=== PATIENT | male | born 1960 | race Caucasian/White ===

== ENCOUNTER 2017-01-10 21:40 | Inpatient (IN) | payer OTHER ==
[~2017-01-10] VITALS: Ht 177.8 cm; Wt 67.1 kg
[~2017-01-10 21:40] MED LIST: CHLO25CA9 PO; CLON0.25 PO; CLOT15CR4 TOP; EPIN0.3A4 IJ; ESCI10TA PO; FOLI1TAB16 PO; HYDR-2666 PO; Hydrocodone/Acetaminophen PO; IBUP200T77 PO; IPRA4AER INH; KETO15CR TOP; LACO200T PO; LISI-334 PO; LORA-434 PO; LORA0.5T96 PO; Lisinopril PO; MAGN400T22 PO; Multivitamins,Therapeutic PO; PRED20TA PO; PROAIR HFA8.5 GM INH; TEMA7.5C PO; THIA100T4 PO; TOPI25TA32 PO; TRAM50TA PO
[2017-01-10 22:27] LABS: BASO % 1 % (0-3); EOS % 3 % (0-3); HEMATOCRIT 41.4 % (39.0-53.0); HEMOGLOBIN 13.8 g/dL (13.0-17.5); LYMPH # 3.3 x10^3/uL (1.0-4.8); LYMPH % 50 % (24-48); MEAN CORPUSCULAR HEMOGLOBIN 31 pg (25-35); MEAN CORPUSCULAR HGB CONC 33 g/dL (31-37); MEAN CORPUSCULAR VOLUME 94 fL (79-100); MONO % 14 % (0-9); NEUT % 33 % (31-73); PLATELET COUNT 454 x10^3/uL (140-400); RED BLOOD COUNT 4.41 x10^6/uL (4.30-5.70); RED CELL DISTRIBUTION WIDTH 16.1 % (11.5-14.5); WHITE BLOOD COUNT 6.6 x10^3/uL (4.0-11.0)
[2017-01-10 22:45] LABS: ANION GAP 14 (6-14); BLOOD UREA NITROGEN 8 mg/dL (8-26); CALCIUM 9.2 mg/dL (8.5-10.1); CARBON DIOXIDE 28 mmol/L (21-32); CHLORIDE 102 mmol/L (98-107); CREATININE 0.7 mg/dL (0.7-1.3); GFR 117.5; GLUCOSE 115 mg/dL (70-99); POTASSIUM 3.7 mmol/L (3.5-5.1); SODIUM 144 mmol/L (136-145)
[2017-01-10 22:49] LABS: ALK PHOS 139 U/L (46-116); ALT (SGPT) 68 U/L (16-63); AST (SGOT) 59 U/L (15-37); DIRECT BILIRUBIN < 0.1 mg/dL (0.0-0.2); TOTAL BILIRUBIN 0.2 mg/dL (0.2-1.0); TOTAL PROTEIN 8.1 g/dL (6.4-8.2)
[2017-01-10 22:50] LABS: ETHANOL 386 mg/dL (0-10)
[2017-01-10] MEDS ORDERED: MVI, ADULT NO.4 WITH VIT K 10 ML, FOLIC ACID 1 MG, THIAMINE 100 MG in IV RINGERS,LACTAT... IV ONE ×4 (23:00)
[2017-01-10] MEDS ORDERED: LORAZEPAM 1 MG TABLET. PO ONE (23:15)
[2017-01-10] MEDS ORDERED: LORAZEPAM 2 MG/ML VIAL IV ONE (23:15)
[2017-01-10] MEDS ORDERED: ONDANSETRON PF 4 MG/2 ML VIAL. IV PRN (23:45)
[2017-01-11] MEDS: MORPHINE SULFATE 2 MG/ML DISP.SYRIN. IV PRN ×8 (00:20→23:45)
--- NOTE | 2017-01-11 02:22 | PHYS DOC ---
Past Medical History Past Medical History: Alcoholism, GERD, High Cholesterol, Hypertension, Hepatitis, RI, Seizure, Other Additional Past Medical Histor: problems with alcohol Past Surgical History: Other Additional Past Surgical Histo: L)leg &hip fx with surgery. Alcohol Use: Heavy Drug Use: Heroin, Marijuana, Methamphetamine, Other Adult General Chief Complaint Chief Complaint: intoxication HPI HPI 56-year-old male presenting to the emergency department today intoxicated brought in by EMS. Chief complaint listed as fall however the patient denies head trauma neck pain or any injuries from her recent fall. He is currently intoxicated. He denies chest pain abdominal pain shortness of breath. Onset today. Location generalized. Duration intermittent. No alleviating factors. Review of systems is negative for chest pain abdominal pain nausea vomiting fevers or chills. All other review of systems is negative unless otherwise noted in history of present illness. Review of Systems Review of Systems SEE ABOVE. Current Medications Current Medications Current Medications Medications (Trade) Dose Ordered Sig/Corinne Start Time Stop Time Status Last Admin Dose Admin Multivitamins/ Minerals/Folic Acid/Thiamine HCl/ Lactated Ringer's (Infuvite Adult/ Iv Lactated Ringers) 1,011.2 ml @ 1,000 mls/ hr 1X ONCE 01/10/17 23:00 01/11/17 00:00 DC 01/10/17 22:27 1,000 MLS/HR Allergies Allergies Allergies Coded Allergies Type Severity Reaction Last Updated Verified No Known Drug Allergies 07/25/16 No Physical Exam Physical Exam Constitutional: Well developed, well nourished, no acute distress, non-toxic appearance. HENT: Normocephalic, atraumatic, bilateral external ears normal, oropharynx moist, no oral exudates, nose normal. [] Eyes: PERRLA, EOMI, conjunctiva normal, no discharge. [] Neck: Normal range of motion, no tenderness, supple, no stridor. Cardiovascular:Heart rate regular rhythm, no murmur Lungs & Thorax: Bilateral breath sounds clear to auscultation Abdomen: Bowel sounds normal, soft, no tenderness, no masses, no pulsatile masses. [] Skin: Warm, dry, no erythema, no rash. Back: No tenderness, no CVA tenderness. Extremities: No tenderness, no cyanosis, no clubbing, ROM intact, no edema. Neurologic: Alert and oriented to person, intoxicated, normal motor function, normal sensory function, no focal deficits noted. Psychologic: Affect normal, judgement normal, mood normal. [] Current Patient Data Vital Signs Vital Signs Date Time Temp Pulse Resp B/P Pulse Ox O2 Delivery O2 Flow Rate FiO2 01/10/17 21:40 97.9 113 11 141/99 93 Room Air 97.9 Lab Values Laboratory Tests Test 01/10/17 22:15 White Blood Count 6.6x10^3/uL (4.0-11.0) Red Blood Count 4.41x10^6/uL (4.30-5.70) Hemoglobin 13.8g/dL (13.0-17.5) Hematocrit 41.4% (39.0-53.0) Mean Corpuscular Volume 94fL (79-100) Mean Corpuscular Hemoglobin 31pg (25-35) Mean Corpuscular Hemoglobin Concent 33g/dL (31-37) Red Cell Distribution Width 16.1% (11.5-14.5) H Platelet Count 454x10^3/uL (140-400) #H Neutrophils (%) (Auto) 33% (31-73) Lymphocytes (%) (Auto) 50% (24-48) H Monocytes (%) (Auto) 14% (0-9) H Eosinophils (%) (Auto) 3% (0-3) Basophils (%) (Auto) 1% (0-3) Neutrophils # (Auto) 2.2x10^3uL (1.8-7.7) Lymphocytes # (Auto) 3.3x10^3/uL (1.0-4.8) Monocytes # (Auto) 0.9x10^3/uL (0.0-1.1) Eosinophils # (Auto) 0.2x10^3/uL (0.0-0.7) Basophils # (Auto) 0.0x10^3/uL (0.0-0.2) Sodium Level 144mmol/L (136-145) Potassium Level 3.7mmol/L (3.5-5.1) Chloride Level 102mmol/L (98-107) Carbon Dioxide Level 28mmol/L (21-32) Anion Gap 14 (6-14) Blood Urea Nitrogen 8mg/dL (8-26) Creatinine 0.7mg/dL (0.7-1.3) Estimated GFR (Cockcroft-Gault) 117.5 Glucose Level 115mg/dL (70-99) H Serum Osmolality 387mOsm/Kg (279-304) H Calcium Level 9.2mg/dL (8.5-10.1) Total Bilirubin 0.2mg/dL (0.2-1.0) Direct Bilirubin < 0.1mg/dL (0.0-0.2) Aspartate Amino Transferase (AST) 59U/L (15-37) H Alanine Aminotransferase (ALT) 68U/L (16-63) H Alkaline Phosphatase 139U/L (46-116) H Total Protein 8.1g/dL (6.4-8.2) Albumin 4.0g/dL (3.4-5.0) Lipase 339U/L (73-393) Salicylates Level 3.0mg/dL (2.8-20.0) Salicylate Last Dose Date Unk Salicylate Last Dose Time Unk Acetaminophen Level < 2mcg/ml (10-30) L Acetaminophen Last Dose Date Unk Acetaminophen Last Dose Time Unk Ethyl Alcohol Level 386mg/dL (0-10) H Laboratory Tests 01/10/17 22:15 Laboratory Tests 01/10/17 22:15 EKG EKG [] Radiology/Procedures Radiology/Procedures [] Course & Med Decision Making Course & Med Decision Making Pertinent Labs and Imaging studies reviewed. (See chart for details) 56-year-old male presenting the emergency department intoxicated. No evidence of head trauma or neck injury on physical exam. Vital signs showed mild tachycardia otherwise unremarkable. Physical exam was without any evidence of traumatic injury. The patient was mildly agitated in the emergency department. He was given Ativan. This improved his symptoms. He was then admitted for further evaluation workup and care. Dragon Disclaimer Dragon Disclaimer This electronic medical record was generated, in whole or in part, using a voice recognition dictation system. Departure Departure Impression: Primary Impression: Alcohol intoxication Disposition: ADMITTED INPATIENT Condition: STABLE Referrals: NO PCP (PCP) IRLANDA GARCIA MD Jan 11, 2017 02:22
[2017-01-11 03:09] VITALS: BP 129/78
[2017-01-11 07:00] VITALS: BP 147/95
[2017-01-11] MEDS: LORAZEPAM 1 MG TABLET. PO PRN ×2 (08:11→19:36)
[2017-01-11] MEDS ORDERED: ONDANSETRON PF 4 MG/2 ML VIAL. IV PRN (09:29)
[2017-01-11] MEDS ORDERED: IBUPROFEN 200 MG TABLET PO PRN (09:30)
[2017-01-11] MEDS ORDERED: CHLORDIAZEPOXIDE HCL 25 MG CAPSULE PO PRN (09:30)
[2017-01-11 09:31] LABS: BILIRUBIN,URINE NEGATIVE (NEG); GLUCOSE,URINE NEGATIVE (NEG); NITRITE,URINE NEGATIVE (NEG); PH,URINE 6.5; PROTEIN,URINE NEGATIVE (NEG-TRACE); UROBILINOGEN,URINE 0.2 mg/dL (0.2 mg/dL)
[2017-01-11 09:36] LABS: BARBITURATES NEG (NEG); BENZODIAZEPINES NEG (NEG); CANNABINOIDS POS (NEG); COCAINE NEG (NEG); METHADONE NEG (NEG); OPIATES POS (NEG); PHENCYCLIDINE NEG (NEG)
[2017-01-11 09:37] LABS: ETHANOL, URINE POS (NEG)
[2017-01-11 09:47] LABS: BACTERIA,URINE 0 /HPF (0-FEW); RBC,URINE 0 /HPF (0-2); SQUAMOUS EPITHELIAL CELL,UR OCC /LPF; WBC,URINE 0 /HPF (0-4)
[2017-01-11] MEDS: TOPIRAMATE 25 MG TABLET. PO SCH ×2 (10:06→20:38)
[2017-01-11] MEDS: MAGNESIUM OXIDE 400 MG TABLET PO SCH ×2 (10:06→20:38)
[2017-01-11] MEDS: LACOSAMIDE 200 MG TABLET PO SCH ×2 (10:06→17:36)
[2017-01-11] MEDS: THIAMINE 100 MG TABLET. PO SCH (10:06)
[2017-01-11] MEDS: ESCITALOPRAM 10 MG TABLET. PO SCH (10:06)
[2017-01-11] MEDS: HYDROCODONE/APAP 5/325MG TABLET. PO PRN (10:06)
[2017-01-11] MEDS: FOLIC ACID 1 MG TABLET PO SCH (10:06)
[2017-01-11] MEDS: MULTIVITAMIN with MINERAL TABLET. PO SCH (10:06)
[2017-01-11] MEDS: LISINOPRIL 40 MG TABLET. PO SCH (10:06)
[2017-01-11] MEDS: MVI, ADULT NO.4 WITH VIT K 10 ML, FOLIC ACID 1 MG, THIAMINE 100 MG in IV DEXTROSE 5 %-0... IV SCH ×4 (10:53)
[2017-01-11 11:00] VITALS: BP 123/91
[2017-01-11] MEDS: LORAZEPAM 2 MG/ML VIAL IV PRN ×3 (11:14→21:49)
--- NOTE | 2017-01-11 13:34 | PDOC1 ---
History and Physical Date of Admission Date of Admission DATE: 01/11/17 TIME: 13:30 Identification/Chief Complaint Chief Complaint etoh intox Source Source: Caregiver, Chart review, Patient History of Present Illness History of Present Illness 56 y.o known to us bec of frequent admits, maybe around 2x/month bec of alcohol intox or withdrawal. COmes in again for the same reasons, visibly shaking, etoh > 300s VS sinus tachy, BP ok, Bucket at bedside, sometimes gets emesis Relays stories about being in contact with a sW or case mx, but they never got back to him, KNown to [facility] ([facility]). Requests nicotine patch Past Medical History Cardiovascular: CHF, HTN Pulmonary: COPD Psych: Anxiety, Addictions, Depression Renal/: No pertinent hx Past Surgical History Past Surgical History: Total hip replacement, Total knee replacement, No pertinent history Family History Family History: Alcohol Abuse Social History Smoke: No ALCOHOL: heavy Drugs: Cocaine, Marijuana, Heroin Current Problem List Problem List Problems Medical Problems: (1) Alcohol intoxication Status: Acute Problems: Current Medications Current Medications Current Medications Multivitamins/ Minerals/Folic Acid/Thiamine HCl/ Lactated Ringer's (Infuvite Adult/ Iv Lactated Ringers) 1,011.2 ml @ 1,000 mls/ hr 1X ONCE IV Last administered on 01/10/17 22:27; Start 01/10/17 at 23:00; Stop 01/11/17 at 00:00 ; Status DC Lorazepam (Ativan) 1 mg 1X ONCE PO Last administered on 01/10/17 23:12; Start 01/10/17 at 23:15; Stop 01/10/17 at 23:15; Status DC Lorazepam (Ativan) 1 mg 1X ONCE IV ; Start 01/10/17 at 23:15; Stop 01/10/17 at 23:15; Status DC Ondansetron HCl (Zofran) 4 mg PRN Q8HRS PRN IV NAUSEA/VOMITING Last administered on 01/11/17 07:33; Start 01/10/17 at 23:45; Stop 01/11/17 at 09:30 ; Status DC Morphine Sulfate 2 mg PRN Q2HR PRN IV SEVERE PAIN Last administered on 07:32; Start 01/10/17 at 23:45; Stop 01/11/17 at 23:44 Lorazepam (Ativan) 1 mg PRN Q6HRS PRN PO ANXIETY / AGITATION Last administered on 01/11/17 08:11; Start 01/10/17 at 23:45 Ondansetron HCl (Zofran) 4 mg PRN Q6HRS PRN IV NAUSEA/VOMITING; Start 01/11/17 at 09:29 Chlordiazepoxide 25 mg 25 mg PRN Q6HRS PRN PO ANXIETY / AGITATION; Start at 09:30 Multivitamins/ Minerals/Folic Acid/Thiamine HCl/ Dextrose/Sodium Chloride ( Infuvite Adult/ Iv D5% - 1/2 NS) 1,011.2 ml @ 100 mls/ hr DAILY IV Last administered on 01/11/17 10:53; Start 01/11/17 at 11:00 Lorazepam (Ativan) 2 mg PRN Q4HRS PRN IV ANXIETY / AGITATION Last administered on 01/11/17 11:14; Start 01/11/17 at 09:30 Escitalopram Oxalate (Lexapro) 10 mg DAILY PO Last administered on 01/11/17 10 :06; Start 01/11/17 at 10:30 Folic Acid (Folic Acid) 1 mg DAILY PO Last administered on 01/11/17 10:06; Start 01/11/17 at 10:30 Ibuprofen (Motrin) 200 mg PRN Q6HRS PRN PO INFLAMMATION; Start 01/11/17 at 09: 30 Lacosamide (Vimpat) 200 mg [id number] PO Last administered on 01/11/17 10:06; Start 01/11/17 at 10:30 Lorazepam (Ativan) 0.5 mg TID PO ; Start 01/11/17 at 14:00 Magnesium Oxide (Magnesium Oxide) 400 mg BID PO Last administered on 01/11/17 10:06; Start 01/11/17 at 10:30 Thiamine HCl (Vitamin B-1) 100 mg DAILY PO Last administered on 01/11/17 10:06 ; Start 01/11/17 at 10:30 Topiramate (Topamax) 25 mg BID PO Last administered on 01/11/17 10:06; Start 01/11/17 at 10:30 Albuterol Sulfate (Ventolin Neb Soln) 2.5 mg PRN QID PRN NEB SHORTNESS OF BREATH; Start 01/11/17 at 10:00 Acetaminophen/ Hydrocodone Bitart (Lortab 5/325) 1 tab PRN Q6HRS PRN PO PAIN MODERATE Last administered on 01/11/17 10:06; Start 01/11/17 at 10:00 Lisinopril (Prinivil) 40 mg DAILY PO Last administered on 01/11/17 10:06; Start 01/11/17 at 10:30 Multivitamins/ Calcium (Thera M Plus) 1 tab DAILY PO Last administered on 10:06; Start 01/11/17 at 10:30 Active Scripts Active Clonazepam 0.25 Mg Tab.rapdis 0.75 Mg PO TID Ibuprofen 200 Mg Tablet 200 Mg PO PRN Q6HRS PRN Topamax (Topiramate) 25 Mg Tablet 1 Tab PO BID Vimpat (Lacosamide) 200 Mg Tablet 200 Mg PO [id number] Escitalopram Oxalate 10 Mg Tablet 10 Mg PO DAILY Ativan (Lorazepam) 0.5 Mg Tablet 0.5 Mg PO TID Epipen 2-Erickson (Epinephrine) 0.3 Mg/0.3 Ml Auto.injct 0.3 Mg IJ 1X PRN Vitamin B-1 (Thiamine Hcl) 100 Mg Tablet 100 Mg PO DAILY Mag-Oxide (Magnesium Oxide) 400 Mg Tablet 400 Mg PO BID [Lisinopril] 40 MG Tablet 40 Mg PO DAILY [Hydrocodone/Acetaminophen] 1 TAB Tablet 1 Tab PO PRN Q6HRS PRN Folic Acid 1 Mg Tablet 1 Mg PO DAILY [Multivitamins,Therapeutic] 1 TAB Tablet 1 Tab PO DAILY Reported Combivent Respimat Inhal (Ipratropium/Albuterol Sulfate) 4 Gm Aer.w.adap 1 Puff INH QIDPRN PRN Proair Hfa Inhaler (Albuterol Sulfate) 8.5 Gm Hfa.aer.ad 1 Puff INH QIDPRN PRN Allergies Allergies: Coded Allergies: No Known Drug Allergies (Unverified , 07/25/16) ROS General: YES: Other (shakes) PSYCHOLOGICAL ROS: No: Anxiety, Behavioral Disorder, Concentration difficultie , Decreased libido, Depression, Disorientation, Hallucinations, Hostility, Irritablity, Memory difficulties, Mood Swings, Obsessive thoughts, Other, Physical abuse, Sexual abuse, Sleep disturbances, Suicidal ideation HEENT: No: Epistaxis, Heacaches, Hearing change, Nasal congestion, Nasal discharge, Oral lesions, Other, Sinus pain, Sneezing, Snoring, Sore Throat, Tinnitus, Vertigo, Visual Changes, Vocal changes ALLERGY AND IMMUNOLOGY: No: Hives, Insect Bite Sensitivity, Itchy/Watery Eyes, Nasal Congestion, Other, Post Nasal Drip, Seasonal Allergies Hematological and Lymphatic: No: Bleeding Problems, Blood Clots, Blood Transfusions, Brusing, Night Sweats, Other, Pallor, Swollen Lymph Nodes Respiratory: No: Cough, Hemoptysis, Orthopnea, Other, Pleuritic Pain, SOB with excertion, Shortness of breath, Sputum Changes, Stridor, Tachypnea, Wheezing Gastrointestinal: Yes Abdominal Pain, Yes Nausea, Yes Vomiting Genitourinary: No , No , No , No , No , No , No , No Discharge, No Dysuria, No Flank Pain, No Frequency, No Hematuria, No Incontinence, No Other, No Pain, No Retention, No Urgency Musculoskeletal: No Gait Disturbance, No Joint Pain, No Joint Stiffness, No Joint Swelling, No Muscle Pain, No Muscular Weakness, No Other, No Pain In:, No Swelling In: Neurological: No Behavorial Changes, No Bowel/Bladder ControlChng, No Confusion , No Dizziness, No Gait Disturbance, No Headaches, No Impaired Coord/balance, No Memory Loss, No Numbness/Tingling, No Other, No Seizures, No Speech Problems , No Tremors, No Visual Changes, No Weakness Skin: No Acne, No Dry Skin, No Eczema, No Hair Changes, No Lumps, No Mole Changes, No Mottling, No Nail Changes, No Other, No Pruritus, No Rash, No Skin Lesion Changes Physical Exam General: Alert, Oriented X3, Cooperative, No acute distress, Other (shaking; unkempt) HEENT: PERRLA Lungs: Clear to auscultation Heart: S1S2 Cardiovascular: S1, S2 Breasts: Normal, Rt breast nml w/o mass, Lt breast nml w/o mass, Nipples normal Abdomen: Normal bowel sounds, Soft, No tenderness, No hepatosplenomegaly, No masses Extremities: No clubbing, No cyanosis, No edema, Normal pulses, No tenderness/ swelling Skin: No rashes, No breakdown, No significant lesion Neuro: Normal gait, Normal speech, Strength at 5/5 X4 ext, Normal tone, Sensation intact, Cranial nerves 3-12 NL, Reflexes 2+ Psych/Mental Status: Mental status NL, Mood NL Vitals Vitals Vital Signs Date Time Temp Pulse Resp B/P Pulse Ox O2 Delivery O2 Flow Rate FiO2 01/11/17 11:22 Room Air 01/11/17 11:00 98.0 86 123/91 92 98.0 01/11/17 03:44 16 Labs Labs Laboratory Tests Test 01/10/17 09:00 01/10/17 22:15 Urine Collection Type Unknown Urine Color Yellow Urine Clarity Clear Urine pH 6.5 Urine Specific Carlton 1.015 Urine Protein Negativemg/dL (NEG-TRACE) Urine Glucose (UA) Negativemg/dL (NEG) Urine Ketones (Stick) Negativemg/dL (NEG) Urine Blood Negative (NEG) Urine Nitrite Negative (NEG) Urine Bilirubin Negative (NEG) Urine Urobilinogen Dipstick 0.2mg/dL (0.2 mg/dL) Urine Leukocyte Esterase Negative (NEG) Urine RBC 0/HPF (0-2) Urine WBC 0/HPF (0-4) Urine Squamous Epithelial Cells Occ/LPF Urine Bacteria 0/HPF (0-FEW) Urine Hyaline Casts Moderate/HPF Urine Mucus Mod/LPF Urine Opiates Screen Pos (NEG) Urine Methadone Screen Neg (NEG) Urine Barbiturates Neg (NEG) Urine Phencyclidine Screen Neg (NEG) Urine Amphetamine/Methamphetamine Neg (NEG) Urine Benzodiazepines Screen Neg (NEG) Urine Cocaine Screen Neg (NEG) Urine Cannabinoids Screen Pos (NEG) Urine Ethyl Alcohol Pos (NEG) White Blood Count 6.6x10^3/uL (4.0-11.0) Red Blood Count 4.41x10^6/uL (4.30-5.70) Hemoglobin 13.8g/dL (13.0-17.5) Hematocrit 41.4% (39.0-53.0) Mean Corpuscular Volume 94fL (79-100) Mean Corpuscular Hemoglobin 31pg (25-35) Mean Corpuscular Hemoglobin Concent 33g/dL (31-37) Red Cell Distribution Width 16.1% (11.5-14.5) Platelet Count 454x10^3/uL (140-400) Neutrophils (%) (Auto) 33% (31-73) Lymphocytes (%) (Auto) 50% (24-48) Monocytes (%) (Auto) 14% (0-9) Eosinophils (%) (Auto) 3% (0-3) Basophils (%) (Auto) 1% (0-3) Neutrophils # (Auto) 2.2x10^3uL (1.8-7.7) Lymphocytes # (Auto) 3.3x10^3/uL (1.0-4.8) Monocytes # (Auto) 0.9x10^3/uL (0.0-1.1) Eosinophils # (Auto) 0.2x10^3/uL (0.0-0.7) Basophils # (Auto) 0.0x10^3/uL (0.0-0.2) Sodium Level 144mmol/L (136-145) Potassium Level 3.7mmol/L (3.5-5.1) Chloride Level 102mmol/L (98-107) Carbon Dioxide Level 28mmol/L (21-32) Anion Gap 14 (6-14) Blood Urea Nitrogen 8mg/dL (8-26) Creatinine 0.7mg/dL (0.7-1.3) Estimated GFR (Cockcroft-Gault) 117.5 Glucose Level 115mg/dL (70-99) Serum Osmolality 387mOsm/Kg (279-304) Calcium Level 9.2mg/dL (8.5-10.1) Total Bilirubin 0.2mg/dL (0.2-1.0) Direct Bilirubin < 0.1mg/dL (0.0-0.2) Aspartate Amino Transf (AST/SGOT) 59U/L (15-37) Alanine Aminotransferase (ALT/SGPT) 68U/L (16-63) Alkaline Phosphatase 139U/L (46-116) Total Protein 8.1g/dL (6.4-8.2) Albumin 4.0g/dL (3.4-5.0) Lipase 339U/L (73-393) Salicylates Level 3.0mg/dL (2.8-20.0) Salicylate Last Dose Date Unk Salicylate Last Dose Time Unk Acetaminophen Level < 2mcg/ml (10-30) Acetaminophen Last Dose Date Unk Acetaminophen Last Dose Time Unk Ethyl Alcohol Level 386mg/dL (0-10) Laboratory Tests Test 01/10/17 22:15 White Blood Count 6.6x10^3/uL (4.0-11.0) Red Blood Count 4.41x10^6/uL (4.30-5.70) Hemoglobin 13.8g/dL (13.0-17.5) Hematocrit 41.4% (39.0-53.0) Mean Corpuscular Volume 94fL (79-100) Mean Corpuscular Hemoglobin 31pg (25-35) Mean Corpuscular Hemoglobin Concent 33g/dL (31-37) Red Cell Distribution Width 16.1% (11.5-14.5) Platelet Count 454x10^3/uL (140-400) Neutrophils (%) (Auto) 33% (31-73) Lymphocytes (%) (Auto) 50% (24-48) Monocytes (%) (Auto) 14% (0-9) Eosinophils (%) (Auto) 3% (0-3) Basophils (%) (Auto) 1% (0-3) Neutrophils # (Auto) 2.2x10^3uL (1.8-7.7) Lymphocytes # (Auto) 3.3x10^3/uL (1.0-4.8) Monocytes # (Auto) 0.9x10^3/uL (0.0-1.1) Eosinophils # (Auto) 0.2x10^3/uL (0.0-0.7) Basophils # (Auto) 0.0x10^3/uL (0.0-0.2) Sodium Level 144mmol/L (136-145) Potassium Level 3.7mmol/L (3.5-5.1) Chloride Level 102mmol/L (98-107) Carbon Dioxide Level 28mmol/L (21-32) Anion Gap 14 (6-14) Blood Urea Nitrogen 8mg/dL (8-26) Creatinine 0.7mg/dL (0.7-1.3) Estimated GFR (Cockcroft-Gault) 117.5 Glucose Level 115mg/dL (70-99) Serum Osmolality 387mOsm/Kg (279-304) Calcium Level 9.2mg/dL (8.5-10.1) Total Bilirubin 0.2mg/dL (0.2-1.0) Direct Bilirubin < 0.1mg/dL (0.0-0.2) Aspartate Amino Transf (AST/SGOT) 59U/L (15-37) Alanine Aminotransferase (ALT/SGPT) 68U/L (16-63) Alkaline Phosphatase 139U/L (46-116) Total Protein 8.1g/dL (6.4-8.2) Albumin 4.0g/dL (3.4-5.0) Lipase 339U/L (73-393) Salicylates Level 3.0mg/dL (2.8-20.0) Salicylate Last Dose Date Unk Salicylate Last Dose Time Unk Acetaminophen Level < 2mcg/ml (10-30) Acetaminophen Last Dose Date Unk Acetaminophen Last Dose Time Unk Ethyl Alcohol Level 386mg/dL (0-10) VTE Prophylaxis Ordered VTE Prophylaxis Devices: Yes VTE Pharmacological Prophylaxi: Yes Assessment/Plan Assessment/Plan 1. Alcohol intox 2. MOd PCM 3. HX Drugs of abuse 4. Homelessness 5. Sinus tachy 6. MOd PCM\ PLAN: BAnana bag CIWA Benzos Nicotine patch Not ready to dc - visibly shaking and unstable gait dw RN and pt LEONARDO PARISH MD Jan 11, 2017 13:34
[2017-01-11] MEDS: LORAZEPAM 0.5 MG TABLET. PO SCH ×2 (14:00→20:38)
[2017-01-11] MEDS: NICOTINE 21MG PATCH. TD SCH (14:01)
[2017-01-11 15:00] VITALS: BP 132/89
[2017-01-11] MEDS: ALBUTEROL SULFATE 2.5 MG/3 ML NEBU. NEB PRN ×2 (16:43→19:59)
[2017-01-11 19:00] VITALS: BP 126/83
[2017-01-11 23:03] VITALS: BP 139/85
[2017-01-12 03:06] VITALS: BP 138/90
[2017-01-12] MEDS: HYDROCODONE/APAP 5/325MG TABLET. PO PRN ×3 (06:18→20:16)
[2017-01-12] MEDS: LACOSAMIDE 200 MG TABLET PO SCH ×2 (06:18→17:47)
[2017-01-12] MEDS: LORAZEPAM 2 MG/ML VIAL IV PRN ×2 (06:20→12:15)
[2017-01-12 07:00] VITALS: BP 139/102
[2017-01-12] MEDS: FOLIC ACID 1 MG TABLET PO SCH (10:35)
[2017-01-12] MEDS: LORAZEPAM 0.5 MG TABLET. PO SCH ×3 (10:35→20:16)
[2017-01-12] MEDS: ESCITALOPRAM 10 MG TABLET. PO SCH (10:36)
[2017-01-12] MEDS: MAGNESIUM OXIDE 400 MG TABLET PO SCH ×2 (10:36→20:56)
[2017-01-12] MEDS: MULTIVITAMIN with MINERAL TABLET. PO SCH (10:37)
[2017-01-12] MEDS: LISINOPRIL 40 MG TABLET. PO SCH (10:37)
[2017-01-12] MEDS: TOPIRAMATE 25 MG TABLET. PO SCH ×2 (10:37→20:16)
[2017-01-12] MEDS: THIAMINE 100 MG TABLET. PO SCH (10:38)
[2017-01-12] MEDS: NICOTINE 21MG PATCH. TD SCH (10:38)
[2017-01-12] MEDS: MVI, ADULT NO.4 WITH VIT K 10 ML, FOLIC ACID 1 MG, THIAMINE 100 MG in IV DEXTROSE 5 %-0... IV SCH ×4 (10:49)
--- NOTE | 2017-01-12 10:53 | PDOC ---
PROGRESS NOTES Chief Complaint Chief Complaint 1. Alcohol intox 2. MOd PCM 3. HX Drugs of abuse 4. Homelessness 5. Sinus tachy 6. MOd PCM\ History of Present Illness History of Present Illness still visibly shaking IV might have infiltrated Dw RN at bedside PLAN: COnt CIWA, benzos prn PT.OT as tolerated Not ready for dc yet Vitals Vitals Vital Signs Date Time Temp Pulse Resp B/P Pulse Ox O2 Delivery O2 Flow Rate FiO2 01/12/17 10:37 85 137/92 01/12/17 07:31 16 95 Room Air 2.0 01/12/17 07:00 99.7 99.7 Physical Exam General: Alert, Oriented X3, Cooperative, No acute distress, Other (shaking; unkempt) Lungs: Clear Abdomen: Normal bowel sounds, Soft, No tenderness, No hepatosplenomegaly, No masses Extremities: No clubbing, No cyanosis, No edema, Normal pulses, No tenderness/ swelling Skin: No rashes, No breakdown, No significant lesion Review of Systems Review of Systems shakes, pain all over, no cp, no soa, no emesis Assessment and Plan Assessmemt and Plan Problems Medical Problems: (1) Alcohol intoxication Status: Acute Problems: Comment Review of Relevant I have reviewed the following items keisha (where applicable) has been applied. Labs Laboratory Tests Test 01/10/17 22:15 White Blood Count 6.6x10^3/uL (4.0-11.0) Red Blood Count 4.41x10^6/uL (4.30-5.70) Hemoglobin 13.8g/dL (13.0-17.5) Hematocrit 41.4% (39.0-53.0) Mean Corpuscular Volume 94fL (79-100) Mean Corpuscular Hemoglobin 31pg (25-35) Mean Corpuscular Hemoglobin Concent 33g/dL (31-37) Red Cell Distribution Width 16.1% (11.5-14.5) Platelet Count 454x10^3/uL (140-400) Neutrophils (%) (Auto) 33% (31-73) Lymphocytes (%) (Auto) 50% (24-48) Monocytes (%) (Auto) 14% (0-9) Eosinophils (%) (Auto) 3% (0-3) Basophils (%) (Auto) 1% (0-3) Neutrophils # (Auto) 2.2x10^3uL (1.8-7.7) Lymphocytes # (Auto) 3.3x10^3/uL (1.0-4.8) Monocytes # (Auto) 0.9x10^3/uL (0.0-1.1) Eosinophils # (Auto) 0.2x10^3/uL (0.0-0.7) Basophils # (Auto) 0.0x10^3/uL (0.0-0.2) Sodium Level 144mmol/L (136-145) Potassium Level 3.7mmol/L (3.5-5.1) Chloride Level 102mmol/L (98-107) Carbon Dioxide Level 28mmol/L (21-32) Anion Gap 14 (6-14) Blood Urea Nitrogen 8mg/dL (8-26) Creatinine 0.7mg/dL (0.7-1.3) Estimated GFR (Cockcroft-Gault) 117.5 Glucose Level 115mg/dL (70-99) Serum Osmolality 387mOsm/Kg (279-304) Calcium Level 9.2mg/dL (8.5-10.1) Total Bilirubin 0.2mg/dL (0.2-1.0) Direct Bilirubin < 0.1mg/dL (0.0-0.2) Aspartate Amino Transf (AST/SGOT) 59U/L (15-37) Alanine Aminotransferase (ALT/SGPT) 68U/L (16-63) Alkaline Phosphatase 139U/L (46-116) Total Protein 8.1g/dL (6.4-8.2) Albumin 4.0g/dL (3.4-5.0) Lipase 339U/L (73-393) Salicylates Level 3.0mg/dL (2.8-20.0) Salicylate Last Dose Date Unk Salicylate Last Dose Time Unk Acetaminophen Level < 2mcg/ml (10-30) Acetaminophen Last Dose Date Unk Acetaminophen Last Dose Time Unk Ethyl Alcohol Level 386mg/dL (0-10) Medications Current Medications Multivitamins/ Minerals/Folic Acid/Thiamine HCl/ Lactated Ringer's (Infuvite Adult/ Iv Lactated Ringers) 1,011.2 ml @ 1,000 mls/ hr 1X ONCE IV Last administered on 01/10/17 22:27; Start 01/10/17 at 23:00; Stop 01/11/17 at 00:00 ; Status DC Lorazepam (Ativan) 1 mg 1X ONCE PO Last administered on 01/10/17 23:12; Start 01/10/17 at 23:15; Stop 01/10/17 at 23:15; Status DC Lorazepam (Ativan) 1 mg 1X ONCE IV ; Start 01/10/17 at 23:15; Stop 01/10/17 at 23:15; Status DC Ondansetron HCl (Zofran) 4 mg PRN Q8HRS PRN IV NAUSEA/VOMITING Last administered on 01/11/17 07:33; Start 01/10/17 at 23:45; Stop 01/11/17 at 09:30 ; Status DC Morphine Sulfate 2 mg PRN Q2HR PRN IV SEVERE PAIN Last administered on 23:45; Start 01/10/17 at 23:45; Stop 01/11/17 at 23:44; Status DC Lorazepam (Ativan) 1 mg PRN Q6HRS PRN PO ANXIETY / AGITATION Last administered on 01/11/17 19:36; Start 01/10/17 at 23:45; Stop 01/11/17 at 19:40; Status DC Ondansetron HCl (Zofran) 4 mg PRN Q6HRS PRN IV NAUSEA/VOMITING; Start 01/11/17 at 09:29 Chlordiazepoxide 25 mg 25 mg PRN Q6HRS PRN PO ANXIETY / AGITATION; Start at 09:30 Multivitamins/ Minerals/Folic Acid/Thiamine HCl/ Dextrose/Sodium Chloride ( Infuvite Adult/ Iv D5% - 1/2 NS) 1,011.2 ml @ 100 mls/ hr DAILY IV Last administered on 01/12/17 10:49; Start 01/11/17 at 11:00 Lorazepam (Ativan) 2 mg PRN Q4HRS PRN IV ANXIETY / AGITATION Last administered on 01/12/17 06:20; Start 01/11/17 at 09:30 Escitalopram Oxalate (Lexapro) 10 mg DAILY PO Last administered on 01/12/17 10 :36; Start 01/11/17 at 10:30 Folic Acid (Folic Acid) 1 mg DAILY PO Last administered on 01/12/17 10:35; Start 01/11/17 at 10:30 Ibuprofen (Motrin) 200 mg PRN Q6HRS PRN PO INFLAMMATION; Start 01/11/17 at 09: 30 Lacosamide (Vimpat) 200 mg [id number] PO Last administered on 01/12/17 06:18; Start 01/11/17 at 10:30 Lorazepam (Ativan) 0.5 mg TID PO Last administered on 01/12/17 10:35; Start at 14:00 Magnesium Oxide (Magnesium Oxide) 400 mg BID PO Last administered on 01/12/17 10:36; Start 01/11/17 at 10:30 Thiamine HCl (Vitamin B-1) 100 mg DAILY PO Last administered on 01/12/17 10:38 ; Start 01/11/17 at 10:30 Topiramate (Topamax) 25 mg BID PO Last administered on 01/12/17 10:37; Start 01/11/17 at 10:30 Albuterol Sulfate (Ventolin Neb Soln) 2.5 mg PRN QID PRN NEB SHORTNESS OF BREATH Last administered on 01/11/17 19:59; Start 01/11/17 at 10:00 Acetaminophen/ Hydrocodone Bitart (Lortab 5/325) 1 tab PRN Q6HRS PRN PO PAIN MODERATE Last administered on 01/12/17 06:18; Start 01/11/17 at 10:00 Lisinopril (Prinivil) 40 mg DAILY PO Last administered on 01/12/17 10:37; Start 01/11/17 at 10:30 Multivitamins/ Calcium (Thera M Plus) 1 tab DAILY PO Last administered on 10:37; Start 01/11/17 at 10:30 Nicotine (Nicoderm Cq 21mg) 1 patch DAILY TD Last administered on 01/12/17 10: 38; Start 01/11/17 at 14:00 Active Scripts Active Clonazepam 0.25 Mg Tab.rapdis 0.75 Mg PO TID Ibuprofen 200 Mg Tablet 200 Mg PO PRN Q6HRS PRN Topamax (Topiramate) 25 Mg Tablet 1 Tab PO BID Vimpat (Lacosamide) 200 Mg Tablet 200 Mg PO [id number] Escitalopram Oxalate 10 Mg Tablet 10 Mg PO DAILY Ativan (Lorazepam) 0.5 Mg Tablet 0.5 Mg PO TID Epipen 2-Erickson (Epinephrine) 0.3 Mg/0.3 Ml Auto.injct 0.3 Mg IJ 1X PRN Vitamin B-1 (Thiamine Hcl) 100 Mg Tablet 100 Mg PO DAILY Mag-Oxide (Magnesium Oxide) 400 Mg Tablet 400 Mg PO BID [Lisinopril] 40 MG Tablet 40 Mg PO DAILY [Hydrocodone/Acetaminophen] 1 TAB Tablet 1 Tab PO PRN Q6HRS PRN Folic Acid 1 Mg Tablet 1 Mg PO DAILY [Multivitamins,Therapeutic] 1 TAB Tablet 1 Tab PO DAILY Reported Combivent Respimat Inhal (Ipratropium/Albuterol Sulfate) 4 Gm Aer.w.adap 1 Puff INH QIDPRN PRN Proair Hfa Inhaler (Albuterol Sulfate) 8.5 Gm Hfa.aer.ad 1 Puff INH QIDPRN PRN Vitals/I & O Vital Sign - Last 24 Hours 01/11/17 01/11/17 01/11/17 01/11/17 11:00 14:01 15:00 16:14 Temp 98.0 98.9 98.0 98.9 Pulse 86 81 B/P 123/91 132/89 Pulse Ox 92 92 O2 Delivery Room Air Room Air Nasal Cannula Room Air O2 Flow Rate 2.0 01/11/17 01/11/17 01/11/17 01/11/17 16:43 19:00 19:40 19:46 Temp 99.7 99.7 Pulse 91 Resp 19 18 B/P 126/83 Pulse Ox 91 92 O2 Delivery Room Air Nasal Cannula Room Air Room Air O2 Flow Rate 2.0 2.0 01/11/17 01/11/17 01/11/17 01/11/17 19:59 20:00 21:50 22:49 Resp 18 18 Pulse Ox 86 92 92 O2 Delivery Room Air Nasal Cannula Room Air Room Air O2 Flow Rate 2.0 2.0 01/11/17 01/11/17 01/12/17 01/12/17 23:03 23:45 03:06 06:18 Temp 99.0 99.5 99.0 99.5 Pulse 110 80 Resp 20 18 20 18 B/P 139/85 138/90 Pulse Ox 95 95 95 O2 Delivery Nasal Cannula Room Air Nasal Cannula Room Air O2 Flow Rate 2.0 2.0 2.0 01/12/17 01/12/17 01/12/17 07:00 07:31 10:37 Temp 99.7 99.7 Pulse 88 85 Resp 20 16 B/P 139/102 137/92 Pulse Ox 94 95 O2 Delivery Nasal Cannula Room Air O2 Flow Rate 2.0 2.0 Intake and Output 01/11/17 01/11/17 01/12/17 15:00 23:00 07:00 Intake Total 600 ml Output Total 800 ml 1475 ml Balance -800 ml -875 ml LEONARDO PARISH MD Jan 12, 2017 10:53
[2017-01-12 11:45] VITALS: BP 137/92
[2017-01-12 15:00] VITALS: BP 133/83
[2017-01-12 19:00] VITALS: BP 126/77
[2017-01-12 23:00] VITALS: BP 140/71
[2017-01-13] MEDS: LACOSAMIDE 200 MG TABLET PO SCH ×2 (06:04→16:33)
[2017-01-13 07:00] VITALS: BP 122/87
[2017-01-13] MEDS: MAGNESIUM OXIDE 400 MG TABLET PO SCH ×2 (09:18→20:43)
[2017-01-13] MEDS: FOLIC ACID 1 MG TABLET PO SCH (09:19)
[2017-01-13] MEDS: ESCITALOPRAM 10 MG TABLET. PO SCH (09:19)
[2017-01-13] MEDS: THIAMINE 100 MG TABLET. PO SCH (09:19)
[2017-01-13] MEDS: MULTIVITAMIN with MINERAL TABLET. PO SCH (09:19)
[2017-01-13] MEDS: TOPIRAMATE 25 MG TABLET. PO SCH ×2 (09:19→20:43)
[2017-01-13] MEDS: LISINOPRIL 40 MG TABLET. PO SCH (09:20)
[2017-01-13] MEDS: NICOTINE 21MG PATCH. TD SCH (09:20)
[2017-01-13] MEDS: LORAZEPAM 0.5 MG TABLET. PO SCH ×3 (09:20→20:43)
[2017-01-13 11:00] VITALS: BP 145/70
--- NOTE | 2017-01-13 12:22 | PDOC ---
PROGRESS NOTES Chief Complaint Chief Complaint 1. Alcohol intox 2. MOd PCM 3. HX Drugs of abuse 4. Homelessness 5. Sinus tachy 6. MOd PCM\ History of Present Illness History of Present Illness still visibly shaking IV might have infiltrated Dw RN at bedside PLAN: COnt CIWA, benzos prn PT.OT as tolerated Not ready for dc yet Vitals Vitals Vital Signs Date Time Temp Pulse Resp B/P Pulse Ox O2 Delivery O2 Flow Rate FiO2 01/13/17 09:20 83 122/87 01/13/17 08:00 Room Air 01/13/17 07:00 96.6 18 93 96.6 01/12/17 16:16 2.0 Physical Exam General: Alert, Oriented X3, Cooperative, No acute distress, Other (shaking; unkempt) Lungs: Clear Abdomen: Normal bowel sounds, Soft, No tenderness, No hepatosplenomegaly, No masses Extremities: No clubbing, No cyanosis, No edema, Normal pulses, No tenderness/ swelling Skin: No rashes, No breakdown, No significant lesion Labs LABS Laboratory Tests Test 01/12/17 16:24 Glucose (Fingerstick) 111mg/dL (70-99) Assessment and Plan Assessmemt and Plan Problems Medical Problems: (1) Alcohol intoxication Status: Acute Problems: Comment Review of Relevant I have reviewed the following items keisha (where applicable) has been applied. Labs Laboratory Tests Test 01/12/17 16:24 Glucose (Fingerstick) 111mg/dL (70-99) Laboratory Tests Test 01/12/17 16:24 Glucose (Fingerstick) 111mg/dL (70-99) Medications Current Medications Multivitamins/ Minerals/Folic Acid/Thiamine HCl/ Lactated Ringer's (Infuvite Adult/ Iv Lactated Ringers) 1,011.2 ml @ 1,000 mls/ hr 1X ONCE IV Last administered on 01/10/17 22:27; Start 01/10/17 at 23:00; Stop 01/11/17 at 00:00 ; Status DC Lorazepam (Ativan) 1 mg 1X ONCE PO Last administered on 01/10/17 23:12; Start 01/10/17 at 23:15; Stop 01/10/17 at 23:15; Status DC Lorazepam (Ativan) 1 mg 1X ONCE IV ; Start 01/10/17 at 23:15; Stop 01/10/17 at 23:15; Status DC Ondansetron HCl (Zofran) 4 mg PRN Q8HRS PRN IV NAUSEA/VOMITING Last administered on 01/11/17 07:33; Start 01/10/17 at 23:45; Stop 01/11/17 at 09:30 ; Status DC Morphine Sulfate 2 mg PRN Q2HR PRN IV SEVERE PAIN Last administered on 23:45; Start 01/10/17 at 23:45; Stop 01/11/17 at 23:44; Status DC Lorazepam (Ativan) 1 mg PRN Q6HRS PRN PO ANXIETY / AGITATION Last administered on 01/11/17 19:36; Start 01/10/17 at 23:45; Stop 01/11/17 at 19:40; Status DC Ondansetron HCl (Zofran) 4 mg PRN Q6HRS PRN IV NAUSEA/VOMITING; Start 01/11/17 at 09:29 Chlordiazepoxide 25 mg 25 mg PRN Q6HRS PRN PO ANXIETY / AGITATION Last administered on 01/12/17 18:01; Start 01/11/17 at 09:30 Multivitamins/ Minerals/Folic Acid/Thiamine HCl/ Dextrose/Sodium Chloride ( Infuvite Adult/ Iv D5% - 1/2 NS) 1,011.2 ml @ 100 mls/ hr DAILY IV Last administered on 01/12/17 10:49; Start 01/11/17 at 11:00; Stop 01/13/17 at 05:00 ; Status DC Lorazepam (Ativan) 2 mg PRN Q4HRS PRN IV ANXIETY / AGITATION Last administered on 01/12/17 12:15; Start 01/11/17 at 09:30 Escitalopram Oxalate (Lexapro) 10 mg DAILY PO Last administered on 01/13/17 09 :19; Start 01/11/17 at 10:30 Folic Acid (Folic Acid) 1 mg DAILY PO Last administered on 01/13/17 09:19; Start 01/11/17 at 10:30 Ibuprofen (Motrin) 200 mg PRN Q6HRS PRN PO INFLAMMATION; Start 01/11/17 at 09: 30 Lacosamide (Vimpat) 200 mg [id number] PO Last administered on 01/13/17 06:04; Start 01/11/17 at 10:30 Lorazepam (Ativan) 0.5 mg TID PO Last administered on 01/13/17 09:20; Start at 14:00 Magnesium Oxide (Magnesium Oxide) 400 mg BID PO Last administered on 01/13/17 09:18; Start 01/11/17 at 10:30 Thiamine HCl (Vitamin B-1) 100 mg DAILY PO Last administered on 01/13/17 09:19 ; Start 01/11/17 at 10:30 Topiramate (Topamax) 25 mg BID PO Last administered on 01/13/17 09:19; Start 01/11/17 at 10:30 Albuterol Sulfate (Ventolin Neb Soln) 2.5 mg PRN QID PRN NEB SHORTNESS OF BREATH Last administered on 01/11/17 19:59; Start 01/11/17 at 10:00 Acetaminophen/ Hydrocodone Bitart (Lortab 5/325) 1 tab PRN Q6HRS PRN PO PAIN MODERATE Last administered on 01/12/17 20:16; Start 01/11/17 at 10:00 Lisinopril (Prinivil) 40 mg DAILY PO Last administered on 01/13/17 09:20; Start 01/11/17 at 10:30 Multivitamins/ Calcium (Thera M Plus) 1 tab DAILY PO Last administered on 09:19; Start 01/11/17 at 10:30 Nicotine (Nicoderm Cq 21mg) 1 patch DAILY TD Last administered on 01/13/17 09: 20; Start 01/11/17 at 14:00 Active Scripts Active Clonazepam 0.25 Mg Tab.rapdis 0.75 Mg PO TID Ibuprofen 200 Mg Tablet 200 Mg PO PRN Q6HRS PRN Topamax (Topiramate) 25 Mg Tablet 1 Tab PO BID Vimpat (Lacosamide) 200 Mg Tablet 200 Mg PO [id number] Escitalopram Oxalate 10 Mg Tablet 10 Mg PO DAILY Ativan (Lorazepam) 0.5 Mg Tablet 0.5 Mg PO TID Epipen 2-Erickson (Epinephrine) 0.3 Mg/0.3 Ml Auto.injct 0.3 Mg IJ 1X PRN Vitamin B-1 (Thiamine Hcl) 100 Mg Tablet 100 Mg PO DAILY Mag-Oxide (Magnesium Oxide) 400 Mg Tablet 400 Mg PO BID [Lisinopril] 40 MG Tablet 40 Mg PO DAILY [Hydrocodone/Acetaminophen] 1 TAB Tablet 1 Tab PO PRN Q6HRS PRN Folic Acid 1 Mg Tablet 1 Mg PO DAILY [Multivitamins,Therapeutic] 1 TAB Tablet 1 Tab PO DAILY Reported Combivent Respimat Inhal (Ipratropium/Albuterol Sulfate) 4 Gm Aer.w.adap 1 Puff INH QIDPRN PRN Proair Hfa Inhaler (Albuterol Sulfate) 8.5 Gm Hfa.aer.ad 1 Puff INH QIDPRN PRN Vitals/I & O Vital Sign - Last 24 Hours 01/12/17 01/12/17 01/12/17 01/12/17 15:00 15:16 16:16 19:00 Temp 98.2 98.6 98.2 98.6 Pulse 91 114 Resp 16 20 22 B/P 133/83 126/77 Pulse Ox 94 97 97 95 O2 Delivery Room Air Room Air Room Air Room Air O2 Flow Rate 2.0 2.0 01/12/17 01/12/17 01/13/17 01/13/17 21:20 23:00 07:00 08:00 Temp 97.8 96.6 97.8 96.6 Pulse 77 83 Resp 20 18 18 B/P 140/71 122/87 Pulse Ox 94 93 O2 Delivery Room Air Room Air Room Air 01/13/17 09:20 Pulse 83 B/P 122/87 Intake and Output 01/12/17 01/12/17 01/13/17 15:00 23:00 07:00 Intake Total 200 ml 550 ml Output Total 200 ml Balance 200 ml 550 ml -200 ml LEONARDO PARISH MD Jan 13, 2017 12:21
[2017-01-13 15:00] VITALS: BP 136/85
[2017-01-13] MEDS: HYDROCODONE/APAP 5/325MG TABLET. PO PRN (16:34)
[2017-01-13 19:00] VITALS: BP 126/82
[2017-01-13 23:00] VITALS: BP 129/87
[2017-01-14 03:00] VITALS: BP 128/83
[2017-01-14] MEDS: HYDROCODONE/APAP 5/325MG TABLET. PO PRN ×2 (04:09→12:50)
[2017-01-14] MEDS: LORAZEPAM 2 MG/ML VIAL IV PRN ×2 (04:09→12:49)
[2017-01-14] MEDS: LACOSAMIDE 200 MG TABLET PO SCH (06:01)
[2017-01-14] MEDS: ALBUTEROL SULFATE 2.5 MG/3 ML NEBU. NEB PRN ×3 (07:34→15:00)
[2017-01-14 07:40] VITALS: BP 123/75
[2017-01-14] MEDS: FOLIC ACID 1 MG TABLET PO SCH (08:54)
[2017-01-14] MEDS: MAGNESIUM OXIDE 400 MG TABLET PO SCH (08:54)
[2017-01-14] MEDS: TOPIRAMATE 25 MG TABLET. PO SCH (08:54)
[2017-01-14] MEDS: NICOTINE 21MG PATCH. TD SCH (08:54)
[2017-01-14] MEDS: ESCITALOPRAM 10 MG TABLET. PO SCH (08:54)
[2017-01-14] MEDS: LORAZEPAM 0.5 MG TABLET. PO SCH (08:54)
[2017-01-14] MEDS: MULTIVITAMIN with MINERAL TABLET. PO SCH (08:54)
[2017-01-14] MEDS: THIAMINE 100 MG TABLET. PO SCH (08:54)
[2017-01-14] MEDS: LISINOPRIL 40 MG TABLET. PO SCH (08:55)
[2017-01-14 11:44] VITALS: BP 113/78
--- NOTE | 2017-01-14 13:50 | PDOC3 ---
Discharge Summary Visit Information Date of Admission: Jan 10, 2017 Date of Discharge: Jan 14, 2017 Admitting Diagnosis: EtOH intox Final Diagnosis 1. Alcohol intox, Metabolic encephalopathy 2. Mod PCM 3. Drugs abuse 4. Homelessness 5. Sinus tachy 6. EtOH withdrawl, Problems Medical Problems: (1) Acute encephalopathy Status: Acute (2) Alcohol intoxication Status: Acute (3) Alcohol withdrawal Status: Acute Brief Hospital Course Allergies Allergies Coded Allergies Type Severity Reaction Last Updated Verified No Known Drug Allergies 07/25/16 No Vital Signs Vital Signs Date Time Temp Pulse Resp B/P Pulse Ox O2 Delivery O2 Flow Rate FiO2 01/14/17 12:50 20 Room Air 01/14/17 11:44 98.5 89 113/78 98 98.5 01/14/17 05:09 2.0 Lab Results Laboratory Tests Test 01/12/17 16:24 Glucose (Fingerstick) 111mg/dL (70-99) Brief Hospital Course Mr. Hemphill is a 56 old admitted in EtOH intox, encephalopathy then withdrew from EtOH, seems to malinger, HR 85 when he is shaking on day 3 of hospitalization, multi substance abuse and non-compliance Discharge Information Condition at Discharge: Improved Follow Up: Weeks Disposition/Orders: D/C to Home Scheduled ([Multivitamins,Therapeutic]) 1 TAB PO DAILY ([Lisinopril]) 40 MG PO DAILY Clonazepam (Clonazepam) 0.75 MG PO TID Escitalopram Oxalate (Escitalopram Oxalate) 10 MG PO DAILY Folic Acid (Folic Acid) 1 MG PO DAILY Lacosamide (Vimpat) 200 MG PO [id number] Lorazepam (Ativan) 0.5 MG PO TID Magnesium Oxide (Mag-Oxide) 400 MG PO BID Thiamine Hcl (Vitamin B-1) 100 MG PO DAILY Topiramate (Topamax) 1 TAB PO BID Scheduled PRN ([Hydrocodone/Acetaminophen]) 1 TAB PO PRN Q6HRS PRN PRN PAIN MODERATE Albuterol Sulfate (Proair Hfa Inhaler) 1 PUFF INH QIDPRN PRN PRN SHORTNESS OF BREATH (Reported) Epinephrine (Epipen 2-Erickson) 0.3 MG IJ 1X PRN PRN ANAPHYLAXIS Ibuprofen (Ibuprofen) 200 MG PO PRN Q6HRS PRN PRN INFLAMMATION Ipratropium/Albuterol Sulfate (Combivent Respimat Inhal) 1 PUFF INH QIDPRN PRN PRN SHORTNESS OF BREATH (Reported) BOB SANTANA MD Jan 14, 2017 13:50
[2017-01-14 15:44] VITALS: BP 112/67
== END 2017-01-14 17:40 | disposition home or self-care (01) | DRG 896 ==
LOC: ER 21:40 → 5 NORTH 23:03 → OBSVTOIN 23:03
PROVIDERS: ADMIT Internal Medicine; ATTEND Internal Medicine
DX: F10.239 Alcohol dependence with withdrawal, unspecified (principal); G93.41 Metabolic encephalopathy; E44.0 Moderate protein-calorie malnutrition; F10.229 Alcohol dependence with intoxication, unspecified; K21.9 Gastro-esophageal reflux disease without esophagitis; E78.00 Pure hypercholesterolemia, unspecified; R56.9 Unspecified convulsions; K75.9 Inflammatory liver disease, unspecified; I11.0 Hypertensive heart disease with heart failure; F32.9 Major depressive disorder, single episode, unspecified; F41.9 Anxiety disorder, unspecified; I50.9 Heart failure, unspecified; J44.9 Chronic obstructive pulmonary disease, unspecified; Y90.8 Blood alcohol level of 240 mg/100 ml or more; Z96.649 Presence of unspecified artificial hip joint; Z96.659 Presence of unspecified artificial knee joint; F12.90 Cannabis use, unspecified, uncomplicated; F11.90 Opioid use, unspecified, uncomplicated; Z79.899 Other long term (current) drug therapy; Z59.0 Homelessness; Z91.19 Patient's noncompliance with other medical treatment and regimen; Z79.82 Long term (current) use of aspirin; Z68.21 Body mass index [BMI] 21.0-21.9, adult
CPT/HCPCS: 36415; 80048; 80076; 81001; 82947; 83690; 83930; 85027; 94250; 94640; 96365; G0480; G0481; G6038; J2060; J2270; J2405; J7120; 80196; 99285-25

== ENCOUNTER 2017-03-11 20:39 | Emergency (ER) | payer OTHER ==
[2017-03-06 11:00] VITALS: BP 108/72
== END 2017-03-11 20:44 | disposition left against medical advice (07) ==
LOC: ER 20:39
DX: R53.1 Weakness (principal); R53.83 Other fatigue; Z53.21 Procedure and treatment not carried out due to patient leaving prior to being seen by health care provider

== ENCOUNTER 2017-03-21 13:47 | Emergency (ER) | payer OTHER ==
[~2017-03-21] VITALS: Ht 162.6 cm; Wt 67.1 kg
--- NOTE | 2017-03-21 13:55 | PHYS DOC ---
Past Medical History Past Medical History: Alcoholism, GERD, High Cholesterol, Hypertension, Hepatitis, [place], Seizure, Other Additional Past Medical Histor: problems with alcohol Past Surgical History: Other Additional Past Surgical Histo: L)leg &hip fx with surgery. poor historian Alcohol Use: Heavy Drug Use: Heroin, Marijuana, Methamphetamine, Other Adult General Chief Complaint Chief Complaint: SUICDAL IDEATION HPI HPI Patient is a 56 year old male presenting to the emergency department for evaluation of obvious intoxication with agitation. The reason he is in the emergency department is because he called the nurse help line about a rash on his ankle and he was not satisfied with the nurses answers and he said that he was going to kill the nurse and then he said he was going to kill himself so the nurse help line and then called 911 and they came and picked him up. Patient denies any suicidal or homicidal ideation to me rather he says that he just wants to go home. He has no complaints at all and he is insistent on going home but he is able to be talked down at this time to relax and staying in the bed. He admitted doing 2 g of heroin into the nurse over the phone and then he obviously smells of alcohol as well. He is alert and oriented 1 and is moving all his extremities and there is no obvious outward signs of trauma. Review of Systems Review of Systems Unable to obtain as patient does not want to answer medical questions Current Medications Current Medications Current Medications Medications (Trade) Dose Ordered Sig/Corinne Start Time Stop Time Status Last Admin Dose Admin Lorazepam (Ativan) 2 mg 1X ONCE 03/21/17 14:00 03/21/17 14:01 DC 03/21/17 14:30 2 MG Allergies Allergies Allergies Coded Allergies Type Severity Reaction Last Updated Verified No Known Drug Allergies 07/25/16 No Physical Exam Physical Exam Constitutional: Well developed, well nourished, no acute distress, non-toxic appearance. [] HENT: Normocephalic, atraumatic, bilateral external ears normal, oropharynx moist, no oral exudates, nose normal. [] Eyes: PERRLA, EOMI, conjunctiva normal, no discharge. [] Neck: Normal range of motion, no tenderness, supple, no stridor. [] Cardiovascular:Heart rate regular rhythm, no murmur [] Lungs & Thorax: Bilateral breath sounds clear to auscultation [] Abdomen: Bowel sounds normal, soft, no tenderness, no masses, no pulsatile masses. [] Skin: Warm, dry, no erythema, no rash. [] Back: No tenderness, no CVA tenderness. [] Extremities: No tenderness, no cyanosis, no clubbing, ROM intact, no edema. [] Neurologic: Alert and oriented X 1, moves all extremities Current Patient Data Vital Signs Vital Signs Date Time Temp Pulse Resp B/P Pulse Ox O2 Delivery O2 Flow Rate FiO2 03/21/17 13:54 98.5 87 18 133/88 98 Room Air 98.5 Lab Values Laboratory Tests Test 03/21/17 13:50 White Blood Count 6.9x10^3/uL (4.0-11.0) Red Blood Count 4.10x10^6/uL (4.30-5.70) L Hemoglobin 12.9g/dL (13.0-17.5) L Hematocrit 39.0% (39.0-53.0) Mean Corpuscular Volume 95fL (79-100) Mean Corpuscular Hemoglobin 32pg (25-35) Mean Corpuscular Hemoglobin Concent 33g/dL (31-37) Red Cell Distribution Width 14.0% (11.5-14.5) Platelet Count 249x10^3/uL (140-400) Neutrophils (%) (Auto) 40% (31-73) Lymphocytes (%) (Auto) 46% (24-48) Monocytes (%) (Auto) 11% (0-9) H Eosinophils (%) (Auto) 2% (0-3) Basophils (%) (Auto) 1% (0-3) Neutrophils # (Auto) 2.7x10^3uL (1.8-7.7) Lymphocytes # (Auto) 3.2x10^3/uL (1.0-4.8) Monocytes # (Auto) 0.8x10^3/uL (0.0-1.1) Eosinophils # (Auto) 0.1x10^3/uL (0.0-0.7) Basophils # (Auto) 0.1x10^3/uL (0.0-0.2) Sodium Level 143mmol/L (136-145) Potassium Level 3.8mmol/L (3.5-5.1) Chloride Level 103mmol/L (98-107) Carbon Dioxide Level 25mmol/L (21-32) Anion Gap 15 (6-14) H Blood Urea Nitrogen 11mg/dL (8-26) Creatinine 0.9mg/dL (0.7-1.3) Estimated GFR (Cockcroft-Gault) 87.9 BUN/Creatinine Ratio 12 (6-20) Glucose Level 98mg/dL (70-99) Calcium Level 8.9mg/dL (8.5-10.1) Total Bilirubin 0.2mg/dL (0.2-1.0) Aspartate Amino Transferase (AST) 62U/L (15-37) H Alanine Aminotransferase (ALT) 72U/L (16-63) H Alkaline Phosphatase 89U/L (46-116) Total Protein 8.0g/dL (6.4-8.2) Albumin 4.0g/dL (3.4-5.0) Albumin/Globulin Ratio 1.0 (1.0-1.7) Lipase 155U/L (73-393) Salicylates Level < 2.8mg/dL (2.8-20.0) L Salicylate Last Dose Date Salicylate Last Dose Time Acetaminophen Level 6.1mcg/ml (10-30) L Acetaminophen Last Dose Date Acetaminophen Last Dose Time Ethyl Alcohol Level 298mg/dL (0-10) H Laboratory Tests 03/21/17 13:50 Laboratory Tests 03/21/17 13:50 EKG EKG [] Radiology/Procedures Radiology/Procedures [] Course & Med Decision Making Course & Med Decision Making Patient has polysubstance abuse and is altered at this time so he will be continued to be monitored. Patient became somewhat agitated so he was given 2 mg of IM Ativan and was observed for almost 2 hours. Patient continues to assist on going home as he feels fine and is not suicidal or homicidal. He ate some food and drink some water and was more compliant and agreeable. He is now alert and oriented 3 and is able to ambulate with a steady gait. Patient will be discharged per his request as I have no reason to hold him against his will as he is alert and oriented 3 and can make his own medical decisions. Patient discharged in stable condition. Dragon Disclaimer Dragon Disclaimer This electronic medical record was generated, in whole or in part, using a voice recognition dictation system. Departure Departure Impression: Primary Impression: Acute encephalopathy Additional Impressions: ETOH abuse Drug abuse Transaminitis Disposition: HOME, SELF-CARE Condition: GOOD Referrals: NO PCP (PCP) Patient Instructions: Polysubstance Abuse Problem Qualifiers JESUS SELF DO Mar 21, 2017 13:55
[2017-03-21] MEDS ORDERED: LORAZEPAM 2 MG/ML VIAL. IV ONE (14:00)
[2017-03-21 14:07] LABS: BASO # 0.1 x10^3/uL (0.0-0.2); BASO % 1 % (0-3); EOS % 2 % (0-3); HEMOGLOBIN 12.9 g/dL (13.0-17.5); LYMPH # 3.2 x10^3/uL (1.0-4.8); LYMPH % 46 % (24-48); MEAN CORPUSCULAR HEMOGLOBIN 32 pg (25-35); MEAN CORPUSCULAR HGB CONC 33 g/dL (31-37); MEAN CORPUSCULAR VOLUME 95 fL (79-100); MONO % 11 % (0-9); NEUT % 40 % (31-73); PLATELET COUNT 249 x10^3/uL (140-400); WHITE BLOOD COUNT 6.9 x10^3/uL (4.0-11.0)
[2017-03-21 14:52] LABS: CALCIUM 8.9 mg/dL (8.5-10.1); CREATININE 0.9 mg/dL (0.7-1.3); GFR 87.9; POTASSIUM 3.8 mmol/L (3.5-5.1)
[2017-03-21 14:58] LABS: TOTAL BILIRUBIN 0.2 mg/dL (0.2-1.0)
[2017-03-21 15:01] LABS: ETHANOL 298 mg/dL (0-10)
[2017-03-21 15:20] VITALS: BP 110/68
== END 2017-03-21 15:34 | disposition home or self-care (01) ==
LOC: ER 13:47
DX: G93.40 Encephalopathy, unspecified (principal); F10.10 Alcohol abuse, uncomplicated; R74.0 Nonspecific elevation of levels of transaminase and lactic acid dehydrogenase [LDH]; E78.00 Pure hypercholesterolemia, unspecified; I10 Essential (primary) hypertension; K21.9 Gastro-esophageal reflux disease without esophagitis; F12.10 Cannabis abuse, uncomplicated; F15.10 Other stimulant abuse, uncomplicated; F11.10 Opioid abuse, uncomplicated; I25.2 Old myocardial infarction; Y90.9 Presence of alcohol in blood, level not specified
CPT/HCPCS: 36415; 80053; 83690; 85027; 96374; 99284; G0480; G6038; J2060; 80196

== ENCOUNTER 2017-03-25 19:12 | Emergency (ER) | payer OTHER ==
[~2017-03-25] VITALS: Ht 167.6 cm; Wt 68.0 kg
--- NOTE | 2017-03-25 19:51 | PHYS DOC ---
Past Medical History Past Medical History: Alcoholism, GERD, High Cholesterol, Hypertension, Hepatitis, [place], Seizure, Other Additional Past Medical Histor: suicidal Past Surgical History: Other Additional Past Surgical Histo: L)leg &hip fx with surgery. poor historian Alcohol Use: Heavy Drug Use: Heroin, Marijuana, Methamphetamine, Other Adult General Chief Complaint Chief Complaint: ALCOHOL INTOXICATION HPI HPI Patient is a 56 year old male brought to the ED by ambulance after he was found at the bottom of some stairs by a bystander, no one saw him fall, unclear whether he actually fell down the stairs or whether he just fell at the bottom of the stairs. The patient is not able to contribute to the history. He doesn't know what happened. He doesn't know how he got here to the ED. He states "I'm a heroin addict and a drunk, I need to go get a drink and shoot up". Patient states that his head hurts, his neck hurts, and "I think I broke a rib". Patient states he needs to go get a drink to get rid of the shakes. Patient adamantly does not want to be here, does not want an IV or any blood drawn. Patient does not have a family here, he does not have know how he got here. He states he will walk home but he does not know his address. Review of Systems Review of Systems Review of systems is felt to be unreliable because the patient is not answering questions reliably. Current Medications Current Medications Current Medications Medications (Trade) Dose Ordered Sig/Corinne Start Time Stop Time Status Last Admin Dose Admin Multivitamins/ Folic Acid/ Thiamine HCl/ Dextrose/Lactated Ringer's (Infuvite Adult/ Iv D5%-Lr) 1,011.2 ml @ 1,000 mls/ hr 1X ONCE 03/25/17 20:00 03/25/17 20:00 DC Ondansetron HCl (Zofran Odt) 4 mg 1X ONCE 03/25/17 20:30 03/25/17 20:31 DC Allergies Allergies Allergies Coded Allergies Type Severity Reaction Last Updated Verified No Known Drug Allergies 07/25/16 No Physical Exam Physical Exam Constitutional: Well developed, well nourished, no acute distress, non-toxic appearance. Intermittent tremors of the upper extremities, seem to improve or go away when the patient is talking. Patient does smell of alcohol but he does not appear to be terribly acutely intoxicated, he is speaking without slurring his speech, he seems to be more uncooperative than simply intoxicated. HENT: Normocephalic, atraumatic, bilateral external ears normal, oropharynx moist, no oral exudates, nose normal. No sign of head, scalp, or facial trauma to observation or palpation. Eyes: PERRLA, EOMI, conjunctiva normal, no discharge. [] Neck: Normal range of motion, supple, no stridor. Tender to palpation of the entire cervical spine, not localized, no bony point tenderness. Cardiovascular:Heart rate regular rhythm, no murmur [] Lungs & Thorax: Bilateral breath sounds clear to auscultation [] Abdomen: Bowel sounds normal, soft, no tenderness, no masses, no pulsatile masses. [] Skin: Warm, dry, no erythema, no rash. [] Back: Everywhere I touch the patient he said he is tender, no point tenderness, no deformity, no skin injury overlying, no crepitance. Extremities: No tenderness, no cyanosis, no clubbing, ROM intact, no edema. [] Neurologic: Alert, normal motor function, normal sensory function, no focal deficits noted. [] Current Patient Data Vital Signs Vital Signs Date Time Temp Pulse Resp B/P Pulse Ox O2 Delivery O2 Flow Rate FiO2 03/25/17 20:00 88 24 139/88 94 Room Air 03/25/17 19:23 97.9 97.9 EKG EKG [] Radiology/Procedures Radiology/Procedures CT scan of the head and cervical spine read by the radiologist negative for acute findings. [] Course & Med Decision Making Course & Med Decision Making Pertinent Labs and Imaging studies reviewed. (See chart for details) I initially ordered labs, banana bag, and CT scan of the head and neck. The patient is quite argumentative and does not want anything done. He wants to be discharged. He has no one here to pick him up and he doesn't even know his address so I'm reluctant to discharge him without at least a CT scan of his head and neck, since I won't be able to give discharge instructions to a reliable person. However, he is alert, he may be at his baseline, he isn't not too intoxicated in appearance to be able to make his own decisions. I initially negotiated with him that we will hold off on the labs and IV per we will get CT scans and he may be willing to do that. CT scan of the head and cervical spine read by the radiologist. No acute findings. The patient was offered dinner tray but refused to eat anything. He remained alert, talkative, intermittently saying that he is ready to leave. Patient was ambulated in the ED with the assistance of nursing staff. He ambulates steadily and I believe he is stable for discharge. Although he has alcohol on board, he is alert, he is able to verbalize a plan to walk home, he knows the location of his address. It's after dark and the patient does have alcohol on board so we elected to give him a cab pass to get home safely. [] Dragon Disclaimer Dragon Disclaimer This electronic medical record was generated, in whole or in part, using a voice recognition dictation system. Departure Departure Impression: Primary Impression: Alcohol intoxication Disposition: 01 HOME, SELF-CARE Condition: STABLE Referrals: NO PCP (PCP) Patient Instructions: Alcohol Intoxication, [id number] Additional Instructions: When you get home, stay there, you are intoxicated and you should not be outside or doing anything else that would put you in danger. Drink plenty of fluids. BRIDGET EGAN MD March 25, 2017 19:51
[2017-03-25 20:00] VITALS: BP 139/88
[2017-03-25] MEDS ORDERED: MULTIVIT INFUSN,ADULT 4,VIT K 10 ML, FOLIC ACID 1 MG, THIAMINE 100 MG in IV DEXTROSE 5%... IV ONE (20:00)
[2017-03-25] MEDS ORDERED: ONDANSETRON ODT 4 MG TAB.RAPDIS. ONE (20:12)
[2017-03-25] MEDS ORDERED: ONDANSETRON ODT 4 MG TAB.RAPDIS. PO ONE ×2 (20:15→20:30)
--- NOTE | 2017-03-25 20:37 | RAD ---
PROCEDURE Noncontrast head CT Noncontrast cervical spine CT HISTORY Fall. Head injury. Neck pain. Difficulty holding still. TECHNIQUE Noncontrast axial cross sectional CT scanning of the head was performed. Noncontrast helical CT scanning of the cervical spine was performed. Multiplanar 2D reconstructions were generated. The patient had difficulty holding still. One or more of the following individualized dose reduction techniques were utilized for this study: 1. Automated exposure control 2. Adjustment of the mA and/or kV according to patient size 3. Use of iterative reconstruction technique COMPARISON Head CT dated March 15, 2017. FINDINGS HEAD CT: no acute intracranial hemorrhage or midline shift or mass-effect or extra-axial fluid collection is seen. The ventricles are stable. No new focal hypodense area or sulci effacement is seen to indicate an acute infarct or edema radiographically. No skull fracture or pneumocephalus is seen. No opacification of the mastoid sinuses or the paranasal sinuses is seen. The paranasal sinuses are not completely seen in this study. CERVICAL SPINE CT: No acute fracture or anterolisthesis or discitis or osteolytic process is seen. Degenerative disc space narrowing and endplate spurring is seen at C6-7. There is less prominent degenerative disc space narrowing and endplate spurring at C5-6. IMPRESSION HEAD CT: No acute intracranial abnormality is seen. CERVICAL SPINE CT: No acute fracture. Electronically signed by: Ramone Francois MD (March 25, 2017 20:36:22)
== END 2017-03-25 20:48 | disposition home or self-care (01) ==
LOC: ER 19:15
DX: F10.229 Alcohol dependence with intoxication, unspecified (principal); R51 Headache; M54.2 Cervicalgia; K21.9 Gastro-esophageal reflux disease without esophagitis; E78.00 Pure hypercholesterolemia, unspecified; I10 Essential (primary) hypertension; I25.2 Old myocardial infarction; F12.10 Cannabis abuse, uncomplicated; F15.10 Other stimulant abuse, uncomplicated; F11.10 Opioid abuse, uncomplicated; W18.39XA Other fall on same level, initial encounter; Y93.89 Activity, other specified; Y92.89 Other specified places as the place of occurrence of the external cause; Y99.8 Other external cause status
CPT/HCPCS: 70450; 72125; 99284; Q0162

== ENCOUNTER 2017-03-27 19:21 | Emergency (ER) | payer OTHER ==
[~2017-03-27] VITALS: Ht 170.2 cm; Wt 68.0 kg
[2017-03-27] MEDS ORDERED: HALOPERIDOL LACTATE 5 MG/ML VIAL. ONE (19:29)
[2017-03-27] MEDS ORDERED: HALOPERIDOL LACTATE 5 MG/ML VIAL. IM ONE (19:45)
[2017-03-27 20:00] LABS: BILIRUBIN,URINE NEGATIVE (NEG); GLUCOSE,URINE NEGATIVE (NEG); NITRITE,URINE NEGATIVE (NEG); PH,URINE 5.5; PROTEIN,URINE 30 mg/dL (NEG-TRACE); UROBILINOGEN,URINE 0.2 mg/dL (0.2 mg/dL)
[2017-03-27 20:08] LABS: BARBITURATES NEG (NEG); BENZODIAZEPINES POS (NEG); CANNABINOIDS POS (NEG); COCAINE POS (NEG); METHADONE NEG (NEG); OPIATES NEG (NEG); PHENCYCLIDINE NEG (NEG)
[2017-03-27 20:12] LABS: BACTERIA,URINE 0 /HPF (0-FEW); RBC,URINE 0 /HPF (0-2); WBC,URINE 0 /HPF (0-4)
[2017-03-27 20:24] LABS: BASO # 0.1 x10^3/uL (0.0-0.2); BASO % 3 % (0-3); EOS % 6 % (0-3); HEMATOCRIT 40.8 % (39.0-53.0); HEMOGLOBIN 13.9 g/dL (13.0-17.5); LYMPH # 2.6 x10^3/uL (1.0-4.8); LYMPH % 56 % (24-48); MEAN CORPUSCULAR HEMOGLOBIN 32 pg (25-35); MEAN CORPUSCULAR HGB CONC 34 g/dL (31-37); MEAN CORPUSCULAR VOLUME 93 fL (79-100); MONO % 13 % (0-9); NEUT % 23 % (31-73); PLATELET COUNT 260 x10^3/uL (140-400); RED CELL DISTRIBUTION WIDTH 13.7 % (11.5-14.5); WHITE BLOOD COUNT 4.7 x10^3/uL (4.0-11.0)
[2017-03-27 20:41] LABS: CALCIUM 8.5 mg/dL (8.5-10.1); CREATININE 0.8 mg/dL (0.7-1.3); GFR 100.7; POTASSIUM 3.6 mmol/L (3.5-5.1)
[2017-03-27 20:49] LABS: ALBUMIN 3.9 g/dL (3.4-5.0); DIRECT BILIRUBIN 0.2 mg/dL (0.0-0.2); TOTAL BILIRUBIN 0.3 mg/dL (0.2-1.0); TOTAL PROTEIN 8.4 g/dL (6.4-8.2)
[2017-03-27 20:51] LABS: ETHANOL 383 mg/dL (0-10)
--- NOTE | 2017-03-27 20:51 | PHYS DOC ---
Past Medical History Past Medical History: Alcoholism, GERD, High Cholesterol, Hypertension, Hepatitis, [place], Seizure, Other Additional Past Medical Histor: suicidal Past Surgical History: Other Additional Past Surgical Histo: L)leg &hip fx with surgery. poor historian Alcohol Use: Heavy Drug Use: Heroin, Marijuana, Methamphetamine, Other Adult General Chief Complaint Chief Complaint: ALCOHOL INTOXICATION HPI HPI 56-year-old male presenting to the emergency department after falling today while at [facility]. He currently denies any pain and is wanting to leave however he was unable to answer orientation questions. He was combative and appeared intoxicated. A code lucaino was called at that time. The patient was placed in restraints due to concern for the patient's safety. He denies any chest pain shortness of breath headache. He denies hitting his head. Onset today. Location generalized. Duration intermittent. No alleviating factors. Review of systems is negative for chest pain shortness of breath nausea vomiting abdominal pain fevers or chills. All other review of systems is negative unless otherwise noted in history of present illness. Review of Systems Review of Systems SEE ABOVE. Current Medications Current Medications Current Medications Medications (Trade) Dose Ordered Sig/Corinne Start Time Stop Time Status Last Admin Dose Admin Haloperidol Lactate (Haldol) 5 mg 1X ONCE 03/27/17 19:45 03/27/17 19:46 DC 03/27/17 19:30 5 MG Lorazepam (Ativan) 2 mg 1X ONCE 03/27/17 19:45 03/27/17 19:46 DC 03/27/17 19:30 2 MG Allergies Allergies Allergies Coded Allergies Type Severity Reaction Last Updated Verified No Known Drug Allergies 07/25/16 No Physical Exam Physical Exam Constitutional: Well developed, well nourished, no acute distress, non-toxic appearance. HENT: Normocephalic, no abrasions ecchymosis or lacerations of the head or neck. , bilateral external ears normal, oropharynx moist, no oral exudates, nose normal. [] Eyes: PERRLA, EOMI, conjunctiva normal, no discharge. Neck: Normal range of motion, no tenderness, supple, no stridor. [] Cardiovascular:Heart rate regular rhythm, no murmur Lungs & Thorax: Bilateral breath sounds clear to auscultation [] Abdomen: Bowel sounds normal, soft, no tenderness, no masses, no pulsatile masses. [] Skin: Warm, dry, no erythema, no rash. Back: No tenderness, no CVA tenderness. [] Extremities: No tenderness, no cyanosis, no clubbing, ROM intact, no edema. [] Neurologic: Alert and oriented to person, normal motor function, normal sensory function, no focal deficits noted. Symmetric facial smile. Pupils are equal round and reactive. 5/5 strength in all extremities. Psychologic: Affect normal, judgement normal, mood normal. [] Current Patient Data Vital Signs Vital Signs Date Time Temp Pulse Resp B/P (MAP) Pulse Ox O2 Delivery O2 Flow Rate FiO2 03/27/17 19:55 97.7 96 16 161/97 (118) 92 Room Air 97.7 Lab Values Laboratory Tests Test 03/27/17 19:47 03/27/17 20:00 Urine Collection Type Unknown Urine Color Yellow Urine Clarity Clear Urine pH 5.5 Urine Specific [place] 1.015 Urine Protein 30 mg/dL (NEG-TRACE) Urine Glucose (UA) Negative mg/dL (NEG) Urine Ketones (Stick) Negative mg/dL (NEG) Urine Blood Negative (NEG) Urine Nitrite Negative (NEG) Urine Bilirubin Negative (NEG) Urine Urobilinogen Dipstick 0.2 mg/dL (0.2 mg/dL) Urine Leukocyte Esterase Negative (NEG) Urine RBC 0 /HPF (0-2) Urine WBC 0 /HPF (0-4) Urine Squamous Epithelial Cells None /LPF Urine Bacteria 0 /HPF (0-FEW) Urine Hyaline Casts Many /HPF Urine Mucus Marked /LPF Urine Opiates Screen Neg (NEG) Urine Methadone Screen Neg (NEG) Urine Barbiturates Neg (NEG) Urine Phencyclidine Screen Neg (NEG) Urine Amphetamine/Methamphetamine Neg (NEG) Urine Benzodiazepines Screen Pos (NEG) Urine Cocaine Screen Pos (NEG) Urine Cannabinoids Screen Pos (NEG) Urine Ethyl Alcohol Pos (NEG) White Blood Count 4.7 x10^3/uL (4.0-11.0) Red Blood Count 4.40 x10^6/uL (4.30-5.70) Hemoglobin 13.9 g/dL (13.0-17.5) Hematocrit 40.8 % (39.0-53.0) Mean Corpuscular Volume 93 fL (79-100) Mean Corpuscular Hemoglobin 32 pg (25-35) Mean Corpuscular Hemoglobin Concent 34 g/dL (31-37) Red Cell Distribution Width 13.7 % (11.5-14.5) Platelet Count 260 x10^3/uL (140-400) Neutrophils (%) (Auto) 23 % (31-73) L Lymphocytes (%) (Auto) 56 % (24-48) H Monocytes (%) (Auto) 13 % (0-9) H Eosinophils (%) (Auto) 6 % (0-3) H Basophils (%) (Auto) 3 % (0-3) Neutrophils # (Auto) 1.1 x10^3uL (1.8-7.7) L Lymphocytes # (Auto) 2.6 x10^3/uL (1.0-4.8) Monocytes # (Auto) 0.6 x10^3/uL (0.0-1.1) Eosinophils # (Auto) 0.3 x10^3/uL (0.0-0.7) Basophils # (Auto) 0.1 x10^3/uL (0.0-0.2) Laboratory Tests 03/27/17 20:00 EKG EKG [] Radiology/Procedures Radiology/Procedures [] Course & Med Decision Making Course & Med Decision Making Pertinent Labs and Imaging studies reviewed. (See chart for details) [] 56-year-old male presenting to the emergency department intoxicated and agitated requiring sedation and restraints. Blood work obtained. The patient was given Ativan and Haldol the emergency department. CBC unremarkable. Urinalysis unremarkable. Urine drug screen shows positive for benzodiazepines cocaine THC and ethanol. We called our psychiatric assessment team to evaluate the patient. Head CT was ordered. Patient was signed out to Dr. Simpson at 9 PM to follow-up on head CT and psychiatric assessment team's recommendations. Patient was stable upon signout. Dragon Disclaimer Dragon Disclaimer This electronic medical record was generated, in whole or in part, using a voice recognition dictation system. IRLANDA GARCIA MD March 27, 2017 20:51
[2017-03-27 21:53] VITALS: BP 142/100
--- NOTE | 2017-03-27 21:53 | RAD ---
PROCEDURE Head CT without contrast Cervical spine CT without contrast HISTORY Confusion. Neck pain. History of a fall with head injury. TECHNIQUE Noncontrast axial cross sectional CT scanning of the head was performed. Noncontrast helical CT scanning of the cervical spine was performed. Multiplanar 2D reconstructions were generated. One or more of the following individualized dose reduction techniques were utilized for this study: 1. Automated exposure control 2. Adjustment of the mA and/or kV according to patient size 3. Use of iterative reconstruction technique COMPARISON March 25, 2017. FINDINGS Head CT: No acute intracranial hemorrhage or midline shift or mass-effect or extra-axial fluid collection is seen. The ventricles are stable. No new focal hypodense area or sulci effacement is seen to indicate an acute infarct or edema radiographically. No skull fracture or pneumocephalus is seen. No opacification of the mastoid sinuses or the paranasal sinuses is seen. The maxillary sinuses are not completely seen in this study. Cervical spine CT: No acute fracture or anterolisthesis or discitis or osteolytic process or prevertebral soft tissue swelling is evident. There is severe degenerative disc space narrowing and moderate degenerative endplate spurring at C6-7. There is moderate AP dimensional spinal canal stenosis at this level and the AP dimension measures about 7 millimeters in the midline. Moderate degenerative disc space narrowing and endplate spurring is seen at C5-6. Mild spinal canal stenosis is seen at this level. Due to streaking artifact, it is difficult to evaluate for focal disc protrusion. IMPRESSION Head CT: No acute intracranial abnormality is seen. Cervical spine CT: No acute fracture. Degenerative cervical spondylosis at C5-6 and C6-7 with spinal canal stenosis more prominent at C6-7. Electronically signed by: Ramone Francois MD (March 27, 2017 21:53:14)
== END 2017-03-27 22:48 | disposition home or self-care (01) ==
LOC: ER 19:21
DX: F19.10 Other psychoactive substance abuse, uncomplicated (principal); R45.1 Restlessness and agitation; K21.9 Gastro-esophageal reflux disease without esophagitis; E78.00 Pure hypercholesterolemia, unspecified; I10 Essential (primary) hypertension; I25.2 Old myocardial infarction; F12.10 Cannabis abuse, uncomplicated; F15.10 Other stimulant abuse, uncomplicated
CPT/HCPCS: 36415; 70450; 72125; 80048; 80076; 80305; 80320; 81001; 83690; 83930; 85027; 96372; 99285; G6038; J1630; J2060; G0480; G0481; 80196

== ENCOUNTER 2017-04-16 12:24 | Inpatient (IN) | payer OTHER ==
[~2017-04-16] VITALS: Ht 167.6 cm; Wt 45.4 kg
[2017-04-16] MEDS ORDERED: ONDANSETRON PF 4 MG/2 ML VIAL. ONE (12:56)
[2017-04-16] MEDS ORDERED: LORazepam 1 MG TABLET PO ONE (13:00)
[2017-04-16] MEDS ORDERED: MULTIVIT INFUSN,ADULT 4,VIT K 10 ML, FOLIC ACID 1 MG, THIAMINE 100 MG in IV DEXTROSE 5%... IV ONE (13:00)
[2017-04-16] MEDS ORDERED: ONDANSETRON PF 4 MG/2 ML VIAL. IV ONE (13:00)
[2017-04-16 13:07] LABS: BASO # 0.1 x10^3/uL (0.0-0.2); BASO % 4 % (0-3); EOS % 1 % (0-3); HEMATOCRIT 46.5 % (39.0-53.0); HEMOGLOBIN 15.2 g/dL (13.0-17.5); LYMPH # 1.5 x10^3/uL (1.0-4.8); LYMPH % 37 % (24-48); MEAN CORPUSCULAR HEMOGLOBIN 31 pg (25-35); MEAN CORPUSCULAR HGB CONC 33 g/dL (31-37); MEAN CORPUSCULAR VOLUME 95 fL (79-100); MONO % 10 % (0-9); NEUT % 49 % (31-73); PLATELET COUNT 143 x10^3/uL (140-400); RED BLOOD COUNT 4.89 x10^6/uL (4.30-5.70); RED CELL DISTRIBUTION WIDTH 15.3 % (11.5-14.5)
--- NOTE | 2017-04-16 13:12 | RAD ---
Indication chest pain. A single view of the chest was obtained and is compared to an examination 17 days earlier. The heart and pulmonary vessels remain normal. The lungs are clear. There has not been a significant change compared to the prior study. IMPRESSION: No acute finding. No significant change
[2017-04-16 13:19] LABS: CALCIUM 8.9 mg/dL (8.5-10.1); GFR 77.9; POTASSIUM 3.7 mmol/L (3.5-5.1)
[2017-04-16 13:25] LABS: ALBUMIN 4.5 g/dL (3.4-5.0); DIRECT BILIRUBIN 0.3 mg/dL (0.0-0.2); TOTAL BILIRUBIN 0.6 mg/dL (0.2-1.0); TOTAL PROTEIN 8.6 g/dL (6.4-8.2)
--- NOTE | 2017-04-16 13:25 | PHYS DOC ---
Past Medical History Past Medical History: Alcoholism, GERD, High Cholesterol, Hypertension, Hepatitis, [place], Seizure, Other Additional Past Medical Histor: suicidal,ETOH ABUSE Past Surgical History: Other Additional Past Surgical Histo: L)leg &hip fx with surgery. poor historian Additional Information: 0.5 TO 1 PPD Alcohol Use: Heavy Additional Information: DRINKS 1/2 GALLON A DAY Drug Use: Cocaine, Heroin, Marijuana, Methamphetamine, Other Adult General Chief Complaint Chief Complaint: ALCOHOL INTOXICATION HPI HPI 56-year-old male presenting to the emergency department after EMS found him lying down outside of his apartment. He reports last drinking on Thursday he states that he has mild chest pain that he describes a sharp worse with deep breaths intermittent and without alleviating factors. He has mild nausea with one episode of vomiting. And he has generally shortness of breath over the past few days. He denies head injury or head trauma. Review of systems is negative for abdominal pain fevers chills cough or recent fall or traumatic injury. All other review of systems is negative unless otherwise noted in history of present illness. Review of Systems Review of Systems SEE ABOVE. Current Medications Current Medications Current Medications Medications (Trade) Dose Ordered Sig/Corinne Start Time Stop Time Status Last Admin Dose Admin Lorazepam (Ativan) 1 mg 1X ONCE 04/16/17 13:00 04/16/17 13:01 DC 04/16/17 12:58 1 MG Morphine Sulfate 2 mg PRN Q2HR PRN 04/16/17 13:45 04/17/17 13:44 Multivitamins 10 ml/Folic Acid 1 mg/Thiamine HCl 100 mg/Dextrose/ Lactated Ringer's 1,011.2 ml @ 1,000 mls/ hr 1X ONCE 04/16/17 13:00 04/16/17 14:00 04/16/17 13:26 1,000 MLS/HR Ondansetron HCl (Zofran) 4 mg PRN Q8HRS PRN 04/16/17 13:45 04/17/17 13:44 Sodium Chloride 1,000 ml @ 125 mls/hr Q8H 04/16/17 13:38 04/17/17 13:37 UNV Allergies Allergies Allergies Coded Allergies Type Severity Reaction Last Updated Verified No Known Drug Allergies 07/25/16 No Physical Exam Physical Exam Constitutional: Well developed, well nourished, no acute distress, non-toxic appearance. mildly tremulous. HENT: Normocephalic, atraumatic, bilateral external ears normal, oropharynx moist, no oral exudates, nose normal. Eyes: PERRLA, EOMI, conjunctiva normal, no discharge. Neck: Normal range of motion, no tenderness, supple, no stridor. [] Cardiovascular: tachycardic heart rate w/ regular rhythm, no murmur Lungs & Thorax: Bilateral breath sounds clear to auscultation [] Abdomen: Bowel sounds normal, soft, no tenderness, no masses, no pulsatile masses. Skin: Warm, dry, no erythema, no rash. Back: No tenderness, no CVA tenderness. [] Extremities: No tenderness, no cyanosis, no clubbing, ROM intact, no edema. Neurologic: Alert and oriented X 3, normal motor function, normal sensory function, no focal deficits noted. Psychologic: Affect normal, judgement normal, mood normal. Current Patient Data Vital Signs Vital Signs Date Time Temp Pulse Resp B/P (MAP) Pulse Ox O2 Delivery O2 Flow Rate FiO2 04/16/17 12:24 96.2 126 20 172/89 (116) 97 Room Air 96.2 Lab Values Laboratory Tests Test 04/16/17 12:55 White Blood Count 4.0 x10^3/uL (4.0-11.0) Red Blood Count 4.89 x10^6/uL (4.30-5.70) Hemoglobin 15.2 g/dL (13.0-17.5) Hematocrit 46.5 % (39.0-53.0) Mean Corpuscular Volume 95 fL (79-100) Mean Corpuscular Hemoglobin 31 pg (25-35) Mean Corpuscular Hemoglobin Concent 33 g/dL (31-37) Red Cell Distribution Width 15.3 % (11.5-14.5) H Platelet Count 143 x10^3/uL (140-400) Neutrophils (%) (Auto) 49 % (31-73) Lymphocytes (%) (Auto) 37 % (24-48) Monocytes (%) (Auto) 10 % (0-9) H Eosinophils (%) (Auto) 1 % (0-3) Basophils (%) (Auto) 4 % (0-3) H Neutrophils # (Auto) 2.0 x10^3uL (1.8-7.7) Lymphocytes # (Auto) 1.5 x10^3/uL (1.0-4.8) Monocytes # (Auto) 0.4 x10^3/uL (0.0-1.1) Eosinophils # (Auto) 0.0 x10^3/uL (0.0-0.7) Basophils # (Auto) 0.1 x10^3/uL (0.0-0.2) Sodium Level 139 mmol/L (136-145) Potassium Level 3.7 mmol/L (3.5-5.1) Chloride Level 96 mmol/L (98-107) L Carbon Dioxide Level 16 mmol/L (21-32) L Anion Gap 27 (6-14) H Blood Urea Nitrogen 12 mg/dL (8-26) Creatinine 1.0 mg/dL (0.7-1.3) Estimated GFR (Cockcroft-Gault) 77.9 Glucose Level 86 mg/dL (70-99) Calcium Level 8.9 mg/dL (8.5-10.1) Total Bilirubin 0.6 mg/dL (0.2-1.0) Direct Bilirubin 0.3 mg/dL (0.0-0.2) H Aspartate Amino Transferase (AST) 225 U/L (15-37) H Alanine Aminotransferase (ALT) 179 U/L (16-63) H Alkaline Phosphatase 110 U/L (46-116) Troponin I Quantitative < 0.017 ng/mL (0.000-0.055) Total Protein 8.6 g/dL (6.4-8.2) H Albumin 4.5 g/dL (3.4-5.0) Lipase 219 U/L (73-393) Laboratory Tests 04/16/17 12:55 Laboratory Tests 04/16/17 12:55 EKG EKG [] Patient is tremulous and so this is a technically limited EKG. It appears to be sinus rhythm with a tachycardic rate. ST segments are congruent. Otherwise very difficult to interpret. Radiology/Procedures Radiology/Procedures [] Course & Med Decision Making Course & Med Decision Making Pertinent Labs and Imaging studies reviewed. (See chart for details) [] 56-year-old male presenting to the emergency department today after being found down outside of his apartment. Upon arrival the patient's GCS is 15. He denies head trauma or any falls. Vital signs showed tachycardia afebrile. Mild hypertension present. Chronic. Pertinent physical exam findings unremarkable other than mild tremulousness. Blood work sent. Chest x-ray obtained. The patient was tachycardic and hypoxic in the emergency department. Chest x-ray unremarkable. EKG showed tachycardia otherwise not suggestive of ACS. The patient's CO2 level was low. Intoxicant labs were sent. Patient was given IV fluids nausea medication and Ativan in the emergency department which mildly improved his symptoms. He was then admitted for further evaluation workup and care. Pulmonology consult placed. Dragon Disclaimer Dragon Disclaimer This electronic medical record was generated, in whole or in part, using a voice recognition dictation system. Departure Departure Impression: Primary Impression: Chest pain Additional Impressions: Chronic alcoholism Drug abuse Disposition: ADMITTED INPATIENT Admitting Physician: Janine Bridges Condition: STABLE Referrals: NO PCP (PCP) CHAPINCITO BRANTLEY MD Patient Instructions: Chest Pain (Nonspecific) Problem Qualifiers IRLANDA GARCIA MD April 16, 2017 13:25
[2017-04-16] MEDS: IV NORMAL SALINE 1000ML BAG 1,000 ML IV SCH ×2 (13:38→21:08)
[2017-04-16] MEDS ORDERED: ONDANSETRON PF 4 MG/2 ML VIAL. IV PRN ×2 (13:45→15:07)
[2017-04-16] MEDS ORDERED: CONTRAST GIVEN MC PRN (14:00)
[2017-04-16] MEDS ORDERED: IOHEXOL 300 MG/ML 75 ML VIAL IV ONE (14:00)
[2017-04-16] MEDS: MORPHINE SULFATE 2 MG/ML DISP.SYRIN. IV PRN ×3 (14:14→21:03)
[2017-04-16 14:25] LABS: ETHANOL 350 mg/dL (0-10)
--- NOTE | 2017-04-16 15:04 | RAD ---
Indication chest pain. Contrast imaging through the chest was performed. Examination was tailored for the detection of pulmonary embolus. Approximately 75 cc of Omnipaque 300 was administered. MIP images were generated and reviewed. No prior CT imaging of the chest is available. Imaging through the upper abdomen shows no acute finding. There is fatty infiltration of the liver. The thoracic aorta is at the upper limits of normal in diameter, 4 cm. There is coronary artery calcification. There is no significant hilar or mediastinal adenopathy. There is a small hiatus hernia. The study is negative for pulmonary embolus no acute parenchymal infiltrate is seen in either lung or dominant soft tissue mass is not seen. There is mild compression of numerous thoracic and at least one upper lumbar vertebral body segment. IMPRESSION: No acute finding seen in the chest. Negative study for pulmonary embolus. PQRS Compliance Statement: One or more of the following individualized dose reduction techniques were utilized for this examination: 1. Automated exposure control 2. Adjustment of the mA and/or kV according to patient size 3. Use of iterative reconstruction technique
[2017-04-16] MEDS ORDERED: diphenhydrAMINE HCL 25 MG CAPSULE PO PRN (15:15)
[2017-04-16] MEDS ORDERED: LABETALOL 20 MG/4 ML DISP.SYRIN. IVP PRN (15:15)
[2017-04-16] MEDS ORDERED: chlordiazePOXIDE HCL 25 MG CAPSULE PO PRN (15:15)
--- NOTE | 2017-04-16 15:17 | PDOC1 ---
History and Physical Date of Admission Date of Admission DATE: 04/16/17 TIME: 15:09 Identification/Chief Complaint Chief Complaint pain all over, new rash Problems: Source Source: Caregiver, Chart review, Patient History of Present Illness History of Present Illness 56 y.o [place] male known to us for alcohol intox, being admitted for the same , LAst here 1 week ago for CP, also some intox. Today, eleavted gap, bicarb low , lactic acidosis, all these likely alcohol related, Brought by police/EMS, Well known to PAT team. New is the rash all over his body, claims he went to liquor store, intoxicated then enxt thing is he woke in the"jungle" and he thinks ants might have bit him. Claims pruritus, They are maculopapular rash, erythematous, no open lesions though,. No UTI, on UDS positive for benzos, cannabinoids and etoh ALso new is hypoxia, needing 4 LNC to maintain at ER, CXR and CTA neg Claims he drinks heavy bec of pain all over Complains of CP that is left sided and tender to palp Past Medical History Cardiovascular: CHF, HTN Pulmonary: COPD Hepatobiliary: Cirrhosis Psych: Anxiety, Addictions, Depression Renal/: No pertinent hx Past Surgical History Past Surgical History: Total hip replacement, Total knee replacement, No pertinent history Family History Family History: Alcohol Abuse Social History Smoke: No ALCOHOL: heavy Drugs: Cocaine, Marijuana, Heroin, Crystal meth Current Problem List Problem List Problems Medical Problems: (1) Chest pain Status: Acute (2) Chronic alcoholism Status: Acute (3) Drug abuse Status: Acute Problems: Current Medications Current Medications Current Medications Lorazepam (Ativan) 1 mg 1X ONCE PO Last administered on 04/16/17 12:58; Start 04/16/17 at 13:00; Stop 04/16/17 at 13:01; Status DC Ondansetron HCl (Zofran) 4 mg STK-MED ONCE .ROUTE ; Start 04/16/17 at 12:56; Stop 04/16/17 at 12:57; Status DC Ondansetron HCl (Zofran) 4 mg 1X ONCE IV Last administered on 04/16/17 12:59 ; Start 04/16/17 at 13:00; Stop 04/16/17 at 13:01; Status DC Multivitamins 10 ml/Folic Acid 1 mg/Thiamine HCl 100 mg/Dextrose/ Lactated Ringer's 1,011.2 ml @ 1,000 mls/ hr 1X ONCE IV Last administered on 13:26; Start 04/16/17 at 13:00; Stop 04/16/17 at 14:00; Status DC Ondansetron HCl (Zofran) 4 mg PRN Q8HRS PRN IV NAUSEA/VOMITING; Start 04/16/17 at 13:45; Stop 04/17/17 at 13:44 Morphine Sulfate 2 mg PRN Q2HR PRN IV PAIN Last administered on 04/16/17 14:14 ; Start 04/16/17 at 13:45; Stop 04/17/17 at 13:44 Sodium Chloride 1,000 ml @ 125 mls/hr Q8H IV ; Start 04/16/17 at 13:38; Stop at 13:37 Iohexol (Omnipaque 300 Mg/ml) 75 ml 1X ONCE IV Last administered on 04/16/17 14:29; Start 04/16/17 at 14:00; Stop 04/16/17 at 14:01; Status DC Info (Do NOT chart on this entry -- for MONITORING) 1 each PRN DAILY PRN MC SEE COMMENTS; Start 04/16/17 at 14:00; Stop 04/18/17 at 13:59 Lorazepam (Ativan) 1 mg 1X ONCE IV Last administered on 04/16/17 15:06; Start 04/16/17 at 15:15; Stop 04/16/17 at 15:16 Lorazepam (Ativan) 2 mg STK-MED ONCE .ROUTE ; Start 04/16/17 at 15:04; Stop at 15:05; Status DC Active Scripts Active Topamax (Topiramate) 25 Mg Tablet 1 Tab PO BID Escitalopram Oxalate 10 Mg Tablet 10 Mg PO DAILY [Lisinopril] 40 MG Tablet 40 Mg PO DAILY [Hydrocodone/Acetaminophen] 1 TAB Tablet 1 Tab PO PRN Q6HRS PRN Clonazepam 0.25 Mg Tab.rapdis 0.75 Mg PO TID Ibuprofen 200 Mg Tablet 200 Mg PO PRN Q6HRS PRN Vimpat (Lacosamide) 200 Mg Tablet 200 Mg PO [id number] Ativan (Lorazepam) 0.5 Mg Tablet 0.5 Mg PO TID Epipen 2-Erickson (Epinephrine) 0.3 Mg/0.3 Ml Auto.injct 0.3 Mg IJ 1X PRN Vitamin B-1 (Thiamine Hcl) 100 Mg Tablet 100 Mg PO DAILY Mag-Oxide (Magnesium Oxide) 400 Mg Tablet 400 Mg PO BID Folic Acid 1 Mg Tablet 1 Mg PO DAILY [Multivitamins,Therapeutic] 1 TAB Tablet 1 Tab PO DAILY Reported Combivent Respimat Inhal (Ipratropium/Albuterol Sulfate) 4 Gm Aer.w.adap 1 Puff INH QIDPRN PRN Proair Hfa Inhaler (Albuterol Sulfate) 8.5 Gm Hfa.aer.ad 1 Puff INH QIDPRN PRN Allergies Allergies: Coded Allergies: No Known Drug Allergies (Unverified , 07/25/16) ROS General: YES: Other (pain all over) PSYCHOLOGICAL ROS: YES: Depression Eyes: No Blurry vision, No Decreased vision, No Double vision, No Dry eyes, No Excessive tearing, No Eye Pain, No Itchy Eyes, No Loss of vision, No Photophobia , No Scotomata, No Uses contacts, No Uses glasses, No Other HEENT: No: Heacaches, Visual Changes, Hearing change, Nasal congestion, Nasal discharge, Oral lesions, Sinus pain, Sore Throat, Epistaxis, Sneezing, Snoring, Tinnitus, Vertigo, Vocal changes, Other ALLERGY AND IMMUNOLOGY: No: Hives, Insect Bite Sensitivity, Itchy/Watery Eyes, Nasal Congestion, Post Nasal Drip, Seasonal Allergies, Other Hematological and Lymphatic: No: Bleeding Problems, Blood Clots, Blood Transfusions, Brusing, Night Sweats, Pallor, Swollen Lymph Nodes, Other ENDOCRINE: No: Breast Changes, Galactorrhea, Hair Pattern Changes, Hot Flashes , Malaise/lethargy, Mood Swings, Palpitations, Polydipsia/polyuria, Skin Changes , Temperature Intolerance, Unexpected Weight Changes, Other Breast: No New/Changing Breast Lumps, No Nipple changes, No Nipple discharge, No Other Respiratory: YES: Pleuritic Pain, Shortness of breath, SOB with excertion Cardiovascular: yes Chest Pain Gastrointestinal: Yes Nausea, Yes Abdominal Pain, No Vomiting, No Diarrhea, No Constipation, No Melena, No Hematochezia, No Other Genitourinary: No Dysuria, No Frequency, No Incontinence, No Hematuria, No Retention, No Discharge, No Urgency, No Pain, No Flank Pain, No Other, No , No , No , No , No , No , No Musculoskeletal: No Gait Disturbance, No Joint Pain, No Joint Stiffness, No Joint Swelling, No Muscle Pain, No Muscular Weakness, No Pain In:, No Swelling In:, No Other Neurological: No Behavorial Changes, No Bowel/Bladder ControlChng, No Confusion , No Dizziness, No Gait Disturbance, No Headaches, No Impaired Coord/balance, No Memory Loss, No Numbness/Tingling, No Seizures, No Speech Problems, No Tremors, No Visual Changes, No Weakness, No Other Skin: No Dry Skin, No Eczema, No Hair Changes, No Lumps, No Mole Changes, No Mottling, No Nail Changes, No Pruritus, No Rash, No Skin Lesion Changes, No Other, No Acne Physical Exam General: No acute distress, Other (unkempt, rash all over, face, neck trunk , UE and LE, bilateral) HEENT: Atraumatic, PERRLA Lungs: Clear to auscultation, Normal air movement Heart: S1S2, no gallops, other (Sinus tachy 130s) Breasts: Normal, Rt breast nml w/o mass, Lt breast nml w/o mass, Nipples normal Abdomen: Normal bowel sounds, Soft, No tenderness, No hepatosplenomegaly, No masses, Other (tenderness epigastric/periumbilical area) PELVIC: Nml ext genitalia Extremities: No clubbing, No cyanosis, No edema, Normal pulses, No tenderness/ swelling Skin: Other (as above HPI) Neuro: Normal gait, Normal speech, Strength at 5/5 X4 ext, Normal tone, Sensation intact, Cranial nerves 3-12 NL, Reflexes 2+ Psych/Mental Status: Mental status NL, Mood NL Vitals Vitals Vital Signs Date Time Temp Pulse Resp B/P (MAP) Pulse Ox O2 Delivery O2 Flow Rate FiO2 04/16/17 14:49 108 18 122/58 (79) 96 Nasal Cannula 2.0 04/16/17 12:24 96.2 96.2 Labs Labs Laboratory Tests Test 04/16/17 12:55 White Blood Count 4.0 x10^3/uL (4.0-11.0) Red Blood Count 4.89 x10^6/uL (4.30-5.70) Hemoglobin 15.2 g/dL (13.0-17.5) Hematocrit 46.5 % (39.0-53.0) Mean Corpuscular Volume 95 fL (79-100) Mean Corpuscular Hemoglobin 31 pg (25-35) Mean Corpuscular Hemoglobin Concent 33 g/dL (31-37) Red Cell Distribution Width 15.3 % (11.5-14.5) Platelet Count 143 x10^3/uL (140-400) Neutrophils (%) (Auto) 49 % (31-73) Lymphocytes (%) (Auto) 37 % (24-48) Monocytes (%) (Auto) 10 % (0-9) Eosinophils (%) (Auto) 1 % (0-3) Basophils (%) (Auto) 4 % (0-3) Neutrophils # (Auto) 2.0 x10^3uL (1.8-7.7) Lymphocytes # (Auto) 1.5 x10^3/uL (1.0-4.8) Monocytes # (Auto) 0.4 x10^3/uL (0.0-1.1) Eosinophils # (Auto) 0.0 x10^3/uL (0.0-0.7) Basophils # (Auto) 0.1 x10^3/uL (0.0-0.2) Sodium Level 139 mmol/L (136-145) Potassium Level 3.7 mmol/L (3.5-5.1) Chloride Level 96 mmol/L (98-107) Carbon Dioxide Level 16 mmol/L (21-32) Anion Gap 27 (6-14) Blood Urea Nitrogen 12 mg/dL (8-26) Creatinine 1.0 mg/dL (0.7-1.3) Estimated GFR (Cockcroft-Gault) 77.9 Glucose Level 86 mg/dL (70-99) Serum Osmolality 389 mOsm/Kg (279-304) Calcium Level 8.9 mg/dL (8.5-10.1) Total Bilirubin 0.6 mg/dL (0.2-1.0) Direct Bilirubin 0.3 mg/dL (0.0-0.2) Aspartate Amino Transf (AST/SGOT) 225 U/L (15-37) Alanine Aminotransferase (ALT/SGPT) 179 U/L (16-63) Alkaline Phosphatase 110 U/L (46-116) Troponin I Quantitative < 0.017 ng/mL (0.000-0.055) Total Protein 8.6 g/dL (6.4-8.2) Albumin 4.5 g/dL (3.4-5.0) Lipase 219 U/L (73-393) Salicylates Level 3.2 mg/dL (2.8-20.0) Salicylate Last Dose Date Unk Salicylate Last Dose Time Unk Acetaminophen Level 8.5 mcg/ml (10-30) Acetaminophen Last Dose Date Unk Acetaminophen Last Dose Time Unk Ethyl Alcohol Level 350 mg/dL (0-10) Laboratory Tests Test 04/16/17 12:55 White Blood Count 4.0 x10^3/uL (4.0-11.0) Red Blood Count 4.89 x10^6/uL (4.30-5.70) Hemoglobin 15.2 g/dL (13.0-17.5) Hematocrit 46.5 % (39.0-53.0) Mean Corpuscular Volume 95 fL (79-100) Mean Corpuscular Hemoglobin 31 pg (25-35) Mean Corpuscular Hemoglobin Concent 33 g/dL (31-37) Red Cell Distribution Width 15.3 % (11.5-14.5) Platelet Count 143 x10^3/uL (140-400) Neutrophils (%) (Auto) 49 % (31-73) Lymphocytes (%) (Auto) 37 % (24-48) Monocytes (%) (Auto) 10 % (0-9) Eosinophils (%) (Auto) 1 % (0-3) Basophils (%) (Auto) 4 % (0-3) Neutrophils # (Auto) 2.0 x10^3uL (1.8-7.7) Lymphocytes # (Auto) 1.5 x10^3/uL (1.0-4.8) Monocytes # (Auto) 0.4 x10^3/uL (0.0-1.1) Eosinophils # (Auto) 0.0 x10^3/uL (0.0-0.7) Basophils # (Auto) 0.1 x10^3/uL (0.0-0.2) Sodium Level 139 mmol/L (136-145) Potassium Level 3.7 mmol/L (3.5-5.1) Chloride Level 96 mmol/L (98-107) Carbon Dioxide Level 16 mmol/L (21-32) Anion Gap 27 (6-14) Blood Urea Nitrogen 12 mg/dL (8-26) Creatinine 1.0 mg/dL (0.7-1.3) Estimated GFR (Cockcroft-Gault) 77.9 Glucose Level 86 mg/dL (70-99) Serum Osmolality 389 mOsm/Kg (279-304) Calcium Level 8.9 mg/dL (8.5-10.1) Total Bilirubin 0.6 mg/dL (0.2-1.0) Direct Bilirubin 0.3 mg/dL (0.0-0.2) Aspartate Amino Transf (AST/SGOT) 225 U/L (15-37) Alanine Aminotransferase (ALT/SGPT) 179 U/L (16-63) Alkaline Phosphatase 110 U/L (46-116) Troponin I Quantitative < 0.017 ng/mL (0.000-0.055) Total Protein 8.6 g/dL (6.4-8.2) Albumin 4.5 g/dL (3.4-5.0) Lipase 219 U/L (73-393) Salicylates Level 3.2 mg/dL (2.8-20.0) Salicylate Last Dose Date Unk Salicylate Last Dose Time Unk Acetaminophen Level 8.5 mcg/ml (10-30) Acetaminophen Last Dose Date Unk Acetaminophen Last Dose Time Unk Ethyl Alcohol Level 350 mg/dL (0-10) VTE Prophylaxis Ordered VTE Prophylaxis Devices: Yes VTE Pharmacological Prophylaxi: Yes Assessment/Plan Assessment/Plan 1. Alcohol Intox 2. Gap metabolic acidosis sec to alcohol 3. RAsh all over 4. Depression NOS 5. Sinus tachy sec to etoh 6. MSK chest pain 7, Hypochloremia 8. ELevated LFTs: Plan: Admit Hook to tele NS to address low Chloride and gap acidosis BAnana bag daily PT/OT Supportive meds Benadryl for rash LAbs annelise AM Seen AT ER [facility] LEONARDO MCRAE MD April 16, 2017 15:17
[2017-04-16 15:30] VITALS: BP 145/83
--- NOTE | 2017-04-16 15:36 | EKG ---
[facility] [address] [place] [address] Test Date: 2017-04-16 Test Time: 13:21:07 Pat Name: ANTHONY LENNON Department: Room: [facility] Gender: M Manager Of Pmo: : 1960 Requested By: IRLANDA GARCIA Order Number: [id number] Reading MD: Antonia Lozano Measurements Intervals [place] Rate: 133 P: -134 W[place]: 112 QRS: -23 QRSD: 86 T: 66 QT: 278 QTc: 415 Interpretive Statements SINUS TACHYCARDIA LEFTWARD AXIS BASELINE ARTIFACT Electronically Signed On 04-19-2017 15:16:23 CDT by Antonia Lozano
[2017-04-16] MEDS: ALPRAZolam 0.5 MG TABLET PO PRN ×2 (15:37→22:51)
[2017-04-16] MEDS: diphenhydrAMINE 50 MG/ML VIAL IVP PRN ×2 (15:40→22:52)
--- NOTE | 2017-04-16 17:15 | PDOC ---
PULMONARY PROGRESS NOTES Vitals Vital Signs Date Time Temp Pulse Resp B/P (MAP) Pulse Ox O2 Delivery O2 Flow Rate FiO2 04/16/17 16:18 Nasal Cannula 3.5 04/16/17 16:14 94 04/16/17 15:30 98.2 119 18 145/83 (103) 98.2 Lungs: Clear Cardiovascular: S1, S2 Labs Laboratory Tests Test 04/16/17 12:55 White Blood Count 4.0 x10^3/uL (4.0-11.0) Red Blood Count 4.89 x10^6/uL (4.30-5.70) Hemoglobin 15.2 g/dL (13.0-17.5) Hematocrit 46.5 % (39.0-53.0) Mean Corpuscular Volume 95 fL (79-100) Mean Corpuscular Hemoglobin 31 pg (25-35) Mean Corpuscular Hemoglobin Concent 33 g/dL (31-37) Red Cell Distribution Width 15.3 % (11.5-14.5) Platelet Count 143 x10^3/uL (140-400) Neutrophils (%) (Auto) 49 % (31-73) Lymphocytes (%) (Auto) 37 % (24-48) Monocytes (%) (Auto) 10 % (0-9) Eosinophils (%) (Auto) 1 % (0-3) Basophils (%) (Auto) 4 % (0-3) Neutrophils # (Auto) 2.0 x10^3uL (1.8-7.7) Lymphocytes # (Auto) 1.5 x10^3/uL (1.0-4.8) Monocytes # (Auto) 0.4 x10^3/uL (0.0-1.1) Eosinophils # (Auto) 0.0 x10^3/uL (0.0-0.7) Basophils # (Auto) 0.1 x10^3/uL (0.0-0.2) Sodium Level 139 mmol/L (136-145) Potassium Level 3.7 mmol/L (3.5-5.1) Chloride Level 96 mmol/L (98-107) Carbon Dioxide Level 16 mmol/L (21-32) Anion Gap 27 (6-14) Blood Urea Nitrogen 12 mg/dL (8-26) Creatinine 1.0 mg/dL (0.7-1.3) Estimated GFR (Cockcroft-Gault) 77.9 Glucose Level 86 mg/dL (70-99) Serum Osmolality 389 mOsm/Kg (279-304) Calcium Level 8.9 mg/dL (8.5-10.1) Total Bilirubin 0.6 mg/dL (0.2-1.0) Direct Bilirubin 0.3 mg/dL (0.0-0.2) Aspartate Amino Transf (AST/SGOT) 225 U/L (15-37) Alanine Aminotransferase (ALT/SGPT) 179 U/L (16-63) Alkaline Phosphatase 110 U/L (46-116) Troponin I Quantitative < 0.017 ng/mL (0.000-0.055) Total Protein 8.6 g/dL (6.4-8.2) Albumin 4.5 g/dL (3.4-5.0) Lipase 219 U/L (73-393) Salicylates Level 3.2 mg/dL (2.8-20.0) Salicylate Last Dose Date Unk Salicylate Last Dose Time Unk Acetaminophen Level 8.5 mcg/ml (10-30) Acetaminophen Last Dose Date Unk Acetaminophen Last Dose Time Unk Ethyl Alcohol Level 350 mg/dL (0-10) Laboratory Tests Test 04/16/17 12:55 White Blood Count 4.0 x10^3/uL (4.0-11.0) Red Blood Count 4.89 x10^6/uL (4.30-5.70) Hemoglobin 15.2 g/dL (13.0-17.5) Hematocrit 46.5 % (39.0-53.0) Mean Corpuscular Volume 95 fL (79-100) Mean Corpuscular Hemoglobin 31 pg (25-35) Mean Corpuscular Hemoglobin Concent 33 g/dL (31-37) Red Cell Distribution Width 15.3 % (11.5-14.5) Platelet Count 143 x10^3/uL (140-400) Neutrophils (%) (Auto) 49 % (31-73) Lymphocytes (%) (Auto) 37 % (24-48) Monocytes (%) (Auto) 10 % (0-9) Eosinophils (%) (Auto) 1 % (0-3) Basophils (%) (Auto) 4 % (0-3) Neutrophils # (Auto) 2.0 x10^3uL (1.8-7.7) Lymphocytes # (Auto) 1.5 x10^3/uL (1.0-4.8) Monocytes # (Auto) 0.4 x10^3/uL (0.0-1.1) Eosinophils # (Auto) 0.0 x10^3/uL (0.0-0.7) Basophils # (Auto) 0.1 x10^3/uL (0.0-0.2) Sodium Level 139 mmol/L (136-145) Potassium Level 3.7 mmol/L (3.5-5.1) Chloride Level 96 mmol/L (98-107) Carbon Dioxide Level 16 mmol/L (21-32) Anion Gap 27 (6-14) Blood Urea Nitrogen 12 mg/dL (8-26) Creatinine 1.0 mg/dL (0.7-1.3) Estimated GFR (Cockcroft-Gault) 77.9 Glucose Level 86 mg/dL (70-99) Serum Osmolality 389 mOsm/Kg (279-304) Calcium Level 8.9 mg/dL (8.5-10.1) Total Bilirubin 0.6 mg/dL (0.2-1.0) Direct Bilirubin 0.3 mg/dL (0.0-0.2) Aspartate Amino Transf (AST/SGOT) 225 U/L (15-37) Alanine Aminotransferase (ALT/SGPT) 179 U/L (16-63) Alkaline Phosphatase 110 U/L (46-116) Troponin I Quantitative < 0.017 ng/mL (0.000-0.055) Total Protein 8.6 g/dL (6.4-8.2) Albumin 4.5 g/dL (3.4-5.0) Lipase 219 U/L (73-393) Salicylates Level 3.2 mg/dL (2.8-20.0) Salicylate Last Dose Date Unk Salicylate Last Dose Time Unk Acetaminophen Level 8.5 mcg/ml (10-30) Acetaminophen Last Dose Date Unk Acetaminophen Last Dose Time Unk Ethyl Alcohol Level 350 mg/dL (0-10) Medications Active Scripts Medications Dose Route/Sig Max Daily Dose Days Date Category Topamax (Topiramate) 25 Mg Tablet 1 Tab PO BID 03/17/17 Rx Escitalopram Oxalate 10 Mg Tablet 10 Mg PO DAILY 03/17/17 Rx [Lisinopril] 40 MG Tablet 40 Mg PO DAILY 03/17/17 Rx [Hydrocodone/Acetaminophen] 1 TAB Tablet 1 Tab PO PRN Q6HRS PRN 03/17/17 Rx Clonazepam 0.25 Mg Tab.rapdis 0.75 Mg PO TID 12/05/16 Rx Ibuprofen 200 Mg Tablet 200 Mg PO PRN Q6HRS PRN 11/11/16 Rx Vimpat (Lacosamide) 200 Mg Tablet 200 Mg PO [id number] 10/18/16 Rx Ativan (Lorazepam) 0.5 Mg Tablet 0.5 Mg PO TID 09/11/16 Rx Epipen 2-Erickson (Epinephrine) 0.3 Mg/0.3 Ml Auto.injct 0.3 Mg IJ 1X PRN 07/25/16 Rx Vitamin B-1 (Thiamine Hcl) 100 Mg Tablet 100 Mg PO DAILY 10/05/15 Rx Mag-Oxide (Magnesium Oxide) 400 Mg Tablet 400 Mg PO BID 10/05/15 Rx Folic Acid 1 Mg Tablet 1 Mg PO DAILY 10/05/15 Rx [Multivitamins,Therapeutic] 1 TAB Tablet 1 Tab PO DAILY 09/01/14 Rx Combivent Respimat Inhal (Ipratropium/Albuterol Sulfate) 4 Gm Aer.w.adap 1 Puff INH QIDPRN PRN 08/30/14 Reported Proair Hfa Inhaler (Albuterol Sulfate) 8.5 Gm Hfa.aer.ad 1 Puff INH QIDPRN PRN 08/30/14 Reported Impression . AECOPD NOTE DICTATED THANKS VANE NORIEGA MD April 16, 2017 17:15
[2017-04-16] MEDS: methylPREDNISolone SOD SUCC PF 40 MG/ML VIAL. IV SCH (17:39)
[2017-04-16 19:46] VITALS: BP 158/85
[2017-04-16] MEDS ORDERED: PROCHLORPERAZINE 10 MG/2 ML VIAL. IV PRN (23:00)
[2017-04-17 03:19] LABS: BASO % 0 % (0-3); EOS % 0 % (0-3); HEMATOCRIT 40.2 % (39.0-53.0); HEMOGLOBIN 13.2 g/dL (13.0-17.5); LYMPH # 0.2 x10^3/uL (1.0-4.8); LYMPH % 10 % (24-48); MEAN CORPUSCULAR HEMOGLOBIN 31 pg (25-35); MEAN CORPUSCULAR HGB CONC 33 g/dL (31-37); MEAN CORPUSCULAR VOLUME 95 fL (79-100); MONO % 2 % (0-9); NEUT % 88 % (31-73); PLATELET COUNT 106 x10^3/uL (140-400); RED BLOOD COUNT 4.25 x10^6/uL (4.30-5.70); RED CELL DISTRIBUTION WIDTH 14.9 % (11.5-14.5)
[2017-04-17 03:34] VITALS: BP 133/88
[2017-04-17 03:34] LABS: CALCIUM 8.1 mg/dL (8.5-10.1); CREATININE 0.9 mg/dL (0.7-1.3); GFR 87.9; POTASSIUM 4.2 mmol/L (3.5-5.1)
[2017-04-17] MEDS: chlordiazePOXIDE HCL 25 MG CAPSULE PO PRN ×2 (03:53→19:50)
--- NOTE | 2017-04-17 04:00 | CONS ---
DATE OF CONSULTATION: 04/16/2017 ATTENDING PHYSICIAN: Janine Bridges M.D. REASON FOR CONSULTATION: The patient is seen in pulmonary consultation at the request of Dr. Bridges for hypoxemia. HISTORY OF PRESENT ILLNESS: The patient is a 56-year-old alcoholic who does not recall why he came in to the Emergency Room. He was evaluated in the Emergency Room and found to be hypoxic. I was asked to see him in consultation. The patient normally wears 2 liters of oxygen at home. He has a cough productive of discolored sputum. In the Emergency Room, he underwent CT angiogram, which revealed no evidence of pulmonary embolism, no acute findings. The patient denies fever, chills, night sweats. PAST MEDICAL HISTORY: COPD, alcoholism, gastroesophageal reflux, previous suicide attempt, polysubstance use, hypertension, hepatitis, myocardial infarction, seizures. PAST SURGICAL HISTORY: Hip surgery. SOCIAL HISTORY: He continues to smoke. He drinks on a daily basis. He has also used cocaine, heroin, marijuana, and methamphetamine in the past. REVIEW OF SYSTEMS: As indicated above; otherwise, a 10-point system was reviewed and negative. CURRENT MEDICATION: List was reviewed. Please see the MRAD. FAMILY HISTORY: Noncontributory. PHYSICAL EXAMINATION GENERAL: Disheveled gentleman who appears to be older than stated age, currently on 2 liters of oxygen supplementation. HEENT: Eyes, the sclerae were nonicteric. NECK: Jugular venous distention was not elevated. No lymphadenopathy. CHEST: Full expansion. LUNGS: Coarse breath sounds, expiratory wheeze. CARDIOVASCULAR: Regular rate and rhythm with S1 and S2, no S3. ABDOMEN: Soft and nontender. EXTREMITIES: No clubbing, cyanosis or edema. NEUROLOGIC: The patient was awake, alert, following commands. A detailed neuro exam was not performed. LABORATORY AND IMAGING DATA: Labs were reviewed. White count was normal. Hemoglobin and hematocrit were noted. Electrolytes were noted. Liver chemistries were elevated. Albumin was 4.5. Chest x-ray and CT reviewed. IMPRESSION: 1. Acute on chronic respiratory failure. 2. Acute exacerbation of chronic obstructive pulmonary disease. 3. Alcohol intoxication. 4. Elevated liver chemistries. 5. Polysubstance use. PLAN: 1. Recommend continuing current medical regimen with oxygen supplementation, nebulized treatments and Solu-Medrol. 2. No need for antibiotics. 3. Alcohol withdrawal precaution per PCP. 4. The patient is instructed on the importance of discontinuing all illicit drugs including alcohol. I do appreciate the privilege in sharing in the patient's care. VANE NORIEGA MD DR: YFN/venita JOB#: [id number] / [id number]
[2017-04-17] MEDS: IV NORMAL SALINE 1000ML BAG 1,000 ML IV SCH (05:38)
[2017-04-17 05:40] LABS: PLT ESTIMATE DECREASED (ADEQUATE)
[2017-04-17 07:00] VITALS: BP 118/60
[2017-04-17] MEDS: methylPREDNISolone SOD SUCC PF 40 MG/ML VIAL. IV SCH (09:01)
[2017-04-17] MEDS: MULTIVIT INFUSN,ADULT 4,VIT K 10 ML, FOLIC ACID 1 MG, THIAMINE 100 MG in IV DEXTROSE 5 ... IV SCH (09:02)
[2017-04-17 11:00] VITALS: BP 137/94
--- NOTE | 2017-04-17 11:17 | ACF ---
Admission Forms Criteria CARDIOLOGY [facility]G Clinical Indications for Admission to Inpatient Care ( Place 'X' for any and all applicable criteria): Hospital admission is needed for appropriate care of the patient because of ANY ONE of the following (1): [ ] I. Hemodynamic instability as indicated by ALL of the following (1)(2)(3) (4)(5) [ ]a) Vital signs or other findings not as expected for chronic patient condition or baseline [ ]b) Instability indicated by ANY ONE of the following: [ ]i) Hypotension [ ]ii) Symptomatic Tachycardia unresponsive to treatment ( e.g., analgesia, fluids, sedation as indicated) [ ]iii) Inadequate perfusion indicated by ANY ONE of the following: [ ] 1) Lactic acidosis (> 2 mmol/L) [ ] 2) New abnormal capillary refill (> 3 seconds) [ ] 3) Reduced urine output [ ] 4) New altered mental status [ ]iv) Orthostatic vital sign changes unresponsive to treatment (e.g., fluids) [ ]v) IV inotropic or vasopressor medication required to maintain adequate blood pressure or perfusion [ ] II. Severe heart failure as indicated by ANY ONE of the following(17)(18) [ ]a) Respiratory distress [ ]b) Hypotension [ ]c) Anasarca (refractory to outpatient therapy) [ ]d) Cardiac arrhythmias of immediate concern [ ]e) Myocardial ischemia [ ] III. Cardiac arrhythmias or findings of immediate concern indicated by ANY ONE of the following (19)(20): [ ] a) Heart rhythms that are inherently dangerous or unstable indicated by ANY ONE of the following (21)(22)(23): [ ] i) Resuscitated ventricular fibrillation or cardiac arrest [ ] ii) Ventricular escape rhythm [ ] iii) Sustained ventricular tachycardia (30 seconds or more of ventricular rhythm at greater than 100 beats per minute) [ ] iv) Nonsustained ventricular tachycardia and ANY ONE of the following: [ ] 1) Suspected cardiac ischemia as cause or consequence of ventricular tachycardia [ ] 2) In setting of acute myocarditis [ ] b) Unstable cardiac conduction defects indicated by ANY ONE of the following(23)(24)(25) [ ] i) Type II second-degree atrioventricular block [ ]ii) Third-degree atrioventricular block [ ]iii) New-onset left bundle branch block with suspected myocardial ischemia [ ]c) Any heart rhythm and ANY ONE of the following (21)(22)(26)(27) (28) [ ] i) Continuous long-term ECG monitoring needed (e.g., initiation of drug requiring monitoring for more than 24 hours) [ ] ii) Patient has automatic implanted cardioverter defibrillator that is repeatedly firing, malfunctioning, or in need of immediate adjustment of settings beyond the scope of ambulatory or observation care [ ]d) Heart rhythms of concern due to ANY ONE of the following: [ ] i) Hypotension [ ] ii) Respiratory distress [ ] iii) Association with other significant symptoms (e.g., bradycardia with syncope or ongoing dizziness, supraventricular tachycardia with chest pain (14)(15)(17) [ ] IV. Monitoring for cardiac contusion beyond the scope of observation care needed [A](30)(31)(32) [ ] V. Surgical or device complication (e.g., valve replacement complication , pacemaker dysfunction) (35)(41)(44)(45)(46) [ ] . Inpatient palliative care needed. [B](49) Also use Inpatient Palliative Care Criteria [ ] VII. Nonbacterial thrombotic (marantic) endocarditis (36)(43)(47)(48) [X] VIII. Cardiology condition, symptom, or finding for which emergency and observation care has failed or are not considered appropriate. [ ] IX. Acute valvular disease requiring inpatient as indicated by ANY ONE of the following (41) [ ]a) Acute valvular regurgitation (42) [ ]b) Noninfectious valvulitis (43) [ ]c) Obstructive valve thrombosis [ ]d) Paravalvular leak [ ]e) Other significant valvular disorder remaining after emergency or observation level of care (as appropriate) [ ]X. Pericardial disease requiring inpatient treatment as indicated by ANY ONE of the following (33)(34)(35)(36)(37) [ ]a) Suspected tamponade (38)(39)(40) [ ]b) Hemopericardium [ ]c) Other significant pericardial disorder remaining after emergency or observation level of care (as appropriate) [ ] XI. Cardiac ischemia beyond scope of emergency and observation care. [ ] XII. Hypertension requiring inpatient treatment as indicated by ANY ONE of the following (6)(7)(8) [ ]a) SBP greater than 220 mm Hg or DBP greater than 120 mmHg despite treatment [ ]b) SBP greater than 140 mm Hg or DBP greater than 100 mm Hg with evidence of acute end organ damage as indicated by ANY ONE of the following [ ] i) Encephalopathy [ ] ii) Acute renal failure as indicated by new onset of ANY ONE of the following (9)(10)(11)(12)(13) [ ]1) 3-fold rise in serum creatinine from baseline [ ]2) Serum creatinine greater than 4 mg/dL ( 354 micromoles/L) with acute rise greater than 0.5 mg/dL (44.2 micromoles/L) [ ]3) Reduction of more than 75% in estimated glomerular filtration rate from baseline [ ]4) Estimated glomerular filtration rate less than 35 mL/min/1.73m2 (0.59 mL/sec/1.73m2) in child up to 18 years of age [ ]5) Cessation of urine output indicated by ALL of the following [ ]A. Adequate volume status [ ]B. Inadequate urine output as indicated by ANY ONE of the following [ ]a. Urine output less than 0.3 mL/kg/hr for 24 hours [ ]b. Anuria (urine output less than 0.1 mL/kg/hr) for 12 hours [ ] iii) Aortic dissection [ ] iv) Myocardial Ischemia [ ] v) Left ventricular heart failure [ ]vi) Retinal Hemorrhage [ ]vii) Other significant finding [ ]c) Hypertension in child requiring inpatient treatment as indicated by ALL of the following(14)(15)(16) [ ] i) Outpatient treatment not effective, not available, or not appropriate [ ]ii) SBP or DBP greater than 95th percentile for age [ ]iii) Evidence of acute end organ damage as indicated by ANY ONE of the following [ ]1) Altered mental status [ ]2) Acute renal failure as indicated by new onset of ANY ONE of the following(9)(10)(11)(12)(13) [ ]A. 3-fold rise in serum creatinine from baseline [ ]B. Serum creatinine greater than 4 mg/dL (354 micromoles/L) with acute rise greater than 0.5 mg/dL (44.2 micromoles/L) [ ]C. Reduction of more than 75% in estimated glomerular filtration rate from baseline [ ]D. Estimated glomerular filtration rate less than 35 mL/min/1.73m2 (0.59 mL/sec/1.73m2) in child up to 18 years of age [ ]E. Cessation of urine output indicated by ALL of the following [ ]a. Adequate volume status [ ]b. Inadequate urine output as indicated by ANY ONE of the following [ ]i) Urine output less than 0.3 mL/kg/hr for 24 hours [ ]ii) Anuria ( urine output less than 0.1 mL/kg/hr) for 12 hours [ ]3) Severe headache [ ]4) Visual disturbance [ ]5) Retinal hemorrhage [ ]6) Other significant finding [ ]XIII. Complications of transplanted heart indicated by ANY ONE of the following(61): [ ]a) Acute graft rejection requiring inpatient management (eg, intravenous immunosuppression)(62)(63) [ ]b) Acute graft heart failure indicated by ANY ONE of the following(64): [ ]i) Hemodynamic instability [ ]ii) Cardiac arrhythmias of immediate concern [ ]iii) Pulmonary edema that is very severe (eg, mechanical ventilation needed, imminent or likely, need for 100% oxygen to keep oxygen saturation above 90%) [ ]iv) Pulmonary edema that is persistent as indicated by ALL of the following: [ ]1) New need for oxygen therapy to keep oxygen saturation above 90% (or increased FiO2 need from baseline) [ ]2) Has not improved sufficiently with emergency department or observation care IV diuretics or other heart failure treatments[E] [ ]v) Altered mental status that is severe or persistent [ ]vi) Increased creatinine (new on laboratory test) with reduction of more than 50% in estimated glomerular filtration rate from baseline [ ]vii) Progressively (ongoing) rising creatinine (known from past laboratory test) with reduction of more than 25% in estimated glomerular filtration rate from baseline [ ]viii) Acute renal failure [ ]ix) Acute peripheral ischemia (eg, examination shows pulseless, cool, mottled, or cyanotic extremity) [ ]x) Pulmonary artery catheter monitoring needed [ ]xi) Other sign or symptom of heart failure requiring inpatient treatment (ie, too severe or not responsive to outpatient and observation care treatment) [ ]c) Infection requiring inpatient management (eg, Hemodynamic instability, need for intravenous antimicrobial treatment)(66)(67)(68)(69)(70) [ ]d) Cardiac allograft vasculopathy requiring inpatient management ( eg evidence of cardiac ischemia)(71) [ ]e) Other complication of transplanted heart (eg, stroke, severe pulmonary hypertension, severe valvular dysfunction) requiring inpatient management(72) The original [facility] content created by [facility] has been revised. The portions of the content which have been revised are identified through the use of italic text or in bold, and [facility] has neither reviewed nor approved the modified material. All other unmodified content is copyright [facility]. Please see references footnoted in the original [facility] edition 2016 Admission Criteria Met?: Yes POLY PENA April 17, 2017 11:17
[2017-04-17] MEDS ORDERED: ALBUTEROL SULFATE 2.5 MG/3 ML NEBU. NEB PRN (11:30)
[2017-04-17] MEDS ORDERED: hydrALAZINE 20 MG/ML VIAL. IVP PRN (11:30)
[2017-04-17] MEDS ORDERED: ACETAMINOPHEN 325 MG TABLET. PO PRN (11:30)
[2017-04-17] MEDS ORDERED: traMADol 50 MG TABLET PO PRN (11:30)
[2017-04-17] MEDS ORDERED: DOCUSATE SODIUM 100 MG CAPSULE. PO PRN (11:30)
[2017-04-17] MEDS: IPRATRPIUM/ALBUTEROL 0.5/2.5MG 3 ML NEBU. NEB SCH ×3 (11:49→20:00)
[2017-04-17] MEDS ORDERED: LISINOPRIL 40 MG TABLET. PO SCH (12:30)
--- NOTE | 2017-04-17 12:53 | PDOC ---
PROGRESS NOTES Chief Complaint Chief Complaint 1. Alcohol Intoxication 2. Gap metabolic acidosis sec to alcohol 3. RAsh all over 2/2 alcohol? 4. Depression NOS 5. Sinus tachy sec to etoh 6. MSK chest pain 7, Hypochloremia 8. ELevated LFTs, alcoholic hepatitis 9. acute on chronic resp failure with hypoxia 10. COPD likely with smoking 11. HTN 12. UNcompliance 13. smoker 14. dehydration 15. leukopenia, thrombocytopenia, 2/2 alcoholic hepatitis Plan: fu with pulm add duoneb qid, albuterol prn on solumedrol 60mg iv daily cont protocol for ETOH into/withdrawl check labs tmr ptot pt is well known to us, smoker, heavy drinker almost daily, not compliance to PAT recommendation, comes here every month at least. cont supportive here. History of Present Illness History of Present Illness still mild sob on NC 2L BL lungs mild wheezing looks weak mild nausea, low po intake Vitals Vitals Vital Signs Date Time Temp Pulse Resp B/P (MAP) Pulse Ox O2 Delivery O2 Flow Rate FiO2 04/17/17 11:51 92 Nasal Cannula 3.0 04/17/17 11:00 98.7 82 18 137/94 (108) 98.7 Physical Exam General: Alert, Oriented X3, Cooperative, No acute distress, Other (unkempt, rash all over, face, neck trunk , UE and LE, bilateral) Heart: Regular rate Lungs: Wheezing (bl mild) Abdomen: Normal bowel sounds, Soft, No hepatosplenomegaly, No masses, Other ( diffused mild tenderness) Extremities: No clubbing, No cyanosis, No edema, Normal pulses, No tenderness/ swelling Skin: Other (as above HPI) Labs LABS Laboratory Tests Test 04/16/17 12:55 04/16/17 19:05 04/17/17 01:11 04/17/17 02:00 White Blood Count 4.0 x10^3/uL (4.0-11.0) 2.0 x10^3/uL (4.0-11.0) Red Blood Count 4.89 x10^6/uL (4.30-5.70) 4.25 x10^6/uL (4.30-5.70) Hemoglobin 15.2 g/dL (13.0-17.5) 13.2 g/dL (13.0-17.5) Hematocrit 46.5 % (39.0-53.0) 40.2 % (39.0-53.0) Mean Corpuscular Volume 95 fL (79-100) 95 fL (79-100) Mean Corpuscular Hemoglobin 31 pg (25-35) 31 pg (25-35) Mean Corpuscular Hemoglobin Concent 33 g/dL (31-37) 33 g/dL (31-37) Red Cell Distribution Width 15.3 % (11.5-14.5) 14.9 % (11.5-14.5) Platelet Count 143 x10^3/uL (140-400) 106 x10^3/uL (140-400) Neutrophils (%) (Auto) 49 % (31-73) 88 % (31-73) Lymphocytes (%) (Auto) 37 % (24-48) 10 % (24-48) Monocytes (%) (Auto) 10 % (0-9) 2 % (0-9) Eosinophils (%) (Auto) 1 % (0-3) 0 % (0-3) Basophils (%) (Auto) 4 % (0-3) 0 % (0-3) Neutrophils # (Auto) 2.0 x10^3uL (1.8-7.7) 1.7 x10^3uL (1.8-7.7) Lymphocytes # (Auto) 1.5 x10^3/uL (1.0-4.8) 0.2 x10^3/uL (1.0-4.8) Monocytes # (Auto) 0.4 x10^3/uL (0.0-1.1) 0.0 x10^3/uL (0.0-1.1) Eosinophils # (Auto) 0.0 x10^3/uL (0.0-0.7) 0.0 x10^3/uL (0.0-0.7) Basophils # (Auto) 0.1 x10^3/uL (0.0-0.2) 0.0 x10^3/uL (0.0-0.2) Sodium Level 139 mmol/L (136-145) 137 mmol/L (136-145) Potassium Level 3.7 mmol/L (3.5-5.1) 4.2 mmol/L (3.5-5.1) Chloride Level 96 mmol/L (98-107) 99 mmol/L (98-107) Carbon Dioxide Level 16 mmol/L (21-32) 26 mmol/L (21-32) Anion Gap 27 (6-14) 12 (6-14) Blood Urea Nitrogen 12 mg/dL (8-26) 13 mg/dL (8-26) Creatinine 1.0 mg/dL (0.7-1.3) 0.9 mg/dL (0.7-1.3) Estimated GFR (Cockcroft-Gault) 77.9 87.9 Glucose Level 86 mg/dL (70-99) 136 mg/dL (70-99) Serum Osmolality 389 mOsm/Kg (279-304) Calcium Level 8.9 mg/dL (8.5-10.1) 8.1 mg/dL (8.5-10.1) Total Bilirubin 0.6 mg/dL (0.2-1.0) Direct Bilirubin 0.3 mg/dL (0.0-0.2) Aspartate Amino Transf (AST/SGOT) 225 U/L (15-37) Alanine Aminotransferase (ALT/SGPT) 179 U/L (16-63) Alkaline Phosphatase 110 U/L (46-116) Troponin I Quantitative < 0.017 ng/mL (0.000-0.055) < 0.017 ng/mL (0.000-0.055) < 0.017 ng/mL (0.000-0.055) Total Protein 8.6 g/dL (6.4-8.2) Albumin 4.5 g/dL (3.4-5.0) Lipase 219 U/L (73-393) Salicylates Level 3.2 mg/dL (2.8-20.0) Salicylate Last Dose Date Unk Salicylate Last Dose Time Unk Acetaminophen Level 8.5 mcg/ml (10-30) Acetaminophen Last Dose Date Unk Acetaminophen Last Dose Time Unk Ethyl Alcohol Level 350 mg/dL (0-10) Segmented Neutrophils % 92 % (35-66) Lymphocytes % 8 % (24-48) Platelet Estimate Decreased (ADEQUATE) Review of Systems Review of Systems no fever, chills, sob or chest pain Assessment and Plan Assessmemt and Plan Problems Medical Problems: (1) Chest pain Status: Acute (2) Chronic alcoholism Status: Acute (3) Drug abuse Status: Acute Problems: Comment Review of Relevant I have reviewed the following items keisha (where applicable) has been applied. Labs Laboratory Tests Test 04/16/17 12:55 04/16/17 19:05 04/17/17 01:11 04/17/17 02:00 White Blood Count 4.0 x10^3/uL (4.0-11.0) 2.0 x10^3/uL (4.0-11.0) Red Blood Count 4.89 x10^6/uL (4.30-5.70) 4.25 x10^6/uL (4.30-5.70) Hemoglobin 15.2 g/dL (13.0-17.5) 13.2 g/dL (13.0-17.5) Hematocrit 46.5 % (39.0-53.0) 40.2 % (39.0-53.0) Mean Corpuscular Volume 95 fL (79-100) 95 fL (79-100) Mean Corpuscular Hemoglobin 31 pg (25-35) 31 pg (25-35) Mean Corpuscular Hemoglobin Concent 33 g/dL (31-37) 33 g/dL (31-37) Red Cell Distribution Width 15.3 % (11.5-14.5) 14.9 % (11.5-14.5) Platelet Count 143 x10^3/uL (140-400) 106 x10^3/uL (140-400) Neutrophils (%) (Auto) 49 % (31-73) 88 % (31-73) Lymphocytes (%) (Auto) 37 % (24-48) 10 % (24-48) Monocytes (%) (Auto) 10 % (0-9) 2 % (0-9) Eosinophils (%) (Auto) 1 % (0-3) 0 % (0-3) Basophils (%) (Auto) 4 % (0-3) 0 % (0-3) Neutrophils # (Auto) 2.0 x10^3uL (1.8-7.7) 1.7 x10^3uL (1.8-7.7) Lymphocytes # (Auto) 1.5 x10^3/uL (1.0-4.8) 0.2 x10^3/uL (1.0-4.8) Monocytes # (Auto) 0.4 x10^3/uL (0.0-1.1) 0.0 x10^3/uL (0.0-1.1) Eosinophils # (Auto) 0.0 x10^3/uL (0.0-0.7) 0.0 x10^3/uL (0.0-0.7) Basophils # (Auto) 0.1 x10^3/uL (0.0-0.2) 0.0 x10^3/uL (0.0-0.2) Sodium Level 139 mmol/L (136-145) 137 mmol/L (136-145) Potassium Level 3.7 mmol/L (3.5-5.1) 4.2 mmol/L (3.5-5.1) Chloride Level 96 mmol/L (98-107) 99 mmol/L (98-107) Carbon Dioxide Level 16 mmol/L (21-32) 26 mmol/L (21-32) Anion Gap 27 (6-14) 12 (6-14) Blood Urea Nitrogen 12 mg/dL (8-26) 13 mg/dL (8-26) Creatinine 1.0 mg/dL (0.7-1.3) 0.9 mg/dL (0.7-1.3) Estimated GFR (Cockcroft-Gault) 77.9 87.9 Glucose Level 86 mg/dL (70-99) 136 mg/dL (70-99) Serum Osmolality 389 mOsm/Kg (279-304) Calcium Level 8.9 mg/dL (8.5-10.1) 8.1 mg/dL (8.5-10.1) Total Bilirubin 0.6 mg/dL (0.2-1.0) Direct Bilirubin 0.3 mg/dL (0.0-0.2) Aspartate Amino Transf (AST/SGOT) 225 U/L (15-37) Alanine Aminotransferase (ALT/SGPT) 179 U/L (16-63) Alkaline Phosphatase 110 U/L (46-116) Troponin I Quantitative < 0.017 ng/mL (0.000-0.055) < 0.017 ng/mL (0.000-0.055) < 0.017 ng/mL (0.000-0.055) Total Protein 8.6 g/dL (6.4-8.2) Albumin 4.5 g/dL (3.4-5.0) Lipase 219 U/L (73-393) Salicylates Level 3.2 mg/dL (2.8-20.0) Salicylate Last Dose Date Unk Salicylate Last Dose Time Unk Acetaminophen Level 8.5 mcg/ml (10-30) Acetaminophen Last Dose Date Unk Acetaminophen Last Dose Time Unk Ethyl Alcohol Level 350 mg/dL (0-10) Segmented Neutrophils % 92 % (35-66) Lymphocytes % 8 % (24-48) Platelet Estimate Decreased (ADEQUATE) Laboratory Tests Test 04/16/17 12:55 04/16/17 19:05 04/17/17 01:11 04/17/17 02:00 White Blood Count 4.0 x10^3/uL (4.0-11.0) 2.0 x10^3/uL (4.0-11.0) Red Blood Count 4.89 x10^6/uL (4.30-5.70) 4.25 x10^6/uL (4.30-5.70) Hemoglobin 15.2 g/dL (13.0-17.5) 13.2 g/dL (13.0-17.5) Hematocrit 46.5 % (39.0-53.0) 40.2 % (39.0-53.0) Mean Corpuscular Volume 95 fL (79-100) 95 fL (79-100) Mean Corpuscular Hemoglobin 31 pg (25-35) 31 pg (25-35) Mean Corpuscular Hemoglobin Concent 33 g/dL (31-37) 33 g/dL (31-37) Red Cell Distribution Width 15.3 % (11.5-14.5) 14.9 % (11.5-14.5) Platelet Count 143 x10^3/uL (140-400) 106 x10^3/uL (140-400) Neutrophils (%) (Auto) 49 % (31-73) 88 % (31-73) Lymphocytes (%) (Auto) 37 % (24-48) 10 % (24-48) Monocytes (%) (Auto) 10 % (0-9) 2 % (0-9) Eosinophils (%) (Auto) 1 % (0-3) 0 % (0-3) Basophils (%) (Auto) 4 % (0-3) 0 % (0-3) Neutrophils # (Auto) 2.0 x10^3uL (1.8-7.7) 1.7 x10^3uL (1.8-7.7) Lymphocytes # (Auto) 1.5 x10^3/uL (1.0-4.8) 0.2 x10^3/uL (1.0-4.8) Monocytes # (Auto) 0.4 x10^3/uL (0.0-1.1) 0.0 x10^3/uL (0.0-1.1) Eosinophils # (Auto) 0.0 x10^3/uL (0.0-0.7) 0.0 x10^3/uL (0.0-0.7) Basophils # (Auto) 0.1 x10^3/uL (0.0-0.2) 0.0 x10^3/uL (0.0-0.2) Sodium Level 139 mmol/L (136-145) 137 mmol/L (136-145) Potassium Level 3.7 mmol/L (3.5-5.1) 4.2 mmol/L (3.5-5.1) Chloride Level 96 mmol/L (98-107) 99 mmol/L (98-107) Carbon Dioxide Level 16 mmol/L (21-32) 26 mmol/L (21-32) Anion Gap 27 (6-14) 12 (6-14) Blood Urea Nitrogen 12 mg/dL (8-26) 13 mg/dL (8-26) Creatinine 1.0 mg/dL (0.7-1.3) 0.9 mg/dL (0.7-1.3) Estimated GFR (Cockcroft-Gault) 77.9 87.9 Glucose Level 86 mg/dL (70-99) 136 mg/dL (70-99) Serum Osmolality 389 mOsm/Kg (279-304) Calcium Level 8.9 mg/dL (8.5-10.1) 8.1 mg/dL (8.5-10.1) Total Bilirubin 0.6 mg/dL (0.2-1.0) Direct Bilirubin 0.3 mg/dL (0.0-0.2) Aspartate Amino Transf (AST/SGOT) 225 U/L (15-37) Alanine Aminotransferase (ALT/SGPT) 179 U/L (16-63) Alkaline Phosphatase 110 U/L (46-116) Troponin I Quantitative < 0.017 ng/mL (0.000-0.055) < 0.017 ng/mL (0.000-0.055) < 0.017 ng/mL (0.000-0.055) Total Protein 8.6 g/dL (6.4-8.2) Albumin 4.5 g/dL (3.4-5.0) Lipase 219 U/L (73-393) Salicylates Level 3.2 mg/dL (2.8-20.0) Salicylate Last Dose Date Unk Salicylate Last Dose Time Unk Acetaminophen Level 8.5 mcg/ml (10-30) Acetaminophen Last Dose Date Unk Acetaminophen Last Dose Time Unk Ethyl Alcohol Level 350 mg/dL (0-10) Segmented Neutrophils % 92 % (35-66) Lymphocytes % 8 % (24-48) Platelet Estimate Decreased (ADEQUATE) Medications Current Medications Lorazepam (Ativan) 1 mg 1X ONCE PO Last administered on 04/16/17 12:58; Start 04/16/17 at 13:00; Stop 04/16/17 at 13:01; Status DC Ondansetron HCl (Zofran) 4 mg STK-MED ONCE .ROUTE ; Start 04/16/17 at 12:56; Stop 04/16/17 at 12:57; Status DC Ondansetron HCl (Zofran) 4 mg 1X ONCE IV Last administered on 04/16/17 12:59 ; Start 04/16/17 at 13:00; Stop 04/16/17 at 13:01; Status DC Multivitamins 10 ml/Folic Acid 1 mg/Thiamine HCl 100 mg/Dextrose/ Lactated Ringer's 1,011.2 ml @ 1,000 mls/ hr 1X ONCE IV Last administered on 13:26; Start 04/16/17 at 13:00; Stop 04/16/17 at 14:00; Status DC Ondansetron HCl (Zofran) 4 mg PRN Q8HRS PRN IV NAUSEA/VOMITING; Start 04/16/17 at 13:45; Stop 04/16/17 at 15:09; Status DC Morphine Sulfate 2 mg PRN Q2HR PRN IV PAIN Last administered on 04/16/17 21:03 ; Start 04/16/17 at 13:45; Stop 04/17/17 at 13:44 Sodium Chloride 1,000 ml @ 125 mls/hr Q8H IV Last administered on 04/16/17 21 :08; Start 04/16/17 at 13:38; Stop 04/17/17 at 13:37 Iohexol (Omnipaque 300 Mg/ml) 75 ml 1X ONCE IV Last administered on 04/16/17 14:29; Start 04/16/17 at 14:00; Stop 04/16/17 at 14:01; Status DC Info (Do NOT chart on this entry -- for MONITORING) 1 each PRN DAILY PRN MC SEE COMMENTS; Start 04/16/17 at 14:00; Stop 04/18/17 at 13:59 Lorazepam (Ativan) 1 mg 1X ONCE IV Last administered on 04/16/17 15:06; Start 04/16/17 at 15:15; Stop 04/16/17 at 15:16; Status DC Lorazepam (Ativan) 2 mg STK-MED ONCE .ROUTE ; Start 04/16/17 at 15:04; Stop at 15:05; Status DC Ondansetron HCl (Zofran) 4 mg PRN Q6HRS PRN IV NAUSEA/VOMITING Last administered on 04/16/17 21:04; Start 04/16/17 at 15:07; Stop 04/17/17 at 15:06 Chlordiazepoxide (Librium) 25 mg PRN Q6HRS PRN PO ANXIETY / AGITATION Last administered on 04/16/17 21:03; Start 04/16/17 at 15:15 Alprazolam (Xanax) 0.5 mg PRN Q8HRS PRN PO ANXIETY / AGITATION Last administered on 04/16/17 22:51; Start 04/16/17 at 15:15 Diphenhydramine HCl (Benadryl) 25 mg PRN Q6HRS PRN PO ITCHING; Start 04/16/17 at 15:15 Diphenhydramine HCl (Benadryl) 25 mg PRN Q6HRS PRN IVP ITCHING Last administered on 04/16/17 22:52; Start 04/16/17 at 15:15 Labetalol HCl (Normodyne) 10 mg PRN Q2HR PRN IVP HYPERTENSION, SEE COMMENTS; Start 04/16/17 at 15:15 Multivitamins 10 ml/Folic Acid 1 mg/Thiamine HCl 100 mg/Dextrose/ Sodium Chloride 1,011.1 ml @ 100 mls/ hr DAILY IV Last administered on 04/17/17 09: 02; Start 04/17/17 at 09:00 Methylprednisolone Sodium Succinate (SOLU-Medrol 40MG VIAL) 60 mg DAILY IV Last administered on 04/17/17 09:01; Start 04/16/17 at 17:15 Diazepam (Valium) 5 mg PRN TID PRN IV SEIZURES Last administered on 04/16/17 23:14; Start 04/16/17 at 23:00 Lorazepam (Ativan) 2 mg PRN Q4HRS PRN IV ANXIETY / AGITATION Last administered on 04/17/17 09:01; Start 04/16/17 at 23:00 Prochlorperazine Edisylate (Compazine) 10 mg PRN Q6HRS PRN IV NAUSEA/VOMITING Last administered on 04/16/17 23:13; Start 04/16/17 at 23:00 Chlordiazepoxide (Librium) 50 mg PRN Q6HRS PRN PO ALCOHOL WITHDRAWAL Last administered on 04/17/17 03:53; Start 04/16/17 at 23:00 Escitalopram Oxalate (Lexapro) 10 mg DAILY PO ; Start 04/17/17 at 12:30 Topiramate (Topamax) 25 mg BID PO ; Start 04/17/17 at 12:30 Albuterol Sulfate (Ventolin Neb Soln) 2.5 mg PRN QID PRN NEB SHORTNESS OF BREATH; Start 04/17/17 at 11:30 Lisinopril (Prinivil) 40 mg DAILY PO ; Start 04/17/17 at 12:30; Stop 04/17/17 at 12:30; Status DC Non-Formulary Medication 1 tab DAILY PO ; Start 04/18/17 at 09:00; Status UNV Albuterol/ Ipratropium (Duoneb) 3 ml RTQID NEB Last administered on 04/17/17t 11:49; Start 04/17/17 at 12:00 Famotidine (Pepcid) 20 mg QHS PO ; Start 04/17/17 at 21:00 Acetaminophen (Tylenol) 650 mg PRN Q6HRS PRN PO FEVER; Start 04/17/17 at 11:30 Ondansetron HCl (Zofran) 4 mg PRN Q6HRS PRN IV NAUSEA/VOMITING; Start 04/17/17 at 11:30 Morphine Sulfate 2 mg PRN Q2HR PRN IV PAIN; Start 04/17/17 at 11:30 Tramadol HCl (Ultram) 50 mg PRN Q6HRS PRN PO PAIN; Start 04/17/17 at 11:30 Hydralazine HCl (Apresoline) 10 mg PRN Q4HRS PRN IVP ELEVATED BP, SEE COMMENTS ; Start 04/17/17 at 11:30 Docusate Sodium (Colace) 100 mg PRN DAILY PRN PO CONSTIPATION; Start 04/17/17 at 11:30 Active Scripts Active Topamax (Topiramate) 25 Mg Tablet 1 Tab PO BID Escitalopram Oxalate 10 Mg Tablet 10 Mg PO DAILY [Lisinopril] 40 MG Tablet 40 Mg PO DAILY [Hydrocodone/Acetaminophen] 1 TAB Tablet 1 Tab PO PRN Q6HRS PRN Clonazepam 0.25 Mg Tab.rapdis 0.75 Mg PO TID Ibuprofen 200 Mg Tablet 200 Mg PO PRN Q6HRS PRN Vimpat (Lacosamide) 200 Mg Tablet 200 Mg PO [id number] Ativan (Lorazepam) 0.5 Mg Tablet 0.5 Mg PO TID Epipen 2-Erickosn (Epinephrine) 0.3 Mg/0.3 Ml Auto.injct 0.3 Mg IJ 1X PRN Vitamin B-1 (Thiamine Hcl) 100 Mg Tablet 100 Mg PO DAILY Mag-Oxide (Magnesium Oxide) 400 Mg Tablet 400 Mg PO BID Folic Acid 1 Mg Tablet 1 Mg PO DAILY [Multivitamins,Therapeutic] 1 TAB Tablet 1 Tab PO DAILY Reported Combivent Respimat Inhal (Ipratropium/Albuterol Sulfate) 4 Gm Aer.w.adap 1 Puff INH QIDPRN PRN Proair Hfa Inhaler (Albuterol Sulfate) 8.5 Gm Hfa.aer.ad 1 Puff INH QIDPRN PRN Vitals/I & O Vital Sign - Last 24 Hours 04/16/17 04/16/17 04/16/17 04/16/17 13:00 13:30 14:11 14:14 Pulse 126 114 114 Resp 18 18 18 20 B/P (MAP) 181/111 (134) 181/101 (127) 136/89 (105) Pulse Ox 95 95 96 O2 Delivery Room Air Nasal Cannula Nasal Cannula Nasal Cannula O2 Flow Rate 2.0 2.0 4.0 04/16/17 04/16/17 04/16/17 04/16/17 14:49 15:30 15:30 16:18 Temp 98.2 98.2 98.2 98.2 Pulse 108 119 119 Resp 18 18 18 B/P (MAP) 122/58 (79) 145/83 (103) 145/83 (103) Pulse Ox 96 94 94 O2 Delivery Nasal Cannula Nasal Cannula Nasal Cannula Nasal Cannula O2 Flow Rate 2.0 4.0 4.0 3.5 04/16/17 04/16/17 04/16/17 04/16/17 17:41 18:58 19:46 20:00 Temp 98.5 98.5 Pulse 124 Resp 18 B/P (MAP) 158/85 (109) Pulse Ox 94 94 O2 Delivery Nasal Cannula Nasal Cannula Nasal Cannula O2 Flow Rate 3.5 2.0 3.5 04/16/17 04/16/17 04/17/17 04/17/17 21:03 23:00 03:34 07:00 Temp 98.1 98.2 98.1 98.2 Pulse 85 77 Resp 20 18 18 B/P (MAP) 133/88 (103) 118/60 (79) Pulse Ox 94 95 95 O2 Delivery Nasal Cannula Nasal Cannula Nasal Cannula Nasal Cannula O2 Flow Rate 3.5 3.5 2.0 2.0 04/17/17 04/17/17 04/17/17 08:00 11:00 11:51 Temp 98.7 98.7 Pulse 82 Resp 18 B/P (MAP) 137/94 (108) Pulse Ox 91 92 O2 Delivery Room Air Nasal Cannula Nasal Cannula O2 Flow Rate 3.5 2.0 3.0 Intake and Output 04/16/17 04/16/17 04/17/17 15:00 23:00 07:00 Intake Total 100 ml 0 ml Balance 100 ml 0 ml VIRGIL DUBON MD April 17, 2017 12:53
--- NOTE | 2017-04-17 13:51 | PDOC ---
PULMONARY PROGRESS NOTES Subjective PT WITH NO INCREASE SOA Vitals Vital Signs Date Time Temp Pulse Resp B/P (MAP) Pulse Ox O2 Delivery O2 Flow Rate FiO2 04/17/17 11:51 92 Nasal Cannula 3.0 04/17/17 11:00 98.7 82 18 137/94 (108) 98.7 ROS: No Nausea, No Chest Pain, No Abdominal Pain, No Increase Cough Cardiovascular: S1, S2 Abdomen: Soft Neuro Exam: Alert Extremities: No Edema Skin: Warm Labs Laboratory Tests Test 04/16/17 12:55 04/16/17 19:05 04/17/17 01:11 04/17/17 02:00 White Blood Count 4.0 x10^3/uL (4.0-11.0) 2.0 x10^3/uL (4.0-11.0) Red Blood Count 4.89 x10^6/uL (4.30-5.70) 4.25 x10^6/uL (4.30-5.70) Hemoglobin 15.2 g/dL (13.0-17.5) 13.2 g/dL (13.0-17.5) Hematocrit 46.5 % (39.0-53.0) 40.2 % (39.0-53.0) Mean Corpuscular Volume 95 fL (79-100) 95 fL (79-100) Mean Corpuscular Hemoglobin 31 pg (25-35) 31 pg (25-35) Mean Corpuscular Hemoglobin Concent 33 g/dL (31-37) 33 g/dL (31-37) Red Cell Distribution Width 15.3 % (11.5-14.5) 14.9 % (11.5-14.5) Platelet Count 143 x10^3/uL (140-400) 106 x10^3/uL (140-400) Neutrophils (%) (Auto) 49 % (31-73) 88 % (31-73) Lymphocytes (%) (Auto) 37 % (24-48) 10 % (24-48) Monocytes (%) (Auto) 10 % (0-9) 2 % (0-9) Eosinophils (%) (Auto) 1 % (0-3) 0 % (0-3) Basophils (%) (Auto) 4 % (0-3) 0 % (0-3) Neutrophils # (Auto) 2.0 x10^3uL (1.8-7.7) 1.7 x10^3uL (1.8-7.7) Lymphocytes # (Auto) 1.5 x10^3/uL (1.0-4.8) 0.2 x10^3/uL (1.0-4.8) Monocytes # (Auto) 0.4 x10^3/uL (0.0-1.1) 0.0 x10^3/uL (0.0-1.1) Eosinophils # (Auto) 0.0 x10^3/uL (0.0-0.7) 0.0 x10^3/uL (0.0-0.7) Basophils # (Auto) 0.1 x10^3/uL (0.0-0.2) 0.0 x10^3/uL (0.0-0.2) Sodium Level 139 mmol/L (136-145) 137 mmol/L (136-145) Potassium Level 3.7 mmol/L (3.5-5.1) 4.2 mmol/L (3.5-5.1) Chloride Level 96 mmol/L (98-107) 99 mmol/L (98-107) Carbon Dioxide Level 16 mmol/L (21-32) 26 mmol/L (21-32) Anion Gap 27 (6-14) 12 (6-14) Blood Urea Nitrogen 12 mg/dL (8-26) 13 mg/dL (8-26) Creatinine 1.0 mg/dL (0.7-1.3) 0.9 mg/dL (0.7-1.3) Estimated GFR (Cockcroft-Gault) 77.9 87.9 Glucose Level 86 mg/dL (70-99) 136 mg/dL (70-99) Serum Osmolality 389 mOsm/Kg (279-304) Calcium Level 8.9 mg/dL (8.5-10.1) 8.1 mg/dL (8.5-10.1) Total Bilirubin 0.6 mg/dL (0.2-1.0) Direct Bilirubin 0.3 mg/dL (0.0-0.2) Aspartate Amino Transf (AST/SGOT) 225 U/L (15-37) Alanine Aminotransferase (ALT/SGPT) 179 U/L (16-63) Alkaline Phosphatase 110 U/L (46-116) Troponin I Quantitative < 0.017 ng/mL (0.000-0.055) < 0.017 ng/mL (0.000-0.055) < 0.017 ng/mL (0.000-0.055) Total Protein 8.6 g/dL (6.4-8.2) Albumin 4.5 g/dL (3.4-5.0) Lipase 219 U/L (73-393) Salicylates Level 3.2 mg/dL (2.8-20.0) Salicylate Last Dose Date Unk Salicylate Last Dose Time Unk Acetaminophen Level 8.5 mcg/ml (10-30) Acetaminophen Last Dose Date Unk Acetaminophen Last Dose Time Unk Ethyl Alcohol Level 350 mg/dL (0-10) Segmented Neutrophils % 92 % (35-66) Lymphocytes % 8 % (24-48) Platelet Estimate Decreased (ADEQUATE) Laboratory Tests Test 04/16/17 19:05 04/17/17 01:11 04/17/17 02:00 Troponin I Quantitative < 0.017 ng/mL (0.000-0.055) < 0.017 ng/mL (0.000-0.055) White Blood Count 2.0 x10^3/uL (4.0-11.0) Red Blood Count 4.25 x10^6/uL (4.30-5.70) Hemoglobin 13.2 g/dL (13.0-17.5) Hematocrit 40.2 % (39.0-53.0) Mean Corpuscular Volume 95 fL (79-100) Mean Corpuscular Hemoglobin 31 pg (25-35) Mean Corpuscular Hemoglobin Concent 33 g/dL (31-37) Red Cell Distribution Width 14.9 % (11.5-14.5) Platelet Count 106 x10^3/uL (140-400) Neutrophils (%) (Auto) 88 % (31-73) Lymphocytes (%) (Auto) 10 % (24-48) Monocytes (%) (Auto) 2 % (0-9) Eosinophils (%) (Auto) 0 % (0-3) Basophils (%) (Auto) 0 % (0-3) Neutrophils # (Auto) 1.7 x10^3uL (1.8-7.7) Lymphocytes # (Auto) 0.2 x10^3/uL (1.0-4.8) Monocytes # (Auto) 0.0 x10^3/uL (0.0-1.1) Eosinophils # (Auto) 0.0 x10^3/uL (0.0-0.7) Basophils # (Auto) 0.0 x10^3/uL (0.0-0.2) Segmented Neutrophils % 92 % (35-66) Lymphocytes % 8 % (24-48) Platelet Estimate Decreased (ADEQUATE) Sodium Level 137 mmol/L (136-145) Potassium Level 4.2 mmol/L (3.5-5.1) Chloride Level 99 mmol/L (98-107) Carbon Dioxide Level 26 mmol/L (21-32) Anion Gap 12 (6-14) Blood Urea Nitrogen 13 mg/dL (8-26) Creatinine 0.9 mg/dL (0.7-1.3) Estimated GFR (Cockcroft-Gault) 87.9 Glucose Level 136 mg/dL (70-99) Calcium Level 8.1 mg/dL (8.5-10.1) Medications Active Scripts Medications Dose Route/Sig Max Daily Dose Days Date Category Topamax (Topiramate) 25 Mg Tablet 1 Tab PO BID 03/17/17 Rx Escitalopram Oxalate 10 Mg Tablet 10 Mg PO DAILY 03/17/17 Rx [Lisinopril] 40 MG Tablet 40 Mg PO DAILY 03/17/17 Rx [Hydrocodone/Acetaminophen] 1 TAB Tablet 1 Tab PO PRN Q6HRS PRN 03/17/17 Rx Clonazepam 0.25 Mg Tab.rapdis 0.75 Mg PO TID 12/05/16 Rx Ibuprofen 200 Mg Tablet 200 Mg PO PRN Q6HRS PRN 11/11/16 Rx Vimpat (Lacosamide) 200 Mg Tablet 200 Mg PO [id number] 10/18/16 Rx Ativan (Lorazepam) 0.5 Mg Tablet 0.5 Mg PO TID 09/11/16 Rx Epipen 2-Erickson (Epinephrine) 0.3 Mg/0.3 Ml Auto.injct 0.3 Mg IJ 1X PRN 07/25/16 Rx Vitamin B-1 (Thiamine Hcl) 100 Mg Tablet 100 Mg PO DAILY 10/05/15 Rx Mag-Oxide (Magnesium Oxide) 400 Mg Tablet 400 Mg PO BID 10/05/15 Rx Folic Acid 1 Mg Tablet 1 Mg PO DAILY 10/05/15 Rx [Multivitamins,Therapeutic] 1 TAB Tablet 1 Tab PO DAILY 09/01/14 Rx Combivent Respimat Inhal (Ipratropium/Albuterol Sulfate) 4 Gm Aer.w.adap 1 Puff INH QIDPRN PRN 08/30/14 Reported Proair Hfa Inhaler (Albuterol Sulfate) 8.5 Gm Hfa.aer.ad 1 Puff INH QIDPRN PRN 08/30/14 Reported Impression . 1. Acute on chronic respiratory failure. 2. Acute exacerbation of chronic obstructive pulmonary disease. 3. Alcohol intoxication. 4. Elevated liver chemistries. 5. Polysubstance use. Plan . RESP STATUS IS COMPENSATED WILL CONTINUE THE SAME 1. Recommend continuing current medical regimen with oxygen supplementation, nebulized treatments and Solu-Medrol. 2. No need for antibiotics. 3. Alcohol withdrawal precaution per PCP. 4. The patient is instructed on the importance of discontinuing all illicit drugs including alcohol. VANE NORIEGA MD April 17, 2017 13:51
[2017-04-17 15:00] VITALS: BP 130/83
[2017-04-17] MEDS: ESCITALOPRAM 10 MG TABLET. PO SCH (15:14)
[2017-04-17] MEDS: TOPIRAMATE 25 MG TABLET. PO SCH ×2 (15:14→19:51)
[2017-04-17] MEDS: MORPHINE SULFATE 2 MG/ML DISP.SYRIN. IV PRN (15:15)
[2017-04-17 19:13] VITALS: BP 143/90
[2017-04-17] MEDS: ONDANSETRON PF 4 MG/2 ML VIAL. IV PRN (20:50)
[2017-04-17] MEDS ORDERED: FAMOTIDINE 20 MG TABLET. PO SCH (21:00)
[2017-04-17 22:19] VITALS: BP 142/82
[2017-04-18] MEDS: MORPHINE SULFATE 2 MG/ML DISP.SYRIN. IV PRN (01:20)
[2017-04-18 02:57] VITALS: BP 140/86
[2017-04-18 05:43] LABS: BASO % 0 % (0-3); EOS % 0 % (0-3); HEMATOCRIT 39.3 % (39.0-53.0); HEMOGLOBIN 13.4 g/dL (13.0-17.5); LYMPH % 24 % (24-48); MEAN CORPUSCULAR HEMOGLOBIN 32 pg (25-35); MEAN CORPUSCULAR HGB CONC 34 g/dL (31-37); MEAN CORPUSCULAR VOLUME 92 fL (79-100); MONO % 13 % (0-9); NEUT % 63 % (31-73); PLATELET COUNT 103 x10^3/uL (140-400); RED BLOOD COUNT 4.25 x10^6/uL (4.30-5.70); RED CELL DISTRIBUTION WIDTH 14.7 % (11.5-14.5); WHITE BLOOD COUNT 8.3 x10^3/uL (4.0-11.0)
[2017-04-18 05:47] LABS: CREATININE 0.7 mg/dL (0.7-1.3); GFR 117.5; MAGNESIUM 1.5 mg/dL (1.8-2.4); PHOSPHORUS 2.3 mg/dL (2.6-4.7); POTASSIUM 3.3 mmol/L (3.5-5.1)
[2017-04-18] MEDS: IPRATRPIUM/ALBUTEROL 0.5/2.5MG 3 ML NEBU. NEB SCH (07:48)
[2017-04-18] MEDS: ESCITALOPRAM 10 MG TABLET. PO SCH (08:03)
[2017-04-18] MEDS: ONDANSETRON PF 4 MG/2 ML VIAL. IV PRN (08:03)
[2017-04-18] MEDS: chlordiazePOXIDE HCL 25 MG CAPSULE PO PRN (08:03)
[2017-04-18] MEDS: TOPIRAMATE 25 MG TABLET. PO SCH (08:03)
[2017-04-18] MEDS: methylPREDNISolone SOD SUCC PF 40 MG/ML VIAL. IV SCH (08:04)
[2017-04-18] MEDS ORDERED: [UNRECOGNIZED DRUG - OTHER] PO SCH (09:00)
--- NOTE | 2017-04-18 10:22 | PDOC ---
PULMONARY PROGRESS NOTES Subjective PT WITH NO INCREASE SOA Vitals Vital Signs Date Time Temp Pulse Resp B/P (MAP) Pulse Ox O2 Delivery O2 Flow Rate FiO2 04/18/17 07:51 93 Nasal Cannula 3.0 04/18/17 02:57 98.8 77 18 140/86 (104) 98.8 ROS: No Nausea, No Chest Pain, No Abdominal Pain, No Increase Cough Cardiovascular: S1, S2 Abdomen: Soft Neuro Exam: Alert Extremities: No Edema Skin: Warm Labs Laboratory Tests Test 04/16/17 12:55 04/16/17 19:05 04/17/17 01:11 04/17/17 02:00 White Blood Count 4.0 x10^3/uL (4.0-11.0) 2.0 x10^3/uL (4.0-11.0) Red Blood Count 4.89 x10^6/uL (4.30-5.70) 4.25 x10^6/uL (4.30-5.70) Hemoglobin 15.2 g/dL (13.0-17.5) 13.2 g/dL (13.0-17.5) Hematocrit 46.5 % (39.0-53.0) 40.2 % (39.0-53.0) Mean Corpuscular Volume 95 fL (79-100) 95 fL (79-100) Mean Corpuscular Hemoglobin 31 pg (25-35) 31 pg (25-35) Mean Corpuscular Hemoglobin Concent 33 g/dL (31-37) 33 g/dL (31-37) Red Cell Distribution Width 15.3 % (11.5-14.5) 14.9 % (11.5-14.5) Platelet Count 143 x10^3/uL (140-400) 106 x10^3/uL (140-400) Neutrophils (%) (Auto) 49 % (31-73) 88 % (31-73) Lymphocytes (%) (Auto) 37 % (24-48) 10 % (24-48) Monocytes (%) (Auto) 10 % (0-9) 2 % (0-9) Eosinophils (%) (Auto) 1 % (0-3) 0 % (0-3) Basophils (%) (Auto) 4 % (0-3) 0 % (0-3) Neutrophils # (Auto) 2.0 x10^3uL (1.8-7.7) 1.7 x10^3uL (1.8-7.7) Lymphocytes # (Auto) 1.5 x10^3/uL (1.0-4.8) 0.2 x10^3/uL (1.0-4.8) Monocytes # (Auto) 0.4 x10^3/uL (0.0-1.1) 0.0 x10^3/uL (0.0-1.1) Eosinophils # (Auto) 0.0 x10^3/uL (0.0-0.7) 0.0 x10^3/uL (0.0-0.7) Basophils # (Auto) 0.1 x10^3/uL (0.0-0.2) 0.0 x10^3/uL (0.0-0.2) Sodium Level 139 mmol/L (136-145) 137 mmol/L (136-145) Potassium Level 3.7 mmol/L (3.5-5.1) 4.2 mmol/L (3.5-5.1) Chloride Level 96 mmol/L (98-107) 99 mmol/L (98-107) Carbon Dioxide Level 16 mmol/L (21-32) 26 mmol/L (21-32) Anion Gap 27 (6-14) 12 (6-14) Blood Urea Nitrogen 12 mg/dL (8-26) 13 mg/dL (8-26) Creatinine 1.0 mg/dL (0.7-1.3) 0.9 mg/dL (0.7-1.3) Estimated GFR (Cockcroft-Gault) 77.9 87.9 Glucose Level 86 mg/dL (70-99) 136 mg/dL (70-99) Serum Osmolality 389 mOsm/Kg (279-304) Calcium Level 8.9 mg/dL (8.5-10.1) 8.1 mg/dL (8.5-10.1) Total Bilirubin 0.6 mg/dL (0.2-1.0) Direct Bilirubin 0.3 mg/dL (0.0-0.2) Aspartate Amino Transf (AST/SGOT) 225 U/L (15-37) Alanine Aminotransferase (ALT/SGPT) 179 U/L (16-63) Alkaline Phosphatase 110 U/L (46-116) Troponin I Quantitative < 0.017 ng/mL (0.000-0.055) < 0.017 ng/mL (0.000-0.055) < 0.017 ng/mL (0.000-0.055) Total Protein 8.6 g/dL (6.4-8.2) Albumin 4.5 g/dL (3.4-5.0) Lipase 219 U/L (73-393) Salicylates Level 3.2 mg/dL (2.8-20.0) Salicylate Last Dose Date Unk Salicylate Last Dose Time Unk Acetaminophen Level 8.5 mcg/ml (10-30) Acetaminophen Last Dose Date Unk Acetaminophen Last Dose Time Unk Ethyl Alcohol Level 350 mg/dL (0-10) Segmented Neutrophils % 92 % (35-66) Lymphocytes % 8 % (24-48) Platelet Estimate Decreased (ADEQUATE) Test 04/18/17 04:50 White Blood Count 8.3 x10^3/uL (4.0-11.0) Red Blood Count 4.25 x10^6/uL (4.30-5.70) Hemoglobin 13.4 g/dL (13.0-17.5) Hematocrit 39.3 % (39.0-53.0) Mean Corpuscular Volume 92 fL (79-100) Mean Corpuscular Hemoglobin 32 pg (25-35) Mean Corpuscular Hemoglobin Concent 34 g/dL (31-37) Red Cell Distribution Width 14.7 % (11.5-14.5) Platelet Count 103 x10^3/uL (140-400) Neutrophils (%) (Auto) 63 % (31-73) Lymphocytes (%) (Auto) 24 % (24-48) Monocytes (%) (Auto) 13 % (0-9) Eosinophils (%) (Auto) 0 % (0-3) Basophils (%) (Auto) 0 % (0-3) Neutrophils # (Auto) 5.2 x10^3uL (1.8-7.7) Lymphocytes # (Auto) 2.0 x10^3/uL (1.0-4.8) Monocytes # (Auto) 1.1 x10^3/uL (0.0-1.1) Eosinophils # (Auto) 0.0 x10^3/uL (0.0-0.7) Basophils # (Auto) 0.0 x10^3/uL (0.0-0.2) Sodium Level 136 mmol/L (136-145) Potassium Level 3.3 mmol/L (3.5-5.1) Chloride Level 96 mmol/L (98-107) Carbon Dioxide Level 31 mmol/L (21-32) Anion Gap 9 (6-14) Blood Urea Nitrogen 9 mg/dL (8-26) Creatinine 0.7 mg/dL (0.7-1.3) Estimated GFR (Cockcroft-Gault) 117.5 Glucose Level 107 mg/dL (70-99) Calcium Level 9.0 mg/dL (8.5-10.1) Phosphorus Level 2.3 mg/dL (2.6-4.7) Magnesium Level 1.5 mg/dL (1.8-2.4) Laboratory Tests Test 04/18/17 04:50 White Blood Count 8.3 x10^3/uL (4.0-11.0) Red Blood Count 4.25 x10^6/uL (4.30-5.70) Hemoglobin 13.4 g/dL (13.0-17.5) Hematocrit 39.3 % (39.0-53.0) Mean Corpuscular Volume 92 fL (79-100) Mean Corpuscular Hemoglobin 32 pg (25-35) Mean Corpuscular Hemoglobin Concent 34 g/dL (31-37) Red Cell Distribution Width 14.7 % (11.5-14.5) Platelet Count 103 x10^3/uL (140-400) Neutrophils (%) (Auto) 63 % (31-73) Lymphocytes (%) (Auto) 24 % (24-48) Monocytes (%) (Auto) 13 % (0-9) Eosinophils (%) (Auto) 0 % (0-3) Basophils (%) (Auto) 0 % (0-3) Neutrophils # (Auto) 5.2 x10^3uL (1.8-7.7) Lymphocytes # (Auto) 2.0 x10^3/uL (1.0-4.8) Monocytes # (Auto) 1.1 x10^3/uL (0.0-1.1) Eosinophils # (Auto) 0.0 x10^3/uL (0.0-0.7) Basophils # (Auto) 0.0 x10^3/uL (0.0-0.2) Sodium Level 136 mmol/L (136-145) Potassium Level 3.3 mmol/L (3.5-5.1) Chloride Level 96 mmol/L (98-107) Carbon Dioxide Level 31 mmol/L (21-32) Anion Gap 9 (6-14) Blood Urea Nitrogen 9 mg/dL (8-26) Creatinine 0.7 mg/dL (0.7-1.3) Estimated GFR (Cockcroft-Gault) 117.5 Glucose Level 107 mg/dL (70-99) Calcium Level 9.0 mg/dL (8.5-10.1) Phosphorus Level 2.3 mg/dL (2.6-4.7) Magnesium Level 1.5 mg/dL (1.8-2.4) Medications Active Scripts Medications Dose Route/Sig Max Daily Dose Days Date Category Topamax (Topiramate) 25 Mg Tablet 1 Tab PO BID 03/17/17 Rx Escitalopram Oxalate 10 Mg Tablet 10 Mg PO DAILY 03/17/17 Rx [Lisinopril] 40 MG Tablet 40 Mg PO DAILY 03/17/17 Rx [Hydrocodone/Acetaminophen] 1 TAB Tablet 1 Tab PO PRN Q6HRS PRN 03/17/17 Rx Clonazepam 0.25 Mg Tab.rapdis 0.75 Mg PO TID 12/05/16 Rx Ibuprofen 200 Mg Tablet 200 Mg PO PRN Q6HRS PRN 11/11/16 Rx Vimpat (Lacosamide) 200 Mg Tablet 200 Mg PO [id number] 10/18/16 Rx Ativan (Lorazepam) 0.5 Mg Tablet 0.5 Mg PO TID 09/11/16 Rx Epipen 2-Erickson (Epinephrine) 0.3 Mg/0.3 Ml Auto.injct 0.3 Mg IJ 1X PRN 07/25/16 Rx Vitamin B-1 (Thiamine Hcl) 100 Mg Tablet 100 Mg PO DAILY 10/05/15 Rx Mag-Oxide (Magnesium Oxide) 400 Mg Tablet 400 Mg PO BID 10/05/15 Rx Folic Acid 1 Mg Tablet 1 Mg PO DAILY 11/13/15 Rx [Multivitamins,Therapeutic] 1 TAB Tablet 1 Tab PO DAILY 09/01/14 Rx Combivent Respimat Inhal (Ipratropium/Albuterol Sulfate) 4 Gm Aer.w.adap 1 Puff INH QIDPRN PRN 08/30/14 Reported Proair Hfa Inhaler (Albuterol Sulfate) 8.5 Gm Hfa.aer.ad 1 Puff INH QIDPRN PRN 08/30/14 Reported Impression . 1. Acute on chronic respiratory failure. 2. Acute exacerbation of chronic obstructive pulmonary disease. 3. Alcohol intoxication. 4. Elevated liver chemistries. 5. Polysubstance use. Plan . D/C TODAY WILL CHECK A 6 MIN TAPER PRED 2. No need for antibiotics. 3. Alcohol withdrawal precaution per PCP. 4. The patient is instructed on the importance of discontinuing all illicit drugs including alcohol. VANE NORIEGA MD April 18, 2017 10:22
[2017-04-18 10:47] VITALS: BP 142/85
[2017-04-18] MEDS: ALPRAZolam 0.5 MG TABLET PO PRN (10:50)
[2017-04-18] MEDS: diphenhydrAMINE 50 MG/ML VIAL IVP PRN (10:51)
[2017-04-18] MEDS: MULTIVIT INFUSN,ADULT 4,VIT K 10 ML, FOLIC ACID 1 MG, THIAMINE 100 MG in IV DEXTROSE 5 ... IV SCH (10:52)
[2017-04-18] MEDS ORDERED: Lisinopril PO (12:07)
[2017-04-18] MEDS ORDERED: THIA100T4 PO (12:07)
[2017-04-18] MEDS ORDERED: MAGN400T22 PO (12:07)
[2017-04-18] MEDS ORDERED: FOLI1TAB16 PO (12:07)
[2017-04-18] MEDS ORDERED: ESCI10TA PO (12:07)
[2017-04-18] MEDS ORDERED: CLON0.25 PO (12:07)
[2017-04-18] MEDS ORDERED: POTASSIUM PHOSPHATE DIBASIC 10 MMOL in IV NORMAL SALINE 100ML 100 ML IV SCH (13:00)
[2017-04-18] MEDS ORDERED: MAGNESIUM SULFATE 2GM 50 ML IV ONE (13:00)
--- NOTE | 2017-04-18 13:54 | PDOC3 ---
Discharge Summary [facility] Date of Admission: April 16, 2017 Discharge Date: April 18, 2017 Admitting Diagnosis 1. Alcohol Intoxication 2. Gap metabolic acidosis sec to alcohol 3. RAsh all over 2/2 alcohol? 4. Depression NOS 5. Sinus tachy sec to etoh 6. MSK chest pain 7, Hypochloremia 8. ELevated LFTs, alcoholic hepatitis 9. acute on chronic resp failure with hypoxia 10. COPD likely with smoking 11. HTN 12. UNcompliance 13. smoker 14. dehydration 15. leukopenia, thrombocytopenia, 2/2 alcoholic hepatitis Problems: Final Diagnosis CONSULTS pulm Brief Hospital Course Mr. Hemphill is a 56 old M, heavy drinker, noncompliance, refused to go AA, coming here every 2-3 weeks for ETOH intoxication/withdrawl, came here this time for alcohol intoxication again with cough, sob. He is a smoker, was found having wheezing, need o2 2L. SOB improved with solumedrol , duoneb, passed 6 min walk. pt improved with ivf, ativan. dc home with refill of meds for HTN, Depression, and ativan 0.5mg 20 pills tid prn. dc time 35min. General: Alert, Oriented X3, Cooperative, No acute distress, Other (unkempt, rash all over, face, neck trunk , UE and LE, bilateral) Heart: Regular rate Lungs: Wheezing (bl mild) Abdomen: Normal bowel sounds, Soft, No hepatosplenomegaly, No masses, Other ( diffused mild tenderness) Extremities: No clubbing, No cyanosis, No edema, Normal pulses, No tenderness/ swelling Skin: Other (as above HPI) Patient History: FH: cardiovascular disease FH: lung cancer MS (multiple sclerosis) Unknown No Family History of: Cancer confirmed (situation) Problems: Disposition home CONDITION AT DISCHARGE: Improved Diet regular Scheduled Escitalopram Oxalate (Escitalopram Oxalate), 10 MG PO DAILY Folic Acid (Folic Acid), 1 MG PO DAILY Lacosamide (Vimpat), 200 MG PO [id number] Lorazepam (Ativan), 0.5 MG PO TID Magnesium Oxide (Mag-Oxide), 400 MG PO BID Thiamine Hcl (Vitamin B-1), 100 MG PO DAILY Topiramate (Topamax), 1 TAB PO BID [Lisinopril], 40 MG PO DAILY [Multivitamins,Therapeutic], 1 TAB PO DAILY Scheduled PRN Albuterol Sulfate (Proair Hfa Inhaler), 1 PUFF INH QIDPRN PRN for SHORTNESS OF BREATH, (Reported) Clonazepam (Clonazepam), 0.75 MG PO PRN TID PRN for ANXIETY / AGITATION Epinephrine (Epipen 2-Erickson), 0.3 MG IJ 1X PRN for ANAPHYLAXIS Ibuprofen (Ibuprofen), 200 MG PO PRN Q6HRS PRN for INFLAMMATION Ipratropium/Albuterol Sulfate (Combivent Respimat Inhal), 1 PUFF INH QIDPRN PRN for SHORTNESS OF BREATH, (Reported) [Hydrocodone/Acetaminophen], 1 TAB PO PRN Q6HRS PRN for PAIN MODERATE Follow Up pcp VIRGIL Hernandez MD April 18, 2017 13:54
== END 2017-04-18 13:12 | disposition home or self-care (01) | DRG 896 ==
LOC: ER 12:25 → 6 SOUTH 14:02 → OBSVTOIN 14:02 → 6 SOUTH 15:15
PROVIDERS: ADMIT Internal Medicine; ATTEND Internal Medicine
DX: F10.229 Alcohol dependence with intoxication, unspecified (principal); J96.21 Acute and chronic respiratory failure with hypoxia; E87.2 Acidosis; J44.1 Chronic obstructive pulmonary disease with (acute) exacerbation; D69.6 Thrombocytopenia, unspecified; D72.819 Decreased white blood cell count, unspecified; E86.0 Dehydration; E87.8 Other disorders of electrolyte and fluid balance, not elsewhere classified; F17.210 Nicotine dependence, cigarettes, uncomplicated; F32.9 Major depressive disorder, single episode, unspecified; G35 Multiple sclerosis; I11.0 Hypertensive heart disease with heart failure; I25.10 Atherosclerotic heart disease of native coronary artery without angina pectoris; I50.9 Heart failure, unspecified; K21.9 Gastro-esophageal reflux disease without esophagitis; K70.10 Alcoholic hepatitis without ascites; K74.60 Unspecified cirrhosis of liver; Z96.649 Presence of unspecified artificial hip joint; Z96.659 Presence of unspecified artificial knee joint; F41.9 Anxiety disorder, unspecified; Z99.81 Dependence on supplemental oxygen; Z91.5 Personal history of self-harm; Z91.19 Patient's noncompliance with other medical treatment and regimen; I25.2 Old myocardial infarction
CPT/HCPCS: 36415; 71010; 71275; 80048; 80076; 83690; 83735; 83930; 84100; 84484; 85007; 85027; 93005; 94250; 94620; 94640; 94760; 96374; 96375; G0480; G6038; J0780; J1200; J2060; J2270; J2405; J2920; J3360; J7030; J7620; Q9967; 80196; 97116; 99285-25

== ENCOUNTER 2017-04-28 15:41 | Inpatient (IN) | payer OTHER ==
[~2017-04-28] VITALS: Ht 172.7 cm; Wt 66.4 kg
[~2017-04-28 15:41] MED LIST changes: -HYDR-2666 PO; +HYDR-2758 PO; -KETO15CR TOP; +KETO15CR2 TOP; -TOPI25TA32 PO; +TOPI25TA52 PO
[2017-04-28] MEDS ORDERED: IV NORMAL SALINE 1000ML BAG 1,000 ML IV SCH (16:25)
[2017-04-28] MEDS ORDERED: FOLIC ACID 1 MG TABLET. PO ONE (16:30)
[2017-04-28] MEDS ORDERED: MULTIVITAMIN with MINERAL TABLET. PO ONE (16:30)
[2017-04-28] MEDS ORDERED: THIAMINE 100 MG TABLET. PO ONE (16:30)
[2017-04-28 16:34] LABS: BASO # 0.2 x10^3/uL (0.0-0.2); BASO % 4 % (0-3); EOS % 3 % (0-3); HEMATOCRIT 40.3 % (39.0-53.0); HEMOGLOBIN 13.5 g/dL (13.0-17.5); LYMPH # 2.2 x10^3/uL (1.0-4.8); LYMPH % 41 % (24-48); MEAN CORPUSCULAR HEMOGLOBIN 32 pg (25-35); MEAN CORPUSCULAR HGB CONC 33 g/dL (31-37); MEAN CORPUSCULAR VOLUME 95 fL (79-100); MONO % 13 % (0-9); NEUT % 39 % (31-73); PLATELET COUNT 266 x10^3/uL (140-400); RED BLOOD COUNT 4.27 x10^6/uL (4.30-5.70); RED CELL DISTRIBUTION WIDTH 16.6 % (11.5-14.5); WHITE BLOOD COUNT 5.5 x10^3/uL (4.0-11.0)
[2017-04-28 16:43] LABS: PROTHROMBIN TIME PATIENT 12.3 SEC (11.7-14.0)
[2017-04-28 17:05] LABS: CALCIUM 8.8 mg/dL (8.5-10.1); CREATININE 0.8 mg/dL (0.7-1.3); GFR 100.7; POTASSIUM 4.1 mmol/L (3.5-5.1)
[2017-04-28 17:12] LABS: ALBUMIN 4.4 g/dL (3.4-5.0); MAGNESIUM 1.7 mg/dL (1.8-2.4); TOTAL BILIRUBIN 0.3 mg/dL (0.2-1.0); TOTAL PROTEIN 8.6 g/dL (6.4-8.2)
[2017-04-28] MEDS ORDERED: ONDANSETRON PF 4 MG/2 ML VIAL. IV PRN (17:30)
[2017-04-28] MEDS ORDERED: cloNIDine HCL 0.1 MG TABLET PO PRN (17:30)
[2017-04-28] MEDS ORDERED: HALOPERIDOL LACTATE 5 MG/ML VIAL. IVP PRN (17:30)
--- NOTE | 2017-04-28 17:37 | PHYS DOC ---
Past Medical History Past Medical History: Alcoholism, GERD, High Cholesterol, Hypertension, Hepatitis, NV, Seizure, Other Additional Past Medical Histor: suicidal,ETOH ABUSE Past Surgical History: Other Additional Past Surgical Histo: L)leg &hip fx with surgery. poor historian Alcohol Use: Heavy Drug Use: Cocaine, Heroin, Marijuana, Methamphetamine, Other Adult General Chief Complaint Chief Complaint: ALCOHOL INTOXICATION HPI HPI Patient is a 56 year old male who presents to the emergency department for altered mental status. The patient has had multiple visits to the emergency department and has a known history of chronic alcoholism with multiple episodes of encephalopathy. Patient was brought to the emergency department by EMS after a family member called concerned that the patient was having severe withdrawal symptoms. The patient is unable to tell me his current location and provides no history associated with present illness. The patient states directly to this physician, "kill me." When asked if he was having suicidal ideation, he stated "what you think?" When asked if the patient was having any pain, he stated "yes. " When asked where, he states "in my arms, legs, back, head, chest, and belly." Review of Systems Review of Systems Constitutional: Denies fever or chills [] Eyes: Denies change in visual acuity, redness, or eye pain [] HENT: Denies nasal congestion or sore throat [] Respiratory: Denies cough or shortness of breath [] Cardiovascular: Chest pain [] GI: Abdominal pain, denies nausea, vomiting, bloody stools or diarrhea [] : Denies dysuria or hematuria [] Musculoskeletal: Back pain, leg pain, arm pain [] Integument: Denies rash or skin lesions [] Neurologic: Headache, denies focal weakness or sensory changes [] Current Medications Current Medications Current Medications Medications (Trade) Dose Ordered Sig/Corinne Start Time Stop Time Status Last Admin Dose Admin Clonidine HCl (Catapres) 0.1 mg PRN Q1HR PRN 04/28/17 17:30 UNV Diphenhydramine HCl (Benadryl) 25 mg PRN Q15MIN PRN 04/28/17 17:30 UNV Folic Acid (Folic Acid) 1 mg DAILY 04/29/17 09:00 UNV Haloperidol Lactate (Haldol) 5 mg PRN Q4HRS PRN 04/28/17 17:30 UNV Lorazepam (Ativan) 4 mg PRN Q1HR PRN 04/28/17 17:30 UNV Multivitamins (Thera M Plus) 1 tab DAILY 04/29/17 09:00 UNV Ondansetron HCl (Zofran) 4 mg PRN Q8HRS PRN 04/28/17 17:30 04/29/17 17:29 UNV Sodium Chloride 1,000 ml @ 125 mls/hr Q8H 04/28/17 17:18 04/29/17 17:17 UNV Allergies Allergies Allergies Coded Allergies Type Severity Reaction Last Updated Verified No Known Drug Allergies 07/25/16 No Physical Exam Physical Exam Constitutional: Alert, afebrile, confused, follows commands. [] HENT: Normocephalic, atraumatic, bilateral external ears normal, oropharynx moist, no oral exudates, nose normal. [] Eyes: PERRLA, EOMI, conjunctiva normal, no discharge. [] Neck: Normal range of motion, no tenderness, supple, no stridor. [] Cardiovascular: Tachycardia, regular rhythm, no murmur [] Lungs & Thorax: Bilateral breath sounds clear to auscultation [] Abdomen: Bowel sounds normal, soft, no tenderness, no masses, no pulsatile masses. [] Skin: Warm, dry, no erythema, no rash. [] Back: No midline tenderness, bilateral paraspinous muscle tenderness palpation. [] Extremities: No tenderness, no cyanosis, no clubbing, ROM intact, no edema. [] Neurologic: Alert, confused, normal motor function, normal sensory function, no focal deficits noted. [] Current Patient Data Vital Signs Vital Signs Date Time Temp Pulse Resp B/P (MAP) Pulse Ox O2 Delivery O2 Flow Rate FiO2 04/28/17 15:45 98.7 115 20 177/78 (111) 94 Room Air 98.7 Lab Values Laboratory Tests Test 04/28/17 16:29 White Blood Count 5.5 x10^3/uL (4.0-11.0) Red Blood Count 4.27 x10^6/uL (4.30-5.70) L Hemoglobin 13.5 g/dL (13.0-17.5) Hematocrit 40.3 % (39.0-53.0) Mean Corpuscular Volume 95 fL (79-100) Mean Corpuscular Hemoglobin 32 pg (25-35) Mean Corpuscular Hemoglobin Concent 33 g/dL (31-37) Red Cell Distribution Width 16.6 % (11.5-14.5) H Platelet Count 266 x10^3/uL (140-400) # Neutrophils (%) (Auto) 39 % (31-73) Lymphocytes (%) (Auto) 41 % (24-48) Monocytes (%) (Auto) 13 % (0-9) H Eosinophils (%) (Auto) 3 % (0-3) Basophils (%) (Auto) 4 % (0-3) H Neutrophils # (Auto) 2.2 x10^3uL (1.8-7.7) Lymphocytes # (Auto) 2.2 x10^3/uL (1.0-4.8) Monocytes # (Auto) 0.7 x10^3/uL (0.0-1.1) Eosinophils # (Auto) 0.1 x10^3/uL (0.0-0.7) Basophils # (Auto) 0.2 x10^3/uL (0.0-0.2) Prothrombin Time 12.3 SEC (11.7-14.0) Prothrombin Time INR 1.0 (0.8-1.1) PTT 28 SEC (24-38) Sodium Level 144 mmol/L (136-145) Potassium Level 4.1 mmol/L (3.5-5.1) Chloride Level 104 mmol/L (98-107) Carbon Dioxide Level 28 mmol/L (21-32) Anion Gap 12 (6-14) Blood Urea Nitrogen 9 mg/dL (8-26) Creatinine 0.8 mg/dL (0.7-1.3) Estimated GFR (Cockcroft-Gault) 100.7 BUN/Creatinine Ratio 11 (6-20) Glucose Level 87 mg/dL (70-99) Calcium Level 8.8 mg/dL (8.5-10.1) Magnesium Level 1.7 mg/dL (1.8-2.4) L Total Bilirubin 0.3 mg/dL (0.2-1.0) Aspartate Amino Transferase (AST) 165 U/L (15-37) H Alanine Aminotransferase (ALT) 145 U/L (16-63) H Alkaline Phosphatase 86 U/L (46-116) Total Protein 8.6 g/dL (6.4-8.2) H Albumin 4.4 g/dL (3.4-5.0) Albumin/Globulin Ratio 1.0 (1.0-1.7) Ethyl Alcohol Level 391 mg/dL (0-10) H Laboratory Tests 04/28/17 16:29 Laboratory Tests 04/28/17 16:29 EKG EKG Interpreted by me: Heart rate 99, sinus tachycardia, normal intervals, normal axis, no acute ST/T-wave abnormalities present [] Radiology/Procedures Radiology/Procedures Not performed [] Course & Med Decision Making Course & Med Decision Making Pertinent Labs and Imaging studies reviewed. (See chart for details) Patient was started on multivitamins, folic acid, thiamine, and IV fluids in the emergency department. Patient is displaying encephalopathy and has an alcohol level of 391 in the emergency department. Patient however is also showing evidence of agitation, confusion, and tachycardia which would be consistent with withdrawal symptoms. Given the patient's history of chronic heavy alcohol use, it is possible the patient has actually displaying evidence of withdrawal. The patient does not appear to be safe in his current environment and is a danger to himself as he is also voicing thoughts of wanting to . The patient will be admitted to the hospital for further treatment and evaluation. I spoke with Dr. Bridges who accepted care patient in hospital. Dragon Disclaimer Dragon Disclaimer This electronic medical record was generated, in whole or in part, using a voice recognition dictation system. Departure Departure Impression: Primary Impression: Acute encephalopathy Additional Impression: ETOH abuse Disposition: ADMITTED INPATIENT Admitting Physician: Janine Bridges Condition: GUARDED Referrals: NO PCP (PCP) Problem Qualifiers KAREL VICTOR MD Apr 28, 2017 17:36
--- NOTE | 2017-04-28 17:53 | ACF ---
Admission Forms Criteria ALCOHOL AND PSYCHOACTIVE SUBSTANCE WITHDRAWAL Clinical Indications for Inpatient Care (Place ' X' for any and all applicable criteria): Ongoing inpatient care may be indicated for substance withdrawal[B][C] with ANY ONE of the following(1)(2)(3)(4)(21): [ ]I. Delirium due to alcohol or sedative[D] withdrawal is present. [X]II. Marked signs of withdrawal are present as indicated by ANY ONE of the following(15)(22)(23) [ ]a) Heart rate greater than 120 beats per minute is present. [ ]b) Severe vomiting is present (eg, precludes maintenance of oral hydration). [ ]c) Grossly visible tremor is present. [ ]d) Profuse perspiration is present. [ ]e) Temperature greater than 101 degrees F (38.3 degrees C) is present. [X]f) Other signs of severe withdrawal are present (eg, Altered mental status ) [ ]g) Severe withdrawal identified by standardized assessment score[A] [ ]III. Signs of withdrawal that require continued inpatient treatment as indicated by ANY ONE of the following(15)(22)(23): [ ]a) Inadequate response to pharmacotherapy (eg, benzodiazepines) [ ]b) Outpatient or lower level of care is not feasible or appropriate (eg, unavailable or inappropriate to patient condition or treatment history). [ ]IV. Withdrawal signs with high-risk indicator are present as manifested by ALL of the following[A](15)(22)(23) [ ]a) Signs of withdrawal are present as indicated by ANY ONE of the following: [ ]i. Tachycardia is present. [ ]ii. Nausea or vomiting is present. [ ]iii. Tremor is present. [ ]iv. Increased perspiration is present. [ ]v. Other signs of withdrawal are present. [ ]vi. Withdrawal identified by standardized assessment score [A] [ ]b) Elevated risk due to historical or comorbid factor is present as indicated by ANY ONE of the following: [ ]i. History of delirium due to withdrawal is present. [ ]ii. History of seizures due to withdrawal is present.[E] [ ]iii. Intrinsic seizure disorder (epilepsy) is present. [ ]iv. Patient is . [ ]v. Other significant medical history (eg, severe cardiac disease) is present, which is assessed to be at risk for destabilization due to withdrawal. [ ]V. Serious electrolyte abnormalities (eg, hyponatremia, hypokalemia, hypophosphatemia) requiring correction performable only in inpatient setting(6)(25) [ ]. Severe hypoglycemia requiring glucose infusions performable only in inpatient setting(6) [X]VII. Drug toxicity or instability, such as Altered mental status, respiratory depression, or arrhythmias, that requires inpatient care [ ]VIII. Danger judged unmanageable at lower level of care because of ANY ONE of the following [ ]a) Danger to self [ ]b) Danger to others [ ]c) Grave disability (eg, inability to perform self-care necessary at lower level of care) The original [facility] Care [facility] content created by [facility] has been revised. The portions of the content which have been revised are identified through the use of italic text or in bold. [facility] Care [facility] has neither reviewed nor approved the modified material. All other unmodified content is copyright [facility] Care [facility]. Please see references footnoted in the original [facility] CareGuidelines edition 2016 Admission Criteria Met?: Yes POLY PENA Apr 28, 2017 17:53
--- NOTE | 2017-04-28 18:21 | PDOC1 ---
History and Physical Date of Admission Date of Admission DATE: 04/28/17 TIME: 18:16 Identification/Chief Complaint Chief Complaint alcohol intox, suicide ideation Problems: Source Source: Caregiver, Chart review, Patient History of Present Illness History of Present Illness 56 y.o male, knows me too now, admitted for alcohol intox, looks flushed, visibly shaking, no emesis though, but this time SUICIDAL IDEATION saying he is going to kill himself. Sitter needed at ER level. CIWA initiated. LAbs look ok though, ETOH levels high.NO gap though, bicarb ok. LAst admitted by me for etohb intox and CP last April 18, about a week ago Past Medical History Cardiovascular: CHF, HTN Pulmonary: COPD Hepatobiliary: Cirrhosis Psych: Anxiety, Addictions, Depression Renal/: No pertinent hx Past Surgical History Past Surgical History: Total hip replacement, Total knee replacement, No pertinent history Family History Family History: Alcohol Abuse Social History Smoke: No ALCOHOL: heavy Drugs: Cocaine, Marijuana, Heroin, Crystal meth Current Problem List Problem List Problems Medical Problems: (1) Acute encephalopathy Status: Acute (2) ETOH abuse Status: Acute Problems: Current Medications Current Medications Current Medications Sodium Chloride 1,000 ml @ 1,000 mls/hr Q1H IV Last administered on 04/28/17 16:25; Start 04/28/17 at 16:25; Stop 04/28/17 at 17:24; Status DC Multivitamins (Thera M Plus) 1 tab 1X ONCE PO Last administered on 04/28/17 16 :30; Start 04/28/17 at 16:30; Stop 04/28/17 at 16:31; Status DC Folic Acid (Folic Acid) 1 mg 1X ONCE PO Last administered on 04/28/17 16:30; Start 04/28/17 at 16:30; Stop 04/28/17 at 16:31; Status DC Lorazepam (Ativan) 2 mg 1X ONCE IV Last administered on 04/28/17 17:15; Start 04/28/17 at 17:15; Stop 04/28/17 at 17:16; Status DC Ondansetron HCl (Zofran) 4 mg PRN Q8HRS PRN IV NAUSEA/VOMITING; Start 04/28/17 at 17:30; Stop 04/29/17 at 17:29 Sodium Chloride 1,000 ml @ 125 mls/hr Q8H IV ; Start 04/28/17 at 17:18; Stop 04/29/17 at 17:17 Multivitamins (Thera M Plus) 1 tab DAILY PO ; Start 04/29/17 at 09:00 Folic Acid (Folic Acid) 1 mg DAILY PO ; Start 04/29/17 at 09:00 Lorazepam (Ativan) 2 mg PRN Q1HR PRN IV For CIWA 8-14; Start 04/28/17 at 17:30 Lorazepam (Ativan) 4 mg PRN Q1HR PRN IV For CIWA 15 or greater; Start 04/28/17 at 17:30 Haloperidol Lactate (Haldol) 5 mg PRN Q4HRS PRN IVP Hallucinatns,Confusn, Delirium; Start 04/28/17 at 17:30 Diphenhydramine HCl (Benadryl) 25 mg PRN Q15MIN PRN IVP EPS symptoms 2'Haldol admin; Start 04/28/17 at 17:30 Clonidine HCl (Catapres) 0.1 mg PRN Q1HR PRN PO SBP > 180 or DBP > 100, MRX3; Start 04/28/17 at 17:30 Active Scripts Active Escitalopram Oxalate 10 Mg Tablet 10 Mg PO DAILY [Lisinopril] 40 MG Tablet 40 Mg PO DAILY Clonazepam 0.25 Mg Tab.rapdis 0.75 Mg PO PRN TID PRN Vitamin B-1 (Thiamine Hcl) 100 Mg Tablet 100 Mg PO DAILY Mag-Oxide (Magnesium Oxide) 400 Mg Tablet 400 Mg PO BID Folic Acid 1 Mg Tablet 1 Mg PO DAILY Topamax (Topiramate) 25 Mg Tablet 1 Tab PO BID [Hydrocodone/Acetaminophen] 1 TAB Tablet 1 Tab PO PRN Q6HRS PRN Ibuprofen 200 Mg Tablet 200 Mg PO PRN Q6HRS PRN Vimpat (Lacosamide) 200 Mg Tablet 200 Mg PO BID66 Ativan (Lorazepam) 0.5 Mg Tablet 0.5 Mg PO TID Epipen 2-Erickson (Epinephrine) 0.3 Mg/0.3 Ml Auto.injct 0.3 Mg IJ 1X PRN [Multivitamins,Therapeutic] 1 TAB Tablet 1 Tab PO DAILY Reported Combivent Respimat Inhal (Ipratropium/Albuterol Sulfate) 4 Gm Aer.w.adap 1 Puff INH QIDPRN PRN Proair Hfa Inhaler (Albuterol Sulfate) 8.5 Gm Hfa.aer.ad 1 Puff INH QIDPRN PRN Allergies Allergies: Coded Allergies: No Known Drug Allergies (Unverified , 07/25/16) ROS Review of System shaky, intox, unable to get full ROS, but denies emesis Physical Exam General: Other (unkempt shaky, flushed skin whole body and face) HEENT: Atraumatic, PERRLA Lungs: Clear to auscultation Heart: RRR, no thrills, no gallops, no murmurs, other (sinus tachy) Cardiovascular: S1, S2 Abdomen: Normal bowel sounds, Soft, No tenderness, No hepatosplenomegaly, No masses Male Genitals Exam: normal genitalia, normal prostate Extremities: No clubbing, No cyanosis, No edema, Normal pulses, No tenderness/ swelling Skin: No rashes, No breakdown, No significant lesion Neuro: Normal gait, Normal speech, Strength at 5/5 X4 ext, Normal tone, Sensation intact, Cranial nerves 3-12 NL, Reflexes 2+ Psych/Mental Status: Mental status NL, Mood NL Vitals Vitals Vital Signs Date Time Temp Pulse Resp B/P (MAP) Pulse Ox O2 Delivery O2 Flow Rate FiO2 04/28/17 17:26 89 150/85 (106) 92 Room Air 04/28/17 15:45 98.7 20 98.7 Labs Labs Laboratory Tests Test 04/28/17 16:29 White Blood Count 5.5 x10^3/uL (4.0-11.0) Red Blood Count 4.27 x10^6/uL (4.30-5.70) Hemoglobin 13.5 g/dL (13.0-17.5) Hematocrit 40.3 % (39.0-53.0) Mean Corpuscular Volume 95 fL (79-100) Mean Corpuscular Hemoglobin 32 pg (25-35) Mean Corpuscular Hemoglobin Concent 33 g/dL (31-37) Red Cell Distribution Width 16.6 % (11.5-14.5) Platelet Count 266 x10^3/uL (140-400) Neutrophils (%) (Auto) 39 % (31-73) Lymphocytes (%) (Auto) 41 % (24-48) Monocytes (%) (Auto) 13 % (0-9) Eosinophils (%) (Auto) 3 % (0-3) Basophils (%) (Auto) 4 % (0-3) Neutrophils # (Auto) 2.2 x10^3uL (1.8-7.7) Lymphocytes # (Auto) 2.2 x10^3/uL (1.0-4.8) Monocytes # (Auto) 0.7 x10^3/uL (0.0-1.1) Eosinophils # (Auto) 0.1 x10^3/uL (0.0-0.7) Basophils # (Auto) 0.2 x10^3/uL (0.0-0.2) Prothrombin Time 12.3 SEC (11.7-14.0) Prothromb Time International Ratio 1.0 (0.8-1.1) Activated Partial Thromboplast Time 28 SEC (24-38) Sodium Level 144 mmol/L (136-145) Potassium Level 4.1 mmol/L (3.5-5.1) Chloride Level 104 mmol/L (98-107) Carbon Dioxide Level 28 mmol/L (21-32) Anion Gap 12 (6-14) Blood Urea Nitrogen 9 mg/dL (8-26) Creatinine 0.8 mg/dL (0.7-1.3) Estimated GFR (Cockcroft-Gault) 100.7 BUN/Creatinine Ratio 11 (6-20) Glucose Level 87 mg/dL (70-99) Calcium Level 8.8 mg/dL (8.5-10.1) Magnesium Level 1.7 mg/dL (1.8-2.4) Total Bilirubin 0.3 mg/dL (0.2-1.0) Aspartate Amino Transf (AST/SGOT) 165 U/L (15-37) Alanine Aminotransferase (ALT/SGPT) 145 U/L (16-63) Alkaline Phosphatase 86 U/L (46-116) Total Protein 8.6 g/dL (6.4-8.2) Albumin 4.4 g/dL (3.4-5.0) Albumin/Globulin Ratio 1.0 (1.0-1.7) Ethyl Alcohol Level 391 mg/dL (0-10) Laboratory Tests Test 04/28/17 16:29 White Blood Count 5.5 x10^3/uL (4.0-11.0) Red Blood Count 4.27 x10^6/uL (4.30-5.70) Hemoglobin 13.5 g/dL (13.0-17.5) Hematocrit 40.3 % (39.0-53.0) Mean Corpuscular Volume 95 fL (79-100) Mean Corpuscular Hemoglobin 32 pg (25-35) Mean Corpuscular Hemoglobin Concent 33 g/dL (31-37) Red Cell Distribution Width 16.6 % (11.5-14.5) Platelet Count 266 x10^3/uL (140-400) Neutrophils (%) (Auto) 39 % (31-73) Lymphocytes (%) (Auto) 41 % (24-48) Monocytes (%) (Auto) 13 % (0-9) Eosinophils (%) (Auto) 3 % (0-3) Basophils (%) (Auto) 4 % (0-3) Neutrophils # (Auto) 2.2 x10^3uL (1.8-7.7) Lymphocytes # (Auto) 2.2 x10^3/uL (1.0-4.8) Monocytes # (Auto) 0.7 x10^3/uL (0.0-1.1) Eosinophils # (Auto) 0.1 x10^3/uL (0.0-0.7) Basophils # (Auto) 0.2 x10^3/uL (0.0-0.2) Prothrombin Time 12.3 SEC (11.7-14.0) Prothromb Time International Ratio 1.0 (0.8-1.1) Activated Partial Thromboplast Time 28 SEC (24-38) Sodium Level 144 mmol/L (136-145) Potassium Level 4.1 mmol/L (3.5-5.1) Chloride Level 104 mmol/L (98-107) Carbon Dioxide Level 28 mmol/L (21-32) Anion Gap 12 (6-14) Blood Urea Nitrogen 9 mg/dL (8-26) Creatinine 0.8 mg/dL (0.7-1.3) Estimated GFR (Cockcroft-Gault) 100.7 BUN/Creatinine Ratio 11 (6-20) Glucose Level 87 mg/dL (70-99) Calcium Level 8.8 mg/dL (8.5-10.1) Magnesium Level 1.7 mg/dL (1.8-2.4) Total Bilirubin 0.3 mg/dL (0.2-1.0) Aspartate Amino Transf (AST/SGOT) 165 U/L (15-37) Alanine Aminotransferase (ALT/SGPT) 145 U/L (16-63) Alkaline Phosphatase 86 U/L (46-116) Total Protein 8.6 g/dL (6.4-8.2) Albumin 4.4 g/dL (3.4-5.0) Albumin/Globulin Ratio 1.0 (1.0-1.7) Ethyl Alcohol Level 391 mg/dL (0-10) VTE Prophylaxis Ordered VTE Prophylaxis Devices: Yes VTE Pharmacological Prophylaxi: Yes Assessment/Plan Assessment/Plan 1. Alcohol intox 2. Sinus tachy 3. Sucide Ideation 4/ Elevated lFTs sec to etoh PLAn: CIWA ADMit t[facility]e [facility] life crisis referral 1:1 Seen at ER 11 LEONARDO PARISH MD Apr 28, 2017 18:21
[2017-04-28 19:20] VITALS: BP 136/88
[2017-04-28] MEDS: diphenhydrAMINE 50 MG/ML VIAL IVP PRN (20:18)
[2017-04-28] MEDS: IV NORMAL SALINE 1000ML BAG 1,000 ML IV SCH (20:22)
[2017-04-29] MEDS: IV NORMAL SALINE 1000ML BAG 1,000 ML IV SCH ×2 (01:18→02:34)
[2017-04-29 03:00] VITALS: BP 136/87
[2017-04-29] MEDS: diphenhydrAMINE 50 MG/ML VIAL IVP PRN ×2 (03:32→09:04)
[2017-04-29] MEDS: ONDANSETRON PF 4 MG/2 ML VIAL. IV PRN ×2 (03:32→09:03)
[2017-04-29 03:52] LABS: BASO # 0.1 x10^3/uL (0.0-0.2); BASO % 3 % (0-3); EOS % 2 % (0-3); HEMOGLOBIN 12.5 g/dL (13.0-17.5); LYMPH # 1.5 x10^3/uL (1.0-4.8); LYMPH % 26 % (24-48); MEAN CORPUSCULAR HEMOGLOBIN 32 pg (25-35); MEAN CORPUSCULAR HGB CONC 33 g/dL (31-37); MEAN CORPUSCULAR VOLUME 96 fL (79-100); MONO % 13 % (0-9); NEUT % 56 % (31-73); PLATELET COUNT 226 x10^3/uL (140-400); RED BLOOD COUNT 3.98 x10^6/uL (4.30-5.70); RED CELL DISTRIBUTION WIDTH 16.7 % (11.5-14.5); WHITE BLOOD COUNT 5.7 x10^3/uL (4.0-11.0)
[2017-04-29 04:19] LABS: CALCIUM 8.1 mg/dL (8.5-10.1); CREATININE 0.6 mg/dL (0.7-1.3); GFR 140.4; POTASSIUM 3.6 mmol/L (3.5-5.1)
[2017-04-29] MEDS: IV DEXTROSE 5 %-0.45 % NACL 1,000 ML IV SCH ×2 (05:45→19:53)
[2017-04-29] MEDS: MULTIVIT INFUSN,ADULT 4,VIT K 10 ML, FOLIC ACID 1 MG, THIAMINE 100 MG in IV DEXTROSE 5 ... IV SCH ×2 (05:56→09:03)
--- NOTE | 2017-04-29 06:40 | EKG ---
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
[2017-04-29 07:22] VITALS: BP 133/75
[2017-04-29] MEDS: FOLIC ACID 1 MG TABLET. PO SCH (09:00)
[2017-04-29] MEDS: MULTIVITAMIN with MINERAL TABLET. PO SCH (09:00)
[2017-04-29] MEDS: THIAMINE 100 MG TABLET. PO SCH (09:00)
[2017-04-29 10:08] VITALS: BP 131/85
[2017-04-29 14:12] VITALS: BP 119/70
--- NOTE | 2017-04-29 18:53 | PDOC ---
PROGRESS NOTES Chief Complaint Chief Complaint 1. Alcohol intox 2. Sinus tachy 3. Sucide Ideation 4/ Elevated lFTs sec to etoh History of Present Illness History of Present Illness Pt seen and examined with 1;1 obseerver Confused Vitals Vitals Vital Signs Date Time Temp Pulse Resp B/P (MAP) Pulse Ox O2 Delivery O2 Flow Rate FiO2 04/29/17 14:12 98.9 86 18 119/70 (86) 95 Nasal Cannula 3.0 98.9 Physical Exam General: Alert, Oriented X3, Cooperative, Other (unkempt shaky, flushed skin whole body and face) Heart: Regular rate, Normal S1 Lungs: Clear Abdomen: Normal bowel sounds, Soft, No tenderness, No hepatosplenomegaly, No masses Extremities: No clubbing, No cyanosis, No edema, Normal pulses, No tenderness/ swelling Skin: No rashes, No breakdown, No significant lesion Labs LABS Laboratory Tests Test 04/29/17 03:05 04/29/17 04:58 04/29/17 05:20 04/29/17 07:33 White Blood Count 5.7 x10^3/uL (4.0-11.0) Red Blood Count 3.98 x10^6/uL (4.30-5.70) Hemoglobin 12.5 g/dL (13.0-17.5) Hematocrit 38.0 % (39.0-53.0) Mean Corpuscular Volume 96 fL (79-100) Mean Corpuscular Hemoglobin 32 pg (25-35) Mean Corpuscular Hemoglobin Concent 33 g/dL (31-37) Red Cell Distribution Width 16.7 % (11.5-14.5) Platelet Count 226 x10^3/uL (140-400) Neutrophils (%) (Auto) 56 % (31-73) Lymphocytes (%) (Auto) 26 % (24-48) Monocytes (%) (Auto) 13 % (0-9) Eosinophils (%) (Auto) 2 % (0-3) Basophils (%) (Auto) 3 % (0-3) Neutrophils # (Auto) 3.2 x10^3uL (1.8-7.7) Lymphocytes # (Auto) 1.5 x10^3/uL (1.0-4.8) Monocytes # (Auto) 0.8 x10^3/uL (0.0-1.1) Eosinophils # (Auto) 0.1 x10^3/uL (0.0-0.7) Basophils # (Auto) 0.1 x10^3/uL (0.0-0.2) Sodium Level 143 mmol/L (136-145) Potassium Level 3.6 mmol/L (3.5-5.1) Chloride Level 103 mmol/L (98-107) Carbon Dioxide Level 23 mmol/L (21-32) Anion Gap 17 (6-14) Blood Urea Nitrogen 9 mg/dL (8-26) Creatinine 0.6 mg/dL (0.7-1.3) Estimated GFR (Cockcroft-Gault) 140.4 Glucose Level 54 mg/dL (70-99) Calcium Level 8.1 mg/dL (8.5-10.1) Glucose (Fingerstick) 58 mg/dL (70-99) 62 mg/dL (70-99) 70 mg/dL (70-99) Test 04/29/17 11:59 04/29/17 16:37 Glucose (Fingerstick) 81 mg/dL (70-99) 130 mg/dL (70-99) Review of Systems Review of Systems unreliable confused Assessment and Plan Assessmemt and Plan Problems Medical Problems: (1) Acute encephalopathy Status: Acute (2) ETOH abuse Status: Acute 1. Alcohol intox 2. Sinus tachy 3. Sucide Ideation 4/ Elevated lFTs sec to etoh Plan ETOH wd protocol Home meds PAT eval Labs Problems: Comment Review of Relevant I have reviewed the following items keisha (where applicable) has been applied. Labs Laboratory Tests Test 04/28/17 16:29 04/29/17 03:05 04/29/17 04:58 04/29/17 05:20 White Blood Count 5.5 x10^3/uL (4.0-11.0) 5.7 x10^3/uL (4.0-11.0) Red Blood Count 4.27 x10^6/uL (4.30-5.70) 3.98 x10^6/uL (4.30-5.70) Hemoglobin 13.5 g/dL (13.0-17.5) 12.5 g/dL (13.0-17.5) Hematocrit 40.3 % (39.0-53.0) 38.0 % (39.0-53.0) Mean Corpuscular Volume 95 fL (79-100) 96 fL (79-100) Mean Corpuscular Hemoglobin 32 pg (25-35) 32 pg (25-35) Mean Corpuscular Hemoglobin Concent 33 g/dL (31-37) 33 g/dL (31-37) Red Cell Distribution Width 16.6 % (11.5-14.5) 16.7 % (11.5-14.5) Platelet Count 266 x10^3/uL (140-400) 226 x10^3/uL (140-400) Neutrophils (%) (Auto) 39 % (31-73) 56 % (31-73) Lymphocytes (%) (Auto) 41 % (24-48) 26 % (24-48) Monocytes (%) (Auto) 13 % (0-9) 13 % (0-9) Eosinophils (%) (Auto) 3 % (0-3) 2 % (0-3) Basophils (%) (Auto) 4 % (0-3) 3 % (0-3) Neutrophils # (Auto) 2.2 x10^3uL (1.8-7.7) 3.2 x10^3uL (1.8-7.7) Lymphocytes # (Auto) 2.2 x10^3/uL (1.0-4.8) 1.5 x10^3/uL (1.0-4.8) Monocytes # (Auto) 0.7 x10^3/uL (0.0-1.1) 0.8 x10^3/uL (0.0-1.1) Eosinophils # (Auto) 0.1 x10^3/uL (0.0-0.7) 0.1 x10^3/uL (0.0-0.7) Basophils # (Auto) 0.2 x10^3/uL (0.0-0.2) 0.1 x10^3/uL (0.0-0.2) Prothrombin Time 12.3 SEC (11.7-14.0) Prothromb Time International Ratio 1.0 (0.8-1.1) Activated Partial Thromboplast Time 28 SEC (24-38) Sodium Level 144 mmol/L (136-145) 143 mmol/L (136-145) Potassium Level 4.1 mmol/L (3.5-5.1) 3.6 mmol/L (3.5-5.1) Chloride Level 104 mmol/L (98-107) 103 mmol/L (98-107) Carbon Dioxide Level 28 mmol/L (21-32) 23 mmol/L (21-32) Anion Gap 12 (6-14) 17 (6-14) Blood Urea Nitrogen 9 mg/dL (8-26) 9 mg/dL (8-26) Creatinine 0.8 mg/dL (0.7-1.3) 0.6 mg/dL (0.7-1.3) Estimated GFR (Cockcroft-Gault) 100.7 140.4 BUN/Creatinine Ratio 11 (6-20) Glucose Level 87 mg/dL (70-99) 54 mg/dL (70-99) Calcium Level 8.8 mg/dL (8.5-10.1) 8.1 mg/dL (8.5-10.1) Magnesium Level 1.7 mg/dL (1.8-2.4) Total Bilirubin 0.3 mg/dL (0.2-1.0) Aspartate Amino Transf (AST/SGOT) 165 U/L (15-37) Alanine Aminotransferase (ALT/SGPT) 145 U/L (16-63) Alkaline Phosphatase 86 U/L (46-116) Total Protein 8.6 g/dL (6.4-8.2) Albumin 4.4 g/dL (3.4-5.0) Albumin/Globulin Ratio 1.0 (1.0-1.7) Ethyl Alcohol Level 391 mg/dL (0-10) Glucose (Fingerstick) 58 mg/dL (70-99) 62 mg/dL (70-99) Test 04/29/17 07:33 04/29/17 11:59 04/29/17 16:37 Glucose (Fingerstick) 70 mg/dL (70-99) 81 mg/dL (70-99) 130 mg/dL (70-99) Laboratory Tests Test 04/29/17 03:05 04/29/17 04:58 04/29/17 05:20 04/29/17 07:33 White Blood Count 5.7 x10^3/uL (4.0-11.0) Red Blood Count 3.98 x10^6/uL (4.30-5.70) Hemoglobin 12.5 g/dL (13.0-17.5) Hematocrit 38.0 % (39.0-53.0) Mean Corpuscular Volume 96 fL (79-100) Mean Corpuscular Hemoglobin 32 pg (25-35) Mean Corpuscular Hemoglobin Concent 33 g/dL (31-37) Red Cell Distribution Width 16.7 % (11.5-14.5) Platelet Count 226 x10^3/uL (140-400) Neutrophils (%) (Auto) 56 % (31-73) Lymphocytes (%) (Auto) 26 % (24-48) Monocytes (%) (Auto) 13 % (0-9) Eosinophils (%) (Auto) 2 % (0-3) Basophils (%) (Auto) 3 % (0-3) Neutrophils # (Auto) 3.2 x10^3uL (1.8-7.7) Lymphocytes # (Auto) 1.5 x10^3/uL (1.0-4.8) Monocytes # (Auto) 0.8 x10^3/uL (0.0-1.1) Eosinophils # (Auto) 0.1 x10^3/uL (0.0-0.7) Basophils # (Auto) 0.1 x10^3/uL (0.0-0.2) Sodium Level 143 mmol/L (136-145) Potassium Level 3.6 mmol/L (3.5-5.1) Chloride Level 103 mmol/L (98-107) Carbon Dioxide Level 23 mmol/L (21-32) Anion Gap 17 (6-14) Blood Urea Nitrogen 9 mg/dL (8-26) Creatinine 0.6 mg/dL (0.7-1.3) Estimated GFR (Cockcroft-Gault) 140.4 Glucose Level 54 mg/dL (70-99) Calcium Level 8.1 mg/dL (8.5-10.1) Glucose (Fingerstick) 58 mg/dL (70-99) 62 mg/dL (70-99) 70 mg/dL (70-99) Test 04/29/17 11:59 04/29/17 16:37 Glucose (Fingerstick) 81 mg/dL (70-99) 130 mg/dL (70-99) Medications Current Medications Sodium Chloride 1,000 ml @ 1,000 mls/hr Q1H IV Last administered on 04/28/17 16:25; Start 04/28/17 at 16:25; Stop 04/28/17 at 17:24; Status DC Multivitamins (Thera M Plus) 1 tab 1X ONCE PO Last administered on 04/28/17 16 :30; Start 04/28/17 at 16:30; Stop 04/28/17 at 16:31; Status DC Folic Acid (Folic Acid) 1 mg 1X ONCE PO Last administered on 04/28/17 16:30; Start 04/28/17 at 16:30; Stop 04/28/17 at 16:31; Status DC Lorazepam (Ativan) 2 mg 1X ONCE IV Last administered on 04/28/17 17:15; Start 04/28/17 at 17:15; Stop 04/28/17 at 17:16; Status DC Ondansetron HCl (Zofran) 4 mg PRN Q8HRS PRN IV NAUSEA/VOMITING; Start 04/28/17 at 17:30; Stop 04/28/17 at 18:16; Status DC Sodium Chloride 1,000 ml @ 125 mls/hr Q8H IV Last administered on 04/29/17 02: 34; Start 04/28/17 at 17:18; Stop 04/29/17 at 05:49; Status DC Multivitamins (Thera M Plus) 1 tab DAILY PO ; Start 04/29/17 at 09:00 Folic Acid (Folic Acid) 1 mg DAILY PO ; Start 04/29/17 at 09:00 Lorazepam (Ativan) 2 mg PRN Q1HR PRN IV For CIWA 8-14; Start 04/28/17 at 17:30 Lorazepam (Ativan) 4 mg PRN Q1HR PRN IV For CIWA 15 or greater Last administered on 04/29/17 15:42; Start 04/28/17 at 17:30 Haloperidol Lactate (Haldol) 5 mg PRN Q4HRS PRN IVP Hallucinatns,Confusn, Delirium; Start 04/28/17 at 17:30 Diphenhydramine HCl (Benadryl) 25 mg PRN Q15MIN PRN IVP EPS symptoms 2'Haldol admin Last administered on 04/29/17 09:04; Start 04/28/17 at 17:30 Clonidine HCl (Catapres) 0.1 mg PRN Q1HR PRN PO SBP > 180 or DBP > 100, MRX3; Start 04/28/17 at 17:30 Ondansetron HCl (Zofran) 4 mg PRN Q6HRS PRN IV NAUSEA/VOMITING Last administered on 04/29/17 09:03; Start 04/28/17 at 18:14; Stop 04/29/17 at 18:13; Status DC Multivitamins 10 ml/Folic Acid 1 mg/Thiamine HCl 100 mg/Dextrose/ Sodium Chloride 1,011.1 ml @ 100 mls/ hr DAILY IV Last administered on 04/29/17 09:03 ; Start 04/29/17 at 09:00 Dextrose/Sodium Chloride 1,000 ml @ 100 mls/hr Q10H IV ; Start 04/29/17 at 05:45 Active Scripts Active Escitalopram Oxalate 10 Mg Tablet 10 Mg PO DAILY [Lisinopril] 40 MG Tablet 40 Mg PO DAILY Clonazepam 0.25 Mg Tab.rapdis 0.75 Mg PO PRN TID PRN Vitamin B-1 (Thiamine Hcl) 100 Mg Tablet 100 Mg PO DAILY Mag-Oxide (Magnesium Oxide) 400 Mg Tablet 400 Mg PO BID Folic Acid 1 Mg Tablet 1 Mg PO DAILY Topamax (Topiramate) 25 Mg Tablet 1 Tab PO BID [Hydrocodone/Acetaminophen] 1 TAB Tablet 1 Tab PO PRN Q6HRS PRN Ibuprofen 200 Mg Tablet 200 Mg PO PRN Q6HRS PRN Vimpat (Lacosamide) 200 Mg Tablet 200 Mg PO [id number] Ativan (Lorazepam) 0.5 Mg Tablet 0.5 Mg PO TID Epipen 2-Erickson (Epinephrine) 0.3 Mg/0.3 Ml Auto.injct 0.3 Mg IJ 1X PRN [Multivitamins,Therapeutic] 1 TAB Tablet 1 Tab PO DAILY Reported Combivent Respimat Inhal (Ipratropium/Albuterol Sulfate) 4 Gm Aer.w.adap 1 Puff INH QIDPRN PRN Proair Hfa Inhaler (Albuterol Sulfate) 8.5 Gm Hfa.aer.ad 1 Puff INH QIDPRN PRN Vitals/I & O Vital Sign - Last 24 Hours 04/28/17 04/28/17 04/28/17 04/28/17 19:20 19:20 19:30 23:00 Temp 97.6 97.6 Pulse 86 84 Resp 20 20 B/P (MAP) 136/88 (104) Pulse Ox 94 94 O2 Delivery Simple Mask Nasal Cannula O2 Flow Rate 3.0 3.0 3.0 3.0 04/29/17 04/29/17 04/29/17 04/29/17 03:00 07:22 08:00 10:08 Temp 98.7 98.9 97.2 98.7 98.9 97.2 Pulse 92 99 87 Resp 20 20 18 B/P (MAP) 136/87 (103) 133/75 (94) 131/85 (100) Pulse Ox 96 94 94 O2 Delivery Nasal Cannula Nasal Cannula Nasal Cannula Nasal Cannula O2 Flow Rate 3.0 3.0 3.0 3.0 04/29/17 14:12 Temp 98.9 98.9 Pulse 86 Resp 18 B/P (MAP) 119/70 (86) Pulse Ox 95 O2 Delivery Nasal Cannula O2 Flow Rate 3.0 Intake and Output 04/28/17 04/28/17 04/29/17 15:00 23:00 07:00 Intake Total 200 ml 1040 ml Output Total 500 ml Balance 200 ml 540 ml REGINO HART III DO Apr 29, 2017 18:53
[2017-04-29 19:00] VITALS: BP 154/95
[2017-04-29 23:00] VITALS: BP 151/86
[2017-04-30] MEDS: diphenhydrAMINE 50 MG/ML VIAL IVP PRN ×2 (00:44→22:11)
[2017-04-30] MEDS: ONDANSETRON PF 4 MG/2 ML VIAL. IV PRN ×3 (00:45→22:11)
[2017-04-30] MEDS: IV DEXTROSE 5 %-0.45 % NACL 1,000 ML IV SCH ×4 (00:48→21:45)
[2017-04-30 03:00] VITALS: BP 143/89
[2017-04-30 07:17] VITALS: BP 147/90
[2017-04-30] MEDS: FOLIC ACID 1 MG TABLET. PO SCH (08:48)
[2017-04-30] MEDS: THIAMINE 100 MG TABLET. PO SCH (08:48)
[2017-04-30] MEDS: MULTIVITAMIN with MINERAL TABLET. PO SCH (08:48)
[2017-04-30 11:14] VITALS: BP 156/98
[2017-04-30] MEDS: MULTIVIT INFUSN,ADULT 4,VIT K 10 ML, FOLIC ACID 1 MG, THIAMINE 100 MG in IV DEXTROSE 5 ... IV SCH (12:30)
[2017-04-30 14:49] VITALS: BP 145/95
[2017-04-30 19:14] VITALS: BP 147/86
[2017-04-30 22:24] VITALS: BP 149/91
--- NOTE | 2017-04-30 22:36 | PDOC ---
PROGRESS NOTES Chief Complaint Chief Complaint 1. Alcohol intox 2. Sinus tachy 3. Sucide Ideation 4/ Elevated lFTs sec to etoh History of Present Illness History of Present Illness Pt seen and examined with 1;1 obseerver Confused Vitals Vitals Vital Signs Date Time Temp Pulse Resp B/P (MAP) Pulse Ox O2 Delivery O2 Flow Rate FiO2 04/30/17 22:24 99.0 80 17 149/91 (110) 94 Room Air 99.0 04/30/17 08:00 3.0 Physical Exam General: Alert, Oriented X3, Cooperative, Other (unkempt shaky, flushed skin whole body and face) Heart: Regular rate, Normal S1 Lungs: Clear Abdomen: Normal bowel sounds, Soft, No tenderness, No hepatosplenomegaly, No masses Extremities: No clubbing, No cyanosis, No edema, Normal pulses, No tenderness/ swelling Skin: No rashes, No breakdown, No significant lesion Review of Systems Review of Systems co weakness and shaking Assessment and Plan Assessmemt and Plan Problems Medical Problems: (1) Acute encephalopathy Status: Acute (2) ETOH abuse Status: Acute 1. Alcohol intox 2. Sinus tachy 3. Sucide Ideation 4/ Elevated lFTs sec to etoh Plan Benzos Iv fluids MVI Thiamine Labs 1:1 obs Problems: Comment Review of Relevant I have reviewed the following items keisha (where applicable) has been applied. Labs Laboratory Tests Test 04/29/17 03:05 04/29/17 04:58 04/29/17 05:20 04/29/17 07:33 White Blood Count 5.7 x10^3/uL (4.0-11.0) Red Blood Count 3.98 x10^6/uL (4.30-5.70) Hemoglobin 12.5 g/dL (13.0-17.5) Hematocrit 38.0 % (39.0-53.0) Mean Corpuscular Volume 96 fL (79-100) Mean Corpuscular Hemoglobin 32 pg (25-35) Mean Corpuscular Hemoglobin Concent 33 g/dL (31-37) Red Cell Distribution Width 16.7 % (11.5-14.5) Platelet Count 226 x10^3/uL (140-400) Neutrophils (%) (Auto) 56 % (31-73) Lymphocytes (%) (Auto) 26 % (24-48) Monocytes (%) (Auto) 13 % (0-9) Eosinophils (%) (Auto) 2 % (0-3) Basophils (%) (Auto) 3 % (0-3) Neutrophils # (Auto) 3.2 x10^3uL (1.8-7.7) Lymphocytes # (Auto) 1.5 x10^3/uL (1.0-4.8) Monocytes # (Auto) 0.8 x10^3/uL (0.0-1.1) Eosinophils # (Auto) 0.1 x10^3/uL (0.0-0.7) Basophils # (Auto) 0.1 x10^3/uL (0.0-0.2) Sodium Level 143 mmol/L (136-145) Potassium Level 3.6 mmol/L (3.5-5.1) Chloride Level 103 mmol/L (98-107) Carbon Dioxide Level 23 mmol/L (21-32) Anion Gap 17 (6-14) Blood Urea Nitrogen 9 mg/dL (8-26) Creatinine 0.6 mg/dL (0.7-1.3) Estimated GFR (Cockcroft-Gault) 140.4 Glucose Level 54 mg/dL (70-99) Calcium Level 8.1 mg/dL (8.5-10.1) Glucose (Fingerstick) 58 mg/dL (70-99) 62 mg/dL (70-99) 70 mg/dL (70-99) Test 04/29/17 11:59 04/29/17 16:37 04/29/17 20:05 Glucose (Fingerstick) 81 mg/dL (70-99) 130 mg/dL (70-99) 120 mg/dL (70-99) Medications Current Medications Sodium Chloride 1,000 ml @ 1,000 mls/hr Q1H IV Last administered on 04/28/17 16:25; Start 04/28/17 at 16:25; Stop 04/28/17 at 17:24; Status DC Multivitamins (Thera M Plus) 1 tab 1X ONCE PO Last administered on 04/28/17 16 :30; Start 04/28/17 at 16:30; Stop 04/28/17 at 16:31; Status DC Folic Acid (Folic Acid) 1 mg 1X ONCE PO Last administered on 04/28/17 16:30; Start 04/28/17 at 16:30; Stop 04/28/17 at 16:31; Status DC Lorazepam (Ativan) 2 mg 1X ONCE IV Last administered on 04/28/17 17:15; Start 04/28/17 at 17:15; Stop 04/28/17 at 17:16; Status DC Ondansetron HCl (Zofran) 4 mg PRN Q8HRS PRN IV NAUSEA/VOMITING; Start 04/28/17 at 17:30; Stop 04/28/17 at 18:16; Status DC Sodium Chloride 1,000 ml @ 125 mls/hr Q8H IV Last administered on 04/29/17 02: 34; Start 04/28/17 at 17:18; Stop 04/29/17 at 05:49; Status DC Multivitamins (Thera M Plus) 1 tab DAILY PO Last administered on 04/30/17 08:48 ; Start 04/29/17 at 09:00; Stop 04/30/17 at 15:03; Status DC Folic Acid (Folic Acid) 1 mg DAILY PO Last administered on 04/30/17 08:48; Start 04/29/17 at 09:00; Stop 04/30/17 at 15:03; Status DC Lorazepam (Ativan) 2 mg PRN Q1HR PRN IV For CIWA 8-14; Start 04/28/17 at 17:30 Lorazepam (Ativan) 4 mg PRN Q1HR PRN IV For CIWA 15 or greater Last administered on 04/30/17 15:50; Start 04/28/17 at 17:30 Haloperidol Lactate (Haldol) 5 mg PRN Q4HRS PRN IVP Hallucinatns,Confusn, Delirium; Start 04/28/17 at 17:30 Diphenhydramine HCl (Benadryl) 25 mg PRN Q15MIN PRN IVP EPS symptoms 2'Haldol admin Last administered on 04/30/17 22:11; Start 04/28/17 at 17:30 Clonidine HCl (Catapres) 0.1 mg PRN Q1HR PRN PO SBP > 180 or DBP > 100, MRX3; Start 04/28/17 at 17:30 Ondansetron HCl (Zofran) 4 mg PRN Q6HRS PRN IV NAUSEA/VOMITING Last administered on 04/29/17 09:03; Start 04/28/17 at 18:14; Stop 04/29/17 at 18:13; Status DC Multivitamins 10 ml/Folic Acid 1 mg/Thiamine HCl 100 mg/Dextrose/ Sodium Chloride 1,011.1 ml @ 100 mls/ hr DAILY IV Last administered on 04/29/17 09:03 ; Start 04/29/17 at 09:00; Stop 04/30/17 at 12:22; Status DC Dextrose/Sodium Chloride 1,000 ml @ 100 mls/hr Q10H IV Last administered on 20:12; Start 04/29/17 at 05:45 Ondansetron HCl (Zofran) 4 mg PRN Q6HRS PRN IV NAUSEA/VOMITING Last administered on 04/30/17 22:11; Start 04/30/17 at 00:30 Multivitamins 10 ml/Folic Acid 1 mg/Thiamine HCl 100 mg/Dextrose/ Sodium Chloride 1,011.2 ml @ 100 mls/ hr DAILY IV Last administered on 04/30/17 12:30 ; Start 04/30/17 at 12:30 Active Scripts Active Escitalopram Oxalate 10 Mg Tablet 10 Mg PO DAILY [Lisinopril] 40 MG Tablet 40 Mg PO DAILY Clonazepam 0.25 Mg Tab.rapdis 0.75 Mg PO PRN TID PRN Vitamin B-1 (Thiamine Hcl) 100 Mg Tablet 100 Mg PO DAILY Mag-Oxide (Magnesium Oxide) 400 Mg Tablet 400 Mg PO BID Folic Acid 1 Mg Tablet 1 Mg PO DAILY Topamax (Topiramate) 25 Mg Tablet 1 Tab PO BID [Hydrocodone/Acetaminophen] 1 TAB Tablet 1 Tab PO PRN Q6HRS PRN Ibuprofen 200 Mg Tablet 200 Mg PO PRN Q6HRS PRN Vimpat (Lacosamide) 200 Mg Tablet 200 Mg PO [id number] Ativan (Lorazepam) 0.5 Mg Tablet 0.5 Mg PO TID Epipen 2-Erickson (Epinephrine) 0.3 Mg/0.3 Ml Auto.injct 0.3 Mg IJ 1X PRN [Multivitamins,Therapeutic] 1 TAB Tablet 1 Tab PO DAILY Reported Combivent Respimat Inhal (Ipratropium/Albuterol Sulfate) 4 Gm Aer.w.adap 1 Puff INH QIDPRN PRN Proair Hfa Inhaler (Albuterol Sulfate) 8.5 Gm Hfa.aer.ad 1 Puff INH QIDPRN PRN Vitals/I & O Vital Sign - Last 24 Hours 04/29/17 04/30/17 04/30/17 04/30/17 23:00 03:00 07:17 08:00 Temp 97.9 99.1 98.9 97.9 99.1 98.9 Pulse 69 66 62 Resp 18 18 18 B/P (MAP) 151/86 (107) 143/89 (107) 147/90 (109) Pulse Ox 94 91 91 O2 Delivery Room Air Room Air Room Air Room Air O2 Flow Rate 3.0 04/30/17 04/30/17 04/30/17 04/30/17 11:14 14:49 19:14 20:00 Temp 98.8 99.2 97.8 98.8 99.2 97.8 Pulse 83 74 78 Resp 18 B/P (MAP) 156/98 (117) 145/95 (112) 147/86 (106) Pulse Ox 96 91 95 O2 Delivery Room Air Room Air Room Air Room Air 04/30/17 22:24 Temp 99.0 99.0 Pulse 80 Resp 17 B/P (MAP) 149/91 (110) Pulse Ox 94 O2 Delivery Room Air Intake and Output 04/29/17 04/29/17 04/30/17 15:00 23:00 07:00 Intake Total 700 ml 480 ml Output Total 700 ml 200 ml 800 ml Balance -700 ml 500 ml -320 ml REGINO HART III DO Apr 30, 2017 22:36
[2017-05-01 03:00] VITALS: BP 139/76
[2017-05-01 07:00] VITALS: BP 135/84
[2017-05-01] MEDS: IV DEXTROSE 5 %-0.45 % NACL 1,000 ML IV SCH (07:45)
[2017-05-01] MEDS: MULTIVIT INFUSN,ADULT 4,VIT K 10 ML, FOLIC ACID 1 MG, THIAMINE 100 MG in IV DEXTROSE 5 ... IV SCH (09:00)
[2017-05-01] MEDS: ONDANSETRON PF 4 MG/2 ML VIAL. IV PRN (10:43)
[2017-05-01] MEDS ORDERED: ONDANSETRON ODT 4 MG TAB.RAPDIS. PO PRN (11:15)
[2017-05-01] MEDS ORDERED: LORazepam 1 MG TABLET PO PRN (11:45)
--- NOTE | 2017-05-01 23:00 | DS ---
DATE OF DISCHARGE: 05/01/2017 ADMISSION DIAGNOSES: Alcoholic encephalopathy. DISCHARGE DIAGNOSIS: Resolving alcoholic encephalopathy. HOSPITAL COURSE: The patient is a pleasant 56-year-old male who is well known to our service. He gets admitted every week or two with alcohol withdrawal and encephalopathy. He is admitted. We gave him benzos, banana bags, fluids, did some physical therapy and occupational therapy, 1:1 observation. This morning, he is certainly better. He wants to go home. We plan to discharge. The patient was seen and examined this morning. DISPOSITION: Home. ACTIVITY: As tolerated. DIET: Low sodium. MEDICATIONS: Please see the MRAD. TOTAL TIME ON DISCHARGE: 31 minutes. REGINO HART DO DR: AMANDA/venita JOB#: [id number] / [id number]
--- NOTE | 2017-05-02 04:00 | PN ---
DATE: SUBJECTIVE: The patient was seen and examined this morning. The plan is to discharge. ____. OBJECTIVE: HEART: Normal. LUNGS: Clear. ABDOMEN: Soft. EXTREMITIES: No edema. See discharge summary dictation. REGINO HART DO DR: AMANDA/venita JOB#: [id number] / [id number]
== END 2017-05-01 13:57 | disposition home or self-care (01) | DRG 57 ==
LOC: ER 15:41 → 6 SOUTH 16:52
PROVIDERS: ADMIT Internal Medicine; ATTEND Internal Medicine
DX: G31.2 Degeneration of nervous system due to alcohol (principal); F10.239 Alcohol dependence with withdrawal, unspecified; R45.851 Suicidal ideations; R00.0 Tachycardia, unspecified; E78.00 Pure hypercholesterolemia, unspecified; I11.0 Hypertensive heart disease with heart failure; I50.9 Heart failure, unspecified; J44.9 Chronic obstructive pulmonary disease, unspecified; K21.9 Gastro-esophageal reflux disease without esophagitis; K74.60 Unspecified cirrhosis of liver; Z96.649 Presence of unspecified artificial hip joint; Z96.659 Presence of unspecified artificial knee joint; F14.90 Cocaine use, unspecified, uncomplicated; F32.9 Major depressive disorder, single episode, unspecified; F41.9 Anxiety disorder, unspecified; R56.9 Unspecified convulsions; F10.229 Alcohol dependence with intoxication, unspecified
CPT/HCPCS: 36415; 80048; 80053; 82962; 83735; 85027; 85610; 85730; 93005; 96374; G0480; J1200; J2060; J2405; J7030; Q0162; 99285-25

== ENCOUNTER 2017-05-03 06:13 | Emergency (ER) | payer OTHER ==
[~2017-05-03] VITALS: Ht 165.1 cm; Wt 66.2 kg
[~2017-05-03 06:13] MED LIST changes: -ESCI10TA PO; +ESCITALOPRAM OX10 MG PO
[2017-05-03 06:15] VITALS: BP 114/91
--- NOTE | 2017-05-03 06:23 | PHYS DOC ---
Past Medical History Past Medical History: Alcoholism, GERD, High Cholesterol, Hypertension, Hepatitis, [place], Seizure, Other Additional Past Medical Histor: suicidal,ETOH ABUSE Past Surgical History: Other Additional Past Surgical Histo: L)leg &hip fx with surgery. poor historian Alcohol Use: Heavy Drug Use: Cocaine, Heroin, Marijuana, Methamphetamine, Other Adult General Chief Complaint Chief Complaint: TREMORS [facility] HPI Patient is a 56 year old male presenting to the emergency department for evaluation of tremors. Patient was brought in by EMS and he says that he does not want to be here. He says that he drinks alcohol and uses drugs every day and he gets admitted frequently for alcohol withdrawal but he says he recently drank alcohol. The tremors that he is having are quite voluntary. He was just discharged from the hospital 2 days ago and he says he started drinking shortly after he left so do not see how he could withdraw as he was detoxed inpatient and then started drinking again and has not stopped. He will be shaking his hands bilaterally and then when I ask him why he is doing that he stops shaking everything. He is alert and oriented 3 and is requesting to leave he has no signs of trauma on himself and he is able to stand up and walk with a steady gait. Review of Systems Review of Systems Constitutional: Denies fever or chills [] Respiratory: Denies cough or shortness of breath [] Cardiovascular: No additional information not addressed in HPI [] GI: Denies abdominal pain, nausea, vomiting, bloody stools or diarrhea [] Integument: Denies rash or skin lesions [] Neurologic: Denies headache, focal weakness or sensory changes [] Allergies Allergies Allergies Coded Allergies Type Severity Reaction Last Updated Verified No Known Drug Allergies 07/25/16 No Physical Exam Physical Exam Constitutional: Well developed, well nourished, no acute distress, non-toxic appearance. [] Cardiovascular:Heart rate regular rhythm, no murmur [] Lungs & Thorax: Bilateral breath sounds clear to auscultation [] Abdomen: Bowel sounds normal, soft, no tenderness, no masses, no pulsatile masses. [] Skin: Warm, dry, no erythema, no rash. [] Neurologic: Alert and oriented X 3, voluntary hand tremors but no tongue fasciculations. Current Patient Data Vital Signs Vital Signs Date Time Temp Pulse Resp B/P (MAP) Pulse Ox O2 Delivery O2 Flow Rate FiO2 6/11/17 06:15 97.9 20 114/91 (99) 93 Room Air 97.9 EKG EKG [] Radiology/Procedures Radiology/Procedures [] Course & Med Decision Making Course & Med Decision Making Patient is a and O 3 with a steady gait and his exam is unremarkable and his vital signs are normal. He does not appear to be withdrawing as he has no actual tremors and his vital signs are normal with no hypertension or tachycardia. He is more so intoxicated than anything else and he denies suicidal or homicidal ideations that he is not a danger to himself or others. I have no reason to hold him against his will also he'll be discharged in stable condition. Dragon Disclaimer Dragon Disclaimer This electronic medical record was generated, in whole or in part, using a voice recognition dictation system. Departure Departure Impression: Primary Impression: ETOH abuse Disposition: HOME, SELF-CARE Condition: GOOD Referrals: NO PCP (PCP) Patient Instructions: Alcohol Intoxication JESUS SELF DO May 03, 2017 06:23
[2017-05-06] MEDS ORDERED: LORA0.5T96 PO (11:14)
== END 2017-05-03 06:35 | disposition home or self-care (01) ==
LOC: ER 06:13
DX: F10.10 Alcohol abuse, uncomplicated (principal); E78.00 Pure hypercholesterolemia, unspecified; K21.9 Gastro-esophageal reflux disease without esophagitis; I10 Essential (primary) hypertension; I25.2 Old myocardial infarction; F12.10 Cannabis abuse, uncomplicated; F14.10 Cocaine abuse, uncomplicated; F15.10 Other stimulant abuse, uncomplicated; F11.10 Opioid abuse, uncomplicated; Z86.19 Personal history of other infectious and parasitic diseases
CPT/HCPCS: 99283

== ENCOUNTER 2017-05-13 12:32 | Emergency (ER) | payer OTHER ==
[~2017-05-13 12:32] MED LIST changes: -EPIN0.3A4 IJ; +EPIPEN 2-P0.3 MG/0.3 IJ
--- NOTE | 2017-05-13 13:12 | PHYS DOC ---
Past Medical History Past Medical History: Alcoholism, GERD, High Cholesterol, Hypertension, Hepatitis, [place], Seizure Past Surgical History: Other Additional Past Surgical Histo: L)leg &hip fx with surgery. poor historian Alcohol Use: Heavy Drug Use: Cocaine, Heroin, Marijuana, Methamphetamine Adult General Chief Complaint Chief Complaint: SEIZURE HPI HPI Patient is a 56 year old male seen here frequently for polysubstance abuse and withdrawal who presents by EMS for seizure activity noted by his . Last drink was last night. He states he just needs to leave and drink more to solve his problems. He states he frequently has seizures. He otherwise states he has no complaints. He denies headache, n/v, f/c, numbness, tingling, weakness, injury. Review of Systems Review of Systems Constitutional: Denies fever or chills [] Eyes: Denies change in visual acuity, redness, or eye pain [] HENT: Denies nasal congestion or sore throat [] Respiratory: Denies cough or shortness of breath [] Cardiovascular: No additional information not addressed in HPI [] GI: Denies abdominal pain, nausea, vomiting, bloody stools or diarrhea [] : Denies dysuria or hematuria [] Musculoskeletal: Denies back pain or joint pain [] Integument: Denies rash or skin lesions [] Neurologic: Denies headache, focal weakness or sensory changes [] Endocrine: Denies polyuria or polydipsia [] Current Medications Current Medications Current Medications Medications (Trade) Dose Ordered Sig/Corinne Start Time Stop Time Status Last Admin Dose Admin Diazepam (Valium) 10 mg 1X ONCE 05/13/17 12:45 05/13/17 12:47 DC 05/13/17 13:03 10 MG Allergies Allergies Allergies Coded Allergies Type Severity Reaction Last Updated Verified No Known Drug Allergies 07/25/16 No Physical Exam Physical Exam Constitutional: Well developed, well nourished, no acute distress, non-toxic appearance. [] HENT: Normocephalic, atraumatic, bilateral external ears normal, oropharynx moist, nose normal. [] Eyes: PERRLA, EOMI, conjunctiva normal, no discharge. [] Neck: Normal range of motion, supple. [] Cardiovascular: Regular tachycardia [] Lungs & Thorax: Bilateral breath sounds clear to auscultation [] Abdomen: Bowel sounds normal, soft, no tenderness. [] Skin: Warm, dry, no erythema, no rash. [] Back: Normal range of motion. [] Extremities: No tenderness, ROM intact, no edema. [] Neurologic: Alert and oriented X 3, normal motor function, normal sensory function, no focal deficits noted, cranial nerves II through XII intact. [] Psychologic: Affect normal, judgement normal, mood irritable. [] Current Patient Data Vital Signs Vital Signs Date Time Temp Pulse Resp B/P (MAP) Pulse Ox O2 Delivery O2 Flow Rate FiO2 05/13/17 12:45 97.6 134 24 132/72 (92) 94 Room Air 97.6 Course & Med Decision Making Course & Med Decision Making Pertinent Labs and Imaging studies reviewed. (See chart for details) He was given valium with improvement in agitation and vitals. He ate and would like to be discharged. Substance abuse cessation discussed. Return precautions given. He understands and agrees with plan. Dragon Disclaimer Dragon Disclaimer This electronic medical record was generated, in whole or in part, using a voice recognition dictation system. Departure Departure Impression: Primary Impression: Alcohol withdrawal Disposition: 01 HOME, SELF-CARE Condition: STABLE Referrals: NO PCP (PCP) Patient Instructions: Alcohol Withdrawal, [id number] Additional Instructions: You need to seek help to quit substance abuse. Follow up with your primary care doctor and substance abuse facility for help with this. Return for any concerns. Problem Qualifiers Primary Impression: Alcohol withdrawal Complication of substance-induced condition: uncomplicated Qualified Codes: F10.230 - Alcohol dependence with withdrawal, uncomplicated Hussein CARNEY MD May 13, 2017 13:12
[2017-05-13 13:45] VITALS: BP 116/79
== END 2017-05-13 14:05 | disposition home or self-care (01) ==
LOC: ER 12:32
DX: F10.239 Alcohol dependence with withdrawal, unspecified (principal); R56.9 Unspecified convulsions; R00.0 Tachycardia, unspecified; E78.00 Pure hypercholesterolemia, unspecified; I10 Essential (primary) hypertension; K21.9 Gastro-esophageal reflux disease without esophagitis; I25.2 Old myocardial infarction; F12.10 Cannabis abuse, uncomplicated; F15.10 Other stimulant abuse, uncomplicated; F14.10 Cocaine abuse, uncomplicated; F19.10 Other psychoactive substance abuse, uncomplicated; F11.10 Opioid abuse, uncomplicated; Z86.19 Personal history of other infectious and parasitic diseases; Y90.9 Presence of alcohol in blood, level not specified
CPT/HCPCS: 96374; 99284; J3360

== ENCOUNTER 2017-09-14 11:44 | Inpatient (IN) | payer OTHER ==
[~2017-09-14] VITALS: Ht 167.6 cm; Wt 63.5 kg
[2017-09-14 12:23] LABS: BASO # 0.1 x10^3/uL (0.0-0.2); BASO % 1 % (0-3); EOS % 0 % (0-3); HEMATOCRIT 44.3 % (39.0-53.0); HEMOGLOBIN 14.9 g/dL (13.0-17.5); LYMPH # 0.4 x10^3/uL (1.0-4.8); LYMPH % 8 % (24-48); MEAN CORPUSCULAR HEMOGLOBIN 33 pg (25-35); MEAN CORPUSCULAR HGB CONC 34 g/dL (31-37); MEAN CORPUSCULAR VOLUME 96 fL (79-100); MONO % 10 % (0-9); NEUT % 81 % (31-73); PLATELET COUNT 83 x10^3/uL (140-400); RED BLOOD COUNT 4.59 x10^6/uL (4.30-5.70); RED CELL DISTRIBUTION WIDTH 14.7 % (11.5-14.5); WHITE BLOOD COUNT 5.8 x10^3/uL (4.0-11.0)
[2017-09-14 12:28] LABS: CALCIUM 9.7 mg/dL (8.5-10.1); CREATININE 0.8 mg/dL (0.7-1.3); GFR 100.4; POTASSIUM 4.6 mmol/L (3.5-5.1)
[2017-09-14 12:35] LABS: ALBUMIN 4.8 g/dL (3.4-5.0); ALBUMIN/GLOBULIN RATIO 1.1 (1.0-1.7); TOTAL PROTEIN 9.1 g/dL (6.4-8.2)
[2017-09-14] MEDS ORDERED: ONDANSETRON PF 4 MG/2 ML VIAL. IV ONE (12:45)
[2017-09-14] MEDS ORDERED: FAMOTIDINE 20 MG/2 ML VIAL IVP ONE (12:45)
[2017-09-14] MEDS ORDERED: MULTIVIT INFUSN,ADULT 4,VIT K 10 ML, FOLIC ACID 1 MG, THIAMINE 100 MG in IV DEXTROSE 5 ... IV ONE (13:00)
--- NOTE | 2017-09-14 13:28 | RAD ---
INDICATION: SOA COMPARISON: 04/16/2017 FINDINGS: Single view of chest obtained. No definite new region of focal airspace consolidation. Cardiac silhouette is similar to prior. Old right clavicular fracture is seen with some callus formation. IMPRESSION: No focal airspace consolidation or edema.
[2017-09-14] MEDS ORDERED: CONTRAST GIVEN MC PRN (13:45)
--- NOTE | 2017-09-14 14:11 | PHYS DOC ---
Past Medical History Past Medical History: Alcoholism, GERD, High Cholesterol, Hypertension, Hepatitis, [place], Seizure Additional Past Medical Histor: suicidal,ETOH ABUSE Past Surgical History: Other Additional Past Surgical Histo: L)leg &hip fx with surgery. poor historian Alcohol Use: Heavy Additional Information: Pt states he drinks a fifth of whiskey daily Drug Use: Cocaine, Heroin, Marijuana, Methamphetamine Adult General Chief Complaint Chief Complaint: WITHDRAWL HPI HPI Patient is a 57 year old male with history of alcoholism, hepatitis, withdrawal seizures, GERD, CAD and hypertension who presents with acute alcohol withdrawal. Patient states he is been unable to drink for the past 2 days due to bilious vomiting. No hematemesis or coffee-ground emesis. Reports generalized weakness, tremors, fatigue, nausea, dizziness shortness of breath. Denies fevers, chills, sweats, chest pain, palpitations. Denies hallucinations. No other acute symptoms or complaints. Patient does not currently have a primary care physician her actively participate in healthcare.[] Review of Systems Review of Systems Review symptoms as per history of present illness. All other review symptoms are negative. Current Medications Current Medications Current Medications Medications (Trade) Dose Ordered Sig/Corinne Start Time Stop Time Status Last Admin Dose Admin Dextrose/Sodium Chloride 1,000 ml @ 150 mls/hr 1X ONCE 09/14/17 14:15 09/14/17 20:54 UNV Famotidine (Pepcid) 20 mg BID 09/14/17 21:00 Info (Do NOT chart on this entry -- for MONITORING) 1 each PRN DAILY PRN 09/14/17 13:45 09/16/17 13:44 Iohexol (Omnipaque 300 Mg/ml) 75 ml 1X ONCE 09/14/17 14:15 09/14/17 14:16 DC 09/14/17 13:55 75 ML Lorazepam (Ativan) 2 mg 1X ONCE 09/14/17 12:45 09/14/17 12:46 DC 09/14/17 12:25 2 MG Multivitamins 10 ml/Folic Acid 1 mg/Thiamine HCl 100 mg/Dextrose/ Sodium Chloride 1,011.2 ml @ 1,000 mls/ hr 1X ONCE 09/14/17 13:00 09/14/17 14:00 DC 09/14/17 12:28 1,000 MLS/HR Ondansetron HCl (Zofran) 4 mg PRN Q8HRS PRN 09/14/17 14:15 09/15/17 14:14 Allergies Allergies Allergies Coded Allergies Type Severity Reaction Last Updated Verified No Known Drug Allergies 07/25/16 No Physical Exam Physical Exam Constitutional: Anxious, well developed, coarse resting tremors. [] HENT: Normocephalic, atraumatic, bilateral external ears normal, oropharynx moist, no oral exudates, nose normal. [] Eyes: PERRLA, EOMI, conjunctiva normal, conjunctivae, anicteric. [] Neck: Normal range of motion, no tenderness, supple, no stridor. [] Cardiovascular:Heart rate regular rhythm. [] Lungs & Thorax: Lungs clear, diminished bilaterally.[] Abdomen: Bowel sounds normal, soft, mild epigastric pain, mild to tenderness to palpation, no masses, no pulsatile masses. [] Skin: Warm, dry. [] Back: No tenderness. [] Extremities: No tenderness. [] Neurologic: Alert and oriented, normal motor function, normal sensory function, no focal deficits noted. [] Psychologic: Affect normal, judgement normal, mood normal. [] Current Patient Data Vital Signs Vital Signs Date Time Temp Pulse Resp B/P (MAP) Pulse Ox O2 Delivery O2 Flow Rate FiO2 09/14/17 14:11 90 20 138/79 (98) 98 09/14/17 11:52 99.7 Room Air 99.7 Lab Values Laboratory Tests Test 09/14/17 12:10 09/14/17 12:15 White Blood Count 5.8 x10^3/uL (4.0-11.0) Red Blood Count 4.59 x10^6/uL (4.30-5.70) Hemoglobin 14.9 g/dL (13.0-17.5) Hematocrit 44.3 % (39.0-53.0) Mean Corpuscular Volume 96 fL (79-100) Mean Corpuscular Hemoglobin 33 pg (25-35) Mean Corpuscular Hemoglobin Concent 34 g/dL (31-37) Red Cell Distribution Width 14.7 % (11.5-14.5) H Platelet Count 83 x10^3/uL (140-400) L Neutrophils (%) (Auto) 81 % (31-73) H Lymphocytes (%) (Auto) 8 % (24-48) L Monocytes (%) (Auto) 10 % (0-9) H Eosinophils (%) (Auto) 0 % (0-3) Basophils (%) (Auto) 1 % (0-3) Neutrophils # (Auto) 4.7 x10^3uL (1.8-7.7) Lymphocytes # (Auto) 0.4 x10^3/uL (1.0-4.8) L Monocytes # (Auto) 0.6 x10^3/uL (0.0-1.1) Eosinophils # (Auto) 0.0 x10^3/uL (0.0-0.7) Basophils # (Auto) 0.1 x10^3/uL (0.0-0.2) Sodium Level 136 mmol/L (136-145) Potassium Level 4.6 mmol/L (3.5-5.1) Chloride Level 88 mmol/L (98-107) L Carbon Dioxide Level 24 mmol/L (21-32) Anion Gap 24 (6-14) H Blood Urea Nitrogen 10 mg/dL (8-26) Creatinine 0.8 mg/dL (0.7-1.3) Estimated GFR (Cockcroft-Gault) 100.4 BUN/Creatinine Ratio 13 (6-20) Glucose Level 80 mg/dL (70-99) Calcium Level 9.7 mg/dL (8.5-10.1) Magnesium Level 1.7 mg/dL (1.8-2.4) L Total Bilirubin 1.0 mg/dL (0.2-1.0) Aspartate Amino Transferase (AST) 268 U/L (15-37) H Alanine Aminotransferase (ALT) 233 U/L (16-63) H Alkaline Phosphatase 111 U/L (46-116) Creatine Kinase 220 U/L (39-308) Total Protein 9.1 g/dL (6.4-8.2) H Albumin 4.8 g/dL (3.4-5.0) Albumin/Globulin Ratio 1.1 (1.0-1.7) Lipase 237 U/L (73-393) Ethyl Alcohol Level < 10 mg/dL (0-10) POC Troponin I 0.01 ng/ml (<0.08) Laboratory Tests 09/14/17 12:10 Laboratory Tests 09/14/17 12:10 EKG EKG [] Radiology/Procedures Radiology/Procedures [CT abdomen/pelvis:] Course & Med Decision Making Course & Med Decision Making Pertinent Labs and Imaging studies reviewed. (See chart for details) [Patient with acute alcohol withdrawal and suspected alcoholic gastritis. He is noted to have non-anion gap acidosis consistent with alcoholic your acidosis. Banana bag, D5/half-normal saline and Pepcid given. Patient's withdrawal symptoms improved with Ativan with decreased tremors noted. Dr. Sarmiento Estes ED for admission.] Dragon Disclaimer Dragon Disclaimer This electronic medical record was generated, in whole or in part, using a voice recognition dictation system. Departure Departure Impression: Primary Impression: Alcohol withdrawal Disposition: ADMITTED INPATIENT Admitting Physician: Janette Sarmiento Condition: STABLE Referrals: NO PCP (PCP) REILLY MATTHEWS DO Sep 14, 2017 14:11
[2017-09-14] MEDS ORDERED: ONDANSETRON PF 4 MG/2 ML VIAL. IV PRN ×2 (14:15→15:00)
[2017-09-14] MEDS ORDERED: IOHEXOL 300 MG/ML 75 ML VIAL IV ONE (14:15)
[2017-09-14 14:17] LABS: BILIRUBIN,URINE NEGATIVE (NEG); GLUCOSE,URINE NEGATIVE (NEG); NITRITE,URINE NEGATIVE (NEG); PROTEIN,URINE 100 mg/dL (NEG-TRACE); UROBILINOGEN,URINE 0.2 mg/dL (0.2 mg/dL)
[2017-09-14 14:25] LABS: BARBITURATES NEG (NEG); BENZODIAZEPINES NEG (NEG); CANNABINOIDS NEG (NEG); COCAINE NEG (NEG); METHADONE NEG (NEG); OPIATES NEG (NEG); PHENCYCLIDINE NEG (NEG)
[2017-09-14] MEDS ORDERED: IV DEXTROSE 5 %-0.45 % NACL 1,000 ML IV ONE (14:30)
--- NOTE | 2017-09-14 14:34 | RAD ---
INDICATION: Abdomen pain COMPARISON: 11/22/2015 TECHNIQUE: Axial CT images were obtained through the abdomen and pelvis with intravenous contrast. Coronal reformations were processed. FINDINGS: Moderate calcific atherosclerosis. Low-attenuation throughout the liver. No peripancreatic edema. Spleen is small in size. No left-sided hydronephrosis. No right-sided hydronephrosis. Small amount of fluid or cystic lesion is seen anterolateral to the urinary bladder on the right measuring up to about 31 x 16 mm. This was likely present on prior as well. Likely from benign causes. The suspected appendix does not appear grossly dilated. No dilated loops of bowel suggest obstruction. Postoperative changes to left proximal femur with intramedullary demarco. Heterotopic ossification and callus formation surrounding left proximal femur. Degenerative changes of the spine. IMPRESSION: 1. No evidence of bowel obstruction. 2. No hydronephrosis. 3. Low-attenuation of the liver. Nonspecific but can be seen with fatty infiltration. 4. Repeat demonstration of a compression fracture at L2 as well as L1, T12 and T11 but these appear old. A portion of this appearance could be from Schmorl's node formation as well. There is a new fracture of L4 when compared to 2014 but would still favor that this is old given the appearance of the fracture site. If the patient is having pain within the region MRI could better evaluate for acuity. PQRS Compliance Statement: One or more of the following individualized dose reduction techniques were utilized for this examination: 1. Automated exposure control 2. Adjustment of the mA and/or kV according to patient size 3. Use of iterative reconstruction technique
[2017-09-14 14:41] LABS: BACTERIA,URINE 0 /HPF (0-FEW); RBC,URINE 0 /HPF (0-2); SQUAMOUS EPITHELIAL CELL,UR OCC /LPF; WBC,URINE OCC /HPF (0-4)
--- NOTE | 2017-09-14 14:54 | PDOC1 ---
History and Physical Date of Admission Date of Admission 09/14/17 Identification/Chief Complaint Chief Complaint vomiting Problems: Source Source: Chart review, Patient History of Present Illness History of Present Illness HPI HPI Patient is a 57 year old male with history of alcoholism, hepatitis, withdrawal seizures, GERD, usually comes here every 2 weeks for ETOh intoxication or withdrawl. last time was 04/2017. Today, came for vomiting and withdrawl. Pt still drink heavy daily, not compliant for any med recommendation as we know him used to be, last time drinking was 2 days ago, drinks about 1L hard liquor. He stated to vomiting x2days, greenish, no hematemesis or coffee-ground emesis. Reports generalized weakness,fingers tremors, fatigue, nausea, some shortness of breath with smoking. He also c/o middle abd pain, moderate, with some loose BM. Denies fevers, chills, sweats, chest pain, palpitations. Mag low Past Medical History Cardiovascular: HTN Pulmonary: COPD Hepatobiliary: Cirrhosis Psych: Anxiety, Addictions, Depression Renal/: No pertinent hx Past Surgical History Past Surgical History: Total hip replacement, Total knee replacement, No pertinent history Family History Family History: Alcohol Abuse Social History Smoke: 1 pack per day ALCOHOL: heavy Drugs: Cocaine, Marijuana, Heroin, Crystal meth Current Problem List Problem List Problems Medical Problems: (1) Alcohol withdrawal Status: Acute Current Medications Current Medications Current Medications Medications (Trade) Dose Ordered Sig/Corinne Start Time Stop Time Status Last Admin Dose Admin Dextrose/Sodium Chloride 1,000 ml @ 150 mls/hr 1X ONCE 09/14/17 14:30 09/14/17 21:09 Famotidine (Pepcid) 20 mg BID 09/14/17 21:00 Info (Do NOT chart on this entry -- for MONITORING) 1 each PRN DAILY PRN 09/14/17 13:45 09/16/17 13:44 Iohexol (Omnipaque 300 Mg/ml) 75 ml 1X ONCE 09/14/17 14:15 09/14/17 14:16 DC 09/14/17 13:55 75 ML Lorazepam (Ativan) 2 mg 1X ONCE 09/14/17 12:45 09/14/17 12:46 DC 09/14/17 12:25 2 MG Multivitamins 10 ml/Folic Acid 1 mg/Thiamine HCl 100 mg/Dextrose/ Sodium Chloride 1,011.2 ml @ 1,000 mls/ hr 1X ONCE 09/14/17 13:00 09/14/17 14:00 DC 09/14/17 12:28 1,000 MLS/HR Ondansetron HCl (Zofran) 4 mg PRN Q8HRS PRN 09/14/17 14:15 09/15/17 14:14 Allergies Allergies Allergies Coded Allergies Type Severity Reaction Last Updated Verified No Known Drug Allergies 07/25/16 No ROS Review of System CONSTITUTIONAL: No fever or chills EYES: No recent changes SKIN: No rash or itching CARDIOVASCULAR: No chest pain, syncope, palpitations, or edema RESPIRATORY: No SOB or cough GASTROINTESTINAL: No nausea, vomiting or abdominal pain NEUROLOGICAL: No headaches or weakness ENDOCRINE: No cold or heat intolerance GENITOURINARY: No urgency or frequency of urination MUSCULOSKELETAL: No back pain or joint pain LYMPHATICS: No enlarged lymph nodes PSYCHIATRIC: No anxiety or depression Physical Exam Physical Exam GEN.: No apparent distress. Alert and oriented. looks dry HEENT: Head is normocephalic, atraumatic NECK: Supple. LUNGS: Clear to auscultation. HEART: RRR, S1, S2 present. Peripheral pulses intact ABDOMEN: Soft, Positive bowel sounds. mild middle abd tenderness, no guarding or rebound EXTREMITIES: Without any cyanosis. bl fingers tremors NEUROLOGIC: Normal speech, normal tone PSYCHIATRIC: Normal affect, normal mood. SKIN: No ulcerations Vitals Vitals Vital Signs Date Time Temp Pulse Resp B/P (MAP) Pulse Ox O2 Delivery O2 Flow Rate FiO2 09/14/17 14:11 90 20 138/79 (98) 98 09/14/17 11:52 99.7 Room Air 99.7 Labs Labs Laboratory Tests Test 09/14/17 12:10 09/14/17 12:15 09/14/17 14:00 White Blood Count 5.8 x10^3/uL (4.0-11.0) Red Blood Count 4.59 x10^6/uL (4.30-5.70) Hemoglobin 14.9 g/dL (13.0-17.5) Hematocrit 44.3 % (39.0-53.0) Mean Corpuscular Volume 96 fL (79-100) Mean Corpuscular Hemoglobin 33 pg (25-35) Mean Corpuscular Hemoglobin Concent 34 g/dL (31-37) Red Cell Distribution Width 14.7 % (11.5-14.5) Platelet Count 83 x10^3/uL (140-400) Neutrophils (%) (Auto) 81 % (31-73) Lymphocytes (%) (Auto) 8 % (24-48) Monocytes (%) (Auto) 10 % (0-9) Eosinophils (%) (Auto) 0 % (0-3) Basophils (%) (Auto) 1 % (0-3) Neutrophils # (Auto) 4.7 x10^3uL (1.8-7.7) Lymphocytes # (Auto) 0.4 x10^3/uL (1.0-4.8) Monocytes # (Auto) 0.6 x10^3/uL (0.0-1.1) Eosinophils # (Auto) 0.0 x10^3/uL (0.0-0.7) Basophils # (Auto) 0.1 x10^3/uL (0.0-0.2) Sodium Level 136 mmol/L (136-145) Potassium Level 4.6 mmol/L (3.5-5.1) Chloride Level 88 mmol/L (98-107) Carbon Dioxide Level 24 mmol/L (21-32) Anion Gap 24 (6-14) Blood Urea Nitrogen 10 mg/dL (8-26) Creatinine 0.8 mg/dL (0.7-1.3) Estimated GFR (Cockcroft-Gault) 100.4 BUN/Creatinine Ratio 13 (6-20) Glucose Level 80 mg/dL (70-99) Calcium Level 9.7 mg/dL (8.5-10.1) Magnesium Level 1.7 mg/dL (1.8-2.4) Total Bilirubin 1.0 mg/dL (0.2-1.0) Aspartate Amino Transf (AST/SGOT) 268 U/L (15-37) Alanine Aminotransferase (ALT/SGPT) 233 U/L (16-63) Alkaline Phosphatase 111 U/L (46-116) Creatine Kinase 220 U/L (39-308) Total Protein 9.1 g/dL (6.4-8.2) Albumin 4.8 g/dL (3.4-5.0) Albumin/Globulin Ratio 1.1 (1.0-1.7) Lipase 237 U/L (73-393) Ethyl Alcohol Level < 10 mg/dL (0-10) Bedside Troponin I 0.01 ng/ml (<0.08) Urine Color Yellow Urine Clarity Cloudy Urine pH 6.0 Urine Specific [place] 1.020 Urine Protein 100 mg/dL (NEG-TRACE) Urine Glucose (UA) Negative mg/dL (NEG) Urine Ketones (Stick) >=80 mg/dL (NEG) Urine Blood Negative (NEG) Urine Nitrite Negative (NEG) Urine Bilirubin Negative (NEG) Urine Urobilinogen Dipstick 0.2 mg/dL (0.2 mg/dL) Urine Leukocyte Esterase Negative (NEG) Urine RBC 0 /HPF (0-2) Urine WBC Occ /HPF (0-4) Urine Squamous Epithelial Cells Occ /LPF Urine Bacteria 0 /HPF (0-FEW) Urine Hyaline Casts Occasional /HPF Urine Opiates Screen Neg (NEG) Urine Methadone Screen Neg (NEG) Urine Barbiturates Neg (NEG) Urine Phencyclidine Screen Neg (NEG) Urine Amphetamine/Methamphetamine Neg (NEG) Urine Benzodiazepines Screen Neg (NEG) Urine Cocaine Screen Neg (NEG) Urine Cannabinoids Screen Neg (NEG) Urine Ethyl Alcohol Neg (NEG) Laboratory Tests Test 09/14/17 12:10 09/14/17 12:15 09/14/17 14:00 White Blood Count 5.8 x10^3/uL (4.0-11.0) Red Blood Count 4.59 x10^6/uL (4.30-5.70) Hemoglobin 14.9 g/dL (13.0-17.5) Hematocrit 44.3 % (39.0-53.0) Mean Corpuscular Volume 96 fL (79-100) Mean Corpuscular Hemoglobin 33 pg (25-35) Mean Corpuscular Hemoglobin Concent 34 g/dL (31-37) Red Cell Distribution Width 14.7 % (11.5-14.5) Platelet Count 83 x10^3/uL (140-400) Neutrophils (%) (Auto) 81 % (31-73) Lymphocytes (%) (Auto) 8 % (24-48) Monocytes (%) (Auto) 10 % (0-9) Eosinophils (%) (Auto) 0 % (0-3) Basophils (%) (Auto) 1 % (0-3) Neutrophils # (Auto) 4.7 x10^3uL (1.8-7.7) Lymphocytes # (Auto) 0.4 x10^3/uL (1.0-4.8) Monocytes # (Auto) 0.6 x10^3/uL (0.0-1.1) Eosinophils # (Auto) 0.0 x10^3/uL (0.0-0.7) Basophils # (Auto) 0.1 x10^3/uL (0.0-0.2) Sodium Level 136 mmol/L (136-145) Potassium Level 4.6 mmol/L (3.5-5.1) Chloride Level 88 mmol/L (98-107) Carbon Dioxide Level 24 mmol/L (21-32) Anion Gap 24 (6-14) Blood Urea Nitrogen 10 mg/dL (8-26) Creatinine 0.8 mg/dL (0.7-1.3) Estimated GFR (Cockcroft-Gault) 100.4 BUN/Creatinine Ratio 13 (6-20) Glucose Level 80 mg/dL (70-99) Calcium Level 9.7 mg/dL (8.5-10.1) Magnesium Level 1.7 mg/dL (1.8-2.4) Total Bilirubin 1.0 mg/dL (0.2-1.0) Aspartate Amino Transf (AST/SGOT) 268 U/L (15-37) Alanine Aminotransferase (ALT/SGPT) 233 U/L (16-63) Alkaline Phosphatase 111 U/L (46-116) Creatine Kinase 220 U/L (39-308) Total Protein 9.1 g/dL (6.4-8.2) Albumin 4.8 g/dL (3.4-5.0) Albumin/Globulin Ratio 1.1 (1.0-1.7) Lipase 237 U/L (73-393) Ethyl Alcohol Level < 10 mg/dL (0-10) Bedside Troponin I 0.01 ng/ml (<0.08) Urine Color Yellow Urine Clarity Cloudy Urine pH 6.0 Urine Specific [place] 1.020 Urine Protein 100 mg/dL (NEG-TRACE) Urine Glucose (UA) Negative mg/dL (NEG) Urine Ketones (Stick) >=80 mg/dL (NEG) Urine Blood Negative (NEG) Urine Nitrite Negative (NEG) Urine Bilirubin Negative (NEG) Urine Urobilinogen Dipstick 0.2 mg/dL (0.2 mg/dL) Urine Leukocyte Esterase Negative (NEG) Urine RBC 0 /HPF (0-2) Urine WBC Occ /HPF (0-4) Urine Squamous Epithelial Cells Occ /LPF Urine Bacteria 0 /HPF (0-FEW) Urine Hyaline Casts Occasional /HPF Urine Opiates Screen Neg (NEG) Urine Methadone Screen Neg (NEG) Urine Barbiturates Neg (NEG) Urine Phencyclidine Screen Neg (NEG) Urine Amphetamine/Methamphetamine Neg (NEG) Urine Benzodiazepines Screen Neg (NEG) Urine Cocaine Screen Neg (NEG) Urine Cannabinoids Screen Neg (NEG) Urine Ethyl Alcohol Neg (NEG) VTE Prophylaxis Ordered VTE Prophylaxis Devices: Yes VTE Pharmacological Prophylaxi: No Assessment/Plan Assessment/Plan intractable vomiting with alcoholism Alcohol Intoxication and withdrawl Gap metabolic acidosis sec to alcohol h/o leukopenia, thrombocytopenia, 2/2 alcoholic hepatitis Depression NOS Sinus tachy sec to etoh ELevated LFTs, alcoholic hepatitis hypomagnesemia alcoholism tobaccoism COPD likely with smoking HTN UNcompliance h/o of dehydration with lactate acidosis h/o drug abuse with Cocaine, Heroin, Marijuana, Methamphetamine h/o MSK chest pain h/o acute on chronic resp failure with hypoxia plan: ivF with banana bag cont home meds if tolerate po clear liquid diet for now librium tid , ativan prn gi ppx need to verify home meds, on some seizure meds now, which is new to me, cont for now PTOT admit [id number] Land MD Sep 14, 2017 14:54
[2017-09-14] MEDS ORDERED: ACETAMINOPHEN 325 MG TABLET. PO PRN (15:00)
[2017-09-14] MEDS ORDERED: MAGNESIUM SULFATE 2GM 50 ML IV ONE (15:00)
[2017-09-14] MEDS ORDERED: hydrALAZINE 20 MG/ML VIAL. IVP PRN (15:00)
[2017-09-14] MEDS ORDERED: NON FORMULARY ITEM (Ipratropium/Albuterol Sulfate (Combivent Respimat Inhal) 1 PUFF) INH PRN (15:00)
[2017-09-14] MEDS ORDERED: DOCUSATE SODIUM 100 MG CAPSULE. PO PRN (15:00)
[2017-09-14] MEDS ORDERED: traMADol 50 MG TABLET PO PRN (15:00)
[2017-09-14] MEDS ORDERED: NON FORMULARY ITEM (Albuterol Sulfate (Proair Hfa Inhaler) 1 PUFF) INH PRN (15:00)
[2017-09-14] MEDS ORDERED: ALBUTEROL SULFATE 2.5 MG/3 ML NEBU. NEB PRN (15:30)
[2017-09-14 16:00] VITALS: BP 152/90
[2017-09-14] MEDS: CITALOPRAM 20 MG TABLET. PO SCH (16:00)
[2017-09-14] MEDS ORDERED: FOLIC ACID 1 MG TABLET. PO SCH (16:00)
[2017-09-14] MEDS: LISINOPRIL 40 MG TABLET. PO SCH (16:00)
[2017-09-14] MEDS ORDERED: THIAMINE 100 MG TABLET. PO SCH (16:00)
[2017-09-14] MEDS: MULTIVIT INFUSN,ADULT 4,VIT K 10 ML, FOLIC ACID 1 MG, THIAMINE 100 MG in IV DEXTROSE 5%... IV SCH (16:00)
--- NOTE | 2017-09-14 16:16 | EKG ---
[facility] [address] [place] [address] Test Date: 2017-09-14 Test Time: 12:32:45 Pat Name: ANTHONY LENNON Department: Room: 2 Gender: M [employer]pper: : 1960 Requested By: REILLY MATTHEWS Order Number: [id number] Reading MD: Antonia Lozano Measurements Intervals [place] Rate: 91 P: 28 MA: 156 QRS: 26 QRSD: 90 T: 62 QT: 368 QTc: 454 Interpretive Statements SINUS RHYTHM NORMAL EKG Electronically Signed On 09-15-2017 19:31:43 CDT by Antonia Lozano
[2017-09-14] MEDS: LACOSAMIDE 200 MG TABLET PO SCH (18:00)
[2017-09-14 19:15] VITALS: BP 157/88
[2017-09-14] MEDS: TOPIRAMATE 25 MG TABLET. PO SCH (20:03)
[2017-09-14] MEDS: MAGNESIUM OXIDE 400 MG TABLET PO SCH (20:03)
[2017-09-14] MEDS: chlordiazePOXIDE HCL 25 MG CAPSULE PO SCH (20:03)
[2017-09-14] MEDS: FAMOTIDINE 20 MG/2 ML VIAL IVP SCH (20:04)
[2017-09-14] MEDS: MORPHINE SULFATE 2 MG/ML DISP.SYRIN. IV PRN ×2 (20:05→23:12)
[2017-09-14] MEDS: HYDROcodone/APAP 5/325MG 1 TAB TABLET PO PRN (22:12)
[2017-09-14] MEDS: LORazepam 0.5 MG TABLET PO PRN (22:12)
[2017-09-14 23:15] VITALS: BP 136/83
[2017-09-15 03:15] VITALS: BP 129/81
[2017-09-15] MEDS: MORPHINE SULFATE 2 MG/ML DISP.SYRIN. IV PRN ×3 (05:10→20:56)
[2017-09-15] MEDS: LACOSAMIDE 200 MG TABLET PO SCH ×2 (05:10→18:31)
[2017-09-15 05:29] LABS: BASO % 1 % (0-3); EOS % 2 % (0-3); HEMATOCRIT 41.2 % (39.0-53.0); HEMOGLOBIN 13.9 g/dL (13.0-17.5); LYMPH # 1.7 x10^3/uL (1.0-4.8); LYMPH % 40 % (24-48); MEAN CORPUSCULAR HEMOGLOBIN 33 pg (25-35); MEAN CORPUSCULAR HGB CONC 34 g/dL (31-37); MEAN CORPUSCULAR VOLUME 97 fL (79-100); MONO % 13 % (0-9); NEUT % 45 % (31-73); PLATELET COUNT 70 x10^3/uL (140-400); RED BLOOD COUNT 4.27 x10^6/uL (4.30-5.70); RED CELL DISTRIBUTION WIDTH 14.6 % (11.5-14.5); WHITE BLOOD COUNT 4.3 x10^3/uL (4.0-11.0)
[2017-09-15 05:41] LABS: CALCIUM 8.3 mg/dL (8.5-10.1); CREATININE 0.7 mg/dL (0.7-1.3); GFR 117.1
[2017-09-15 05:44] LABS: POTASSIUM 2.8 mmol/L (3.5-5.1)
[2017-09-15] MEDS: POTASSIUM CHLORIDE 10MEQ 100 ML IV SCH ×4 (06:28→09:30)
[2017-09-15] MEDS ORDERED: POTASSIUM CHLORIDE 20 MEQ TABLET.ER. PO ONE ×2 (06:30→12:00)
[2017-09-15 07:00] VITALS: BP 137/81
[2017-09-15] MEDS: MULTIVIT INFUSN,ADULT 4,VIT K 10 ML, FOLIC ACID 1 MG, THIAMINE 100 MG in IV DEXTROSE 5%... IV SCH (08:09)
[2017-09-15] MEDS ORDERED: [UNRECOGNIZED DRUG - OTHER] PO SCH (09:00)
[2017-09-15] MEDS: chlordiazePOXIDE HCL 25 MG CAPSULE PO SCH ×3 (09:28→20:56)
[2017-09-15] MEDS: TOPIRAMATE 25 MG TABLET. PO SCH ×2 (09:28→20:55)
[2017-09-15] MEDS: MAGNESIUM OXIDE 400 MG TABLET PO SCH ×2 (09:28→20:56)
[2017-09-15] MEDS: CITALOPRAM 20 MG TABLET. PO SCH (09:28)
[2017-09-15] MEDS: FAMOTIDINE 20 MG/2 ML VIAL IVP SCH ×2 (09:28→20:55)
[2017-09-15] MEDS: LISINOPRIL 40 MG TABLET. PO SCH (09:28)
--- NOTE | 2017-09-15 09:55 | PDOC ---
PROGRESS NOTES Chief Complaint Chief Complaint Alcohol Intoxication and withdrawl Gap metabolic acidosis sec to alcohol h/o leukopenia, thrombocytopenia, 2/2 alcoholic hepatitis Depression NOS Sinus tachy sec to etoh ELevated LFTs, alcoholic hepatitis hypomagnesemia alcoholism tobaccoism COPD likely with smoking HTN UNcompliance h/o of dehydration with lactate acidosis h/o drug abuse with Cocaine, Heroin, Marijuana, Methamphetamine h/o MSK chest pain h/o acute on chronic resp failure with hypoxia History of Present Illness History of Present Illness ivF with banana bag clear liquid diet - advance librium tid , ativan prn gi ppx on some seizure meds now, Vitals Vitals Vital Signs Date Time Temp Pulse Resp B/P (MAP) Pulse Ox O2 Delivery O2 Flow Rate FiO2 09/15/17 09:28 80 137/81 09/15/17 07:00 98.3 20 97 Nasal Cannula 4.0 98.3 Physical Exam General: Alert, Oriented X3, Cooperative, mild distress Heart: Regular rate, No murmurs Lungs: Wheezing Extremities: No clubbing Skin: No rashes Labs LABS Laboratory Tests Test 09/14/17 12:10 09/14/17 12:15 09/14/17 14:00 09/15/17 04:15 White Blood Count 5.8 x10^3/uL (4.0-11.0) 4.3 x10^3/uL (4.0-11.0) Red Blood Count 4.59 x10^6/uL (4.30-5.70) 4.27 x10^6/uL (4.30-5.70) Hemoglobin 14.9 g/dL (13.0-17.5) 13.9 g/dL (13.0-17.5) Hematocrit 44.3 % (39.0-53.0) 41.2 % (39.0-53.0) Mean Corpuscular Volume 96 fL (79-100) 97 fL (79-100) Mean Corpuscular Hemoglobin 33 pg (25-35) 33 pg (25-35) Mean Corpuscular Hemoglobin Concent 34 g/dL (31-37) 34 g/dL (31-37) Red Cell Distribution Width 14.7 % (11.5-14.5) 14.6 % (11.5-14.5) Platelet Count 83 x10^3/uL (140-400) 70 x10^3/uL (140-400) Neutrophils (%) (Auto) 81 % (31-73) 45 % (31-73) Lymphocytes (%) (Auto) 8 % (24-48) 40 % (24-48) Monocytes (%) (Auto) 10 % (0-9) 13 % (0-9) Eosinophils (%) (Auto) 0 % (0-3) 2 % (0-3) Basophils (%) (Auto) 1 % (0-3) 1 % (0-3) Neutrophils # (Auto) 4.7 x10^3uL (1.8-7.7) 1.9 x10^3uL (1.8-7.7) Lymphocytes # (Auto) 0.4 x10^3/uL (1.0-4.8) 1.7 x10^3/uL (1.0-4.8) Monocytes # (Auto) 0.6 x10^3/uL (0.0-1.1) 0.6 x10^3/uL (0.0-1.1) Eosinophils # (Auto) 0.0 x10^3/uL (0.0-0.7) 0.1 x10^3/uL (0.0-0.7) Basophils # (Auto) 0.1 x10^3/uL (0.0-0.2) 0.0 x10^3/uL (0.0-0.2) Sodium Level 136 mmol/L (136-145) 133 mmol/L (136-145) Potassium Level 4.6 mmol/L (3.5-5.1) 2.8 mmol/L (3.5-5.1) Chloride Level 88 mmol/L (98-107) 93 mmol/L (98-107) Carbon Dioxide Level 24 mmol/L (21-32) 30 mmol/L (21-32) Anion Gap 24 (6-14) 10 (6-14) Blood Urea Nitrogen 10 mg/dL (8-26) 7 mg/dL (8-26) Creatinine 0.8 mg/dL (0.7-1.3) 0.7 mg/dL (0.7-1.3) Estimated GFR (Cockcroft-Gault) 100.4 117.1 BUN/Creatinine Ratio 13 (6-20) Glucose Level 80 mg/dL (70-99) 98 mg/dL (70-99) Calcium Level 9.7 mg/dL (8.5-10.1) 8.3 mg/dL (8.5-10.1) Magnesium Level 1.7 mg/dL (1.8-2.4) Total Bilirubin 1.0 mg/dL (0.2-1.0) Aspartate Amino Transf (AST/SGOT) 268 U/L (15-37) Alanine Aminotransferase (ALT/SGPT) 233 U/L (16-63) Alkaline Phosphatase 111 U/L (46-116) Creatine Kinase 220 U/L (39-308) Total Protein 9.1 g/dL (6.4-8.2) Albumin 4.8 g/dL (3.4-5.0) Albumin/Globulin Ratio 1.1 (1.0-1.7) Lipase 237 U/L (73-393) Ethyl Alcohol Level < 10 mg/dL (0-10) Bedside Troponin I 0.01 ng/ml (<0.08) Urine Color Yellow Urine Clarity Cloudy Urine pH 6.0 Urine Specific [place] 1.020 Urine Protein 100 mg/dL (NEG-TRACE) Urine Glucose (UA) Negative mg/dL (NEG) Urine Ketones (Stick) >=80 mg/dL (NEG) Urine Blood Negative (NEG) Urine Nitrite Negative (NEG) Urine Bilirubin Negative (NEG) Urine Urobilinogen Dipstick 0.2 mg/dL (0.2 mg/dL) Urine Leukocyte Esterase Negative (NEG) Urine RBC 0 /HPF (0-2) Urine WBC Occ /HPF (0-4) Urine Squamous Epithelial Cells Occ /LPF Urine Bacteria 0 /HPF (0-FEW) Urine Hyaline Casts Occasional /HPF Urine Opiates Screen Neg (NEG) Urine Methadone Screen Neg (NEG) Urine Barbiturates Neg (NEG) Urine Phencyclidine Screen Neg (NEG) Urine Amphetamine/Methamphetamine Neg (NEG) Urine Benzodiazepines Screen Neg (NEG) Urine Cocaine Screen Neg (NEG) Urine Cannabinoids Screen Neg (NEG) Urine Ethyl Alcohol Neg (NEG) Review of Systems Review of Systems abd pain and nausea has not vomited this AM, kiley STARK Assessment and Plan Assessmemt and Plan Problems Medical Problems: (1) Alcohol withdrawal Status: Acute Problems: Comment Review of Relevant I have reviewed the following items keisha (where applicable) has been applied. Labs Laboratory Tests Test 09/14/17 12:10 09/14/17 12:15 09/14/17 14:00 09/15/17 04:15 White Blood Count 5.8 x10^3/uL (4.0-11.0) 4.3 x10^3/uL (4.0-11.0) Red Blood Count 4.59 x10^6/uL (4.30-5.70) 4.27 x10^6/uL (4.30-5.70) Hemoglobin 14.9 g/dL (13.0-17.5) 13.9 g/dL (13.0-17.5) Hematocrit 44.3 % (39.0-53.0) 41.2 % (39.0-53.0) Mean Corpuscular Volume 96 fL (79-100) 97 fL (79-100) Mean Corpuscular Hemoglobin 33 pg (25-35) 33 pg (25-35) Mean Corpuscular Hemoglobin Concent 34 g/dL (31-37) 34 g/dL (31-37) Red Cell Distribution Width 14.7 % (11.5-14.5) 14.6 % (11.5-14.5) Platelet Count 83 x10^3/uL (140-400) 70 x10^3/uL (140-400) Neutrophils (%) (Auto) 81 % (31-73) 45 % (31-73) Lymphocytes (%) (Auto) 8 % (24-48) 40 % (24-48) Monocytes (%) (Auto) 10 % (0-9) 13 % (0-9) Eosinophils (%) (Auto) 0 % (0-3) 2 % (0-3) Basophils (%) (Auto) 1 % (0-3) 1 % (0-3) Neutrophils # (Auto) 4.7 x10^3uL (1.8-7.7) 1.9 x10^3uL (1.8-7.7) Lymphocytes # (Auto) 0.4 x10^3/uL (1.0-4.8) 1.7 x10^3/uL (1.0-4.8) Monocytes # (Auto) 0.6 x10^3/uL (0.0-1.1) 0.6 x10^3/uL (0.0-1.1) Eosinophils # (Auto) 0.0 x10^3/uL (0.0-0.7) 0.1 x10^3/uL (0.0-0.7) Basophils # (Auto) 0.1 x10^3/uL (0.0-0.2) 0.0 x10^3/uL (0.0-0.2) Sodium Level 136 mmol/L (136-145) 133 mmol/L (136-145) Potassium Level 4.6 mmol/L (3.5-5.1) 2.8 mmol/L (3.5-5.1) Chloride Level 88 mmol/L (98-107) 93 mmol/L (98-107) Carbon Dioxide Level 24 mmol/L (21-32) 30 mmol/L (21-32) Anion Gap 24 (6-14) 10 (6-14) Blood Urea Nitrogen 10 mg/dL (8-26) 7 mg/dL (8-26) Creatinine 0.8 mg/dL (0.7-1.3) 0.7 mg/dL (0.7-1.3) Estimated GFR (Cockcroft-Gault) 100.4 117.1 BUN/Creatinine Ratio 13 (6-20) Glucose Level 80 mg/dL (70-99) 98 mg/dL (70-99) Calcium Level 9.7 mg/dL (8.5-10.1) 8.3 mg/dL (8.5-10.1) Magnesium Level 1.7 mg/dL (1.8-2.4) Total Bilirubin 1.0 mg/dL (0.2-1.0) Aspartate Amino Transf (AST/SGOT) 268 U/L (15-37) Alanine Aminotransferase (ALT/SGPT) 233 U/L (16-63) Alkaline Phosphatase 111 U/L (46-116) Creatine Kinase 220 U/L (39-308) Total Protein 9.1 g/dL (6.4-8.2) Albumin 4.8 g/dL (3.4-5.0) Albumin/Globulin Ratio 1.1 (1.0-1.7) Lipase 237 U/L (73-393) Ethyl Alcohol Level < 10 mg/dL (0-10) Bedside Troponin I 0.01 ng/ml (<0.08) Urine Color Yellow Urine Clarity Cloudy Urine pH 6.0 Urine Specific [place] 1.020 Urine Protein 100 mg/dL (NEG-TRACE) Urine Glucose (UA) Negative mg/dL (NEG) Urine Ketones (Stick) >=80 mg/dL (NEG) Urine Blood Negative (NEG) Urine Nitrite Negative (NEG) Urine Bilirubin Negative (NEG) Urine Urobilinogen Dipstick 0.2 mg/dL (0.2 mg/dL) Urine Leukocyte Esterase Negative (NEG) Urine RBC 0 /HPF (0-2) Urine WBC Occ /HPF (0-4) Urine Squamous Epithelial Cells Occ /LPF Urine Bacteria 0 /HPF (0-FEW) Urine Hyaline Casts Occasional /HPF Urine Opiates Screen Neg (NEG) Urine Methadone Screen Neg (NEG) Urine Barbiturates Neg (NEG) Urine Phencyclidine Screen Neg (NEG) Urine Amphetamine/Methamphetamine Neg (NEG) Urine Benzodiazepines Screen Neg (NEG) Urine Cocaine Screen Neg (NEG) Urine Cannabinoids Screen Neg (NEG) Urine Ethyl Alcohol Neg (NEG) Laboratory Tests Test 09/14/17 12:10 09/14/17 12:15 09/14/17 14:00 09/15/17 04:15 White Blood Count 5.8 x10^3/uL (4.0-11.0) 4.3 x10^3/uL (4.0-11.0) Red Blood Count 4.59 x10^6/uL (4.30-5.70) 4.27 x10^6/uL (4.30-5.70) Hemoglobin 14.9 g/dL (13.0-17.5) 13.9 g/dL (13.0-17.5) Hematocrit 44.3 % (39.0-53.0) 41.2 % (39.0-53.0) Mean Corpuscular Volume 96 fL (79-100) 97 fL (79-100) Mean Corpuscular Hemoglobin 33 pg (25-35) 33 pg (25-35) Mean Corpuscular Hemoglobin Concent 34 g/dL (31-37) 34 g/dL (31-37) Red Cell Distribution Width 14.7 % (11.5-14.5) 14.6 % (11.5-14.5) Platelet Count 83 x10^3/uL (140-400) 70 x10^3/uL (140-400) Neutrophils (%) (Auto) 81 % (31-73) 45 % (31-73) Lymphocytes (%) (Auto) 8 % (24-48) 40 % (24-48) Monocytes (%) (Auto) 10 % (0-9) 13 % (0-9) Eosinophils (%) (Auto) 0 % (0-3) 2 % (0-3) Basophils (%) (Auto) 1 % (0-3) 1 % (0-3) Neutrophils # (Auto) 4.7 x10^3uL (1.8-7.7) 1.9 x10^3uL (1.8-7.7) Lymphocytes # (Auto) 0.4 x10^3/uL (1.0-4.8) 1.7 x10^3/uL (1.0-4.8) Monocytes # (Auto) 0.6 x10^3/uL (0.0-1.1) 0.6 x10^3/uL (0.0-1.1) Eosinophils # (Auto) 0.0 x10^3/uL (0.0-0.7) 0.1 x10^3/uL (0.0-0.7) Basophils # (Auto) 0.1 x10^3/uL (0.0-0.2) 0.0 x10^3/uL (0.0-0.2) Sodium Level 136 mmol/L (136-145) 133 mmol/L (136-145) Potassium Level 4.6 mmol/L (3.5-5.1) 2.8 mmol/L (3.5-5.1) Chloride Level 88 mmol/L (98-107) 93 mmol/L (98-107) Carbon Dioxide Level 24 mmol/L (21-32) 30 mmol/L (21-32) Anion Gap 24 (6-14) 10 (6-14) Blood Urea Nitrogen 10 mg/dL (8-26) 7 mg/dL (8-26) Creatinine 0.8 mg/dL (0.7-1.3) 0.7 mg/dL (0.7-1.3) Estimated GFR (Cockcroft-Gault) 100.4 117.1 BUN/Creatinine Ratio 13 (6-20) Glucose Level 80 mg/dL (70-99) 98 mg/dL (70-99) Calcium Level 9.7 mg/dL (8.5-10.1) 8.3 mg/dL (8.5-10.1) Magnesium Level 1.7 mg/dL (1.8-2.4) Total Bilirubin 1.0 mg/dL (0.2-1.0) Aspartate Amino Transf (AST/SGOT) 268 U/L (15-37) Alanine Aminotransferase (ALT/SGPT) 233 U/L (16-63) Alkaline Phosphatase 111 U/L (46-116) Creatine Kinase 220 U/L (39-308) Total Protein 9.1 g/dL (6.4-8.2) Albumin 4.8 g/dL (3.4-5.0) Albumin/Globulin Ratio 1.1 (1.0-1.7) Lipase 237 U/L (73-393) Ethyl Alcohol Level < 10 mg/dL (0-10) Bedside Troponin I 0.01 ng/ml (<0.08) Urine Color Yellow Urine Clarity Cloudy Urine pH 6.0 Urine Specific [place] 1.020 Urine Protein 100 mg/dL (NEG-TRACE) Urine Glucose (UA) Negative mg/dL (NEG) Urine Ketones (Stick) >=80 mg/dL (NEG) Urine Blood Negative (NEG) Urine Nitrite Negative (NEG) Urine Bilirubin Negative (NEG) Urine Urobilinogen Dipstick 0.2 mg/dL (0.2 mg/dL) Urine Leukocyte Esterase Negative (NEG) Urine RBC 0 /HPF (0-2) Urine WBC Occ /HPF (0-4) Urine Squamous Epithelial Cells Occ /LPF Urine Bacteria 0 /HPF (0-FEW) Urine Hyaline Casts Occasional /HPF Urine Opiates Screen Neg (NEG) Urine Methadone Screen Neg (NEG) Urine Barbiturates Neg (NEG) Urine Phencyclidine Screen Neg (NEG) Urine Amphetamine/Methamphetamine Neg (NEG) Urine Benzodiazepines Screen Neg (NEG) Urine Cocaine Screen Neg (NEG) Urine Cannabinoids Screen Neg (NEG) Urine Ethyl Alcohol Neg (NEG) Medications Current Medications Lorazepam (Ativan) 2 mg 1X ONCE IV Last administered on 09/14/17 12:25; Start 09/14/17 at 12:45; Stop 09/14/17 at 12:46; Status DC Ondansetron HCl (Zofran) 8 mg 1X ONCE IV Last administered on 09/14/17 12:24 ; Start 09/14/17 at 12:45; Stop 09/14/17 at 12:46; Status DC Famotidine (Pepcid) 20 mg 1X ONCE IVP Last administered on 09/14/17 12:25; Start 09/14/17 at 12:45; Stop 09/14/17 at 12:46; Status DC Multivitamins 10 ml/Folic Acid 1 mg/Thiamine HCl 100 mg/Dextrose/ Sodium Chloride 1,011.2 ml @ 1,000 mls/ hr 1X ONCE IV Last administered on 12:28; Start 09/14/17 at 13:00; Stop 09/14/17 at 14:00; Status DC Iohexol (Omnipaque 300 Mg/ml) 75 ml 1X ONCE IV Last administered on 13:55; Start 09/14/17 at 14:15; Stop 09/14/17 at 14:16; Status DC Info (Do NOT chart on this entry -- for MONITORING) 1 each PRN DAILY PRN MC SEE COMMENTS; Start 09/14/17 at 13:45; Stop 09/16/17 at 13:44 Ondansetron HCl (Zofran) 4 mg PRN Q8HRS PRN IV NAUSEA/VOMITING; Start at 14:15; Stop 09/14/17 at 15:23; Status DC Dextrose/Sodium Chloride 1,000 ml @ 150 mls/hr 1X ONCE IV Last administered on 09/14/17 17:26; Start 09/14/17 at 14:30; Stop 09/14/17 at 21:09; Status DC Famotidine (Pepcid) 20 mg BID IVP Last administered on 09/15/17 09:28; Start 09/14/17 at 21:00 Folic Acid (Folic Acid) 1 mg DAILY PO ; Start 09/14/17 at 16:00; Stop at 16:00; Status DC Lacosamide (Vimpat) 200 mg [id number] PO Last administered on 09/15/17 05:10; Start 09/14/17 at 18:00 Lorazepam (Ativan) 0.5 mg PRN TID PRN PO ANXIETY / AGITATION Last administered on 09/14/17 22:12; Start 09/14/17 at 15:00 Magnesium Oxide (Magnesium Oxide) 400 mg BID PO Last administered on 09:28; Start 09/14/17 at 21:00 Topiramate (Topamax) 25 mg BID PO Last administered on 09/15/17 09:28; Start 09/14/17 at 21:00 Non-Formulary Medication 1 puff QIDPRN PRN INH SHORTNESS OF BREATH; Start at 15:00; Stop 09/14/17 at 15:30; Status DC Citalopram Hydrobromide (CeleXA) 20 mg DAILY PO Last administered on 09:28; Start 09/14/17 at 16:00 Non-Formulary Medication 1 puff QIDPRN PRN INH SHORTNESS OF BREATH; Start at 15:00; Stop 09/14/17 at 15:30; Status DC Thiamine Mononitrate (Vitamin B-1) 100 mg DAILY PO ; Start 09/14/17 at 16:00; Stop 09/14/17 at 16:00; Status DC Acetaminophen/ Hydrocodone Bitart (Lortab 5/325) 1 tab PRN Q6HRS PRN PO MODERATE PAIN Last administered on 09/14/17 22:12; Start 09/14/17 at 16:00 Lisinopril (Prinivil) 40 mg DAILY PO Last administered on 09/15/17 09:28; Start 09/14/17 at 16:00 Non-Formulary Medication 1 tab DAILY PO ; Start 09/15/17 at 09:00; Stop at 09:00; Status DC Multivitamins 10 ml/Folic Acid 1 mg/Thiamine HCl 100 mg/Dextrose/ Lactated Ringer's 1,011.2 ml @ 100 mls/ hr DAILY IV Last administered on 09/15/17 08: 09; Start 09/14/17 at 16:00 Acetaminophen (Tylenol) 650 mg PRN Q6HRS PRN PO FEVER; Start 09/14/17 at 15:00 Ondansetron HCl (Zofran) 4 mg PRN Q6HRS PRN IV NAUSEA/VOMITING; Start at 15:00 Morphine Sulfate 2 mg PRN Q2HR PRN IV PAIN Last administered on 09/15/17 05: 10; Start 09/14/17 at 15:00 Tramadol HCl (Ultram) 50 mg PRN Q6HRS PRN PO PAIN; Start 09/14/17 at 15:00 Hydralazine HCl (Apresoline Inj) 10 mg PRN Q4HRS PRN IVP ELEVATED BP, SEE COMMENTS; Start 09/14/17 at 15:00 Docusate Sodium (Colace) 100 mg PRN DAILY PRN PO CONSTIPATION; Start 09/14/17 at 15:00 Magnesium Sulfate/ Dextrose 50 ml @ 25 mls/hr 1X ONCE IV Last administered on 09/14/17 17:27; Start 09/14/17 at 15:00; Stop 09/14/17 at 16:59; Status DC Chlordiazepoxide (Librium) 50 mg TID PO Last administered on 09/15/17 09:28; Start 09/14/17 at 21:00 Lorazepam (Ativan) 2 mg PRN Q4HRS PRN IV ANXIETY / AGITATION Last administered on 09/15/17 05:10; Start 09/14/17 at 15:00 Albuterol Sulfate (Ventolin Neb Soln) 2.5 mg PRN QID PRN NEB SHORTNESS OF BREATH Last administered on 09/14/17 20:29; Start 09/14/17 at 15:30 Potassium Chloride (Klor-Con) 40 meq 1X ONCE PO Last administered on 06:27; Start 09/15/17 at 06:30; Stop 09/15/17 at 06:31; Status DC Potassium Chloride 100 ml @ 100 mls/hr Q1H IV Last administered on 09/15/17 09:27; Start 09/15/17 at 06:30; Stop 09/15/17 at 10:29 Active Scripts Active Ativan (Lorazepam) 0.5 Mg Tablet 0.5-1 Mg PO PRN TID PRN Escitalopram Oxalate 10 Mg Tablet 10 Mg PO DAILY [Lisinopril] 40 MG Tablet 40 Mg PO DAILY Clonazepam 0.25 Mg Tab.rapdis 0.75 Mg PO PRN TID PRN Vitamin B-1 (Thiamine Hcl) 100 Mg Tablet 100 Mg PO DAILY Mag-Oxide (Magnesium Oxide) 400 Mg Tablet 400 Mg PO BID Folic Acid 1 Mg Tablet 1 Mg PO DAILY Topamax (Topiramate) 25 Mg Tablet 1 Tab PO BID [Hydrocodone/Acetaminophen] 1 TAB Tablet 1 Tab PO PRN Q6HRS PRN Ibuprofen 200 Mg Tablet 200 Mg PO PRN Q6HRS PRN Vimpat (Lacosamide) 200 Mg Tablet 200 Mg PO [id number] Epipen 2-Erickson (Epinephrine) 0.3 Mg/0.3 Ml Auto.injct 0.3 Mg IJ 1X PRN [Multivitamins,Therapeutic] 1 TAB Tablet 1 Tab PO DAILY Reported Combivent Respimat Inhal (Ipratropium/Albuterol Sulfate) 4 Gm Aer.w.adap 1 Puff INH QIDPRN PRN Proair Hfa Inhaler (Albuterol Sulfate) 8.5 Gm Hfa.aer.ad 1 Puff INH QIDPRN PRN Vitals/I & O Vital Sign - Last 24 Hours 09/14/17 09/14/17 09/14/17 09/14/17 11:52 14:11 16:00 16:00 Temp 99.7 98.4 99.7 98.4 Pulse 99 90 102 102 Resp 22 20 16 B/P (MAP) 144/81 (102) 138/79 (98) 152/90 152/90 (110) Pulse Ox 97 98 94 O2 Delivery Room Air Room Air 09/14/17 09/14/17 09/14/17 09/14/17 16:00 16:11 19:15 20:00 Temp 98.4 99.1 98.4 99.1 Pulse 102 100 Resp 16 20 B/P (MAP) 152/90 (110) 157/88 (111) Pulse Ox 94 96 O2 Delivery Room Air Room Air Nasal Cannula Room Air O2 Flow Rate 2.0 4.0 4.0 09/14/17 09/14/17 09/14/17 09/14/17 20:05 20:30 22:12 23:12 Pulse Ox 95 O2 Delivery Room Air Nasal Cannula Nasal Cannula Nasal Cannula O2 Flow Rate 4.0 4.0 4.0 09/14/17 09/14/17 09/15/17 09/15/17 23:12 23:15 03:15 05:10 Temp 98.6 98.2 98.6 98.2 Pulse 88 82 Resp 18 18 B/P (MAP) 136/83 (100) 129/81 (97) Pulse Ox 95 93 O2 Delivery Nasal Cannula Nasal Cannula Nasal Cannula Nasal Cannula O2 Flow Rate 4.0 4.0 4.0 4.0 09/15/17 09/15/17 09/15/17 05:40 07:00 09:28 Temp 98.3 98.3 Pulse 80 80 Resp 20 B/P (MAP) 137/81 (99) 137/81 Pulse Ox 97 O2 Delivery Nasal Cannula Nasal Cannula O2 Flow Rate 4.0 4.0 BOB SANTANA MD Sep 15, 2017 09:55
--- NOTE | 2017-09-15 10:45 | EKG ---
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
[2017-09-15 11:00] VITALS: BP 130/87
[2017-09-15 15:00] VITALS: BP 122/75
[2017-09-15 19:22] VITALS: BP 140/84
[2017-09-15 23:00] VITALS: BP 114/87
[2017-09-15] MEDS: HYDROcodone/APAP 5/325MG 1 TAB TABLET PO PRN (23:40)
[2017-09-16] MEDS: LACOSAMIDE 200 MG TABLET PO SCH ×2 (06:27→20:50)
[2017-09-16 07:00] VITALS: BP 121/89
[2017-09-16] MEDS ORDERED: LORA0.5T96 PO (09:57)
[2017-09-16] MEDS: MAGNESIUM OXIDE 400 MG TABLET PO SCH ×2 (09:57→20:50)
[2017-09-16] MEDS: LISINOPRIL 40 MG TABLET. PO SCH (09:57)
[2017-09-16] MEDS: FAMOTIDINE 20 MG/2 ML VIAL IVP SCH ×2 (09:58→20:50)
[2017-09-16] MEDS: chlordiazePOXIDE HCL 25 MG CAPSULE PO SCH (09:58)
[2017-09-16] MEDS: CITALOPRAM 20 MG TABLET. PO SCH (09:58)
[2017-09-16] MEDS: TOPIRAMATE 25 MG TABLET. PO SCH ×2 (09:58→20:50)
[2017-09-16] MEDS: LORazepam 0.5 MG TABLET PO PRN ×2 (09:58→12:30)
--- NOTE | 2017-09-16 10:01 | PDOC3 ---
Discharge Summary Visit Information Date of Admission: Sep 14, 2017 Date of Discharge: Sep 16, 2017 Admitting Diagnosis: intox, pain Final Diagnosis Alcohol Intoxication and withdrawl Gap metabolic acidosis sec to alcohol h/o leukopenia, thrombocytopenia, 2/2 alcoholic hepatitis Depression NOS Sinus tachy sec to etoh ELevated LFTs, alcoholic hepatitis hypomagnesemia alcoholism tobaccoism COPD likely with smoking HTN UNcompliance h/o of dehydration with lactate acidosis h/o drug abuse with Cocaine, Heroin, Marijuana, Methamphetamine h/o MSK chest pain h/o acute on chronic resp failure with hypoxia Problems Medical Problems: (1) Alcohol withdrawal Status: Acute Brief Hospital Course Allergies Allergies Coded Allergies Type Severity Reaction Last Updated Verified No Known Drug Allergies 07/25/16 No Vital Signs Vital Signs Date Time Temp Pulse Resp B/P (MAP) Pulse Ox O2 Delivery O2 Flow Rate FiO2 09/16/17 09:57 79 121/89 09/16/17 07:00 98.0 20 94 Room Air 98.0 09/15/17 20:00 4.0 Lab Results Laboratory Tests Test 09/14/17 12:10 09/14/17 12:15 09/14/17 14:00 09/15/17 04:15 White Blood Count 5.8 x10^3/uL (4.0-11.0) 4.3 x10^3/uL (4.0-11.0) Red Blood Count 4.59 x10^6/uL (4.30-5.70) 4.27 x10^6/uL (4.30-5.70) Hemoglobin 14.9 g/dL (13.0-17.5) 13.9 g/dL (13.0-17.5) Hematocrit 44.3 % (39.0-53.0) 41.2 % (39.0-53.0) Mean Corpuscular Volume 96 fL (79-100) 97 fL (79-100) Mean Corpuscular Hemoglobin 33 pg (25-35) 33 pg (25-35) Mean Corpuscular Hemoglobin Concent 34 g/dL (31-37) 34 g/dL (31-37) Red Cell Distribution Width 14.7 % (11.5-14.5) 14.6 % (11.5-14.5) Platelet Count 83 x10^3/uL (140-400) 70 x10^3/uL (140-400) Neutrophils (%) (Auto) 81 % (31-73) 45 % (31-73) Lymphocytes (%) (Auto) 8 % (24-48) 40 % (24-48) Monocytes (%) (Auto) 10 % (0-9) 13 % (0-9) Eosinophils (%) (Auto) 0 % (0-3) 2 % (0-3) Basophils (%) (Auto) 1 % (0-3) 1 % (0-3) Neutrophils # (Auto) 4.7 x10^3uL (1.8-7.7) 1.9 x10^3uL (1.8-7.7) Lymphocytes # (Auto) 0.4 x10^3/uL (1.0-4.8) 1.7 x10^3/uL (1.0-4.8) Monocytes # (Auto) 0.6 x10^3/uL (0.0-1.1) 0.6 x10^3/uL (0.0-1.1) Eosinophils # (Auto) 0.0 x10^3/uL (0.0-0.7) 0.1 x10^3/uL (0.0-0.7) Basophils # (Auto) 0.1 x10^3/uL (0.0-0.2) 0.0 x10^3/uL (0.0-0.2) Sodium Level 136 mmol/L (136-145) 133 mmol/L (136-145) Potassium Level 4.6 mmol/L (3.5-5.1) 2.8 mmol/L (3.5-5.1) Chloride Level 88 mmol/L (98-107) 93 mmol/L (98-107) Carbon Dioxide Level 24 mmol/L (21-32) 30 mmol/L (21-32) Anion Gap 24 (6-14) 10 (6-14) Blood Urea Nitrogen 10 mg/dL (8-26) 7 mg/dL (8-26) Creatinine 0.8 mg/dL (0.7-1.3) 0.7 mg/dL (0.7-1.3) Estimated GFR (Cockcroft-Gault) 100.4 117.1 BUN/Creatinine Ratio 13 (6-20) Glucose Level 80 mg/dL (70-99) 98 mg/dL (70-99) Calcium Level 9.7 mg/dL (8.5-10.1) 8.3 mg/dL (8.5-10.1) Magnesium Level 1.7 mg/dL (1.8-2.4) Total Bilirubin 1.0 mg/dL (0.2-1.0) Aspartate Amino Transf (AST/SGOT) 268 U/L (15-37) Alanine Aminotransferase (ALT/SGPT) 233 U/L (16-63) Alkaline Phosphatase 111 U/L (46-116) Creatine Kinase 220 U/L (39-308) Total Protein 9.1 g/dL (6.4-8.2) Albumin 4.8 g/dL (3.4-5.0) Albumin/Globulin Ratio 1.1 (1.0-1.7) Lipase 237 U/L (73-393) Ethyl Alcohol Level < 10 mg/dL (0-10) Bedside Troponin I 0.01 ng/ml (<0.08) Urine Color Yellow Urine Clarity Cloudy Urine pH 6.0 Urine Specific Dwight 1.020 Urine Protein 100 mg/dL (NEG-TRACE) Urine Glucose (UA) Negative mg/dL (NEG) Urine Ketones (Stick) >=80 mg/dL (NEG) Urine Blood Negative (NEG) Urine Nitrite Negative (NEG) Urine Bilirubin Negative (NEG) Urine Urobilinogen Dipstick 0.2 mg/dL (0.2 mg/dL) Urine Leukocyte Esterase Negative (NEG) Urine RBC 0 /HPF (0-2) Urine WBC Occ /HPF (0-4) Urine Squamous Epithelial Cells Occ /LPF Urine Bacteria 0 /HPF (0-FEW) Urine Hyaline Casts Occasional /HPF Urine Opiates Screen Neg (NEG) Urine Methadone Screen Neg (NEG) Urine Barbiturates Neg (NEG) Urine Phencyclidine Screen Neg (NEG) Urine Amphetamine/Methamphetamine Neg (NEG) Urine Benzodiazepines Screen Neg (NEG) Urine Cocaine Screen Neg (NEG) Urine Cannabinoids Screen Neg (NEG) Urine Ethyl Alcohol Neg (NEG) Brief Hospital Course Mr. Hemphill is a 57 old male, admit drunk and in pain, detox, CIWS, hydrated , lytes given he has no remorse, and has no plan for improvement of his life Discharge Information Condition at Discharge: Improved Follow Up: Weeks Disposition/Orders: D/C to Home Scheduled Escitalopram Oxalate (Escitalopram Oxalate), 10 MG PO DAILY Folic Acid (Folic Acid), 1 MG PO DAILY Lacosamide (Vimpat), 200 MG PO [id number] Magnesium Oxide (Mag-Oxide), 400 MG PO BID Thiamine Hcl (Vitamin B-1), 100 MG PO DAILY Topiramate (Topamax), 1 TAB PO BID [Lisinopril], 40 MG PO DAILY [Multivitamins,Therapeutic], 1 TAB PO DAILY Scheduled PRN Albuterol Sulfate (Proair Hfa Inhaler), 1 PUFF INH QIDPRN PRN for SHORTNESS OF BREATH, (Reported) Clonazepam (Clonazepam), 0.75 MG PO PRN TID PRN for ANXIETY / AGITATION Epinephrine (Epipen 2-Erickson), 0.3 MG IJ 1X PRN for ANAPHYLAXIS Ibuprofen (Ibuprofen), 200 MG PO PRN Q6HRS PRN for INFLAMMATION Ipratropium/Albuterol Sulfate (Combivent Respimat Inhal), 1 PUFF INH QIDPRN PRN for SHORTNESS OF BREATH, (Reported) Lorazepam (Ativan), 0.5 MG PO PRN TID PRN for ANXIETY / AGITATION [Hydrocodone/Acetaminophen], 1 TAB PO PRN Q6HRS PRN for PAIN MODERATE Patient Instructions Patient Instructions > 30 min BOB SANTANA MD Sep 16, 2017 10:01
[2017-09-16 10:55] VITALS: BP 127/86
[2017-09-16] MEDS ORDERED: metroNIDAZOLE 500 MG TABLET PO ONE (11:00)
[2017-09-16] MEDS: MULTIVIT INFUSN,ADULT 4,VIT K 10 ML, FOLIC ACID 1 MG, THIAMINE 100 MG in IV DEXTROSE 5%... IV SCH (11:12)
--- NOTE | 2017-09-16 11:55 | PDOC ---
PROGRESS NOTES Chief Complaint Chief Complaint Alcohol Intoxication and withdrawl Gap metabolic acidosis sec to alcohol h/o leukopenia, thrombocytopenia, 2/2 alcoholic hepatitis Depression NOS Sinus tachy sec to etoh ELevated LFTs, alcoholic hepatitis hypomagnesemia alcoholism tobaccoism COPD likely with smoking HTN UNcompliance h/o of dehydration with lactate acidosis h/o drug abuse with Cocaine, Heroin, Marijuana, Methamphetamine h/o MSK chest pain h/o acute on chronic resp failure with hypoxia History of Present Illness History of Present Illness I had planned to DC early in the AM at his request then, explosive diarrhea, and weakness and unsteady, marked fall risk. more impulsive, put on 1:1 obs start flagyl, send c. diff, isolate, remote prior hx of c diff Vitals Vitals Vital Signs Date Time Temp Pulse Resp B/P (MAP) Pulse Ox O2 Delivery O2 Flow Rate FiO2 09/16/17 10:55 97.8 88 18 127/86 (100) 93 Room Air 97.8 09/15/17 20:00 4.0 Physical Exam General: Alert, Oriented X3, Cooperative, mild distress Heart: Regular rate, No murmurs Lungs: Wheezing Extremities: No clubbing Skin: No rashes Assessment and Plan Assessmemt and Plan Problems Medical Problems: (1) Alcohol withdrawal Status: Acute Problems: Comment Review of Relevant I have reviewed the following items keisha (where applicable) has been applied. Labs Laboratory Tests Test 09/14/17 12:10 09/14/17 12:15 09/14/17 14:00 09/15/17 04:15 White Blood Count 5.8 x10^3/uL (4.0-11.0) 4.3 x10^3/uL (4.0-11.0) Red Blood Count 4.59 x10^6/uL (4.30-5.70) 4.27 x10^6/uL (4.30-5.70) Hemoglobin 14.9 g/dL (13.0-17.5) 13.9 g/dL (13.0-17.5) Hematocrit 44.3 % (39.0-53.0) 41.2 % (39.0-53.0) Mean Corpuscular Volume 96 fL (79-100) 97 fL (79-100) Mean Corpuscular Hemoglobin 33 pg (25-35) 33 pg (25-35) Mean Corpuscular Hemoglobin Concent 34 g/dL (31-37) 34 g/dL (31-37) Red Cell Distribution Width 14.7 % (11.5-14.5) 14.6 % (11.5-14.5) Platelet Count 83 x10^3/uL (140-400) 70 x10^3/uL (140-400) Neutrophils (%) (Auto) 81 % (31-73) 45 % (31-73) Lymphocytes (%) (Auto) 8 % (24-48) 40 % (24-48) Monocytes (%) (Auto) 10 % (0-9) 13 % (0-9) Eosinophils (%) (Auto) 0 % (0-3) 2 % (0-3) Basophils (%) (Auto) 1 % (0-3) 1 % (0-3) Neutrophils # (Auto) 4.7 x10^3uL (1.8-7.7) 1.9 x10^3uL (1.8-7.7) Lymphocytes # (Auto) 0.4 x10^3/uL (1.0-4.8) 1.7 x10^3/uL (1.0-4.8) Monocytes # (Auto) 0.6 x10^3/uL (0.0-1.1) 0.6 x10^3/uL (0.0-1.1) Eosinophils # (Auto) 0.0 x10^3/uL (0.0-0.7) 0.1 x10^3/uL (0.0-0.7) Basophils # (Auto) 0.1 x10^3/uL (0.0-0.2) 0.0 x10^3/uL (0.0-0.2) Sodium Level 136 mmol/L (136-145) 133 mmol/L (136-145) Potassium Level 4.6 mmol/L (3.5-5.1) 2.8 mmol/L (3.5-5.1) Chloride Level 88 mmol/L (98-107) 93 mmol/L (98-107) Carbon Dioxide Level 24 mmol/L (21-32) 30 mmol/L (21-32) Anion Gap 24 (6-14) 10 (6-14) Blood Urea Nitrogen 10 mg/dL (8-26) 7 mg/dL (8-26) Creatinine 0.8 mg/dL (0.7-1.3) 0.7 mg/dL (0.7-1.3) Estimated GFR (Cockcroft-Gault) 100.4 117.1 BUN/Creatinine Ratio 13 (6-20) Glucose Level 80 mg/dL (70-99) 98 mg/dL (70-99) Calcium Level 9.7 mg/dL (8.5-10.1) 8.3 mg/dL (8.5-10.1) Magnesium Level 1.7 mg/dL (1.8-2.4) Total Bilirubin 1.0 mg/dL (0.2-1.0) Aspartate Amino Transf (AST/SGOT) 268 U/L (15-37) Alanine Aminotransferase (ALT/SGPT) 233 U/L (16-63) Alkaline Phosphatase 111 U/L (46-116) Creatine Kinase 220 U/L (39-308) Total Protein 9.1 g/dL (6.4-8.2) Albumin 4.8 g/dL (3.4-5.0) Albumin/Globulin Ratio 1.1 (1.0-1.7) Lipase 237 U/L (73-393) Ethyl Alcohol Level < 10 mg/dL (0-10) Bedside Troponin I 0.01 ng/ml (<0.08) Urine Color Yellow Urine Clarity Cloudy Urine pH 6.0 Urine Specific [place] 1.020 Urine Protein 100 mg/dL (NEG-TRACE) Urine Glucose (UA) Negative mg/dL (NEG) Urine Ketones (Stick) >=80 mg/dL (NEG) Urine Blood Negative (NEG) Urine Nitrite Negative (NEG) Urine Bilirubin Negative (NEG) Urine Urobilinogen Dipstick 0.2 mg/dL (0.2 mg/dL) Urine Leukocyte Esterase Negative (NEG) Urine RBC 0 /HPF (0-2) Urine WBC Occ /HPF (0-4) Urine Squamous Epithelial Cells Occ /LPF Urine Bacteria 0 /HPF (0-FEW) Urine Hyaline Casts Occasional /HPF Urine Opiates Screen Neg (NEG) Urine Methadone Screen Neg (NEG) Urine Barbiturates Neg (NEG) Urine Phencyclidine Screen Neg (NEG) Urine Amphetamine/Methamphetamine Neg (NEG) Urine Benzodiazepines Screen Neg (NEG) Urine Cocaine Screen Neg (NEG) Urine Cannabinoids Screen Neg (NEG) Urine Ethyl Alcohol Neg (NEG) Medications Current Medications Lorazepam (Ativan) 2 mg 1X ONCE IV Last administered on 09/14/17 12:25; Start 09/14/17 at 12:45; Stop 09/14/17 at 12:46; Status DC Ondansetron HCl (Zofran) 8 mg 1X ONCE IV Last administered on 09/14/17 12:24 ; Start 09/14/17 at 12:45; Stop 09/14/17 at 12:46; Status DC Famotidine (Pepcid) 20 mg 1X ONCE IVP Last administered on 09/14/17 12:25; Start 09/14/17 at 12:45; Stop 09/14/17 at 12:46; Status DC Multivitamins 10 ml/Folic Acid 1 mg/Thiamine HCl 100 mg/Dextrose/ Sodium Chloride 1,011.2 ml @ 1,000 mls/ hr 1X ONCE IV Last administered on 12:28; Start 09/14/17 at 13:00; Stop 09/14/17 at 14:00; Status DC Iohexol (Omnipaque 300 Mg/ml) 75 ml 1X ONCE IV Last administered on 13:55; Start 09/14/17 at 14:15; Stop 09/14/17 at 14:16; Status DC Info (Do NOT chart on this entry -- for MONITORING) 1 each PRN DAILY PRN MC SEE COMMENTS; Start 09/14/17 at 13:45; Stop 09/16/17 at 13:44 Ondansetron HCl (Zofran) 4 mg PRN Q8HRS PRN IV NAUSEA/VOMITING; Start at 14:15; Stop 09/14/17 at 15:23; Status DC Dextrose/Sodium Chloride 1,000 ml @ 150 mls/hr 1X ONCE IV Last administered on 09/14/17 17:26; Start 09/14/17 at 14:30; Stop 09/14/17 at 21:09; Status DC Famotidine (Pepcid) 20 mg BID IVP Last administered on 09/16/17 09:58; Start 09/14/17 at 21:00 Folic Acid (Folic Acid) 1 mg DAILY PO ; Start 09/14/17 at 16:00; Stop at 16:00; Status DC Lacosamide (Vimpat) 200 mg [id number] PO Last administered on 09/16/17 06:27; Start 09/14/17 at 18:00 Lorazepam (Ativan) 0.5 mg PRN TID PRN PO ANXIETY / AGITATION Last administered on 09/16/17 09:58; Start 09/14/17 at 15:00 Magnesium Oxide (Magnesium Oxide) 400 mg BID PO Last administered on 09:57; Start 09/14/17 at 21:00 Topiramate (Topamax) 25 mg BID PO Last administered on 09/16/17 09:58; Start 09/14/17 at 21:00 Non-Formulary Medication 1 puff QIDPRN PRN INH SHORTNESS OF BREATH; Start at 15:00; Stop 09/14/17 at 15:30; Status DC Citalopram Hydrobromide (CeleXA) 20 mg DAILY PO Last administered on 09:58; Start 09/14/17 at 16:00 Non-Formulary Medication 1 puff QIDPRN PRN INH SHORTNESS OF BREATH; Start at 15:00; Stop 09/14/17 at 15:30; Status DC Thiamine Mononitrate (Vitamin B-1) 100 mg DAILY PO ; Start 09/14/17 at 16:00; Stop 09/14/17 at 16:00; Status DC Acetaminophen/ Hydrocodone Bitart (Lortab 5/325) 1 tab PRN Q6HRS PRN PO MODERATE PAIN Last administered on 09/15/17 23:40; Start 09/14/17 at 16:00 Lisinopril (Prinivil) 40 mg DAILY PO Last administered on 09/16/17 09:57; Start 09/14/17 at 16:00 Non-Formulary Medication 1 tab DAILY PO ; Start 09/15/17 at 09:00; Stop at 09:00; Status DC Multivitamins 10 ml/Folic Acid 1 mg/Thiamine HCl 100 mg/Dextrose/ Lactated Ringer's 1,011.2 ml @ 100 mls/ hr DAILY IV Last administered on 09/16/17 11: 12; Start 09/14/17 at 16:00 Acetaminophen (Tylenol) 650 mg PRN Q6HRS PRN PO FEVER Last administered on 09:57; Start 09/14/17 at 15:00 Ondansetron HCl (Zofran) 4 mg PRN Q6HRS PRN IV NAUSEA/VOMITING; Start at 15:00 Morphine Sulfate 2 mg PRN Q2HR PRN IV PAIN Last administered on 09/15/17 20: 56; Start 09/14/17 at 15:00 Tramadol HCl (Ultram) 50 mg PRN Q6HRS PRN PO PAIN Last administered on 11:11; Start 09/14/17 at 15:00 Hydralazine HCl (Apresoline Inj) 10 mg PRN Q4HRS PRN IVP ELEVATED BP, SEE COMMENTS; Start 09/14/17 at 15:00 Docusate Sodium (Colace) 100 mg PRN DAILY PRN PO CONSTIPATION; Start 09/14/17 at 15:00 Magnesium Sulfate/ Dextrose 50 ml @ 25 mls/hr 1X ONCE IV Last administered on 09/14/17 17:27; Start 09/14/17 at 15:00; Stop 09/14/17 at 16:59; Status DC Chlordiazepoxide (Librium) 50 mg TID PO Last administered on 09/16/17 09:58; Start 09/14/17 at 21:00 Lorazepam (Ativan) 2 mg PRN Q4HRS PRN IV ANXIETY / AGITATION Last administered on 09/15/17 23:40; Start 09/14/17 at 15:00 Albuterol Sulfate (Ventolin Neb Soln) 2.5 mg PRN QID PRN NEB SHORTNESS OF BREATH Last administered on 09/14/17 20:29; Start 09/14/17 at 15:30 Potassium Chloride (Klor-Con) 40 meq 1X ONCE PO Last administered on 06:27; Start 09/15/17 at 06:30; Stop 09/15/17 at 06:31; Status DC Potassium Chloride 100 ml @ 100 mls/hr Q1H IV Last administered on 09/15/17 09:30; Start 09/15/17 at 06:30; Stop 09/15/17 at 10:29; Status DC Potassium Chloride (Klor-Con) 40 meq 1X ONCE PO Last administered on 12:48; Start 09/15/17 at 12:00; Stop 09/15/17 at 12:01; Status DC Metronidazole (Flagyl) 500 mg Q8HRS PO ; Start 09/16/17 at 22:00 Metronidazole (Flagyl) 500 mg 1X ONCE PO Last administered on 09/16/17 11:12 ; Start 09/16/17 at 11:00; Stop 09/16/17 at 11:01; Status DC Active Scripts Active Ativan (Lorazepam) 0.5 Mg Tablet 0.5 Mg PO PRN TID PRN Escitalopram Oxalate 10 Mg Tablet 10 Mg PO DAILY [Lisinopril] 40 MG Tablet 40 Mg PO DAILY Clonazepam 0.25 Mg Tab.rapdis 0.75 Mg PO PRN TID PRN Vitamin B-1 (Thiamine Hcl) 100 Mg Tablet 100 Mg PO DAILY Mag-Oxide (Magnesium Oxide) 400 Mg Tablet 400 Mg PO BID Folic Acid 1 Mg Tablet 1 Mg PO DAILY Topamax (Topiramate) 25 Mg Tablet 1 Tab PO BID [Hydrocodone/Acetaminophen] 1 TAB Tablet 1 Tab PO PRN Q6HRS PRN Ibuprofen 200 Mg Tablet 200 Mg PO PRN Q6HRS PRN Vimpat (Lacosamide) 200 Mg Tablet 200 Mg PO [id number] Epipen 2-Erickson (Epinephrine) 0.3 Mg/0.3 Ml Auto.injct 0.3 Mg IJ 1X PRN [Multivitamins,Therapeutic] 1 TAB Tablet 1 Tab PO DAILY Reported Combivent Respimat Inhal (Ipratropium/Albuterol Sulfate) 4 Gm Aer.w.adap 1 Puff INH QIDPRN PRN Proair Hfa Inhaler (Albuterol Sulfate) 8.5 Gm Hfa.aer.ad 1 Puff INH QIDPRN PRN Vitals/I & O Vital Sign - Last 24 Hours 09/15/17 09/15/17 09/15/17 09/15/17 15:00 15:45 16:58 19:22 Temp 98.5 97.6 98.5 97.6 Pulse 75 79 Resp 18 18 B/P (MAP) 122/75 (91) 140/84 (102) Pulse Ox 94 92 O2 Delivery Nasal Cannula Nasal Cannula Room Air O2 Flow Rate 4.0 4.0 09/15/17 09/15/17 09/15/17 09/15/17 20:00 20:56 21:26 23:00 Temp 98.1 98.1 Pulse 85 Resp 18 18 18 B/P (MAP) 114/87 (96) Pulse Ox 96 96 95 O2 Delivery Room Air Room Air Room Air Room Air O2 Flow Rate 4.0 09/15/17 09/16/17 09/16/17 09/16/17 23:40 00:40 07:00 09:57 Temp 98.0 98.0 Pulse 79 79 Resp 20 18 20 B/P (MAP) 121/89 (100) 121/89 Pulse Ox 96 96 94 O2 Delivery Room Air Room Air Room Air 09/16/17 10:55 Temp 97.8 97.8 Pulse 88 Resp 18 B/P (MAP) 127/86 (100) Pulse Ox 93 O2 Delivery Room Air BOB SANTANA MD Sep 16, 2017 11:55
[2017-09-16] MEDS: HYDROcodone/APAP 5/325MG 1 TAB TABLET PO PRN (12:30)
[2017-09-16] MEDS ORDERED: diazePAM 5 MG TABLET PO ONE (12:45)
[2017-09-16] MEDS: HALOPERIDOL 5 MG TABLET. PO PRN (15:20)
[2017-09-16] MEDS: LORazepam 1 MG TABLET PO PRN (15:34)
[2017-09-16 19:16] VITALS: BP 135/88
[2017-09-16] MEDS: metroNIDAZOLE 500 MG TABLET PO SCH (20:50)
[2017-09-16] MEDS: diazePAM 5 MG TABLET PO SCH (20:50)
[2017-09-16 23:00] VITALS: BP 138/91
[2017-09-17 03:00] VITALS: BP 132/85
[2017-09-17] MEDS: LORazepam 1 MG TABLET PO PRN (04:33)
[2017-09-17] MEDS: LACOSAMIDE 200 MG TABLET PO SCH (05:29)
[2017-09-17] MEDS: metroNIDAZOLE 500 MG TABLET PO SCH (05:29)
[2017-09-17] MEDS: HALOPERIDOL 5 MG TABLET. PO PRN (05:29)
[2017-09-17] MEDS: MAGNESIUM OXIDE 400 MG TABLET PO SCH (08:27)
[2017-09-17] MEDS: TOPIRAMATE 25 MG TABLET. PO SCH (08:27)
[2017-09-17] MEDS: CITALOPRAM 20 MG TABLET. PO SCH (08:28)
[2017-09-17] MEDS: diazePAM 5 MG TABLET PO SCH (08:28)
[2017-09-17] MEDS: FAMOTIDINE 20 MG/2 ML VIAL IVP SCH (08:29)
[2017-09-17] MEDS: LISINOPRIL 40 MG TABLET. PO SCH (08:29)
[2017-09-17 11:00] VITALS: BP 110/76
--- NOTE | 2017-09-17 13:23 | PDOC ---
PROGRESS NOTES Chief Complaint Chief Complaint Alcohol Intoxication and withdrawl Gap metabolic acidosis sec to alcohol h/o leukopenia, thrombocytopenia, 2/2 alcoholic hepatitis Depression NOS Sinus tachy sec to etoh ELevated LFTs, alcoholic hepatitis hypomagnesemia alcoholism tobaccoism COPD likely with smoking HTN UNcompliance h/o of dehydration with lactate acidosis h/o drug abuse with Cocaine, Heroin, Marijuana, Methamphetamine h/o MSK chest pain h/o acute on chronic resp failure with hypoxia History of Present Illness History of Present Illness A 57 year old male initially presented to the ED with an acute alcohol withdrawal. He was examined today in his room. Patient is at baseline and is probably getting discharge today. Vitals Vitals Vital Signs Date Time Temp Pulse Resp B/P (MAP) Pulse Ox O2 Delivery O2 Flow Rate FiO2 09/17/17 11:00 97.5 92 18 110/76 (87) 93 Room Air 97.5 Physical Exam General: Alert, Oriented X3, Cooperative, mild distress Heart: Regular rate, No murmurs Lungs: Wheezing Abdomen: No tenderness, No masses Extremities: No clubbing Skin: No rashes Review of Systems Review of Systems fatigue and weakness Assessment and Plan Assessmemt and Plan Problems Medical Problems: (1) Alcohol withdrawal Status: Acute Assessment: Alcohol Intoxication and withdrawl Gap metabolic acidosis sec to alcohol h/o leukopenia, thrombocytopenia, 2/2 alcoholic hepatitis Depression NOS Sinus tachy sec to etoh ELevated LFTs, alcoholic hepatitis hypomagnesemia alcoholism tobaccoism COPD likely with smoking HTN UNcompliance h/o of dehydration with lactate acidosis h/o drug abuse with Cocaine, Heroin, Marijuana, Methamphetamine h/o MSK chest pain h/o acute on chronic resp failure with hypoxia hypokalemia Plan: Patient at baseline will probably get discharge Education on substance abuse Continue home meds Give potassium Problems: Comment Review of Relevant I have reviewed the following items keisha (where applicable) has been applied. Medications Current Medications Lorazepam (Ativan) 2 mg 1X ONCE IV Last administered on 09/14/17 12:25; Start 09/14/17 at 12:45; Stop 09/14/17 at 12:46; Status DC Ondansetron HCl (Zofran) 8 mg 1X ONCE IV Last administered on 09/14/17 12:24 ; Start 09/14/17 at 12:45; Stop 09/14/17 at 12:46; Status DC Famotidine (Pepcid) 20 mg 1X ONCE IVP Last administered on 09/14/17 12:25; Start 09/14/17 at 12:45; Stop 09/14/17 at 12:46; Status DC Multivitamins 10 ml/Folic Acid 1 mg/Thiamine HCl 100 mg/Dextrose/ Sodium Chloride 1,011.2 ml @ 1,000 mls/ hr 1X ONCE IV Last administered on 12:28; Start 09/14/17 at 13:00; Stop 09/14/17 at 14:00; Status DC Iohexol (Omnipaque 300 Mg/ml) 75 ml 1X ONCE IV Last administered on 13:55; Start 09/14/17 at 14:15; Stop 09/14/17 at 14:16; Status DC Info (Do NOT chart on this entry -- for MONITORING) 1 each PRN DAILY PRN MC SEE COMMENTS; Start 09/14/17 at 13:45; Stop 09/16/17 at 13:44; Status DC Ondansetron HCl (Zofran) 4 mg PRN Q8HRS PRN IV NAUSEA/VOMITING; Start at 14:15; Stop 09/14/17 at 15:23; Status DC Dextrose/Sodium Chloride 1,000 ml @ 150 mls/hr 1X ONCE IV Last administered on 09/14/17 17:26; Start 09/14/17 at 14:30; Stop 09/14/17 at 21:09; Status DC Famotidine (Pepcid) 20 mg BID IVP Last administered on 09/16/17 09:58; Start 09/14/17 at 21:00 Folic Acid (Folic Acid) 1 mg DAILY PO ; Start 09/14/17 at 16:00; Stop at 16:00; Status DC Lacosamide (Vimpat) 200 mg [id number] PO Last administered on 09/17/17 05:29; Start 09/14/17 at 18:00 Lorazepam (Ativan) 0.5 mg PRN TID PRN PO ANXIETY / AGITATION Last administered on 09/16/17 12:30; Start 09/14/17 at 15:00 Magnesium Oxide (Magnesium Oxide) 400 mg BID PO Last administered on 08:27; Start 09/14/17 at 21:00 Topiramate (Topamax) 25 mg BID PO Last administered on 09/17/17 08:27; Start 09/14/17 at 21:00 Non-Formulary Medication 1 puff QIDPRN PRN INH SHORTNESS OF BREATH; Start at 15:00; Stop 09/14/17 at 15:30; Status DC Citalopram Hydrobromide (CeleXA) 20 mg DAILY PO Last administered on 08:28; Start 09/14/17 at 16:00 Non-Formulary Medication 1 puff QIDPRN PRN INH SHORTNESS OF BREATH; Start at 15:00; Stop 09/14/17 at 15:30; Status DC Thiamine Mononitrate (Vitamin B-1) 100 mg DAILY PO ; Start 09/14/17 at 16:00; Stop 09/14/17 at 16:00; Status DC Acetaminophen/ Hydrocodone Bitart (Lortab 5/325) 1 tab PRN Q6HRS PRN PO MODERATE PAIN Last administered on 09/16/17 12:30; Start 09/14/17 at 16:00 Lisinopril (Prinivil) 40 mg DAILY PO Last administered on 09/17/17 08:29; Start 09/14/17 at 16:00 Non-Formulary Medication 1 tab DAILY PO ; Start 09/15/17 at 09:00; Stop at 09:00; Status DC Multivitamins 10 ml/Folic Acid 1 mg/Thiamine HCl 100 mg/Dextrose/ Lactated Ringer's 1,011.2 ml @ 100 mls/ hr DAILY IV Last administered on 09/16/17 11: 12; Start 09/14/17 at 16:00; Stop 09/16/17 at 12:37; Status DC Acetaminophen (Tylenol) 650 mg PRN Q6HRS PRN PO FEVER Last administered on 09:57; Start 09/14/17 at 15:00 Ondansetron HCl (Zofran) 4 mg PRN Q6HRS PRN IV NAUSEA/VOMITING; Start at 15:00 Morphine Sulfate 2 mg PRN Q2HR PRN IV PAIN Last administered on 09/15/17 20: 56; Start 09/14/17 at 15:00 Tramadol HCl (Ultram) 50 mg PRN Q6HRS PRN PO PAIN Last administered on 11:11; Start 09/14/17 at 15:00; Stop 09/16/17 at 12:38; Status DC Hydralazine HCl (Apresoline Inj) 10 mg PRN Q4HRS PRN IVP ELEVATED BP, SEE COMMENTS; Start 09/14/17 at 15:00 Docusate Sodium (Colace) 100 mg PRN DAILY PRN PO CONSTIPATION; Start 09/14/17 at 15:00 Magnesium Sulfate/ Dextrose 50 ml @ 25 mls/hr 1X ONCE IV Last administered on 09/14/17 17:27; Start 09/14/17 at 15:00; Stop 09/14/17 at 16:59; Status DC Chlordiazepoxide (Librium) 50 mg TID PO Last administered on 09/16/17 09:58; Start 09/14/17 at 21:00; Stop 09/16/17 at 12:37; Status DC Lorazepam (Ativan) 2 mg PRN Q4HRS PRN IV ANXIETY / AGITATION Last administered on 09/15/17 23:40; Start 09/14/17 at 15:00 Albuterol Sulfate (Ventolin Neb Soln) 2.5 mg PRN QID PRN NEB SHORTNESS OF BREATH Last administered on 09/14/17 20:29; Start 09/14/17 at 15:30 Potassium Chloride (Klor-Con) 40 meq 1X ONCE PO Last administered on 06:27; Start 09/15/17 at 06:30; Stop 09/15/17 at 06:31; Status DC Potassium Chloride 100 ml @ 100 mls/hr Q1H IV Last administered on 09/15/17 09:30; Start 09/15/17 at 06:30; Stop 09/15/17 at 10:29; Status DC Potassium Chloride (Klor-Con) 40 meq 1X ONCE PO Last administered on 12:48; Start 09/15/17 at 12:00; Stop 09/15/17 at 12:01; Status DC Metronidazole (Flagyl) 500 mg Q8HRS PO Last administered on 09/17/17 05:29; Start 09/16/17 at 22:00 Metronidazole (Flagyl) 500 mg 1X ONCE PO Last administered on 09/16/17 11:12 ; Start 09/16/17 at 11:00; Stop 09/16/17 at 11:01; Status DC Diazepam (Valium) 5 mg 1X ONCE PO Last administered on 09/16/17 13:00; Start 09/16/17 at 12:45; Stop 09/16/17 at 12:46; Status DC Lorazepam (Ativan) 2 mg PRN Q6HRS PRN PO ANXIETY / AGITATION Last administered on 09/17/17 04:33; Start 09/16/17 at 12:45 Diazepam (Valium) 5 mg BID PO Last administered on 09/17/17 08:28; Start at 21:00; Stop 09/18/17 at 18:00 Haloperidol (Haldol) 5 mg PRN Q12HR PRN PO AGITATION Last administered on 09/17 05:29; Start 09/16/17 at 12:45 Active Scripts Active Ativan (Lorazepam) 0.5 Mg Tablet 0.5 Mg PO PRN TID PRN Escitalopram Oxalate 10 Mg Tablet 10 Mg PO DAILY [Lisinopril] 40 MG Tablet 40 Mg PO DAILY Clonazepam 0.25 Mg Tab.rapdis 0.75 Mg PO PRN TID PRN Vitamin B-1 (Thiamine Hcl) 100 Mg Tablet 100 Mg PO DAILY Mag-Oxide (Magnesium Oxide) 400 Mg Tablet 400 Mg PO BID Folic Acid 1 Mg Tablet 1 Mg PO DAILY Topamax (Topiramate) 25 Mg Tablet 1 Tab PO BID Ibuprofen 200 Mg Tablet 200 Mg PO PRN Q6HRS PRN Vimpat (Lacosamide) 200 Mg Tablet 200 Mg PO [id number] Epipen 2-Erickson (Epinephrine) 0.3 Mg/0.3 Ml Auto.injct 0.3 Mg IJ 1X PRN [Multivitamins,Therapeutic] 1 TAB Tablet 1 Tab PO DAILY Reported Combivent Respimat Inhal (Ipratropium/Albuterol Sulfate) 4 Gm Aer.w.adap 1 Puff INH QIDPRN PRN Proair Hfa Inhaler (Albuterol Sulfate) 8.5 Gm Hfa.aer.ad 1 Puff INH QIDPRN PRN Vitals/I & O Vital Sign - Last 24 Hours 09/16/17 09/16/17 09/16/17 09/17/17 19:16 19:35 23:00 03:00 Temp 98.8 98.7 98.1 98.8 98.7 98.1 Pulse 64 71 69 Resp 18 18 18 B/P (MAP) 135/88 (104) 138/91 (107) 132/85 (101) Pulse Ox 94 96 94 O2 Delivery Room Air Room Air Room Air Room Air 09/17/17 09/17/17 09/17/17 08:00 08:29 11:00 Temp 97.5 97.5 Pulse 69 92 Resp 18 B/P (MAP) 132/85 110/76 (87) Pulse Ox 93 O2 Delivery Room Air Room Air REGINO HART III DO Sep 17, 2017 13:23
[2017-09-17] MEDS ORDERED: POTASSIUM CHLORIDE 20 MEQ TABLET.ER. PO ONE (13:30)
== END 2017-09-17 13:25 | disposition home or self-care (01) | DRG 895 ==
LOC: ER 11:44 → 6 SOUTH 14:20
PROVIDERS: ADMIT Internal Medicine; ATTEND Internal Medicine
PROC: HZ31ZZZ Individual Counseling for Substance Abuse Treatment, Behavioral (ICD-10-PCS; principal; 2017-09-14)
PROC: HZ2ZZZZ Detoxification Services for Substance Abuse Treatment (ICD-10-PCS; 2017-09-14)
DX: F10.239 Alcohol dependence with withdrawal, unspecified (principal); D69.59 Other secondary thrombocytopenia; E87.2 Acidosis; F11.10 Opioid abuse, uncomplicated; F10.229 Alcohol dependence with intoxication, unspecified; E83.42 Hypomagnesemia; F14.10 Cocaine abuse, uncomplicated; K70.10 Alcoholic hepatitis without ascites; J44.9 Chronic obstructive pulmonary disease, unspecified; E78.00 Pure hypercholesterolemia, unspecified; E87.6 Hypokalemia; F17.210 Nicotine dependence, cigarettes, uncomplicated; I10 Essential (primary) hypertension; I25.10 Atherosclerotic heart disease of native coronary artery without angina pectoris; K21.9 Gastro-esophageal reflux disease without esophagitis; K74.60 Unspecified cirrhosis of liver; Z96.659 Presence of unspecified artificial knee joint; Z96.642 Presence of left artificial hip joint; F32.9 Major depressive disorder, single episode, unspecified; F12.10 Cannabis abuse, uncomplicated; Z91.81 History of falling; Z81.1 Family history of alcohol abuse and dependence; Z91.19 Patient's noncompliance with other medical treatment and regimen; Z71.51 Drug abuse counseling and surveillance of drug abuser; Z71.41 Alcohol abuse counseling and surveillance of alcoholic
CPT/HCPCS: 36415; 71010; 74177; 80048; 80053; 80307; 81001; 82550; 83690; 83735; 84484; 85025; 93005; 94250; 94640; G0480; J2060; J2270; J2405; J3480; J7060; J7613; Q9967; S0028; 97530; G0479

== ENCOUNTER 2017-10-16 09:53 | Inpatient (IN) | payer OTHER ==
[2017-10-16] VITALS (13 sets, daily range): BP systolic 104–160; BP diastolic 71–87
[~2017-10-16] VITALS: Ht 175.3 cm; Wt 62.1 kg
[2017-10-16] MEDS ORDERED: diphenhydrAMINE 50 MG/ML VIAL IVP PRN (10:15)
[2017-10-16] MEDS ORDERED: MULTIVIT INFUSN,ADULT 4,VIT K 10 ML, THIAMINE 100 MG, FOLIC ACID 1 MG in IV NORMAL SALI... IV ONE (10:30)
--- NOTE | 2017-10-16 10:43 | PHYS DOC ---
Past Medical History Past Medical History: Alcoholism, GERD, High Cholesterol, Hypertension, Hepatitis, [place], Seizure Additional Past Medical Histor: suicidal,ETOH ABUSE Past Surgical History: Other Additional Past Surgical Histo: L)leg &hip fx with surgery. poor historian Alcohol Use: Heavy Drug Use: Cocaine, Heroin, Marijuana, Methamphetamine Adult General Chief Complaint Chief Complaint: WITHDRAWL HPI HPI Patient is a 57 year old male who presents to department with altered mental status. Patient brought to emergency department by EMS. The patient has a long- standing history of chronic alcoholism. The patient was noted to have tremors and tachycardia on their evaluation. The patient currently is not providing any history at this time but EMS stated that the patient was able to speak with them and stated he felt like he was having withdrawal symptoms. The patient stated he had at least 2 seizures prior to arrival. The patient however is quite altered and does not provide any history. Patient has not received any medications prior to arrival. During history taking, patient experienced a seizure. Review of Systems Review of Systems Unable to obtain from patient due to delirious state All other systems were reviewed and found to be within normal limits, except as documented in this note. Current Medications Current Medications Current Medications Medications (Trade) Dose Ordered Sig/Corinne Start Time Stop Time Status Last Admin Dose Admin Diphenhydramine HCl (Benadryl) 25 mg PRN Q15MIN PRN 10/16/17 10:15 Haloperidol Lactate (Haldol) 5 mg PRN Q4HRS PRN 10/16/17 10:15 Lorazepam (Ativan) 4 mg PRN Q15MIN PRN 10/16/17 10:15 10/16/17 10:18 4 MG Multivitamins 10 ml/Thiamine HCl 100 mg/Folic Acid 1 mg/Sodium Chloride 1,011.2 ml @ 1,000 mls/ hr 1X ONCE 10/16/17 10:30 10/16/17 11:30 DC 10/16/17 10:36 1,000 MLS/HR Allergies Allergies Allergies Coded Allergies Type Severity Reaction Last Updated Verified No Known Drug Allergies 07/25/16 No Physical Exam Physical Exam Constitutional: Tremulous, tachycardic, hypertensive, diaphoretic. [] HENT: Normocephalic, atraumatic, bilateral external ears normal, oropharynx moist, no oral exudates, nose normal. [] Eyes: PERRLA, EOMI, conjunctiva normal, no discharge. [] Neck: Normal range of motion, no tenderness, supple, no stridor. [] Cardiovascular: Tachycardia, regular rhythm, no murmur [] Lungs & Thorax: Bilateral breath sounds clear to auscultation [] Abdomen: Bowel sounds normal, soft, no tenderness, no masses, no pulsatile masses. [] Skin: Clammy, diaphoretic, no erythema, no rash. [] Back: No tenderness, no CVA tenderness. [] Extremities: No tenderness, no cyanosis, no clubbing, ROM intact, no edema. [] Neurologic: Tracks to voice, involuntary resting tremors, no focal deficits. [] Current Patient Data Vital Signs Vital Signs Date Time Temp Pulse Resp B/P (MAP) Pulse Ox O2 Delivery O2 Flow Rate FiO2 10/16/17 10:26 128 24 148/92 (110) 87 Room Air 10/16/17 09:53 99.9 99.9 Lab Values Laboratory Tests Test 10/16/17 10:35 White Blood Count 8.3 x10^3/uL (4.0-11.0) Red Blood Count 4.80 x10^6/uL (4.30-5.70) Hemoglobin 15.4 g/dL (13.0-17.5) Hematocrit 46.8 % (39.0-53.0) Mean Corpuscular Volume 98 fL (79-100) Mean Corpuscular Hemoglobin 32 pg (25-35) Mean Corpuscular Hemoglobin Concent 33 g/dL (31-37) Red Cell Distribution Width 14.7 % (11.5-14.5) H Platelet Count 118 x10^3/uL (140-400) L Neutrophils (%) (Auto) 72 % (31-73) Lymphocytes (%) (Auto) 14 % (24-48) L Monocytes (%) (Auto) 13 % (0-9) H Eosinophils (%) (Auto) 0 % (0-3) Basophils (%) (Auto) 1 % (0-3) Neutrophils # (Auto) 6.0 x10^3uL (1.8-7.7) Lymphocytes # (Auto) 1.2 x10^3/uL (1.0-4.8) Monocytes # (Auto) 1.0 x10^3/uL (0.0-1.1) Eosinophils # (Auto) 0.0 x10^3/uL (0.0-0.7) Basophils # (Auto) 0.1 x10^3/uL (0.0-0.2) Sodium Level 140 mmol/L (136-145) Potassium Level 2.7 mmol/L (3.5-5.1) *L Chloride Level 90 mmol/L (98-107) L Carbon Dioxide Level 20 mmol/L (21-32) L Anion Gap 30 (6-14) H Blood Urea Nitrogen 8 mg/dL (8-26) Creatinine 1.1 mg/dL (0.7-1.3) Estimated GFR (Cockcroft-Gault) 69.5 BUN/Creatinine Ratio 7 (6-20) Glucose Level 120 mg/dL (70-99) H Calcium Level 9.7 mg/dL (8.5-10.1) Magnesium Level 1.4 mg/dL (1.8-2.4) L Total Bilirubin 0.6 mg/dL (0.2-1.0) Aspartate Amino Transferase (AST) 279 U/L (15-37) H Alanine Aminotransferase (ALT) 188 U/L (16-63) H Alkaline Phosphatase 112 U/L (46-116) Total Protein 9.7 g/dL (6.4-8.2) H Albumin 4.8 g/dL (3.4-5.0) Albumin/Globulin Ratio 1.0 (1.0-1.7) Ethyl Alcohol Level 37 mg/dL (0-10) H Laboratory Tests 10/16/17 10:35 Laboratory Tests 10/16/17 10:35 EKG EKG Interpreted by me: Heart rate 125, sinus tachycardia, leftward axis, no acute ST /T-wave abnormalities present[] Radiology/Procedures Radiology/Procedures [facility] [address] [place] [address] IMAGING REPORT Signed PATIENT: ANTHONY LENNON ACCOUNT: [id number] : 1960 LOCATION: [address] [place] [address] AGE: 57 SEX: M EXAM STATUS: ADM IN ORD. PHYSICIAN: KAREL VICTOR MD REASON: altered mental status, rule out acute cardiopulmonary abnormality PROCEDURE: PORTABLE CHEST 1V EXAM: Chest one view. HISTORY: Altered mental status, diaphoresis. COMPARISON: 09/14/2017. FINDINGS: A frontal view of the chest is obtained. There are no confluent infiltrates. There is no pneumothorax or pleural effusion. The heart is not enlarged. There is a chronic right midclavicular fracture. IMPRESSION: 1. No confluent infiltrates. DICTATED and SIGNED BY: IZA WICK MD DATE: 10/16/17 105 CC: KAREL VICTOR MD; NO PCP; ALFIE BONE MD ~ [facility] [address] [place], [place] [id number] IMAGING REPORT Signed PATIENT: ANTHONY LENNON ACCOUNT: [id number] : 1960 LOCATION: [address] [place] [address] AGE: 57 SEX: M EXAM STATUS: ADM IN ORD. PHYSICIAN: KAREL VICTOR MD REASON: altered mental status PROCEDURE: CT HEAD WO CONTRAST EXAM: CT head without contrast. HISTORY: Seizures. TECHNIQUE: Computed tomography of the head was performed without intravenous contrast. COMPARISON: 05/03/2017. FINDINGS: There is no intracranial hemorrhage. Mild hypoattenuation within the periventricular white matter indicates mild chronic small vessel ischemic change. Prominence of the lateral ventricles and hemispheric sulci indicate moderate atrophy. The visualized paranasal sinuses appear clear. The orbits are unremarkable. The temporal bones are unremarkable. The calvarium reveals no suspicious lesions. IMPRESSION: 1. No acute intracranial findings. 2. Moderate atrophy and mild chronic small vessel ischemic white matter change. *One or more of the following individualized dose reduction techniques were utilized for this examination: 1. Automated exposure control. 2. Adjustment of the mA and/or kV according to patient size. 3. Use of iterative reconstruction technique. DICTATED and SIGNED BY: IZA WICK MD DATE: 10/16/17 105 CC: KAREL VICTOR MD; NO PCP; ALFIE BONE MD ~ [] Course & Med Decision Making Course & Med Decision Making Pertinent Labs and Imaging studies reviewed. (See chart for details) Patient was administered 4 mg of IV Ativan in the emergency department as patient had an initial CIWA score of 30. Patient continues to be delirious. The patient will require admission to the hospital for treatment of delirium tremens. I spoke with Dr. Bone who accepted care patient in hospital. Patient dealing with critical illness and is at significant risk of possible due to his current condition. Critical care time excluding procedures: 45 minutes Dragon Disclaimer Dragon Disclaimer This electronic medical record was generated, in whole or in part, using a voice recognition dictation system. Departure Departure Impression: Primary Impression: Delirium tremens Disposition: ADMITTED INPATIENT Admitting Physician: Other Condition: CRITICAL Referrals: NO PCP (PCP) KAREL VICTOR MD Oct 16, 2017 10:43
[2017-10-16 10:45] LABS: BASO # 0.1 x10^3/uL (0.0-0.2); BASO % 1 % (0-3); EOS % 0 % (0-3); HEMATOCRIT 46.8 % (39.0-53.0); HEMOGLOBIN 15.4 g/dL (13.0-17.5); LYMPH # 1.2 x10^3/uL (1.0-4.8); LYMPH % 14 % (24-48); MEAN CORPUSCULAR HEMOGLOBIN 32 pg (25-35); MEAN CORPUSCULAR HGB CONC 33 g/dL (31-37); MEAN CORPUSCULAR VOLUME 98 fL (79-100); MONO % 13 % (0-9); NEUT % 72 % (31-73); PLATELET COUNT 118 x10^3/uL (140-400); RED CELL DISTRIBUTION WIDTH 14.7 % (11.5-14.5); WHITE BLOOD COUNT 8.3 x10^3/uL (4.0-11.0)
[2017-10-16 10:58] LABS: BILIRUBIN,URINE SMALL (NEG); GLUCOSE,URINE NEGATIVE (NEG); NITRITE,URINE NEGATIVE (NEG); PH,URINE 6.5; PROTEIN,URINE >=300 mg/dL (NEG-TRACE)
[2017-10-16 11:00] LABS: ALBUMIN 4.8 g/dL (3.4-5.0); CALCIUM 9.7 mg/dL (8.5-10.1); CREATININE 1.1 mg/dL (0.7-1.3); GFR 69.5; MAGNESIUM 1.4 mg/dL (1.8-2.4); TOTAL BILIRUBIN 0.6 mg/dL (0.2-1.0); TOTAL PROTEIN 9.7 g/dL (6.4-8.2)
[2017-10-16 11:02] LABS: POTASSIUM 2.7 mmol/L (3.5-5.1)
--- NOTE | 2017-10-16 11:03 | RAD ---
EXAM: Chest one view. HISTORY: Altered mental status, diaphoresis. COMPARISON: 09/14/2017. FINDINGS: A frontal view of the chest is obtained. There are no confluent infiltrates. There is no pneumothorax or pleural effusion. The heart is not enlarged. There is a chronic right midclavicular fracture. IMPRESSION: 1. No confluent infiltrates.
--- NOTE | 2017-10-16 11:06 | RAD ---
EXAM: CT head without contrast. HISTORY: Seizures. TECHNIQUE: Computed tomography of the head was performed without intravenous contrast. COMPARISON: 05/03/2017. FINDINGS: There is no intracranial hemorrhage. Mild hypoattenuation within the periventricular white matter indicates mild chronic small vessel ischemic change. Prominence of the lateral ventricles and hemispheric sulci indicate moderate atrophy. The visualized paranasal sinuses appear clear. The orbits are unremarkable. The temporal bones are unremarkable. The calvarium reveals no suspicious lesions. IMPRESSION: 1. No acute intracranial findings. 2. Moderate atrophy and mild chronic small vessel ischemic white matter change. *One or more of the following individualized dose reduction techniques were utilized for this examination: 1. Automated exposure control. 2. Adjustment of the mA and/or kV according to patient size. 3. Use of iterative reconstruction technique.
[2017-10-16 11:16] LABS: BACTERIA,URINE 0 /HPF (0-FEW); RBC,URINE OCC /HPF (0-2); SQUAMOUS EPITHELIAL CELL,UR FEW /LPF; WBC,URINE RARE /HPF (0-4)
[2017-10-16 11:18] LABS: BARBITURATES NEG (NEG); BENZODIAZEPINES POS (NEG); CANNABINOIDS POS (NEG); COCAINE NEG (NEG); METHADONE NEG (NEG); OPIATES NEG (NEG); PHENCYCLIDINE NEG (NEG)
[2017-10-16] MEDS ORDERED: ONDANSETRON PF 4 MG/2 ML VIAL. IV PRN (11:30)
--- NOTE | 2017-10-16 11:55 | EKG ---
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
[2017-10-16] MEDS ORDERED: MAGNESIUM SULFATE 2GM 50 ML IV ONE (12:00)
[2017-10-16] MEDS ORDERED: POTASSIUM CL 40MEQ D5-0.45NACL 1,000 ML IV ONE (12:00)
[2017-10-16] MEDS ORDERED: ALBUTEROL SULFATE 2.5 MG/3 ML NEBU. NEB PRN (14:45)
--- NOTE | 2017-10-16 15:05 | HP ---
ADMIT DATE: 10/16/2017 CHIEF COMPLAINT: Alcohol withdrawal. HISTORY OF PRESENT ILLNESS: The patient is a 57-year-old alcoholic, well known to our service who presented to the Emergency Room with altered mental status. He relates that he was unable to get out of his house, called EMS. He had seizures as well as tachycardia on evaluation by EMS. [place] that he was withdrawing. Although he apparently was completely altered in the Emergency Room, possibly postictal, currently he is alert and oriented. Significant tremors, but can relate his history. He denies any fevers, chills. Does have aches, especially in epigastrium and mid chest. Has been vomiting multiple times. Denies any blood; however, he feels miserable. 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 PAST SURGICAL HISTORY: He is status post left hip fracture and leg surgery. FAMILY HISTORY: Unknown to patient. SOCIAL HISTORY: Uses alcohol heavily, also multi-substance abuse with a history of cocaine, heroin, marijuana and methamphetamine. ALLERGIES: No known drug allergies. MEDICATIONS: MAR reconciled with home medications. REVIEW OF SYSTEMS: Complains of epigastric pain, midsternal burning, mild nausea, vomiting. Before arrival to ER, denies any other symptoms in organ system review. PHYSICAL EXAMINATION: VITAL SIGNS: Show a blood pressure of 135/87, heart rate of 96, respiratory rate at 24. He is afebrile. GENERAL: This is a 57-year-old well-nourished gentleman, awake, alert, in no acute distress. HEENT: Shows no scleral icterus. NECK: Supple. Dentition is poor. LUNGS: Clear. HEART: Regular rate and rhythm, mildly tachycardic. ABDOMEN: Positive tenderness to palpation in the epigastric right upper quadrant area. EXTREMITIES: Show no edema. SKIN: Warm, soft and dry. NEUROLOGIC: He appears grossly intact. LABORATORY DATA: CBC with a WBC of 8.3, hemoglobin 15.4, platelets of 118. Chemistries with a BUN and creatinine of 8 and 1.1, potassium at 2.7. LFTs with elevated transaminases. Normal total bilirubin. Tox screen with an alcohol level of 37, positive for benzos, cannabinoids. IMAGING: Chest x-ray from today shows no confluent infiltrates. RADIOGRAPHIC FINDINGS: A noncontrast CT of the head shows no acute intracranial findings, moderate atrophy and chronic small vessel ischemic white matter change. ASSESSMENT AND PLAN: The patient is a 57-year-old alcoholic once again admitted in withdrawal. He will be placed on CIWA protocol currently in the ICU due to seizures and multiple abnormalities including hypokalemia. Latter will be repleted orally and IV. We will monitor levels closely. He will receive multivitamins and thiamine, given IV fluids. His other medications including Vimpat for seizures will be continued. ALFIE PARTIDA MD DR: UR/nts JOB#: [id number] / [id number] ALETHEA
[2017-10-16] MEDS: CITALOPRAM 20 MG TABLET. PO SCH (15:44)
[2017-10-16] MEDS: LISINOPRIL 40 MG TABLET. PO SCH (15:45)
[2017-10-16] MEDS: LACOSAMIDE 200 MG TABLET PO SCH (18:15)
[2017-10-16] MEDS: TOPIRAMATE 25 MG TABLET. PO SCH (20:31)
[2017-10-16] MEDS: HALOPERIDOL LACTATE 5 MG/ML VIAL. IVP PRN (21:40)
[2017-10-17] VITALS (14 sets, daily range): BP systolic 98–125; BP diastolic 61–88
[2017-10-17] MEDS ORDERED: POTASSIUM CL 40MEQ D5-0.45NACL 1,000 ML IV ONE (02:00)
[2017-10-17] MEDS: LACOSAMIDE 200 MG TABLET PO SCH ×2 (05:02→18:11)
[2017-10-17] MEDS: HALOPERIDOL LACTATE 5 MG/ML VIAL. IVP PRN ×3 (05:02→12:41)
[2017-10-17 05:41] LABS: BASO # 0.1 x10^3/uL (0.0-0.2); BASO % 1 % (0-3); EOS % 4 % (0-3); HEMATOCRIT 42.9 % (39.0-53.0); HEMOGLOBIN 14.2 g/dL (13.0-17.5); LYMPH % 26 % (24-48); MEAN CORPUSCULAR HEMOGLOBIN 32 pg (25-35); MEAN CORPUSCULAR HGB CONC 33 g/dL (31-37); MEAN CORPUSCULAR VOLUME 96 fL (79-100); MONO % 16 % (0-9); NEUT % 53 % (31-73); PLATELET COUNT 94 x10^3/uL (140-400); RED BLOOD COUNT 4.49 x10^6/uL (4.30-5.70); RED CELL DISTRIBUTION WIDTH 14.6 % (11.5-14.5); WHITE BLOOD COUNT 3.8 x10^3/uL (4.0-11.0)
[2017-10-17 06:06] LABS: CALCIUM 8.9 mg/dL (8.5-10.1); CREATININE 0.6 mg/dL (0.7-1.3); GFR 139.9; POTASSIUM 3.2 mmol/L (3.5-5.1)
[2017-10-17] MEDS: LISINOPRIL 40 MG TABLET. PO SCH (08:24)
[2017-10-17] MEDS: CITALOPRAM 20 MG TABLET. PO SCH (08:24)
[2017-10-17] MEDS: TOPIRAMATE 25 MG TABLET. PO SCH ×2 (08:24→21:03)
[2017-10-17] MEDS: THIAMINE 100 MG TABLET. PO SCH (08:24)
[2017-10-17] MEDS: MULTIVITAMIN with MINERAL TABLET. PO SCH (08:24)
--- NOTE | 2017-10-17 13:01 | PDOC ---
PROGRESS NOTES Chief Complaint Chief Complaint Delirium tremors Alcoholism GERD Hypertension Hypercholesterolemia Hepatitis CAD status post [place] History of Present Illness History of Present Illness Pt. seen and examined today in the ICU pt laying down in bed, unable to communicate pt. on alcohol withdraw protocol Asterixis present Vitals Vitals Vital Signs Date Time Temp Pulse Resp B/P (MAP) Pulse Ox O2 Delivery O2 Flow Rate FiO2 10/17/17 11:13 82 20 117/68 (84) 99 Nasal Cannula 4.0 10/17/17 04:00 99.0 99.0 Physical Exam General: No acute distress, Other (unable to communicate) Heart: Normal S1, Normal S2 Lungs: Clear, Other (No wheezes or crack) Abdomen: Normal bowel sounds, Soft Extremities: No clubbing, No cyanosis Skin: No rashes, No breakdown Labs LABS Laboratory Tests Test 10/17/17 05:00 White Blood Count 3.8 x10^3/uL (4.0-11.0) Red Blood Count 4.49 x10^6/uL (4.30-5.70) Hemoglobin 14.2 g/dL (13.0-17.5) Hematocrit 42.9 % (39.0-53.0) Mean Corpuscular Volume 96 fL (79-100) Mean Corpuscular Hemoglobin 32 pg (25-35) Mean Corpuscular Hemoglobin Concent 33 g/dL (31-37) Red Cell Distribution Width 14.6 % (11.5-14.5) Platelet Count 94 x10^3/uL (140-400) Neutrophils (%) (Auto) 53 % (31-73) Lymphocytes (%) (Auto) 26 % (24-48) Monocytes (%) (Auto) 16 % (0-9) Eosinophils (%) (Auto) 4 % (0-3) Basophils (%) (Auto) 1 % (0-3) Neutrophils # (Auto) 2.0 x10^3uL (1.8-7.7) Lymphocytes # (Auto) 1.0 x10^3/uL (1.0-4.8) Monocytes # (Auto) 0.6 x10^3/uL (0.0-1.1) Eosinophils # (Auto) 0.1 x10^3/uL (0.0-0.7) Basophils # (Auto) 0.1 x10^3/uL (0.0-0.2) Sodium Level 136 mmol/L (136-145) Potassium Level 3.2 mmol/L (3.5-5.1) Chloride Level 98 mmol/L (98-107) Carbon Dioxide Level 30 mmol/L (21-32) Anion Gap 8 (6-14) Blood Urea Nitrogen 8 mg/dL (8-26) Creatinine 0.6 mg/dL (0.7-1.3) Estimated GFR (Cockcroft-Gault) 139.9 Glucose Level 88 mg/dL (70-99) Calcium Level 8.9 mg/dL (8.5-10.1) Review of Systems Review of Systems Unable to obtain- pt. unable to communicate. Assessment and Plan Assessmemt and Plan Problems Medical Problems: (1) Delirium tremens Status: Acute Assessment: Delirium tremors Alcoholism GERD Hypertension Hypercholesterolemia Hepatitis CAD status post PA Plan: Potassium ordered 40 mEq IV Continue alcohol withdrawal protocol Continue ICU monitoring Consult PT/OT Recheck labs in am Problems: Comment Review of Relevant I have reviewed the following items keisha (where applicable) has been applied. Labs Laboratory Tests Test 10/16/17 10:35 10/16/17 10:41 10/16/17 11:30 10/17/17 05:00 White Blood Count 8.3 x10^3/uL (4.0-11.0) 3.8 x10^3/uL (4.0-11.0) Red Blood Count 4.80 x10^6/uL (4.30-5.70) 4.49 x10^6/uL (4.30-5.70) Hemoglobin 15.4 g/dL (13.0-17.5) 14.2 g/dL (13.0-17.5) Hematocrit 46.8 % (39.0-53.0) 42.9 % (39.0-53.0) Mean Corpuscular Volume 98 fL (79-100) 96 fL (79-100) Mean Corpuscular Hemoglobin 32 pg (25-35) 32 pg (25-35) Mean Corpuscular Hemoglobin Concent 33 g/dL (31-37) 33 g/dL (31-37) Red Cell Distribution Width 14.7 % (11.5-14.5) 14.6 % (11.5-14.5) Platelet Count 118 x10^3/uL (140-400) 94 x10^3/uL (140-400) Neutrophils (%) (Auto) 72 % (31-73) 53 % (31-73) Lymphocytes (%) (Auto) 14 % (24-48) 26 % (24-48) Monocytes (%) (Auto) 13 % (0-9) 16 % (0-9) Eosinophils (%) (Auto) 0 % (0-3) 4 % (0-3) Basophils (%) (Auto) 1 % (0-3) 1 % (0-3) Neutrophils # (Auto) 6.0 x10^3uL (1.8-7.7) 2.0 x10^3uL (1.8-7.7) Lymphocytes # (Auto) 1.2 x10^3/uL (1.0-4.8) 1.0 x10^3/uL (1.0-4.8) Monocytes # (Auto) 1.0 x10^3/uL (0.0-1.1) 0.6 x10^3/uL (0.0-1.1) Eosinophils # (Auto) 0.0 x10^3/uL (0.0-0.7) 0.1 x10^3/uL (0.0-0.7) Basophils # (Auto) 0.1 x10^3/uL (0.0-0.2) 0.1 x10^3/uL (0.0-0.2) Sodium Level 140 mmol/L (136-145) 136 mmol/L (136-145) Potassium Level 2.7 mmol/L (3.5-5.1) 3.2 mmol/L (3.5-5.1) Chloride Level 90 mmol/L (98-107) 98 mmol/L (98-107) Carbon Dioxide Level 20 mmol/L (21-32) 30 mmol/L (21-32) Anion Gap 30 (6-14) 8 (6-14) Blood Urea Nitrogen 8 mg/dL (8-26) 8 mg/dL (8-26) Creatinine 1.1 mg/dL (0.7-1.3) 0.6 mg/dL (0.7-1.3) Estimated GFR (Cockcroft-Gault) 69.5 139.9 BUN/Creatinine Ratio 7 (6-20) Glucose Level 120 mg/dL (70-99) 88 mg/dL (70-99) Calcium Level 9.7 mg/dL (8.5-10.1) 8.9 mg/dL (8.5-10.1) Magnesium Level 1.4 mg/dL (1.8-2.4) Total Bilirubin 0.6 mg/dL (0.2-1.0) Aspartate Amino Transf (AST/SGOT) 279 U/L (15-37) Alanine Aminotransferase (ALT/SGPT) 188 U/L (16-63) Alkaline Phosphatase 112 U/L (46-116) Total Protein 9.7 g/dL (6.4-8.2) Albumin 4.8 g/dL (3.4-5.0) Albumin/Globulin Ratio 1.0 (1.0-1.7) Ethyl Alcohol Level 37 mg/dL (0-10) Urine Collection Type Unknown Urine Color Jannette Urine Clarity Clear Urine pH 6.5 Urine Specific Drasco 1.025 Urine Protein >=300 mg/dL (NEG-TRACE) Urine Glucose (UA) Negative mg/dL (NEG) Urine Ketones (Stick) 15 mg/dL (NEG) Urine Blood Small (NEG) Urine Nitrite Negative (NEG) Urine Bilirubin Small (NEG) Urine Urobilinogen Dipstick 1.0 mg/dL (0.2 mg/dL) Urine Leukocyte Esterase Trace (NEG) Urine RBC Occ /HPF (0-2) Urine WBC Rare /HPF (0-4) Urine Squamous Epithelial Cells Few /LPF Urine Bacteria 0 /HPF (0-FEW) Urine Hyaline Casts Many /HPF Urine Opiates Screen Neg (NEG) Urine Methadone Screen Neg (NEG) Urine Barbiturates Neg (NEG) Urine Phencyclidine Screen Neg (NEG) Urine Amphetamine/Methamphetamine Neg (NEG) Urine Benzodiazepines Screen Pos (NEG) Urine Cocaine Screen Neg (NEG) Urine Cannabinoids Screen Pos (NEG) Urine Ethyl Alcohol Pos (NEG) Nasal Screen MRSA (PCR) Negative (Negative) Laboratory Tests Test 10/17/17 05:00 White Blood Count 3.8 x10^3/uL (4.0-11.0) Red Blood Count 4.49 x10^6/uL (4.30-5.70) Hemoglobin 14.2 g/dL (13.0-17.5) Hematocrit 42.9 % (39.0-53.0) Mean Corpuscular Volume 96 fL (79-100) Mean Corpuscular Hemoglobin 32 pg (25-35) Mean Corpuscular Hemoglobin Concent 33 g/dL (31-37) Red Cell Distribution Width 14.6 % (11.5-14.5) Platelet Count 94 x10^3/uL (140-400) Neutrophils (%) (Auto) 53 % (31-73) Lymphocytes (%) (Auto) 26 % (24-48) Monocytes (%) (Auto) 16 % (0-9) Eosinophils (%) (Auto) 4 % (0-3) Basophils (%) (Auto) 1 % (0-3) Neutrophils # (Auto) 2.0 x10^3uL (1.8-7.7) Lymphocytes # (Auto) 1.0 x10^3/uL (1.0-4.8) Monocytes # (Auto) 0.6 x10^3/uL (0.0-1.1) Eosinophils # (Auto) 0.1 x10^3/uL (0.0-0.7) Basophils # (Auto) 0.1 x10^3/uL (0.0-0.2) Sodium Level 136 mmol/L (136-145) Potassium Level 3.2 mmol/L (3.5-5.1) Chloride Level 98 mmol/L (98-107) Carbon Dioxide Level 30 mmol/L (21-32) Anion Gap 8 (6-14) Blood Urea Nitrogen 8 mg/dL (8-26) Creatinine 0.6 mg/dL (0.7-1.3) Estimated GFR (Cockcroft-Gault) 139.9 Glucose Level 88 mg/dL (70-99) Calcium Level 8.9 mg/dL (8.5-10.1) Microbiology 10/16/17 Urine Culture - Preliminary, Resulted 10/16/17 Urine Culture Result 1 (ROSANA) - Preliminary, Resulted Medications Current Medications Multivitamins 10 ml/Thiamine HCl 100 mg/Folic Acid 1 mg/Sodium Chloride 1,011.2 ml @ 1,000 mls/ hr 1X ONCE IV Last administered on 10/16/17t 10:36; Start 10/16/17 at 10:30; Stop 10/16/17 at 11:30; Status DC Haloperidol Lactate (Haldol) 5 mg PRN Q4HRS PRN IVP Hallucinatns,Confusn, Delirium Last administered on 10/17/17 12:41; Start 10/16/17 at 10:15 Diphenhydramine HCl (Benadryl) 25 mg PRN Q15MIN PRN IVP EPS symptoms 2'Haldol admin; Start 10/16/17 at 10:15 Lorazepam (Ativan) 2 mg PRN Q15MIN PRN IV COMM Last administered on 10/17/17 12:41; Start 10/16/17 at 10:15 Lorazepam (Ativan) 4 mg PRN Q15MIN PRN IV COMM Last administered on 10/17/17 05:01; Start 10/16/17 at 10:15 Ondansetron HCl (Zofran) 4 mg PRN Q8HRS PRN IV NAUSEA/VOMITING Last administered on 10/16/17 20:30; Start 10/16/17 at 11:30; Stop 10/17/17 at 11 :29; Status DC Magnesium Sulfate/ Dextrose 50 ml @ 25 mls/hr 1X ONCE IV Last administered on 10/16/17 11:41; Start 10/16/17 at 12:00; Stop 10/16/17 at 13:59; Status DC Potassium Chloride/Dextrose/ Sod Cl 1,000 ml @ 75 mls/hr 1X ONCE IV Last administered on 10/16/17 11:41; Start 10/16/17 at 12:00; Stop 10/17/17 at 01 :19; Status DC Topiramate (Topamax) 25 mg BID PO Last administered on 10/17/17 08:24; Start 10/16/17 at 21:00 Albuterol Sulfate (Ventolin Neb Soln) 2.5 mg PRN QID PRN NEB SHORTNESS OF BREATH; Start 10/16/17 at 14:45 Citalopram Hydrobromide (CeleXA) 20 mg DAILY PO Last administered on 08:24; Start 10/16/17 at 15:30 Thiamine Mononitrate (Vitamin B-1) 100 mg DAILY PO Last administered on 08:24; Start 10/17/17 at 09:00 Lisinopril (Prinivil) 40 mg DAILY PO Last administered on 10/17/17 08:24; Start 10/16/17 at 15:30 Multivitamins (Thera M Plus) 1 tab DAILY PO Last administered on 10/17/17 08: 24; Start 10/17/17 at 09:00 Lacosamide (Vimpat) 200 mg [id number] PO Last administered on 10/17/17 05:02; Start 10/16/17 at 18:00 Potassium Chloride/Dextrose/ Sod Cl 1,000 ml @ 75 mls/hr 1X ONCE IV Last administered on 10/17/17 02:02; Start 10/17/17 at 02:00; Stop 10/17/17 at 15 :19 Active Scripts Active Ativan (Lorazepam) 0.5 Mg Tablet 0.5 Mg PO PRN TID PRN Escitalopram Oxalate 10 Mg Tablet 10 Mg PO DAILY [Lisinopril] 40 MG Tablet 40 Mg PO DAILY Clonazepam 0.25 Mg Tab.rapdis 0.75 Mg PO PRN TID PRN Vitamin B-1 (Thiamine Hcl) 100 Mg Tablet 100 Mg PO DAILY Mag-Oxide (Magnesium Oxide) 400 Mg Tablet 400 Mg PO BID Folic Acid 1 Mg Tablet 1 Mg PO DAILY Topamax (Topiramate) 25 Mg Tablet 1 Tab PO BID Ibuprofen 200 Mg Tablet 200 Mg PO PRN Q6HRS PRN Vimpat (Lacosamide) 200 Mg Tablet 200 Mg PO [id number] Epipen 2-Erickson (Epinephrine) 0.3 Mg/0.3 Ml Auto.injct 0.3 Mg IJ 1X PRN [Multivitamins,Therapeutic] 1 TAB Tablet 1 Tab PO DAILY Reported Combivent Respimat Inhal (Ipratropium/Albuterol Sulfate) 4 Gm Aer.w.adap 1 Puff INH QIDPRN PRN Proair Hfa Inhaler (Albuterol Sulfate) 8.5 Gm Hfa.aer.ad 1 Puff INH QIDPRN PRN Vitals/I & O Vital Sign - Last 24 Hours 10/16/17 10/16/17 10/16/17 10/16/17 13:12 14:15 15:15 15:45 Pulse 95 96 82 84 Resp 22 24 20 B/P (MAP) 154/80 (104) 135/87 (103) 144/80 (101) 144/80 Pulse Ox 93 92 93 O2 Delivery Nasal Cannula Nasal Cannula Nasal Cannula O2 Flow Rate 4.0 4.0 4.0 10/16/17 10/16/17 10/16/17 10/16/17 15:53 16:15 17:12 18:16 Temp 98.9 98.9 Pulse 100 105 106 Resp 24 B/P (MAP) 138/86 (103) 135/86 (102) 160/86 (110) Pulse Ox 90 89 91 O2 Delivery Nasal Cannula Nasal Cannula Nasal Cannula Nasal Cannula O2 Flow Rate 4.0 4.0 4.0 4.0 10/16/17 10/16/17 10/16/17 10/16/17 19:00 20:00 20:00 21:00 Temp 98.9 98.9 Pulse 100 96 103 Resp 22 B/P (MAP) 124/81 (95) 127/86 (100) 141/75 (97) Pulse Ox 99 98 98 O2 Delivery Nasal Cannula Nasal Cannula Nasal Cannula Nasal Cannula O2 Flow Rate 4.0 4.0 4.0 4.0 10/16/17 10/16/17 10/16/17 10/17/17 22:00 23:00 23:59 00:00 Temp 99.3 99.3 Pulse 97 99 93 Resp 20 20 18 B/P (MAP) 122/81 (95) 104/71 (82) 98/71 (80) Pulse Ox 100 100 100 O2 Delivery Nasal Cannula Nasal Cannula Nasal Cannula Nasal Cannula O2 Flow Rate 4.0 4.0 4.0 4.0 10/17/17 10/17/17 10/17/17 10/17/17 01:00 02:00 03:00 04:00 Temp 99.0 99.0 Pulse 94 87 89 90 Resp 20 18 18 16 B/P (MAP) 118/73 (88) 116/84 (95) 116/84 (95) 112/83 (93) Pulse Ox 100 100 100 100 O2 Delivery Nasal Cannula Nasal Cannula Nasal Cannula Nasal Cannula O2 Flow Rate 4.0 4.0 4.0 4.0 10/17/17 10/17/17 10/17/17 10/17/17 04:00 05:00 06:00 07:01 Pulse 82 84 81 Resp 16 16 20 B/P (MAP) 111/75 (87) 102/66 (78) 103/66 (78) Pulse Ox 100 100 100 O2 Delivery Nasal Cannula Nasal Cannula Nasal Cannula Nasal Cannula O2 Flow Rate 4.0 4.0 4.0 4.0 10/17/17 10/17/17 10/17/17 10/17/17 08:00 08:15 08:24 09:15 Pulse 85 89 89 Resp 20 16 B/P (MAP) 105/70 (82) 105/70 110/88 (95) Pulse Ox 99 99 O2 Delivery Nasal Cannula Nasal Cannula Nasal Cannula O2 Flow Rate 4.0 4.0 4.0 10/17/17 11:13 Pulse 82 Resp 20 B/P (MAP) 117/68 (84) Pulse Ox 99 O2 Delivery Nasal Cannula O2 Flow Rate 4.0 Intake and Output 10/16/17 10/16/17 10/17/17 15:00 23:00 07:00 Intake Total 1050 ml 180 ml 1280 ml Output Total 200 ml 150 ml 0 ml Balance 850 ml 30 ml 1280 ml REGINO HART III DO Oct 17, 2017 13:01
[2017-10-17] MEDS: IV NORMAL SALINE 1000ML BAG 1,000 ML IV SCH (16:03)
[2017-10-18 03:34] VITALS: BP 98/64
[2017-10-18] MEDS: IV NORMAL SALINE 1000ML BAG 1,000 ML IV SCH ×3 (04:09→20:12)
[2017-10-18] MEDS: LACOSAMIDE 200 MG TABLET PO SCH ×2 (04:11→17:43)
[2017-10-18 07:00] VITALS: BP 126/81
[2017-10-18 07:14] LABS: BASO # 0.1 x10^3/uL (0.0-0.2); BASO % 1 % (0-3); EOS % 4 % (0-3); HEMATOCRIT 41.9 % (39.0-53.0); HEMOGLOBIN 14.1 g/dL (13.0-17.5); LYMPH # 1.7 x10^3/uL (1.0-4.8); LYMPH % 28 % (24-48); MEAN CORPUSCULAR HEMOGLOBIN 32 pg (25-35); MEAN CORPUSCULAR HGB CONC 34 g/dL (31-37); MEAN CORPUSCULAR VOLUME 95 fL (79-100); MONO % 15 % (0-9); NEUT % 51 % (31-73); PLATELET COUNT 79 x10^3/uL (140-400); RED CELL DISTRIBUTION WIDTH 14.1 % (11.5-14.5); WHITE BLOOD COUNT 5.9 x10^3/uL (4.0-11.0)
[2017-10-18 07:26] LABS: CALCIUM 8.9 mg/dL (8.5-10.1); CREATININE 0.7 mg/dL (0.7-1.3); GFR 117.1; POTASSIUM 3.7 mmol/L (3.5-5.1)
[2017-10-18] MEDS: CITALOPRAM 20 MG TABLET. PO SCH (09:57)
[2017-10-18] MEDS: MULTIVITAMIN with MINERAL TABLET. PO SCH (09:57)
[2017-10-18] MEDS: THIAMINE 100 MG TABLET. PO SCH (09:57)
[2017-10-18] MEDS: TOPIRAMATE 25 MG TABLET. PO SCH ×2 (09:57→20:12)
[2017-10-18] MEDS: LISINOPRIL 40 MG TABLET. PO SCH (10:01)
[2017-10-18 11:28] VITALS: BP 114/82
[2017-10-18] MEDS: chlordiazePOXIDE HCL 25 MG CAPSULE PO PRN ×2 (12:07→19:14)
[2017-10-18] MEDS ORDERED: LOPERAMIDE 2 MG CAPSULE PO PRN (12:30)
--- NOTE | 2017-10-18 12:33 | PDOC ---
PROGRESS NOTES Chief Complaint Chief Complaint Delirium tremors Alcoholism GERD Hypertension Hypercholesterolemia Hepatitis CAD status post [place] History of Present Illness History of Present Illness Transferred out of [facility] BUt still shakey, gait unsteady Ate breakfast but then diarrhea afterwards Agreed to stay Sitter at bedside PLAN: IImodium Send for stool c diff and cx Inc iVF rate Ativan CIWA COnt PO thiamine folate etc COnt sitter for now, if behaves then might be able to dc tonight SW [facility] referral Not ready to dc today MAg tmr Dw RN сергей and sitter Vitals Vitals Vital Signs Date Time Temp Pulse Resp B/P (MAP) Pulse Ox O2 Delivery O2 Flow Rate FiO2 10/18/17 11:28 98.3 93 18 114/82 (93) 94 Room Air 98.3 10/17/17 20:00 4.0 Physical Exam General: No acute distress, Other (unable to communicate) Heart: Normal S1, Normal S2 Lungs: Clear, Other (No wheezes or crack) Abdomen: Normal bowel sounds, Soft Extremities: No clubbing, No cyanosis Skin: No rashes, No breakdown Labs LABS Laboratory Tests Test 10/18/17 07:00 White Blood Count 5.9 x10^3/uL (4.0-11.0) Red Blood Count 4.40 x10^6/uL (4.30-5.70) Hemoglobin 14.1 g/dL (13.0-17.5) Hematocrit 41.9 % (39.0-53.0) Mean Corpuscular Volume 95 fL (79-100) Mean Corpuscular Hemoglobin 32 pg (25-35) Mean Corpuscular Hemoglobin Concent 34 g/dL (31-37) Red Cell Distribution Width 14.1 % (11.5-14.5) Platelet Count 79 x10^3/uL (140-400) Neutrophils (%) (Auto) 51 % (31-73) Lymphocytes (%) (Auto) 28 % (24-48) Monocytes (%) (Auto) 15 % (0-9) Eosinophils (%) (Auto) 4 % (0-3) Basophils (%) (Auto) 1 % (0-3) Neutrophils # (Auto) 3.0 x10^3uL (1.8-7.7) Lymphocytes # (Auto) 1.7 x10^3/uL (1.0-4.8) Monocytes # (Auto) 0.9 x10^3/uL (0.0-1.1) Eosinophils # (Auto) 0.3 x10^3/uL (0.0-0.7) Basophils # (Auto) 0.1 x10^3/uL (0.0-0.2) Sodium Level 137 mmol/L (136-145) Potassium Level 3.7 mmol/L (3.5-5.1) Chloride Level 101 mmol/L (98-107) Carbon Dioxide Level 25 mmol/L (21-32) Anion Gap 11 (6-14) Blood Urea Nitrogen 10 mg/dL (8-26) Creatinine 0.7 mg/dL (0.7-1.3) Estimated GFR (Cockcroft-Gault) 117.1 Glucose Level 90 mg/dL (70-99) Calcium Level 8.9 mg/dL (8.5-10.1) Review of Systems Review of Systems shakey, diarrhea, no cp, soa, abd pain Assessment and Plan Assessmemt and Plan Problems Medical Problems: (1) Delirium tremens Status: Acute Problems: Comment Review of Relevant I have reviewed the following items keisha (where applicable) has been applied. Labs Laboratory Tests Test 10/17/17 05:00 10/18/17 07:00 White Blood Count 3.8 x10^3/uL (4.0-11.0) 5.9 x10^3/uL (4.0-11.0) Red Blood Count 4.49 x10^6/uL (4.30-5.70) 4.40 x10^6/uL (4.30-5.70) Hemoglobin 14.2 g/dL (13.0-17.5) 14.1 g/dL (13.0-17.5) Hematocrit 42.9 % (39.0-53.0) 41.9 % (39.0-53.0) Mean Corpuscular Volume 96 fL (79-100) 95 fL (79-100) Mean Corpuscular Hemoglobin 32 pg (25-35) 32 pg (25-35) Mean Corpuscular Hemoglobin Concent 33 g/dL (31-37) 34 g/dL (31-37) Red Cell Distribution Width 14.6 % (11.5-14.5) 14.1 % (11.5-14.5) Platelet Count 94 x10^3/uL (140-400) 79 x10^3/uL (140-400) Neutrophils (%) (Auto) 53 % (31-73) 51 % (31-73) Lymphocytes (%) (Auto) 26 % (24-48) 28 % (24-48) Monocytes (%) (Auto) 16 % (0-9) 15 % (0-9) Eosinophils (%) (Auto) 4 % (0-3) 4 % (0-3) Basophils (%) (Auto) 1 % (0-3) 1 % (0-3) Neutrophils # (Auto) 2.0 x10^3uL (1.8-7.7) 3.0 x10^3uL (1.8-7.7) Lymphocytes # (Auto) 1.0 x10^3/uL (1.0-4.8) 1.7 x10^3/uL (1.0-4.8) Monocytes # (Auto) 0.6 x10^3/uL (0.0-1.1) 0.9 x10^3/uL (0.0-1.1) Eosinophils # (Auto) 0.1 x10^3/uL (0.0-0.7) 0.3 x10^3/uL (0.0-0.7) Basophils # (Auto) 0.1 x10^3/uL (0.0-0.2) 0.1 x10^3/uL (0.0-0.2) Sodium Level 136 mmol/L (136-145) 137 mmol/L (136-145) Potassium Level 3.2 mmol/L (3.5-5.1) 3.7 mmol/L (3.5-5.1) Chloride Level 98 mmol/L (98-107) 101 mmol/L (98-107) Carbon Dioxide Level 30 mmol/L (21-32) 25 mmol/L (21-32) Anion Gap 8 (6-14) 11 (6-14) Blood Urea Nitrogen 8 mg/dL (8-26) 10 mg/dL (8-26) Creatinine 0.6 mg/dL (0.7-1.3) 0.7 mg/dL (0.7-1.3) Estimated GFR (Cockcroft-Gault) 139.9 117.1 Glucose Level 88 mg/dL (70-99) 90 mg/dL (70-99) Calcium Level 8.9 mg/dL (8.5-10.1) 8.9 mg/dL (8.5-10.1) Laboratory Tests Test 10/18/17 07:00 White Blood Count 5.9 x10^3/uL (4.0-11.0) Red Blood Count 4.40 x10^6/uL (4.30-5.70) Hemoglobin 14.1 g/dL (13.0-17.5) Hematocrit 41.9 % (39.0-53.0) Mean Corpuscular Volume 95 fL (79-100) Mean Corpuscular Hemoglobin 32 pg (25-35) Mean Corpuscular Hemoglobin Concent 34 g/dL (31-37) Red Cell Distribution Width 14.1 % (11.5-14.5) Platelet Count 79 x10^3/uL (140-400) Neutrophils (%) (Auto) 51 % (31-73) Lymphocytes (%) (Auto) 28 % (24-48) Monocytes (%) (Auto) 15 % (0-9) Eosinophils (%) (Auto) 4 % (0-3) Basophils (%) (Auto) 1 % (0-3) Neutrophils # (Auto) 3.0 x10^3uL (1.8-7.7) Lymphocytes # (Auto) 1.7 x10^3/uL (1.0-4.8) Monocytes # (Auto) 0.9 x10^3/uL (0.0-1.1) Eosinophils # (Auto) 0.3 x10^3/uL (0.0-0.7) Basophils # (Auto) 0.1 x10^3/uL (0.0-0.2) Sodium Level 137 mmol/L (136-145) Potassium Level 3.7 mmol/L (3.5-5.1) Chloride Level 101 mmol/L (98-107) Carbon Dioxide Level 25 mmol/L (21-32) Anion Gap 11 (6-14) Blood Urea Nitrogen 10 mg/dL (8-26) Creatinine 0.7 mg/dL (0.7-1.3) Estimated GFR (Cockcroft-Gault) 117.1 Glucose Level 90 mg/dL (70-99) Calcium Level 8.9 mg/dL (8.5-10.1) Microbiology 10/16/17 Urine Culture - Preliminary, Resulted 10/16/17 Urine Culture Result 1 (ROSANA) - Preliminary, Resulted Medications Current Medications Multivitamins 10 ml/Thiamine HCl 100 mg/Folic Acid 1 mg/Sodium Chloride 1,011.2 ml @ 1,000 mls/ hr 1X ONCE IV Last administered on 10/16/17 10:36; Start 10/16/17 at 10:30; Stop 10/16/17 at 11:30; Status DC Haloperidol Lactate (Haldol) 5 mg PRN Q4HRS PRN IVP Hallucinatns,Confusn, Delirium Last administered on 10/17/17 12:41; Start 10/16/17 at 10:15 Diphenhydramine HCl (Benadryl) 25 mg PRN Q15MIN PRN IVP EPS symptoms 2'Haldol admin; Start 10/16/17 at 10:15 Lorazepam (Ativan) 2 mg PRN Q15MIN PRN IV COMM Last administered on 10/18/17 09:57; Start 10/16/17 at 10:15; Stop 10/18/17 at 12:27; Status DC Lorazepam (Ativan) 4 mg PRN Q15MIN PRN IV COMM Last administered on 10/18/17 04:11; Start 10/16/17 at 10:15; Stop 10/18/17 at 12:28; Status DC Ondansetron HCl (Zofran) 4 mg PRN Q8HRS PRN IV NAUSEA/VOMITING Last administered on 10/16/17 20:30; Start 10/16/17 at 11:30; Stop 10/17/17 at 11 :29; Status DC Magnesium Sulfate/ Dextrose 50 ml @ 25 mls/hr 1X ONCE IV Last administered on 10/16/17 11:41; Start 10/16/17 at 12:00; Stop 10/16/17 at 13:59; Status DC Potassium Chloride/Dextrose/ Sod Cl 1,000 ml @ 75 mls/hr 1X ONCE IV Last administered on 10/16/17 11:41; Start 10/16/17 at 12:00; Stop 10/17/17 at 01 :19; Status DC Topiramate (Topamax) 25 mg BID PO Last administered on 10/18/17 09:57; Start 10/16/17 at 21:00 Albuterol Sulfate (Ventolin Neb Soln) 2.5 mg PRN QID PRN NEB SHORTNESS OF BREATH; Start 10/16/17 at 14:45 Citalopram Hydrobromide (CeleXA) 20 mg DAILY PO Last administered on 09:57; Start 10/16/17 at 15:30 Thiamine Mononitrate (Vitamin B-1) 100 mg DAILY PO Last administered on 09:57; Start 10/17/17 at 09:00 Lisinopril (Prinivil) 40 mg DAILY PO Last administered on 10/18/17 10:01; Start 10/16/17 at 15:30 Multivitamins (Thera M Plus) 1 tab DAILY PO Last administered on 10/18/17 09: 57; Start 10/17/17 at 09:00 Lacosamide (Vimpat) 200 mg [id number] PO Last administered on 10/18/17 04:11; Start 10/16/17 at 18:00 Potassium Chloride/Dextrose/ Sod Cl 1,000 ml @ 75 mls/hr 1X ONCE IV Last administered on 10/17/17 02:02; Start 10/17/17 at 02:00; Stop 10/17/17 at 15 :19; Status DC Sodium Chloride 1,000 ml @ 100 mls/hr Q10H IV Last administered on 10/18/17 04:09; Start 10/17/17 at 14:00 Chlordiazepoxide (Librium) 25 mg PRN Q6HRS PRN PO ANXIETY / AGITATION Last administered on 10/18/17 12:07; Start 10/18/17 at 09:30 Loperamide HCl (Imodium) 2 mg PRN Q15MIN PRN PO DIARRHEA; Start 10/18/17 at 12 :30; Status UNV Lorazepam (Ativan) 2 mg PRN Q4HRS PRN IV ANXIETY / AGITATION; Start 10/18/17 at 12:30; Status UNV Active Scripts Active Ativan (Lorazepam) 0.5 Mg Tablet 0.5 Mg PO PRN TID PRN Escitalopram Oxalate 10 Mg Tablet 10 Mg PO DAILY [Lisinopril] 40 MG Tablet 40 Mg PO DAILY Clonazepam 0.25 Mg Tab.rapdis 0.75 Mg PO PRN TID PRN Vitamin B-1 (Thiamine Hcl) 100 Mg Tablet 100 Mg PO DAILY Mag-Oxide (Magnesium Oxide) 400 Mg Tablet 400 Mg PO BID Folic Acid 1 Mg Tablet 1 Mg PO DAILY Topamax (Topiramate) 25 Mg Tablet 1 Tab PO BID Ibuprofen 200 Mg Tablet 200 Mg PO PRN Q6HRS PRN Vimpat (Lacosamide) 200 Mg Tablet 200 Mg PO [id number] Epipen 2-Erickson (Epinephrine) 0.3 Mg/0.3 Ml Auto.injct 0.3 Mg IJ 1X PRN [Multivitamins,Therapeutic] 1 TAB Tablet 1 Tab PO DAILY Reported Combivent Respimat Inhal (Ipratropium/Albuterol Sulfate) 4 Gm Aer.w.adap 1 Puff INH QIDPRN PRN Proair Hfa Inhaler (Albuterol Sulfate) 8.5 Gm Hfa.aer.ad 1 Puff INH QIDPRN PRN Vitals/I & O Vital Sign - Last 24 Hours 10/17/17 10/17/17 10/17/17 10/17/17 14:57 19:44 20:00 23:31 Temp 97.9 98.1 98.8 97.9 98.1 98.8 Pulse 88 61 83 Resp 18 18 18 B/P (MAP) 111/70 (84) 125/77 (93) 124/61 (82) Pulse Ox 91 96 93 O2 Delivery Room Air Room Air Nasal Cannula Room Air O2 Flow Rate 4.0 10/18/17 10/18/17 10/18/17 10/18/17 03:34 07:00 08:00 10:01 Temp 97.9 98.0 97.9 98.0 Pulse 104 92 92 Resp 22 18 B/P (MAP) 98/64 (75) 126/81 (96) 126/81 Pulse Ox 92 91 O2 Delivery Room Air Room Air Room Air 10/18/17 11:28 Temp 98.3 98.3 Pulse 93 Resp 18 B/P (MAP) 114/82 (93) Pulse Ox 94 O2 Delivery Room Air Intake and Output 1110/17/17 10/18/17 15:00 23:00 07:00 Intake Total 0 ml 200 ml 1550 ml Output Total 0 ml 100 ml 300 ml Balance 0 ml 100 ml 1250 ml LEONARDO PARISH MD Oct 18, 2017 12:33
[2017-10-18 15:27] VITALS: BP 121/84
[2017-10-18] MEDS: NICOTINE 21MG PATCH. TD SCH (16:28)
[2017-10-18 19:20] VITALS: BP 152/94
[2017-10-18] MEDS: HALOPERIDOL LACTATE 5 MG/ML VIAL. IVP PRN (21:09)
[2017-10-18 23:00] VITALS: BP 132/97
[2017-10-19 03:00] VITALS: BP 146/96
[2017-10-19] MEDS: LACOSAMIDE 200 MG TABLET PO SCH ×2 (06:13→17:38)
[2017-10-19 07:00] VITALS: BP 138/96
[2017-10-19] MEDS: IV NORMAL SALINE 1000ML BAG 1,000 ML IV SCH (07:23)
[2017-10-19 07:47] LABS: BASO # 0.1 x10^3/uL (0.0-0.2); BASO % 1 % (0-3); EOS % 7 % (0-3); HEMOGLOBIN 13.6 g/dL (13.0-17.5); LYMPH # 1.4 x10^3/uL (1.0-4.8); LYMPH % 29 % (24-48); MEAN CORPUSCULAR HEMOGLOBIN 32 pg (25-35); MEAN CORPUSCULAR HGB CONC 33 g/dL (31-37); MEAN CORPUSCULAR VOLUME 96 fL (79-100); MONO % 15 % (0-9); NEUT % 47 % (31-73); PLATELET COUNT 91 x10^3/uL (140-400); RED BLOOD COUNT 4.27 x10^6/uL (4.30-5.70); RED CELL DISTRIBUTION WIDTH 14.2 % (11.5-14.5); WHITE BLOOD COUNT 4.8 x10^3/uL (4.0-11.0)
[2017-10-19 08:07] LABS: CALCIUM 9.1 mg/dL (8.5-10.1); CREATININE 0.5 mg/dL (0.7-1.3); GFR 172.6; MAGNESIUM 1.6 mg/dL (1.8-2.4); POTASSIUM 3.2 mmol/L (3.5-5.1)
[2017-10-19] MEDS: TOPIRAMATE 25 MG TABLET. PO SCH ×2 (09:27→21:15)
[2017-10-19] MEDS: MULTIVITAMIN with MINERAL TABLET. PO SCH (09:27)
[2017-10-19] MEDS: THIAMINE 100 MG TABLET. PO SCH (09:27)
[2017-10-19] MEDS: LISINOPRIL 40 MG TABLET. PO SCH (09:27)
[2017-10-19] MEDS: CITALOPRAM 20 MG TABLET. PO SCH (09:27)
[2017-10-19] MEDS: NICOTINE 21MG PATCH. TD SCH (09:28)
[2017-10-19 11:00] VITALS: BP 141/89
[2017-10-19] MEDS: chlordiazePOXIDE HCL 25 MG CAPSULE PO PRN ×2 (11:23→17:38)
[2017-10-19] MEDS ORDERED: MAGNESIUM SULFATE 4GM 100 ML IV ONE (14:00)
[2017-10-19] MEDS ORDERED: POTASSIUM CHLORIDE 20 MEQ TABLET.ER. PO ONE (14:00)
[2017-10-19 15:06] VITALS: BP 138/85
--- NOTE | 2017-10-19 15:14 | PDOC ---
PROGRESS NOTES Chief Complaint Chief Complaint Delirium tremors Alcoholism GERD Hypertension Hypercholesterolemia Hepatitis CAD status post [place] non compliance with prior attempts at helping him History of Present Illness History of Present Illness on med surg floor, BUt still shakey, gait unsteady no diarrhea today, does not understand why he is here today, S c diff pending, but no diarrhea Ativan CIWA Cont PO thiamine folate etc DC sitter SW AAA referral Not ready to dc today Mag 4 grams Vitals Vitals Vital Signs Date Time Temp Pulse Resp B/P (MAP) Pulse Ox O2 Delivery O2 Flow Rate FiO2 10/19/17 15:06 97.9 81 18 138/85 (102) 94 Room Air 97.9 Physical Exam General: Alert, No acute distress, Other (unable to communicate) Heart: Normal S1, Normal S2 Lungs: Clear, Other (No wheezes or crack) Abdomen: Normal bowel sounds, Soft Extremities: No clubbing, No cyanosis Skin: No rashes, No breakdown Labs LABS Laboratory Tests Test 10/19/17 07:30 White Blood Count 4.8 x10^3/uL (4.0-11.0) Red Blood Count 4.27 x10^6/uL (4.30-5.70) Hemoglobin 13.6 g/dL (13.0-17.5) Hematocrit 41.0 % (39.0-53.0) Mean Corpuscular Volume 96 fL (79-100) Mean Corpuscular Hemoglobin 32 pg (25-35) Mean Corpuscular Hemoglobin Concent 33 g/dL (31-37) Red Cell Distribution Width 14.2 % (11.5-14.5) Platelet Count 91 x10^3/uL (140-400) Neutrophils (%) (Auto) 47 % (31-73) Lymphocytes (%) (Auto) 29 % (24-48) Monocytes (%) (Auto) 15 % (0-9) Eosinophils (%) (Auto) 7 % (0-3) Basophils (%) (Auto) 1 % (0-3) Neutrophils # (Auto) 2.3 x10^3uL (1.8-7.7) Lymphocytes # (Auto) 1.4 x10^3/uL (1.0-4.8) Monocytes # (Auto) 0.7 x10^3/uL (0.0-1.1) Eosinophils # (Auto) 0.3 x10^3/uL (0.0-0.7) Basophils # (Auto) 0.1 x10^3/uL (0.0-0.2) Sodium Level 138 mmol/L (136-145) Potassium Level 3.2 mmol/L (3.5-5.1) Chloride Level 104 mmol/L (98-107) Carbon Dioxide Level 23 mmol/L (21-32) Anion Gap 11 (6-14) Blood Urea Nitrogen 8 mg/dL (8-26) Creatinine 0.5 mg/dL (0.7-1.3) Estimated GFR (Cockcroft-Gault) 172.6 Glucose Level 95 mg/dL (70-99) Calcium Level 9.1 mg/dL (8.5-10.1) Magnesium Level 1.6 mg/dL (1.8-2.4) Review of Systems Review of Systems nausea weakenss Assessment and Plan Assessmemt and Plan Problems Medical Problems: (1) Delirium tremens Status: Acute Problems: Comment Review of Relevant I have reviewed the following items keisha (where applicable) has been applied. Labs Laboratory Tests Test 10/18/17 07:00 10/19/17 07:30 White Blood Count 5.9 x10^3/uL (4.0-11.0) 4.8 x10^3/uL (4.0-11.0) Red Blood Count 4.40 x10^6/uL (4.30-5.70) 4.27 x10^6/uL (4.30-5.70) Hemoglobin 14.1 g/dL (13.0-17.5) 13.6 g/dL (13.0-17.5) Hematocrit 41.9 % (39.0-53.0) 41.0 % (39.0-53.0) Mean Corpuscular Volume 95 fL (79-100) 96 fL (79-100) Mean Corpuscular Hemoglobin 32 pg (25-35) 32 pg (25-35) Mean Corpuscular Hemoglobin Concent 34 g/dL (31-37) 33 g/dL (31-37) Red Cell Distribution Width 14.1 % (11.5-14.5) 14.2 % (11.5-14.5) Platelet Count 79 x10^3/uL (140-400) 91 x10^3/uL (140-400) Neutrophils (%) (Auto) 51 % (31-73) 47 % (31-73) Lymphocytes (%) (Auto) 28 % (24-48) 29 % (24-48) Monocytes (%) (Auto) 15 % (0-9) 15 % (0-9) Eosinophils (%) (Auto) 4 % (0-3) 7 % (0-3) Basophils (%) (Auto) 1 % (0-3) 1 % (0-3) Neutrophils # (Auto) 3.0 x10^3uL (1.8-7.7) 2.3 x10^3uL (1.8-7.7) Lymphocytes # (Auto) 1.7 x10^3/uL (1.0-4.8) 1.4 x10^3/uL (1.0-4.8) Monocytes # (Auto) 0.9 x10^3/uL (0.0-1.1) 0.7 x10^3/uL (0.0-1.1) Eosinophils # (Auto) 0.3 x10^3/uL (0.0-0.7) 0.3 x10^3/uL (0.0-0.7) Basophils # (Auto) 0.1 x10^3/uL (0.0-0.2) 0.1 x10^3/uL (0.0-0.2) Sodium Level 137 mmol/L (136-145) 138 mmol/L (136-145) Potassium Level 3.7 mmol/L (3.5-5.1) 3.2 mmol/L (3.5-5.1) Chloride Level 101 mmol/L (98-107) 104 mmol/L (98-107) Carbon Dioxide Level 25 mmol/L (21-32) 23 mmol/L (21-32) Anion Gap 11 (6-14) 11 (6-14) Blood Urea Nitrogen 10 mg/dL (8-26) 8 mg/dL (8-26) Creatinine 0.7 mg/dL (0.7-1.3) 0.5 mg/dL (0.7-1.3) Estimated GFR (Cockcroft-Gault) 117.1 172.6 Glucose Level 90 mg/dL (70-99) 95 mg/dL (70-99) Calcium Level 8.9 mg/dL (8.5-10.1) 9.1 mg/dL (8.5-10.1) Magnesium Level 1.6 mg/dL (1.8-2.4) Laboratory Tests Test 10/19/17 07:30 White Blood Count 4.8 x10^3/uL (4.0-11.0) Red Blood Count 4.27 x10^6/uL (4.30-5.70) Hemoglobin 13.6 g/dL (13.0-17.5) Hematocrit 41.0 % (39.0-53.0) Mean Corpuscular Volume 96 fL (79-100) Mean Corpuscular Hemoglobin 32 pg (25-35) Mean Corpuscular Hemoglobin Concent 33 g/dL (31-37) Red Cell Distribution Width 14.2 % (11.5-14.5) Platelet Count 91 x10^3/uL (140-400) Neutrophils (%) (Auto) 47 % (31-73) Lymphocytes (%) (Auto) 29 % (24-48) Monocytes (%) (Auto) 15 % (0-9) Eosinophils (%) (Auto) 7 % (0-3) Basophils (%) (Auto) 1 % (0-3) Neutrophils # (Auto) 2.3 x10^3uL (1.8-7.7) Lymphocytes # (Auto) 1.4 x10^3/uL (1.0-4.8) Monocytes # (Auto) 0.7 x10^3/uL (0.0-1.1) Eosinophils # (Auto) 0.3 x10^3/uL (0.0-0.7) Basophils # (Auto) 0.1 x10^3/uL (0.0-0.2) Sodium Level 138 mmol/L (136-145) Potassium Level 3.2 mmol/L (3.5-5.1) Chloride Level 104 mmol/L (98-107) Carbon Dioxide Level 23 mmol/L (21-32) Anion Gap 11 (6-14) Blood Urea Nitrogen 8 mg/dL (8-26) Creatinine 0.5 mg/dL (0.7-1.3) Estimated GFR (Cockcroft-Gault) 172.6 Glucose Level 95 mg/dL (70-99) Calcium Level 9.1 mg/dL (8.5-10.1) Magnesium Level 1.6 mg/dL (1.8-2.4) Microbiology 10/16/17 Urine Culture - Final, Complete 10/16/17 Urine Culture Result 1 (ROSANA) - Final, Complete Medications Current Medications Multivitamins 10 ml/Thiamine HCl 100 mg/Folic Acid 1 mg/Sodium Chloride 1,011.2 ml @ 1,000 mls/ hr 1X ONCE IV Last administered on 10/16/17 10:36; Start 10/16/17 at 10:30; Stop 10/16/17 at 11:30; Status DC Haloperidol Lactate (Haldol) 5 mg PRN Q4HRS PRN IVP Hallucinatns,Confusn, Delirium Last administered on 10/18/17 21:09; Start 10/16/17 at 10:15 Diphenhydramine HCl (Benadryl) 25 mg PRN Q15MIN PRN IVP EPS symptoms 2'Haldol admin; Start 10/16/17 at 10:15 Lorazepam (Ativan) 2 mg PRN Q15MIN PRN IV COMM Last administered on 10/18/17 09:57; Start 10/16/17 at 10:15; Stop 10/18/17 at 12:27; Status DC Lorazepam (Ativan) 4 mg PRN Q15MIN PRN IV COMM Last administered on 10/18/17 04:11; Start 10/16/17 at 10:15; Stop 10/18/17 at 12:28; Status DC Ondansetron HCl (Zofran) 4 mg PRN Q8HRS PRN IV NAUSEA/VOMITING Last administered on 10/16/17 20:30; Start 10/16/17 at 11:30; Stop 10/17/17 at 11 :29; Status DC Magnesium Sulfate/ Dextrose 50 ml @ 25 mls/hr 1X ONCE IV Last administered on 10/16/17 11:41; Start 10/16/17 at 12:00; Stop 10/16/17 at 13:59; Status DC Potassium Chloride/Dextrose/ Sod Cl 1,000 ml @ 75 mls/hr 1X ONCE IV Last administered on 10/16/17 11:41; Start 10/16/17 at 12:00; Stop 10/17/17 at 01 :19; Status DC Topiramate (Topamax) 25 mg BID PO Last administered on 10/19/17 09:27; Start 10/16/17 at 21:00 Albuterol Sulfate (Ventolin Neb Soln) 2.5 mg PRN QID PRN NEB SHORTNESS OF BREATH; Start 10/16/17 at 14:45 Citalopram Hydrobromide (CeleXA) 20 mg DAILY PO Last administered on 09:27; Start 10/16/17 at 15:30 Thiamine Mononitrate (Vitamin B-1) 100 mg DAILY PO Last administered on 09:27; Start 10/17/17 at 09:00 Lisinopril (Prinivil) 40 mg DAILY PO Last administered on 10/19/17 09:27; Start 10/16/17 at 15:30 Multivitamins (Thera M Plus) 1 tab DAILY PO Last administered on 10/19/17 09: 27; Start 10/17/17 at 09:00 Lacosamide (Vimpat) 200 mg [id number] PO Last administered on 10/19/17 06:13; Start 10/16/17 at 18:00 Potassium Chloride/Dextrose/ Sod Cl 1,000 ml @ 75 mls/hr 1X ONCE IV Last administered on 10/17/17 02:02; Start 10/17/17 at 02:00; Stop 10/17/17 at 15 :19; Status DC Sodium Chloride 1,000 ml @ 100 mls/hr Q10H IV Last administered on 10/19/17 07:23; Start 10/17/17 at 14:00; Stop 10/19/17 at 13:23; Status DC Chlordiazepoxide (Librium) 25 mg PRN Q6HRS PRN PO ANXIETY / AGITATION Last administered on 10/19/17 11:23; Start 10/18/17 at 09:30 Loperamide HCl (Imodium) 2 mg PRN Q15MIN PRN PO DIARRHEA; Start 10/18/17 at 12 :30 Lorazepam (Ativan) 2 mg PRN Q4HRS PRN IV ANXIETY / AGITATION Last administered on 10/19/17 14:35; Start 10/18/17 at 12:30 Nicotine (Nicoderm Cq 21mg) 1 patch DAILY TD Last administered on 10/19/17 09 :28; Start 10/18/17 at 16:30 Magnesium Sulfate/ Dextrose 100 ml @ 25 mls/hr 1X ONCE IV Last administered on 10/19/17 13:51; Start 10/19/17 at 14:00; Stop 10/19/17 at 17:59 Potassium Chloride (Klor-Con) 20 meq DAILYWBKFT PO ; Start 10/20/17 at 08:00 Potassium Chloride (Klor-Con) 40 meq 1X ONCE PO Last administered on 13:50; Start 10/19/17 at 14:00; Stop 10/19/17 at 14:01; Status DC Active Scripts Active Ativan (Lorazepam) 0.5 Mg Tablet 0.5 Mg PO PRN TID PRN Escitalopram Oxalate 10 Mg Tablet 10 Mg PO DAILY [Lisinopril] 40 MG Tablet 40 Mg PO DAILY Clonazepam 0.25 Mg Tab.rapdis 0.75 Mg PO PRN TID PRN Vitamin B-1 (Thiamine Hcl) 100 Mg Tablet 100 Mg PO DAILY Mag-Oxide (Magnesium Oxide) 400 Mg Tablet 400 Mg PO BID Folic Acid 1 Mg Tablet 1 Mg PO DAILY Topamax (Topiramate) 25 Mg Tablet 1 Tab PO BID Ibuprofen 200 Mg Tablet 200 Mg PO PRN Q6HRS PRN Vimpat (Lacosamide) 200 Mg Tablet 200 Mg PO [id number] Epipen 2-Erickson (Epinephrine) 0.3 Mg/0.3 Ml Auto.injct 0.3 Mg IJ 1X PRN [Multivitamins,Therapeutic] 1 TAB Tablet 1 Tab PO DAILY Reported Combivent Respimat Inhal (Ipratropium/Albuterol Sulfate) 4 Gm Aer.w.adap 1 Puff INH QIDPRN PRN Proair Hfa Inhaler (Albuterol Sulfate) 8.5 Gm Hfa.aer.ad 1 Puff INH QIDPRN PRN Vitals/I & O Vital Sign - Last 24 Hours 10/18/17 10/18/17 10/18/17 10/18/17 15:27 19:20 20:00 23:00 Temp 98.9 100.0 99.5 98.9 100.0 99.5 Pulse 85 89 88 Resp 18 20 18 B/P (MAP) 121/84 (96) 152/94 (113) 132/97 (109) Pulse Ox 92 94 96 O2 Delivery Room Air Room Air Room Air Room Air 10/19/17 10/19/17 10/19/17 10/19/17 03:00 07:00 08:00 09:27 Temp 98.1 98.1 98.1 98.1 Pulse 89 70 70 Resp 18 18 B/P (MAP) 146/96 (113) 138/96 (110) 138/96 Pulse Ox 95 95 O2 Delivery Room Air Room Air Room Air 10/19/17 10/19/17 11:00 15:06 Temp 97.6 97.9 97.6 97.9 Pulse 85 81 Resp 18 18 B/P (MAP) 141/89 (106) 138/85 (102) Pulse Ox 94 94 O2 Delivery Room Air Room Air Intake and Output 10/18/17 10/18/17 10/19/17 15:00 23:00 07:00 Intake Total 350 ml 1784 ml 1095 ml Balance 350 ml 1784 ml 1095 ml BOB SANTANA MD Oct 19, 2017 15:14
[2017-10-19] MEDS: HALOPERIDOL LACTATE 5 MG/ML VIAL. IVP PRN ×2 (15:38→21:14)
[2017-10-19 19:00] VITALS: BP 134/81
[2017-10-19 23:00] VITALS: BP 130/76
[2017-10-20 02:56] VITALS: BP 122/81
[2017-10-20 06:19] LABS: BASO # 0.1 x10^3/uL (0.0-0.2); BASO % 1 % (0-3); EOS % 9 % (0-3); HEMATOCRIT 44.2 % (39.0-53.0); HEMOGLOBIN 14.5 g/dL (13.0-17.5); LYMPH # 1.6 x10^3/uL (1.0-4.8); LYMPH % 32 % (24-48); MEAN CORPUSCULAR HEMOGLOBIN 32 pg (25-35); MEAN CORPUSCULAR HGB CONC 33 g/dL (31-37); MEAN CORPUSCULAR VOLUME 96 fL (79-100); MONO % 15 % (0-9); NEUT % 43 % (31-73); PLATELET COUNT 118 x10^3/uL (140-400); RED BLOOD COUNT 4.61 x10^6/uL (4.30-5.70); RED CELL DISTRIBUTION WIDTH 14.3 % (11.5-14.5); WHITE BLOOD COUNT 5.2 x10^3/uL (4.0-11.0)
[2017-10-20 06:35] LABS: CALCIUM 9.6 mg/dL (8.5-10.1); CREATININE 0.6 mg/dL (0.7-1.3); GFR 139.9; POTASSIUM 4.1 mmol/L (3.5-5.1)
[2017-10-20] MEDS: LACOSAMIDE 200 MG TABLET PO SCH ×2 (06:49→17:46)
[2017-10-20 07:00] VITALS: BP 125/74
[2017-10-20] MEDS ORDERED: POTASSIUM CHLORIDE 20 MEQ TABLET.ER. PO SCH (08:00)
[2017-10-20] MEDS: TOPIRAMATE 25 MG TABLET. PO SCH (09:58)
[2017-10-20] MEDS: NICOTINE 21MG PATCH. TD SCH (09:58)
[2017-10-20] MEDS: THIAMINE 100 MG TABLET. PO SCH (09:58)
[2017-10-20] MEDS: LISINOPRIL 40 MG TABLET. PO SCH (09:59)
[2017-10-20] MEDS: MULTIVITAMIN with MINERAL TABLET. PO SCH (09:59)
[2017-10-20] MEDS: CITALOPRAM 20 MG TABLET. PO SCH (09:59)
[2017-10-20 10:46] VITALS: BP 130/72
--- NOTE | 2017-10-20 12:06 | PDOC3 ---
Discharge Summary Visit Information Date of Admission: Oct 16, 2017 Date of Discharge: Oct 20, 2017 Admitting Diagnosis: EtOH withdrawl Final Diagnosis Delirium tremors Alcoholism, ongoing abuse GERD Hypertension Hypercholesterolemia Hepatitis CAD status post [place] non compliance with prior attempts at helping him tobaccoism Vitals Problems Medical Problems: (1) Delirium tremens Status: Acute Brief Hospital Course Allergies Allergies Coded Allergies Type Severity Reaction Last Updated Verified No Known Drug Allergies 07/25/16 No Vital Signs Vital Signs Date Time Temp Pulse Resp B/P (MAP) Pulse Ox O2 Delivery O2 Flow Rate FiO2 10/20/17 10:46 97.9 71 18 130/72 (91) 93 Room Air 97.9 10/19/17 20:00 4.0 Lab Results Laboratory Tests Test 10/19/17 07:30 10/20/17 05:30 White Blood Count 4.8 x10^3/uL (4.0-11.0) 5.2 x10^3/uL (4.0-11.0) Red Blood Count 4.27 x10^6/uL (4.30-5.70) 4.61 x10^6/uL (4.30-5.70) Hemoglobin 13.6 g/dL (13.0-17.5) 14.5 g/dL (13.0-17.5) Hematocrit 41.0 % (39.0-53.0) 44.2 % (39.0-53.0) Mean Corpuscular Volume 96 fL (79-100) 96 fL (79-100) Mean Corpuscular Hemoglobin 32 pg (25-35) 32 pg (25-35) Mean Corpuscular Hemoglobin Concent 33 g/dL (31-37) 33 g/dL (31-37) Red Cell Distribution Width 14.2 % (11.5-14.5) 14.3 % (11.5-14.5) Platelet Count 91 x10^3/uL (140-400) 118 x10^3/uL (140-400) Neutrophils (%) (Auto) 47 % (31-73) 43 % (31-73) Lymphocytes (%) (Auto) 29 % (24-48) 32 % (24-48) Monocytes (%) (Auto) 15 % (0-9) 15 % (0-9) Eosinophils (%) (Auto) 7 % (0-3) 9 % (0-3) Basophils (%) (Auto) 1 % (0-3) 1 % (0-3) Neutrophils # (Auto) 2.3 x10^3uL (1.8-7.7) 2.2 x10^3uL (1.8-7.7) Lymphocytes # (Auto) 1.4 x10^3/uL (1.0-4.8) 1.6 x10^3/uL (1.0-4.8) Monocytes # (Auto) 0.7 x10^3/uL (0.0-1.1) 0.8 x10^3/uL (0.0-1.1) Eosinophils # (Auto) 0.3 x10^3/uL (0.0-0.7) 0.5 x10^3/uL (0.0-0.7) Basophils # (Auto) 0.1 x10^3/uL (0.0-0.2) 0.1 x10^3/uL (0.0-0.2) Sodium Level 138 mmol/L (136-145) 137 mmol/L (136-145) Potassium Level 3.2 mmol/L (3.5-5.1) 4.1 mmol/L (3.5-5.1) Chloride Level 104 mmol/L (98-107) 103 mmol/L (98-107) Carbon Dioxide Level 23 mmol/L (21-32) 24 mmol/L (21-32) Anion Gap 11 (6-14) 10 (6-14) Blood Urea Nitrogen 8 mg/dL (8-26) 10 mg/dL (8-26) Creatinine 0.5 mg/dL (0.7-1.3) 0.6 mg/dL (0.7-1.3) Estimated GFR (Cockcroft-Gault) 172.6 139.9 Glucose Level 95 mg/dL (70-99) 91 mg/dL (70-99) Calcium Level 9.1 mg/dL (8.5-10.1) 9.6 mg/dL (8.5-10.1) Magnesium Level 1.6 mg/dL (1.8-2.4) Laboratory Tests Test 10/20/17 05:30 White Blood Count 5.2 x10^3/uL (4.0-11.0) Red Blood Count 4.61 x10^6/uL (4.30-5.70) Hemoglobin 14.5 g/dL (13.0-17.5) Hematocrit 44.2 % (39.0-53.0) Mean Corpuscular Volume 96 fL (79-100) Mean Corpuscular Hemoglobin 32 pg (25-35) Mean Corpuscular Hemoglobin Concent 33 g/dL (31-37) Red Cell Distribution Width 14.3 % (11.5-14.5) Platelet Count 118 x10^3/uL (140-400) Neutrophils (%) (Auto) 43 % (31-73) Lymphocytes (%) (Auto) 32 % (24-48) Monocytes (%) (Auto) 15 % (0-9) Eosinophils (%) (Auto) 9 % (0-3) Basophils (%) (Auto) 1 % (0-3) Neutrophils # (Auto) 2.2 x10^3uL (1.8-7.7) Lymphocytes # (Auto) 1.6 x10^3/uL (1.0-4.8) Monocytes # (Auto) 0.8 x10^3/uL (0.0-1.1) Eosinophils # (Auto) 0.5 x10^3/uL (0.0-0.7) Basophils # (Auto) 0.1 x10^3/uL (0.0-0.2) Sodium Level 137 mmol/L (136-145) Potassium Level 4.1 mmol/L (3.5-5.1) Chloride Level 103 mmol/L (98-107) Carbon Dioxide Level 24 mmol/L (21-32) Anion Gap 10 (6-14) Blood Urea Nitrogen 10 mg/dL (8-26) Creatinine 0.6 mg/dL (0.7-1.3) Estimated GFR (Cockcroft-Gault) 139.9 Glucose Level 91 mg/dL (70-99) Calcium Level 9.6 mg/dL (8.5-10.1) Brief Hospital Course Mr. Hemphill is a 57 old male, admit with EtOH Ativan CIWA Cont PO thiamine folate etc SW AAA referral done Mag 4 grams given Discharge Information Condition at Discharge: Improved Follow Up: Weeks Disposition/Orders: D/C to Home Scheduled Escitalopram Oxalate (Escitalopram Oxalate), 10 MG PO DAILY Folic Acid (Folic Acid), 1 MG PO DAILY Lacosamide (Vimpat), 200 MG PO [id number] Magnesium Oxide (Mag-Oxide), 400 MG PO BID Thiamine Hcl (Vitamin B-1), 100 MG PO DAILY Topiramate (Topamax), 1 TAB PO BID [Lisinopril], 40 MG PO DAILY [Multivitamins,Therapeutic], 1 TAB PO DAILY Scheduled PRN Albuterol Sulfate (Proair Hfa Inhaler), 1 PUFF INH QIDPRN PRN for SHORTNESS OF BREATH, (Reported) Clonazepam (Clonazepam), 0.75 MG PO PRN TID PRN for ANXIETY / AGITATION Epinephrine (Epipen 2-Erickson), 0.3 MG IJ 1X PRN for ANAPHYLAXIS Ibuprofen (Ibuprofen), 200 MG PO PRN Q6HRS PRN for INFLAMMATION Ipratropium/Albuterol Sulfate (Combivent Respimat Inhal), 1 PUFF INH QIDPRN PRN for SHORTNESS OF BREATH, (Reported) Lorazepam (Ativan), 0.5 MG PO PRN TID PRN for ANXIETY / AGITATION Patient Instructions Patient Instructions > 30 min face to face BOB SANTANA MD Oct 20, 2017 12:06
[2017-10-20] MEDS: chlordiazePOXIDE HCL 25 MG CAPSULE PO PRN (17:12)
[2017-11-17] MEDS ORDERED: MAGN400T22 PO (14:18)
== END 2017-10-20 20:40 | disposition home or self-care (01) | DRG 896 ==
LOC: ER 09:53 → 1 WEST ICU 10:35 → 5 SOUTH 10-17 13:56
PROVIDERS: ADMIT Internal Medicine Hematology & Oncology; ATTEND Internal Medicine Hematology & Oncology
DX: F10.231 Alcohol dependence with withdrawal delirium (principal); G92 Toxic encephalopathy; F14.10 Cocaine abuse, uncomplicated; J96.00 Acute respiratory failure, unspecified whether with hypoxia or hypercapnia; K75.9 Inflammatory liver disease, unspecified; E87.6 Hypokalemia; G25.1 Drug-induced tremor; E78.00 Pure hypercholesterolemia, unspecified; F17.200 Nicotine dependence, unspecified, uncomplicated; G40.909 Epilepsy, unspecified, not intractable, without status epilepticus; I10 Essential (primary) hypertension; I25.10 Atherosclerotic heart disease of native coronary artery without angina pectoris; I71.4 Abdominal aortic aneurysm, without rupture; K21.9 Gastro-esophageal reflux disease without esophagitis; Z91.19 Patient's noncompliance with other medical treatment and regimen; I25.2 Old myocardial infarction; Z87.81 Personal history of (healed) traumatic fracture
CPT/HCPCS: 36415; 51701; 70450; 71010; 80048; 80053; 80307; 81001; 83735; 85025; 87086; 87641; 93005; G0480; J1630; J2060; J2405; J3475; J7030; J7042; J7060; 97530; 99291-25; G0479

== ENCOUNTER 2017-11-17 11:17 | Emergency (ER) | payer OTHER ==
[2017-11-17] MEDS: THIAMINE 100 MG in IV DEXTROSE 5% 50 ML IV (12:46)
[2017-11-17] MEDS: IV NORMAL SALINE 1000ML BAG 1,000 ML IV (12:52)
[2017-11-17 13:30] LABS: ADD MAN DIFF? YES; BASO # 0.1 x10^3/uL (0.0-0.2); BASO % 4 % (0-3); EOS % 2 % (0-3); HEMATOCRIT 45.5 % (39.0-53.0); HEMOGLOBIN 15.2 g/dL (13.0-17.5); LYMPH # 1.3 x10^3/uL (1.0-4.8); LYMPH % 54 % (24-48); MEAN CORPUSCULAR HEMOGLOBIN 31 pg (25-35); MEAN CORPUSCULAR HGB CONC 33 g/dL (31-37); MEAN CORPUSCULAR VOLUME 94 fL (79-100); MONO % 20 % (0-9); NEUT % 20 % (31-73); PLATELET COUNT 98 x10^3/uL (140-400); RED BLOOD COUNT 4.85 x10^6/uL (4.30-5.70); RED CELL DISTRIBUTION WIDTH 15.4 % (11.5-14.5); WHITE BLOOD COUNT 2.4 x10^3/uL (4.0-11.0)
[2017-11-17 13:32] LABS: ANION GAP 16 (6-14); BLOOD UREA NITROGEN 5 mg/dL (8-26); BUN/CREATININE RATIO 8 (6-20); CALCIUM 8.1 mg/dL (8.5-10.1); CARBON DIOXIDE 27 mmol/L (21-32); CHLORIDE 101 mmol/L (98-107); CREATININE 0.6 mg/dL (0.7-1.3); GFR 139.9; GLUCOSE 91 mg/dL (70-99); POTASSIUM 3.6 mmol/L (3.5-5.1); SODIUM 144 mmol/L (136-145)
[2017-11-17 13:37] LABS: ALBUMIN 4.4 g/dL (3.4-5.0); ALK PHOS 89 U/L (46-116); ALT (SGPT) 269 U/L (16-63); AST (SGOT) 364 U/L (15-37); MAGNESIUM 1.6 mg/dL (1.8-2.4); TOTAL BILIRUBIN 0.3 mg/dL (0.2-1.0); TOTAL PROTEIN 8.8 g/dL (6.4-8.2)
[2017-11-17 14:28] LABS: % BASOS 5 % (0-3); % EOS 4 % (0-5)
[2017-11-17 14:30] LABS: PLT ESTIMATE DECREASED (ADEQUATE)
[2017-11-17] MEDS: MAGNESIUM OXIDE 400 MG TABLET PO (14:35)
== END 2017-11-17 15:40 | disposition home or self-care (01) ==
LOC: ER 11:17
DX: F10.129 Alcohol abuse with intoxication, unspecified (principal); E83.42 Hypomagnesemia; D69.6 Thrombocytopenia, unspecified; E86.0 Dehydration; R74.8 Abnormal levels of other serum enzymes; I10 Essential (primary) hypertension; K21.9 Gastro-esophageal reflux disease without esophagitis; E78.00 Pure hypercholesterolemia, unspecified; I25.2 Old myocardial infarction; F12.10 Cannabis abuse, uncomplicated; F14.10 Cocaine abuse, uncomplicated; F11.10 Opioid abuse, uncomplicated; F15.10 Other stimulant abuse, uncomplicated
CPT/HCPCS: 36415; 80053; 83735; 85007; 85025; 96361; 96374; 99284-25; J7030

== ENCOUNTER 2017-11-18 15:47 | Inpatient (IN) | payer OTHER ==
[2017-11-18] MEDS: IV NORMAL SALINE 1000ML BAG 1,000 ML IV ×4 (16:30→21:30)
[2017-11-18 16:54] LABS: BASO # 0.1 x10^3/uL (0.0-0.2); BASO % 5 % (0-3); EOS % 2 % (0-3); HEMATOCRIT 46.9 % (39.0-53.0); HEMOGLOBIN 15.7 g/dL (13.0-17.5); LYMPH # 1.2 x10^3/uL (1.0-4.8); LYMPH % 48 % (24-48); MEAN CORPUSCULAR HEMOGLOBIN 32 pg (25-35); MEAN CORPUSCULAR HGB CONC 33 g/dL (31-37); MEAN CORPUSCULAR VOLUME 94 fL (79-100); MONO # 0.5 x10^3/uL (0.0-1.1); MONO % 18 % (0-9); NEUT # 0.7 x10^3uL (1.8-7.7); NEUT % 28 % (31-73); PLATELET COUNT 96 x10^3/uL (140-400); RED BLOOD COUNT 4.97 x10^6/uL (4.30-5.70); RED CELL DISTRIBUTION WIDTH 15.7 % (11.5-14.5); WHITE BLOOD COUNT 2.5 x10^3/uL (4.0-11.0)
[2017-11-18] MEDS: MULTIVIT INFUSN,ADULT 4,VIT K 10 ML, THIAMINE 100 MG, FOLIC ACID 1 MG in IV RINGERS,LAC... IV (17:00)
[2017-11-18 17:03] LABS: ADD MAN DIFF? YES
[2017-11-18 17:14] LABS: ANION GAP 18 (6-14); BLOOD UREA NITROGEN 5 mg/dL (8-26); CALCIUM 8.3 mg/dL (8.5-10.1); CARBON DIOXIDE 24 mmol/L (21-32); CHLORIDE 100 mmol/L (98-107); CREATININE 0.7 mg/dL (0.7-1.3); GFR 117.1; GLUCOSE 80 mg/dL (70-99); POTASSIUM 3.8 mmol/L (3.5-5.1); SODIUM 142 mmol/L (136-145)
[2017-11-18 17:22] LABS: ALBUMIN 4.6 g/dL (3.4-5.0); ALK PHOS 100 U/L (46-116); ALT (SGPT) 246 U/L (16-63); AST (SGOT) 305 U/L (15-37); DIRECT BILIRUBIN 0.2 mg/dL (0.0-0.2); LIPASE 252 U/L (73-393); TOTAL BILIRUBIN 0.3 mg/dL (0.2-1.0); TOTAL PROTEIN 8.8 g/dL (6.4-8.2)
[2017-11-18 17:24] LABS: % ATYL 8 % (0-0); % BANDS 9 % (0-9); % BASOS 6 % (0-3); % EOS 1 % (0-5); % LYMPHS 30 % (24-48); % MONOS 17 % (0-10); % SEGS 29 % (35-66)
[2017-11-18 17:26] LABS: ACETAMIN < 2 mcg/ml (10-30); SALIC 3.1 mg/dL (2.8-20.0)
[2017-11-18 17:27] LABS: ANISOCYTOSIS SLIGHT; ETHANOL 462 mg/dL (0-10); PLT ESTIMATE DECREASED (ADEQUATE); SPHEROCYTES OCC; TARGET CELLS OCC
[2017-11-18] MEDS ORDERED: ACETAMINOPHEN 325 MG TABLET. PO (17:45)
[2017-11-18] MEDS ORDERED: BISACODYL 10 MG SUPP.RECT. PR (17:45)
[2017-11-18] MEDS ORDERED: IBUPROFEN 400 MG TABLET. PO (17:45)
[2017-11-18] MEDS ORDERED: PROCHLORPERAZINE 10 MG/2 ML VIAL. IV ×2 (17:45)
[2017-11-18] MEDS ORDERED: MAGNESIUM HYDROXIDE 2,400 MG/30 ML ORAL.SUSP. PO (17:45)
[2017-11-18] MEDS ORDERED: CALCIUM CARBONATE 500 MG TAB.CHEW PO (17:45)
[2017-11-18] MEDS ORDERED: KETOROLAC 15 MG/ML VIAL. IV (17:45)
[2017-11-18] MEDS ORDERED: MAG HYDROX/ALUMINUM HYD/SIMETH 30 ML ORAL.SUSP PO (17:45)
[2017-11-18] MEDS ORDERED: ONDANSETRON PF 4 MG/2 ML VIAL. IV ×2 (17:45)
[2017-11-18] MEDS: MORPHINE SULFATE 2 MG/ML DISP.SYRIN. IV ×2 (18:14→21:26)
[2017-11-18 18:55] LABS: BILIRUBIN,URINE NEGATIVE (NEG); CLARITY,URINE CLEAR; COLOR,URINE YELLOW; GLUCOSE,URINE NEGATIVE (NEG); NITRITE,URINE NEGATIVE (NEG); PROTEIN,URINE 100 mg/dL (NEG-TRACE); UROBILINOGEN,URINE 0.2 mg/dL (0.2 mg/dL)
[2017-11-18 19:00] LABS: BARBITURATES NEG (NEG); BENZODIAZEPINES POS (NEG); CANNABINOIDS NEG (NEG); COCAINE NEG (NEG); METHADONE NEG (NEG); OPIATES POS (NEG); PHENCYCLIDINE NEG (NEG)
[2017-11-18 19:01] LABS: AMPHETAMINE/METHAMPHETAMINE NEG (NEG); ETHANOL, URINE POS (NEG)
[2017-11-18 19:04] LABS: BACTERIA,URINE 0 /HPF (0-FEW); HYALINE CASTS, URINE MODERATE /HPF; WBC,URINE OCC /HPF (0-4)
[2017-11-18] MEDS: FAMOTIDINE 20 MG/2 ML VIAL IVP (21:27)
[2017-11-18] MEDS: ALPRAZolam 0.25 MG TABLET PO (21:27)
[2017-11-19] MEDS: chlordiazePOXIDE HCL 25 MG CAPSULE PO ×4 (01:11→21:03)
[2017-11-19] MEDS: MORPHINE SULFATE 2 MG/ML DISP.SYRIN. IV (01:13)
[2017-11-19] MEDS: IV NORMAL SALINE 1000ML BAG 1,000 ML IV ×4 (01:23→19:06)
[2017-11-19 04:20] LABS: ADD MAN DIFF? NO
[2017-11-19 04:49] LABS: BASO # 0.1 x10^3/uL (0.0-0.2); BASO % 3 % (0-3); EOS # 0.1 x10^3/uL (0.0-0.7); EOS % 2 % (0-3); HEMATOCRIT 39.9 % (39.0-53.0); HEMOGLOBIN 13.3 g/dL (13.0-17.5); LYMPH # 1.4 x10^3/uL (1.0-4.8); LYMPH % 53 % (24-48); MEAN CORPUSCULAR HEMOGLOBIN 32 pg (25-35); MEAN CORPUSCULAR HGB CONC 33 g/dL (31-37); MEAN CORPUSCULAR VOLUME 95 fL (79-100); MONO # 0.5 x10^3/uL (0.0-1.1); MONO % 18 % (0-9); NEUT # 0.7 x10^3uL (1.8-7.7); NEUT % 24 % (31-73); PLATELET COUNT 79 x10^3/uL (140-400); RED CELL DISTRIBUTION WIDTH 15.3 % (11.5-14.5); WHITE BLOOD COUNT 2.7 x10^3/uL (4.0-11.0)
[2017-11-19 05:33] LABS: ANION GAP 18 (6-14); BLOOD UREA NITROGEN 6 mg/dL (8-26); CALCIUM 7.2 mg/dL (8.5-10.1); CARBON DIOXIDE 22 mmol/L (21-32); CHLORIDE 99 mmol/L (98-107); CREATININE 0.6 mg/dL (0.7-1.3); GFR 139.9; GLUCOSE 61 mg/dL (70-99); POTASSIUM 3.3 mmol/L (3.5-5.1); SODIUM 139 mmol/L (136-145)
[2017-11-19] MEDS: PROCHLORPERAZINE 25 MG SUPP.RECT. PR (07:59)
[2017-11-19] MEDS: MULTIVIT INFUSN,ADULT 4,VIT K 10 ML, THIAMINE 100 MG, FOLIC ACID 1 MG in IV DEXTROSE 5 ... IV (09:27)
[2017-11-19 09:54] LABS: MAGNESIUM 1.3 mg/dL (1.8-2.4)
[2017-11-19 09:54] LABS: PHOSPHORUS 4.1 mg/dL (2.6-4.7)
[2017-11-19] MEDS: ALPRAZolam 0.25 MG TABLET PO ×2 (12:01→21:03)
[2017-11-19] MEDS: POTASSIUM CHLORIDE 20 MEQ TABLET.ER. PO (12:01)
[2017-11-19] MEDS: FAMOTIDINE 20 MG/2 ML VIAL IVP (21:03)
[2017-11-20] MEDS: IV NORMAL SALINE 1000ML BAG 1,000 ML IV ×4 (01:20→20:00)
[2017-11-20] MEDS: chlordiazePOXIDE HCL 25 MG CAPSULE PO ×4 (03:45→20:02)
[2017-11-20] MEDS: MULTIVIT INFUSN,ADULT 4,VIT K 10 ML, THIAMINE 100 MG, FOLIC ACID 1 MG in IV DEXTROSE 5 ... IV (09:42)
[2017-11-20] MEDS: PROCHLORPERAZINE 25 MG SUPP.RECT. PR (09:42)
[2017-11-20] MEDS: GENTAMICIN 0.3% OPHTH OINTMENT 3.5GM TUBE. OU ×4 (12:40→20:08)
[2017-11-20] MEDS: FAMOTIDINE 20 MG/2 ML VIAL IVP (20:02)
[2017-11-21] MEDS: ALPRAZolam 0.25 MG TABLET PO ×2 (00:23→19:42)
[2017-11-21] MEDS: chlordiazePOXIDE HCL 25 MG CAPSULE PO ×3 (00:23→19:41)
[2017-11-21 08:37] LABS: ALBUMIN 4.2 g/dL (3.4-5.0); ALBUMIN/GLOBULIN RATIO 1.1 (1.0-1.7); ALK PHOS 85 U/L (46-116); ALT (SGPT) 159 U/L (16-63); ANION GAP 15 (6-14); AST (SGOT) 167 U/L (15-37); BLOOD UREA NITROGEN 6 mg/dL (8-26); BUN/CREATININE RATIO 12 (6-20); CALCIUM 8.8 mg/dL (8.5-10.1); CARBON DIOXIDE 21 mmol/L (21-32); CHLORIDE 99 mmol/L (98-107); CREATININE 0.5 mg/dL (0.7-1.3); GFR 172.6; GLUCOSE 94 mg/dL (70-99); POTASSIUM 3.5 mmol/L (3.5-5.1); SODIUM 135 mmol/L (136-145); TOTAL BILIRUBIN 0.8 mg/dL (0.2-1.0); TOTAL PROTEIN 7.9 g/dL (6.4-8.2)
[2017-11-21 08:45] LABS: HEMATOCRIT 43.4 % (39.0-53.0); HEMOGLOBIN 14.2 g/dL (13.0-17.5); MEAN CORPUSCULAR HEMOGLOBIN 31 pg (25-35); MEAN CORPUSCULAR HGB CONC 33 g/dL (31-37); MEAN CORPUSCULAR VOLUME 96 fL (79-100); PLATELET COUNT 62 x10^3/uL (140-400); RED BLOOD COUNT 4.54 x10^6/uL (4.30-5.70); RED CELL DISTRIBUTION WIDTH 15.2 % (11.5-14.5); WHITE BLOOD COUNT 3.9 x10^3/uL (4.0-11.0)
[2017-11-21] MEDS: MULTIVIT INFUSN,ADULT 4,VIT K 10 ML, THIAMINE 100 MG, FOLIC ACID 1 MG in IV DEXTROSE 5 ... IV (09:35)
[2017-11-21] MEDS: GENTAMICIN 0.3% OPHTH OINTMENT 3.5GM TUBE. OU ×4 (09:35→21:15)
[2017-11-21] MEDS: oxyCODONE IR 5 MG TABLET PO ×3 (12:10→19:42)
[2017-11-21] MEDS: MORPHINE SULFATE 2 MG/ML DISP.SYRIN. IV ×3 (14:36→22:05)
[2017-11-21] MEDS: FAMOTIDINE 20 MG/2 ML VIAL IVP (19:42)
[2017-11-21] MEDS: HALOPERIDOL LACTATE 5 MG/ML VIAL. IVP (22:05)
[2017-11-22] MEDS: oxyCODONE IR 5 MG TABLET PO ×5 (01:30→23:47)
[2017-11-22] MEDS: MORPHINE SULFATE 2 MG/ML DISP.SYRIN. IV ×4 (01:31→19:18)
[2017-11-22] MEDS: chlordiazePOXIDE HCL 25 MG CAPSULE PO ×2 (05:35→18:00)
[2017-11-22] MEDS: MULTIVIT INFUSN,ADULT 4,VIT K 10 ML, THIAMINE 100 MG, FOLIC ACID 1 MG in IV DEXTROSE 5 ... IV (09:11)
[2017-11-22] MEDS: GENTAMICIN 0.3% OPHTH OINTMENT 3.5GM TUBE. OU (10:00)
[2017-11-22] MEDS: CIPROFLOXACIN 0.3% OPHTH SOLUTION 5ML BOTTLE. OU ×3 (11:09→21:05)
[2017-11-22] MEDS: FAMOTIDINE 20 MG/2 ML VIAL IVP (21:05)
[2017-11-22] MEDS: HALOPERIDOL LACTATE 5 MG/ML VIAL. IVP (21:22)
[2017-11-23] MEDS: chlordiazePOXIDE HCL 25 MG CAPSULE PO ×2 (02:13→22:08)
[2017-11-23] MEDS: MORPHINE SULFATE 2 MG/ML DISP.SYRIN. IV ×3 (02:14→22:08)
[2017-11-23] MEDS: CIPROFLOXACIN 0.3% OPHTH SOLUTION 5ML BOTTLE. OU ×4 (08:59→20:59)
[2017-11-23] MEDS: MULTIVIT INFUSN,ADULT 4,VIT K 10 ML, THIAMINE 100 MG, FOLIC ACID 1 MG in IV DEXTROSE 5 ... IV (08:59)
[2017-11-23] MEDS: oxyCODONE IR 5 MG TABLET PO ×3 (09:06→20:59)
[2017-11-23] MEDS: ALPRAZolam 0.25 MG TABLET PO ×2 (15:10→23:52)
[2017-11-23] MEDS: FAMOTIDINE 20 MG/2 ML VIAL IVP (20:58)
[2017-11-23] MEDS: HALOPERIDOL LACTATE 5 MG/ML VIAL. IVP (23:52)
[2017-11-24] MEDS: NICOTINE 21MG PATCH. TD (01:19)
[2017-11-24] MEDS: MORPHINE SULFATE 2 MG/ML DISP.SYRIN. IV (02:36)
[2017-11-24] MEDS: chlordiazePOXIDE HCL 25 MG CAPSULE PO (05:07)
[2017-11-24] MEDS: MULTIVIT INFUSN,ADULT 4,VIT K 10 ML, THIAMINE 100 MG, FOLIC ACID 1 MG in IV DEXTROSE 5 ... IV (08:31)
[2017-11-24] MEDS: oxyCODONE IR 5 MG TABLET PO (08:31)
[2017-11-24] MEDS: CIPROFLOXACIN 0.3% OPHTH SOLUTION 5ML BOTTLE. OU (08:32)
== END 2017-11-24 10:35 | disposition home or self-care (01) | DRG 896 ==
LOC: ER 15:47 → 6 SOUTH 17:42
DX: F10.229 Alcohol dependence with intoxication, unspecified (principal); G93.41 Metabolic encephalopathy; F14.90 Cocaine use, unspecified, uncomplicated; D69.6 Thrombocytopenia, unspecified; E87.2 Acidosis; F10.10 Alcohol abuse, uncomplicated; D70.9 Neutropenia, unspecified; F10.239 Alcohol dependence with withdrawal, unspecified; D63.8 Anemia in other chronic diseases classified elsewhere; E78.00 Pure hypercholesterolemia, unspecified; F32.9 Major depressive disorder, single episode, unspecified; H10.30 Unspecified acute conjunctivitis, unspecified eye; I10 Essential (primary) hypertension; J44.9 Chronic obstructive pulmonary disease, unspecified; K21.9 Gastro-esophageal reflux disease without esophagitis; K74.60 Unspecified cirrhosis of liver; Z81.1 Family history of alcohol abuse and dependence; Z96.649 Presence of unspecified artificial hip joint; Z96.659 Presence of unspecified artificial knee joint; F41.9 Anxiety disorder, unspecified; I25.2 Old myocardial infarction
CPT/HCPCS: 36415; 71010; 80048; 80053; 80076; 80307; 80329; 81001; 83690; 83735; 83930; 84100; 85007; 85025; 85027; 92610-GN; 93005; 96365; 97116-GP; 97162-GP; 97166-GO; 97530-GP; 99285; 99285-25; G0480; J1630; J2060; J2270; J7030; J7120; S0028

== ENCOUNTER 2017-12-09 13:36 | Emergency (ER) | payer OTHER ==
[2017-12-09] MEDS ORDERED: fentaNYL PF VIAL 100 MCG/2 ML VIAL IV ×2 (14:00→14:15)
== END 2017-12-09 14:20 | disposition home or self-care (01) ==
LOC: ER 13:36
DX: F10.239 Alcohol dependence with withdrawal, unspecified (principal); K21.9 Gastro-esophageal reflux disease without esophagitis; I10 Essential (primary) hypertension; E78.00 Pure hypercholesterolemia, unspecified; I25.2 Old myocardial infarction; F14.10 Cocaine abuse, uncomplicated; F12.10 Cannabis abuse, uncomplicated; F15.10 Other stimulant abuse, uncomplicated; F11.10 Opioid abuse, uncomplicated
CPT/HCPCS: 99283

== ENCOUNTER 2017-12-20 18:25 | Inpatient (IN) | payer OTHER ==
[2017-12-20] MEDS: IV NORMAL SALINE 1000ML BAG 1,000 ML IV (18:43)
[2017-12-20 18:59] LABS: BASO # 0.1 x10^3/uL (0.0-0.2); BASO % 1 % (0-3); EOS % 0 % (0-3); HEMATOCRIT 41.2 % (39.0-53.0); HEMOGLOBIN 14.1 g/dL (13.0-17.5); LYMPH # 1.1 x10^3/uL (1.0-4.8); LYMPH % 11 % (24-48); MEAN CORPUSCULAR HEMOGLOBIN 33 pg (25-35); MEAN CORPUSCULAR HGB CONC 34 g/dL (31-37); MEAN CORPUSCULAR VOLUME 95 fL (79-100); MONO # 2.5 x10^3/uL (0.0-1.1); MONO % 25 % (0-9); NEUT # 6.2 x10^3uL (1.8-7.7); NEUT % 63 % (31-73); PLATELET COUNT 255 x10^3/uL (140-400); RED BLOOD COUNT 4.33 x10^6/uL (4.30-5.70); RED CELL DISTRIBUTION WIDTH 14.9 % (11.5-14.5); WHITE BLOOD COUNT 9.9 x10^3/uL (4.0-11.0)
[2017-12-20 19:01] LABS: ANION GAP 15 (6-14); BLOOD UREA NITROGEN 8 mg/dL (8-26); BUN/CREATININE RATIO 11 (6-20); CARBON DIOXIDE 27 mmol/L (21-32); CHLORIDE 88 mmol/L (98-107); CREATININE 0.7 mg/dL (0.7-1.3); GFR 117.1; GLUCOSE 97 mg/dL (70-99); POTASSIUM 3.2 mmol/L (3.5-5.1); SODIUM 130 mmol/L (136-145)
[2017-12-20 19:03] LABS: ETHANOL 223 mg/dL (0-10)
[2017-12-20 19:07] LABS: ALBUMIN 4.4 g/dL (3.4-5.0); ALK PHOS 98 U/L (46-116); ALT (SGPT) 79 U/L (16-63); AST (SGOT) 92 U/L (15-37); LIPASE 132 U/L (73-393); TOTAL BILIRUBIN 0.7 mg/dL (0.2-1.0); TOTAL PROTEIN 8.9 g/dL (6.4-8.2)
[2017-12-20] MEDS: MULTIVIT INFUSN,ADULT 4,VIT K 10 ML, THIAMINE 100 MG, FOLIC ACID 1 MG in IV NORMAL SALI... IV (19:08)
[2017-12-20 19:12] LABS: ADD MAN DIFF? YES
[2017-12-20 20:08] LABS: % BANDS 15 % (0-9); % BASOS 1 % (0-3); % LYMPHS 12 % (24-48); % MONOS 23 % (0-10); % SEGS 49 % (35-66)
[2017-12-20 20:13] LABS: PLT ESTIMATE ADEQUATE (ADEQUATE)
[2017-12-21] MEDS: MORPHINE SULFATE 2 MG/ML DISP.SYRIN. IV ×2 (01:37→08:16)
[2017-12-21] MEDS ORDERED: NON FORMULARY ITEM (Albuterol Sulfate (Proair Hfa Inhaler) 1 PUFF) INH (08:45)
[2017-12-21] MEDS ORDERED: IBUPROFEN 200 MG TABLET. PO (08:45)
[2017-12-21] MEDS ORDERED: NON FORMULARY ITEM (Ipratropium/Albuterol Sulfate (Combivent Respimat Inhal) 1 PUFF) INH (08:45)
[2017-12-21] MEDS ORDERED: ALBUTEROL SULFATE 2.5 MG/3 ML NEBU. NEB (09:00)
[2017-12-21] MEDS: LISINOPRIL 40 MG TABLET. PO (09:30)
[2017-12-21] MEDS: MULTIVITAMIN with MINERAL TABLET. PO (09:30)
[2017-12-21] MEDS: oxyCODONE/APAP 5/325 1 TAB TABLET PO ×2 (09:30→17:25)
[2017-12-21] MEDS: CITALOPRAM 20 MG TABLET. PO (09:30)
[2017-12-21] MEDS: LACOSAMIDE 200 MG TABLET PO ×2 (09:30→17:25)
[2017-12-21] MEDS: FOLIC ACID 1 MG TABLET. PO (09:30)
[2017-12-21] MEDS: TOPIRAMATE 25 MG TABLET. PO ×2 (09:30→21:00)
[2017-12-21] MEDS: MAGNESIUM OXIDE 400 MG TABLET PO ×2 (09:30→21:00)
[2017-12-21] MEDS: THIAMINE 100 MG TABLET. PO (09:30)
[2017-12-21] MEDS: MORPHINE SULFATE 4 MG/ML DISP.SYRIN. IV (17:26)
[2017-12-22] MEDS: LACOSAMIDE 200 MG TABLET PO ×2 (05:56→17:01)
[2017-12-22] MEDS: MORPHINE SULFATE 4 MG/ML DISP.SYRIN. IV ×3 (06:14→17:02)
[2017-12-22] MEDS: CITALOPRAM 20 MG TABLET. PO (08:48)
[2017-12-22] MEDS: FOLIC ACID 1 MG TABLET. PO (08:48)
[2017-12-22] MEDS: MULTIVITAMIN with MINERAL TABLET. PO (08:49)
[2017-12-22] MEDS: THIAMINE 100 MG TABLET. PO (08:49)
[2017-12-22] MEDS: LISINOPRIL 20 MG TABLET PO (08:49)
[2017-12-22] MEDS: MAGNESIUM OXIDE 400 MG TABLET PO ×2 (08:49→21:24)
[2017-12-22] MEDS: TOPIRAMATE 25 MG TABLET. PO ×2 (08:49→21:24)
[2017-12-22] MEDS: oxyCODONE/APAP 5/325 1 TAB TABLET PO (10:41)
[2017-12-22] MEDS: LORazepam 1 MG TABLET PO ×3 (10:41→21:24)
[2017-12-22] MEDS: HALOPERIDOL LACTATE 5 MG/ML VIAL. IVP ×2 (11:51→22:11)
[2017-12-22] MEDS: diphenhydrAMINE 50 MG/ML VIAL IVP (11:54)
[2017-12-23] MEDS: LACOSAMIDE 200 MG TABLET PO ×2 (06:24→17:38)
[2017-12-23 06:46] LABS: ADD MAN DIFF? NO
[2017-12-23 07:01] LABS: BASO # 0.1 x10^3/uL (0.0-0.2); BASO % 2 % (0-3); EOS # 0.3 x10^3/uL (0.0-0.7); EOS % 5 % (0-3); HEMATOCRIT 41.7 % (39.0-53.0); HEMOGLOBIN 13.7 g/dL (13.0-17.5); LYMPH # 1.9 x10^3/uL (1.0-4.8); LYMPH % 29 % (24-48); MEAN CORPUSCULAR HEMOGLOBIN 32 pg (25-35); MEAN CORPUSCULAR HGB CONC 33 g/dL (31-37); MEAN CORPUSCULAR VOLUME 97 fL (79-100); MONO # 0.8 x10^3/uL (0.0-1.1); MONO % 13 % (0-9); NEUT # 3.3 x10^3uL (1.8-7.7); NEUT % 52 % (31-73); PLATELET COUNT 241 x10^3/uL (140-400); RED BLOOD COUNT 4.28 x10^6/uL (4.30-5.70); RED CELL DISTRIBUTION WIDTH 14.2 % (11.5-14.5); WHITE BLOOD COUNT 6.4 x10^3/uL (4.0-11.0)
[2017-12-23 07:21] LABS: ALBUMIN 3.7 g/dL (3.4-5.0); ALBUMIN/GLOBULIN RATIO 0.9 (1.0-1.7); ALK PHOS 78 U/L (46-116); ALT (SGPT) 69 U/L (16-63); ANION GAP 13 (6-14); AST (SGOT) 73 U/L (15-37); BLOOD UREA NITROGEN 9 mg/dL (8-26); BUN/CREATININE RATIO 11 (6-20); CALCIUM 9.1 mg/dL (8.5-10.1); CARBON DIOXIDE 25 mmol/L (21-32); CHLORIDE 100 mmol/L (98-107); CREATININE 0.8 mg/dL (0.7-1.3); GFR 100.4; GLUCOSE 141 mg/dL (70-99); POTASSIUM 3.5 mmol/L (3.5-5.1); SODIUM 138 mmol/L (136-145); TOTAL BILIRUBIN 0.7 mg/dL (0.2-1.0)
[2017-12-23] MEDS: LISINOPRIL 20 MG TABLET PO (09:14)
[2017-12-23] MEDS: CITALOPRAM 20 MG TABLET. PO (09:15)
[2017-12-23] MEDS: TOPIRAMATE 25 MG TABLET. PO ×2 (09:15→19:45)
[2017-12-23] MEDS: FOLIC ACID 1 MG TABLET. PO (09:15)
[2017-12-23] MEDS: LORazepam 1 MG TABLET PO ×3 (09:15→19:45)
[2017-12-23] MEDS: MAGNESIUM OXIDE 400 MG TABLET PO ×2 (09:15→19:45)
[2017-12-23] MEDS: MULTIVITAMIN with MINERAL TABLET. PO (09:15)
[2017-12-23] MEDS: THIAMINE 100 MG TABLET. PO (09:15)
[2017-12-23] MEDS: diphenhydrAMINE 50 MG/ML VIAL IVP ×2 (13:27→19:44)
[2017-12-23] MEDS: oxyCODONE/APAP 5/325 1 TAB TABLET PO ×2 (13:37→17:38)
[2017-12-23] MEDS: HALOPERIDOL LACTATE 5 MG/ML VIAL. IVP (19:44)
[2017-12-23] MEDS: MORPHINE SULFATE 4 MG/ML DISP.SYRIN. IV (23:48)
[2017-12-24] MEDS: HALOPERIDOL LACTATE 5 MG/ML VIAL. IVP (02:29)
[2017-12-24] MEDS: diphenhydrAMINE 50 MG/ML VIAL IVP ×2 (02:29→08:12)
[2017-12-24] MEDS: LACOSAMIDE 200 MG TABLET PO (05:37)
[2017-12-24] MEDS: MORPHINE SULFATE 4 MG/ML DISP.SYRIN. IV (05:37)
[2017-12-24] MEDS: LISINOPRIL 20 MG TABLET PO (08:12)
[2017-12-24] MEDS: MAGNESIUM OXIDE 400 MG TABLET PO (08:13)
[2017-12-24] MEDS: LORazepam 1 MG TABLET PO ×2 (08:13→15:00)
[2017-12-24] MEDS: THIAMINE 100 MG TABLET. PO (08:13)
[2017-12-24] MEDS: MULTIVITAMIN with MINERAL TABLET. PO (08:13)
[2017-12-24] MEDS: FOLIC ACID 1 MG TABLET. PO (08:13)
[2017-12-24] MEDS: TOPIRAMATE 25 MG TABLET. PO (08:13)
[2017-12-24] MEDS: CITALOPRAM 20 MG TABLET. PO (08:13)
== END 2017-12-24 19:22 | disposition home or self-care (01) | DRG 895 ==
LOC: ER 18:25 → 6 SOUTH 19:52
PROC: HZ32ZZZ Individual Counseling for Substance Abuse Treatment, Cognitive-Behavioral (ICD-10-PCS; principal; 2017-12-20)
PROC: HZ2ZZZZ Detoxification Services for Substance Abuse Treatment (ICD-10-PCS; 2017-12-20)
DX: F10.239 Alcohol dependence with withdrawal, unspecified (principal); I11.0 Hypertensive heart disease with heart failure; K74.60 Unspecified cirrhosis of liver; I50.9 Heart failure, unspecified; G35 Multiple sclerosis; M48.56XA Collapsed vertebra, not elsewhere classified, lumbar region, initial encounter for fracture; G40.509 Epileptic seizures related to external causes, not intractable, without status epilepticus; E87.1 Hypo-osmolality and hyponatremia; F10.229 Alcohol dependence with intoxication, unspecified; E87.6 Hypokalemia; I25.10 Atherosclerotic heart disease of native coronary artery without angina pectoris; J44.9 Chronic obstructive pulmonary disease, unspecified; K14.6 Glossodynia; M81.0 Age-related osteoporosis without current pathological fracture; Z96.649 Presence of unspecified artificial hip joint; Z96.659 Presence of unspecified artificial knee joint; F32.9 Major depressive disorder, single episode, unspecified; F41.9 Anxiety disorder, unspecified; M54.5 Low back pain; Y90.0 Blood alcohol level of less than 20 mg/100 ml
CPT/HCPCS: 36415; 70450; 72100; 72125; 80053; 83690; 85007; 85025; 93005; 96361; 96365; 96375; 99285; 99285-25; G0480; J1200; J1630; J2060; J2270; J7030

== ENCOUNTER 2018-01-08 11:01 | Inpatient (IN) | payer OTHER ==
[2018-01-08 12:20] LABS: ADD MAN DIFF? NO
[2018-01-08] MEDS: IV NORMAL SALINE 1000ML BAG 1,000 ML IV ×4 (12:23→22:36)
[2018-01-08 12:29] LABS: BASO # 0.1 x10^3/uL (0.0-0.2); BASO % 1 % (0-3); EOS % 0 % (0-3); HEMATOCRIT 42.1 % (39.0-53.0); HEMOGLOBIN 14.2 g/dL (13.0-17.5); LYMPH # 0.5 x10^3/uL (1.0-4.8); LYMPH % 8 % (24-48); MEAN CORPUSCULAR HEMOGLOBIN 33 pg (25-35); MEAN CORPUSCULAR HGB CONC 34 g/dL (31-37); MEAN CORPUSCULAR VOLUME 96 fL (79-100); MONO # 0.6 x10^3/uL (0.0-1.1); MONO % 10 % (0-9); NEUT % 80 % (31-73); PLATELET COUNT 140 x10^3/uL (140-400); RED BLOOD COUNT 4.37 x10^6/uL (4.30-5.70); RED CELL DISTRIBUTION WIDTH 14.5 % (11.5-14.5); WHITE BLOOD COUNT 6.2 x10^3/uL (4.0-11.0)
[2018-01-08 12:36] LABS: PARTIAL THROMBOPLASTIN TIME 24 SEC (24-38); PROTHROMBIN TIME PATIENT 12.2 SEC (11.7-14.0)
[2018-01-08 12:41] LABS: ANION GAP 15 (6-14); BLOOD UREA NITROGEN 5 mg/dL (8-26); CALCIUM 9.2 mg/dL (8.5-10.1); CARBON DIOXIDE 28 mmol/L (21-32); CHLORIDE 92 mmol/L (98-107); CREATININE 0.8 mg/dL (0.7-1.3); GFR 100.4; GLUCOSE 133 mg/dL (70-99); POTASSIUM 3.4 mmol/L (3.5-5.1); SODIUM 135 mmol/L (136-145)
[2018-01-08 12:46] LABS: ALBUMIN 4.2 g/dL (3.4-5.0); ALK PHOS 110 U/L (46-116); ALT (SGPT) 111 U/L (16-63); AST (SGOT) 115 U/L (15-37); DIRECT BILIRUBIN 0.2 mg/dL (0.0-0.2); TOTAL BILIRUBIN 0.4 mg/dL (0.2-1.0); TOTAL PROTEIN 8.8 g/dL (6.4-8.2)
[2018-01-08 13:16] LABS: LACTIC ACID 5.3 mmol/L (0.4-2.0)
[2018-01-08 13:49] LABS: BARBITURATES NEG (NEG); BENZODIAZEPINES NEG (NEG); CANNABINOIDS POS (NEG); COCAINE NEG (NEG); METHADONE NEG (NEG); OPIATES NEG (NEG); PHENCYCLIDINE NEG (NEG)
[2018-01-08 13:50] LABS: AMPHETAMINE/METHAMPHETAMINE NEG (NEG); ETHANOL, URINE NEG (NEG)
[2018-01-08] MEDS ORDERED: ONDANSETRON PF 4 MG/2 ML VIAL. IV (14:30)
[2018-01-08] MEDS ORDERED: NON FORMULARY ITEM (Albuterol Sulfate (Proair Hfa Inhaler) 1 PUFF) INH (15:00)
[2018-01-08] MEDS ORDERED: NON FORMULARY ITEM (Ipratropium/Albuterol Sulfate (Combivent Respimat Inhal) 1 PUFF) INH (15:00)
[2018-01-08] MEDS ORDERED: PROCHLORPERAZINE 10 MG/2 ML VIAL. IV (15:00)
[2018-01-08 15:28] LABS: MAGNESIUM 1.6 mg/dL (1.8-2.4)
[2018-01-08] MEDS ORDERED: clonazePAM 0.5 MG TABLET PO (15:30)
[2018-01-08 15:39] LABS: LACTIC ACID 1.2 mmol/L (0.4-2.0)
[2018-01-08] MEDS: MULTIVIT INFUSN,ADULT 4,VIT K 10 ML, THIAMINE 100 MG, FOLIC ACID 1 MG in IV DEXTROSE 5 ... IV (16:00)
[2018-01-08] MEDS: POTASSIUM CHLORIDE 20 MEQ TABLET.ER. PO (17:14)
[2018-01-08] MEDS: LACOSAMIDE 200 MG TABLET PO (17:15)
[2018-01-08] MEDS: MAGNESIUM OXIDE 400 MG TABLET PO (20:29)
[2018-01-08] MEDS: TOPIRAMATE 25 MG TABLET. PO (20:29)
[2018-01-08] MEDS: chlordiazePOXIDE HCL 25 MG CAPSULE PO (20:29)
[2018-01-08] MEDS ORDERED: MAGNESIUM OXIDE 400 MG TABLET PO (21:00)
[2018-01-08 21:04] LABS: TROPONINI < 0.017 ng/mL (0.000-0.055)
[2018-01-09] MEDS: IV NORMAL SALINE 1000ML BAG 1,000 ML IV ×3 (03:12→20:13)
[2018-01-09 04:50] LABS: BASO % 1 % (0-3); EOS % 1 % (0-3); HEMATOCRIT 40.9 % (39.0-53.0); HEMOGLOBIN 13.4 g/dL (13.0-17.5); LYMPH # 1.1 x10^3/uL (1.0-4.8); LYMPH % 36 % (24-48); MEAN CORPUSCULAR HEMOGLOBIN 32 pg (25-35); MEAN CORPUSCULAR HGB CONC 33 g/dL (31-37); MEAN CORPUSCULAR VOLUME 98 fL (79-100); MONO # 0.6 x10^3/uL (0.0-1.1); MONO % 18 % (0-9); NEUT # 1.4 x10^3uL (1.8-7.7); NEUT % 45 % (31-73); PLATELET COUNT 110 x10^3/uL (140-400); RED BLOOD COUNT 4.16 x10^6/uL (4.30-5.70); RED CELL DISTRIBUTION WIDTH 14.3 % (11.5-14.5); WHITE BLOOD COUNT 3.2 x10^3/uL (4.0-11.0)
[2018-01-09 05:12] LABS: ADD MAN DIFF? YES
[2018-01-09] MEDS: LACOSAMIDE 200 MG TABLET PO ×2 (05:20→18:20)
[2018-01-09 05:23] LABS: ANION GAP 10 (6-14); BLOOD UREA NITROGEN 5 mg/dL (8-26); CALCIUM 8.3 mg/dL (8.5-10.1); CARBON DIOXIDE 26 mmol/L (21-32); CHLORIDE 100 mmol/L (98-107); CREATININE 0.6 mg/dL (0.7-1.3); GFR 139.9; GLUCOSE 84 mg/dL (70-99); POTASSIUM 3.6 mmol/L (3.5-5.1); SODIUM 136 mmol/L (136-145)
[2018-01-09] MEDS: TOPIRAMATE 25 MG TABLET. PO ×2 (08:41→20:12)
[2018-01-09] MEDS: MAGNESIUM OXIDE 400 MG TABLET PO ×2 (08:41→20:13)
[2018-01-09] MEDS: LISINOPRIL 20 MG TABLET PO (08:41)
[2018-01-09] MEDS: CITALOPRAM 20 MG TABLET. PO (08:41)
[2018-01-09] MEDS ORDERED: THIAMINE 100 MG TABLET. PO (09:00)
[2018-01-09] MEDS ORDERED: MULTIVITAMIN with MINERAL TABLET. PO (09:00)
[2018-01-09] MEDS ORDERED: FOLIC ACID 1 MG TABLET. PO (09:00)
[2018-01-09] MEDS: ONDANSETRON PF 4 MG/2 ML VIAL. IV ×2 (10:04→23:25)
[2018-01-09] MEDS: MULTIVIT INFUSN,ADULT 4,VIT K 10 ML, THIAMINE 100 MG, FOLIC ACID 1 MG in IV DEXTROSE 5 ... IV (10:05)
[2018-01-09 12:13] LABS: % ATYL 1 % (0-0); % BANDS 12 % (0-9); % LYMPHS 34 % (24-48); % MONOS 18 % (0-10); % SEGS 35 % (35-66)
[2018-01-09 12:14] LABS: PLT ESTIMATE DECREASED (ADEQUATE)
[2018-01-09] MEDS: chlordiazePOXIDE HCL 25 MG CAPSULE PO ×2 (13:20→20:12)
[2018-01-10] MEDS: IV NORMAL SALINE 1000ML BAG 1,000 ML IV ×3 (05:49→21:26)
[2018-01-10] MEDS: LACOSAMIDE 200 MG TABLET PO ×2 (05:49→17:55)
[2018-01-10] MEDS: MULTIVIT INFUSN,ADULT 4,VIT K 10 ML, THIAMINE 100 MG, FOLIC ACID 1 MG in IV DEXTROSE 5 ... IV (09:55)
[2018-01-10] MEDS: MAGNESIUM OXIDE 400 MG TABLET PO ×2 (09:56→21:26)
[2018-01-10] MEDS: LISINOPRIL 20 MG TABLET PO (09:56)
[2018-01-10] MEDS: TOPIRAMATE 25 MG TABLET. PO ×2 (09:56→21:26)
[2018-01-10] MEDS: CITALOPRAM 20 MG TABLET. PO (09:56)
[2018-01-10] MEDS: ALBUTEROL SULFATE 2.5 MG/3 ML NEBU. NEB (12:56)
[2018-01-10] MEDS: MAGNESIUM SULFATE 2GM 50 ML IV (12:57)
[2018-01-10] MEDS: chlordiazePOXIDE HCL 25 MG CAPSULE PO (15:04)
[2018-01-11] MEDS: LACOSAMIDE 200 MG TABLET PO ×2 (04:59→17:33)
[2018-01-11] MEDS: IV NORMAL SALINE 1000ML BAG 1,000 ML IV ×3 (05:03→22:23)
[2018-01-11] MEDS: MAGNESIUM OXIDE 400 MG TABLET PO ×2 (09:39→22:23)
[2018-01-11] MEDS: CITALOPRAM 20 MG TABLET. PO (09:39)
[2018-01-11] MEDS: MULTIVITAMIN with MINERAL TABLET. PO (09:39)
[2018-01-11] MEDS: TOPIRAMATE 25 MG TABLET. PO ×2 (09:39→22:23)
[2018-01-11] MEDS: FOLIC ACID 1 MG TABLET. PO (09:39)
[2018-01-11] MEDS: LISINOPRIL 20 MG TABLET PO (09:40)
[2018-01-11] MEDS: THIAMINE 100 MG TABLET. PO (09:40)
[2018-01-11 16:02] LABS: C DIFF BY PCR Negative (Negative)
[2018-01-12] MEDS: ONDANSETRON PF 4 MG/2 ML VIAL. IV (01:42)
[2018-01-12] MEDS: LACOSAMIDE 200 MG TABLET PO ×3 (06:13→19:53)
[2018-01-12] MEDS: IV NORMAL SALINE 1000ML BAG 1,000 ML IV ×3 (06:30→19:06)
[2018-01-12] MEDS: THIAMINE 100 MG TABLET. PO (08:53)
[2018-01-12] MEDS: TOPIRAMATE 25 MG TABLET. PO ×2 (08:53→19:53)
[2018-01-12] MEDS: MULTIVITAMIN with MINERAL TABLET. PO (08:53)
[2018-01-12] MEDS: CITALOPRAM 20 MG TABLET. PO (08:53)
[2018-01-12] MEDS: LISINOPRIL 20 MG TABLET PO (08:53)
[2018-01-12] MEDS: MAGNESIUM OXIDE 400 MG TABLET PO ×2 (08:53→19:53)
[2018-01-12] MEDS: FOLIC ACID 1 MG TABLET. PO (08:56)
[2018-01-12 12:07] LABS: ADD MAN DIFF? NO
[2018-01-12 12:13] LABS: BASO % 1 % (0-3); EOS # 0.2 x10^3/uL (0.0-0.7); EOS % 4 % (0-3); HEMATOCRIT 41.1 % (39.0-53.0); HEMOGLOBIN 13.6 g/dL (13.0-17.5); LYMPH # 1.3 x10^3/uL (1.0-4.8); LYMPH % 27 % (24-48); MEAN CORPUSCULAR HEMOGLOBIN 32 pg (25-35); MEAN CORPUSCULAR HGB CONC 33 g/dL (31-37); MEAN CORPUSCULAR VOLUME 98 fL (79-100); MONO % 21 % (0-9); NEUT # 2.2 x10^3uL (1.8-7.7); NEUT % 47 % (31-73); PLATELET COUNT 105 x10^3/uL (140-400); RED CELL DISTRIBUTION WIDTH 14.1 % (11.5-14.5); WHITE BLOOD COUNT 4.6 x10^3/uL (4.0-11.0)
[2018-01-12 12:26] LABS: ANION GAP 11 (6-14); BLOOD UREA NITROGEN 5 mg/dL (8-26); CALCIUM 8.9 mg/dL (8.5-10.1); CARBON DIOXIDE 25 mmol/L (21-32); CHLORIDE 103 mmol/L (98-107); CREATININE 0.6 mg/dL (0.7-1.3); GFR 139.9; GLUCOSE 90 mg/dL (70-99); MAGNESIUM 1.4 mg/dL (1.8-2.4); PHOSPHORUS 3.7 mg/dL (2.6-4.7); POTASSIUM 3.5 mmol/L (3.5-5.1); SODIUM 139 mmol/L (136-145)
[2018-01-12] MEDS: MAGNESIUM SULFATE 2GM 50 ML IV (13:51)
[2018-01-12] MEDS: LOPERAMIDE 2 MG CAPSULE PO ×3 (14:07→19:53)
[2018-01-12] MEDS: IBUPROFEN 200 MG TABLET. PO (17:03)
[2018-01-12] MEDS: LORazepam 0.5 MG TABLET PO (19:53)
[2018-01-13] MEDS: IV NORMAL SALINE 1000ML BAG 1,000 ML IV ×3 (03:57→23:28)
[2018-01-13] MEDS ORDERED: chlordiazePOXIDE HCL 25 MG CAPSULE PO (10:30)
[2018-01-13] MEDS: LISINOPRIL 20 MG TABLET PO (11:48)
[2018-01-13] MEDS: TOPIRAMATE 25 MG TABLET. PO ×2 (11:49→20:13)
[2018-01-13] MEDS: MULTIVITAMIN with MINERAL TABLET. PO (11:49)
[2018-01-13] MEDS: THIAMINE 100 MG TABLET. PO (11:49)
[2018-01-13] MEDS: CITALOPRAM 20 MG TABLET. PO (11:49)
[2018-01-13] MEDS: FOLIC ACID 1 MG TABLET. PO (11:49)
[2018-01-13] MEDS: cloNIDine HCL 0.1 MG TABLET PO ×3 (11:49→20:16)
[2018-01-13] MEDS: MAGNESIUM OXIDE 400 MG TABLET PO ×2 (11:49→20:13)
[2018-01-13] MEDS: LOPERAMIDE 2 MG CAPSULE PO ×4 (11:50→20:13)
[2018-01-13] MEDS: MAGNESIUM SULFATE 2GM 50 ML IV (14:07)
[2018-01-13] MEDS: oxyCODONE/APAP 5/325 1 TAB TABLET PO ×2 (14:50→20:14)
[2018-01-13 15:58] LABS: URIC ACID 2.7 mg/dL (3.5-7.2)
[2018-01-13 17:05] LABS: SEDIMENTATION RATE 15 (0-15)
[2018-01-13] MEDS: IBUPROFEN 200 MG TABLET. PO ×2 (18:26→20:12)
[2018-01-13] MEDS: LACOSAMIDE 200 MG TABLET PO (18:27)
[2018-01-14] MEDS: oxyCODONE/APAP 5/325 1 TAB TABLET PO ×4 (04:27→20:45)
[2018-01-14] MEDS: LACOSAMIDE 200 MG TABLET PO ×2 (06:19→09:36)
[2018-01-14] MEDS: IV NORMAL SALINE 1000ML BAG 1,000 ML IV ×2 (06:20→06:30)
[2018-01-14] MEDS: cloNIDine HCL 0.1 MG TABLET PO ×3 (06:20→23:27)
[2018-01-14 08:46] LABS: MAGNESIUM 1.7 mg/dL (1.8-2.4)
[2018-01-14] MEDS: LOPERAMIDE 2 MG CAPSULE PO ×4 (09:36→20:45)
[2018-01-14] MEDS: CITALOPRAM 20 MG TABLET. PO (09:36)
[2018-01-14] MEDS: MAGNESIUM OXIDE 400 MG TABLET PO ×2 (09:36→20:45)
[2018-01-14] MEDS: THIAMINE 100 MG TABLET. PO (09:36)
[2018-01-14] MEDS: MULTIVITAMIN with MINERAL TABLET. PO (09:36)
[2018-01-14] MEDS: FOLIC ACID 1 MG TABLET. PO (09:37)
[2018-01-14] MEDS: TOPIRAMATE 25 MG TABLET. PO ×2 (09:37→20:46)
[2018-01-14] MEDS: LISINOPRIL 20 MG TABLET PO (09:37)
[2018-01-14] MEDS: IBUPROFEN 200 MG TABLET. PO (09:39)
[2018-01-14] MEDS: MAGNESIUM SULFATE 2GM 50 ML IV (14:25)
[2018-01-14] MEDS: MULTIVIT INFUSN,ADULT 4,VIT K 10 ML, THIAMINE 100 MG, FOLIC ACID 1 MG in IV DEXTROSE 5 ... IV (14:26)
[2018-01-14] MEDS: LORazepam 0.5 MG TABLET PO (14:29)
[2018-01-14] MEDS: LORazepam 1 MG TABLET PO (20:44)
[2018-01-14] MEDS: ONDANSETRON PF 4 MG/2 ML VIAL. IV (21:01)
[2018-01-15] MEDS: oxyCODONE/APAP 5/325 1 TAB TABLET PO ×3 (02:14→21:01)
[2018-01-15] MEDS: LACOSAMIDE 200 MG TABLET PO ×2 (06:21→18:00)
[2018-01-15] MEDS: cloNIDine HCL 0.1 MG TABLET PO ×3 (06:22→21:02)
[2018-01-15] MEDS: ONDANSETRON PF 4 MG/2 ML VIAL. IV ×2 (06:23→21:02)
[2018-01-15] MEDS: LISINOPRIL 20 MG TABLET PO (09:07)
[2018-01-15] MEDS: LOPERAMIDE 2 MG CAPSULE PO ×4 (09:08→21:01)
[2018-01-15] MEDS: FOLIC ACID 1 MG TABLET. PO (09:08)
[2018-01-15] MEDS: CITALOPRAM 20 MG TABLET. PO (09:08)
[2018-01-15] MEDS: MAGNESIUM OXIDE 400 MG TABLET PO ×2 (09:08→21:00)
[2018-01-15] MEDS: MULTIVITAMIN with MINERAL TABLET. PO (09:08)
[2018-01-15] MEDS: TOPIRAMATE 25 MG TABLET. PO ×2 (09:08→21:00)
[2018-01-15] MEDS: THIAMINE 100 MG TABLET. PO (09:08)
[2018-01-15] MEDS: MULTIVIT INFUSN,ADULT 4,VIT K 10 ML, THIAMINE 100 MG, FOLIC ACID 1 MG in IV DEXTROSE 5 ... IV (09:09)
[2018-01-15 14:45] LABS: MAGNESIUM 1.9 mg/dL (1.8-2.4)
[2018-01-15] MEDS: LORazepam 1 MG TABLET PO (21:01)
[2018-01-16] MEDS: LORazepam 0.5 MG TABLET PO ×3 (05:36→21:07)
[2018-01-16] MEDS: LACOSAMIDE 200 MG TABLET PO ×2 (05:36→18:38)
[2018-01-16] MEDS: oxyCODONE/APAP 5/325 1 TAB TABLET PO ×3 (05:36→21:05)
[2018-01-16] MEDS: cloNIDine HCL 0.1 MG TABLET PO ×3 (05:37→21:06)
[2018-01-16] MEDS: ONDANSETRON PF 4 MG/2 ML VIAL. IV (05:37)
[2018-01-16] MEDS: LISINOPRIL 20 MG TABLET PO (08:55)
[2018-01-16] MEDS: MULTIVIT INFUSN,ADULT 4,VIT K 10 ML, THIAMINE 100 MG, FOLIC ACID 1 MG in IV DEXTROSE 5 ... IV (08:55)
[2018-01-16] MEDS: MAGNESIUM OXIDE 400 MG TABLET PO ×2 (08:56→21:04)
[2018-01-16] MEDS: THIAMINE 100 MG TABLET. PO (08:56)
[2018-01-16] MEDS: LOPERAMIDE 2 MG CAPSULE PO ×4 (08:56→21:00)
[2018-01-16] MEDS: CITALOPRAM 20 MG TABLET. PO (08:56)
[2018-01-16] MEDS: MULTIVITAMIN with MINERAL TABLET. PO (08:56)
[2018-01-16] MEDS: TOPIRAMATE 25 MG TABLET. PO ×2 (08:56→21:05)
[2018-01-16] MEDS: FOLIC ACID 1 MG TABLET. PO (08:57)
[2018-01-17] MEDS: LACOSAMIDE 200 MG TABLET PO (05:07)
[2018-01-17] MEDS: cloNIDine HCL 0.1 MG TABLET PO (05:07)
[2018-01-17] MEDS: oxyCODONE/APAP 5/325 1 TAB TABLET PO ×2 (05:08→09:41)
[2018-01-17] MEDS: FOLIC ACID 1 MG TABLET. PO (08:22)
[2018-01-17] MEDS: CITALOPRAM 20 MG TABLET. PO (08:22)
[2018-01-17] MEDS: LISINOPRIL 20 MG TABLET PO (08:23)
[2018-01-17] MEDS: MAGNESIUM OXIDE 400 MG TABLET PO (08:23)
[2018-01-17] MEDS: TOPIRAMATE 25 MG TABLET. PO (08:23)
[2018-01-17] MEDS: LOPERAMIDE 2 MG CAPSULE PO (08:24)
== END 2018-01-17 14:10 | disposition home or self-care (01) | DRG 896 ==
LOC: ER 11:01 → ED HOLD 13:45 → 6 SOUTH 16:25
DX: F10.239 Alcohol dependence with withdrawal, unspecified (principal); G93.41 Metabolic encephalopathy; F11.90 Opioid use, unspecified, uncomplicated; E87.2 Acidosis; I11.0 Hypertensive heart disease with heart failure; E83.42 Hypomagnesemia; I50.9 Heart failure, unspecified; R56.9 Unspecified convulsions; F10.229 Alcohol dependence with intoxication, unspecified; Y90.0 Blood alcohol level of less than 20 mg/100 ml; I80.9 Phlebitis and thrombophlebitis of unspecified site; E87.6 Hypokalemia; R79.89 Other specified abnormal findings of blood chemistry; R00.0 Tachycardia, unspecified; J44.9 Chronic obstructive pulmonary disease, unspecified; K74.60 Unspecified cirrhosis of liver; E86.0 Dehydration; M81.0 Age-related osteoporosis without current pathological fracture; R74.0 Nonspecific elevation of levels of transaminase and lactic acid dehydrogenase [LDH]; Z96.649 Presence of unspecified artificial hip joint; R19.7 Diarrhea, unspecified; Z96.659 Presence of unspecified artificial knee joint; F32.9 Major depressive disorder, single episode, unspecified; F41.9 Anxiety disorder, unspecified; Z81.1 Family history of alcohol abuse and dependence; Z71.41 Alcohol abuse counseling and surveillance of alcoholic
CPT/HCPCS: 36415; 73600; 80048; 80076; 80307; 83605; 83735; 84100; 84484; 84550; 85007; 85025; 85610; 85651; 85730; 87045; 87324; 93005; 93971; 94640; 96361; 96374; 96375; 97116-GP; 97161-GP; 97166-GO; 97530-GO; 97530-GP; 97535-GO; 99285; 99285-25; J2060; J2405; J3475; J7030; J7613

== ENCOUNTER 2018-01-27 11:39 | Emergency (ER) | payer OTHER | END 2018-01-27 13:50 | disposition home or self-care (01) | LOC: ER 11:39 | DX: F10.229 Alcohol dependence with intoxication, unspecified (principal); S01.112A Laceration without foreign body of left eyelid and periocular area, initial encounter; S09.90XA Unspecified injury of head, initial encounter; J44.9 Chronic obstructive pulmonary disease, unspecified; I50.9 Heart failure, unspecified; F12.10 Cannabis abuse, uncomplicated; F11.10 Opioid abuse, uncomplicated; W18.30XA Fall on same level, unspecified, initial encounter; Y93.89 Activity, other specified; Y99.8 Other external cause status; Y92.89 Other specified places as the place of occurrence of the external cause | CPT/HCPCS: 70450; 72125; 99284-25 ==

== ENCOUNTER 2018-01-29 17:22 | Emergency (ER) | payer OTHER ==
[2018-01-29 17:43] LABS: ADD MAN DIFF? NO
[2018-01-29 17:45] LABS: BASO % 0 % (0-3); EOS # 0.1 x10^3/uL (0.0-0.7); EOS % 1 % (0-3); HEMATOCRIT 41.4 % (39.0-53.0); HEMOGLOBIN 14.4 g/dL (13.0-17.5); LYMPH # 1.8 x10^3/uL (1.0-4.8); LYMPH % 26 % (24-48); MEAN CORPUSCULAR HEMOGLOBIN 34 pg (25-35); MEAN CORPUSCULAR HGB CONC 35 g/dL (31-37); MEAN CORPUSCULAR VOLUME 96 fL (79-100); MONO # 0.9 x10^3/uL (0.0-1.1); MONO % 13 % (0-9); NEUT # 4.1 x10^3uL (1.8-7.7); NEUT % 59 % (31-73); PLATELET COUNT 273 x10^3/uL (140-400); RED CELL DISTRIBUTION WIDTH 13.9 % (11.5-14.5); WHITE BLOOD COUNT 6.9 x10^3/uL (4.0-11.0)
[2018-01-29] MEDS: IV DEXTROSE 5 %-0.45 % NACL 1,000 ML IV (17:46)
[2018-01-29 18:25] LABS: ANION GAP 13 (6-14); BLOOD UREA NITROGEN 8 mg/dL (8-26); CALCIUM 9.1 mg/dL (8.5-10.1); CARBON DIOXIDE 25 mmol/L (21-32); CHLORIDE 97 mmol/L (98-107); CREATININE 0.6 mg/dL (0.7-1.3); GFR 139.9; GLUCOSE 94 mg/dL (70-99); POTASSIUM 3.4 mmol/L (3.5-5.1); SODIUM 135 mmol/L (136-145)
[2018-01-29 18:29] LABS: ETHANOL 137 mg/dL (0-10)
[2018-01-29] MEDS: ONDANSETRON PF 4 MG/2 ML VIAL. IV (18:33)
== END 2018-01-29 20:13 | disposition home or self-care (01) ==
LOC: ER 17:22
DX: F10.229 Alcohol dependence with intoxication, unspecified (principal); R56.9 Unspecified convulsions; J44.9 Chronic obstructive pulmonary disease, unspecified; I50.9 Heart failure, unspecified; F12.10 Cannabis abuse, uncomplicated; F11.10 Opioid abuse, uncomplicated
CPT/HCPCS: 36415; 80048; 85025; 96361; 96374; 96375; 99285-25; G0480; J2060; J2405

== ENCOUNTER 2018-03-16 21:14 | Emergency (ER) | payer OTHER ==
[2018-03-16] MEDS: IV NORMAL SALINE 1000ML BAG 1,000 ML IV ×2 (00:23→22:51)
[2018-03-16] MEDS ORDERED: ZIPRASIDONE IM 20 MG VIAL. IM (22:02)
[2018-03-16] MEDS: ZIPRASIDONE IM 20 MG VIAL. IM (22:29)
[2018-03-16 22:37] LABS: TROPONINI < 0.017 ng/mL (0.000-0.055)
[2018-03-16] MEDS: THIAMINE 100 MG in IV NORMAL SALINE 50ML 50 ML IV (22:50)
[2018-03-16 23:39] LABS: AMPHETAMINE/METHAMPHETAMINE NEG (NEG); BARBITURATES NEG (NEG); BENZODIAZEPINES NEG (NEG); CANNABINOIDS POS (NEG); COCAINE POS (NEG); ETHANOL, URINE POS (NEG); METHADONE NEG (NEG); OPIATES NEG (NEG); PHENCYCLIDINE NEG (NEG)
[2018-03-17 01:47] LABS: ANION GAP 16 (6-14); BLOOD UREA NITROGEN 11 mg/dL (8-26); CALCIUM 8.2 mg/dL (8.5-10.1); CARBON DIOXIDE 25 mmol/L (21-32); CHLORIDE 100 mmol/L (98-107); CREATININE 0.9 mg/dL (0.7-1.3); GFR 87.6; GLUCOSE 93 mg/dL (70-99); POTASSIUM 3.5 mmol/L (3.5-5.1); SODIUM 141 mmol/L (136-145)
[2018-03-17] MEDS: IV NORMAL SALINE 1000ML BAG 1,000 ML IV (02:45)
[2018-03-17] MEDS ORDERED: IBUPROFEN 600 MG TABLET. PO (02:56)
[2018-03-17] MEDS: IBUPROFEN 600 MG TABLET. PO (05:11)
== END 2018-03-17 03:51 | disposition home or self-care (01) ==
LOC: ER 03-17 03:51
DX: F10.229 Alcohol dependence with intoxication, unspecified (principal); E86.0 Dehydration; J44.9 Chronic obstructive pulmonary disease, unspecified; I50.9 Heart failure, unspecified; F12.10 Cannabis abuse, uncomplicated; F11.10 Opioid abuse, uncomplicated
CPT/HCPCS: 36415; 70450; 80048; 80307; 84484; 93005; 96361; 96365; 96366; 96372; 96375; 99285; 99285-25; J2060; J3486; J7030

== ENCOUNTER 2018-03-17 15:06 | Inpatient (IN) | payer OTHER ==
[2018-03-17 15:59] LABS: ADD MAN DIFF? NO
[2018-03-17] MEDS: MULTIVIT INFUSN,ADULT 4,VIT K 10 ML, THIAMINE 100 MG, FOLIC ACID 1 MG in IV NORMAL SALI... IV (15:59)
[2018-03-17 16:01] LABS: BASO # 0.1 x10^3/uL (0.0-0.2); BASO % 2 % (0-3); EOS % 1 % (0-3); HEMATOCRIT 41.4 % (39.0-53.0); HEMOGLOBIN 14.1 g/dL (13.0-17.5); LYMPH # 1.6 x10^3/uL (1.0-4.8); LYMPH % 36 % (24-48); MEAN CORPUSCULAR HEMOGLOBIN 33 pg (25-35); MEAN CORPUSCULAR HGB CONC 34 g/dL (31-37); MEAN CORPUSCULAR VOLUME 95 fL (79-100); MONO # 0.5 x10^3/uL (0.0-1.1); MONO % 10 % (0-9); NEUT # 2.3 x10^3uL (1.8-7.7); NEUT % 52 % (31-73); PLATELET COUNT 129 x10^3/uL (140-400); RED BLOOD COUNT 4.34 x10^6/uL (4.30-5.70); RED CELL DISTRIBUTION WIDTH 13.7 % (11.5-14.5); WHITE BLOOD COUNT 4.5 x10^3/uL (4.0-11.0)
[2018-03-17 16:11] LABS: INR 0.9 (0.8-1.1); PARTIAL THROMBOPLASTIN TIME 29 SEC (24-38); PROTHROMBIN TIME PATIENT 11.7 SEC (11.7-14.0)
[2018-03-17 16:12] LABS: ANION GAP 15 (6-14); BLOOD UREA NITROGEN 11 mg/dL (8-26); CALCIUM 8.2 mg/dL (8.5-10.1); CARBON DIOXIDE 24 mmol/L (21-32); CHLORIDE 104 mmol/L (98-107); CREATININE 0.9 mg/dL (0.7-1.3); GFR 87.6; GLUCOSE 99 mg/dL (70-99); POTASSIUM 3.9 mmol/L (3.5-5.1); SODIUM 143 mmol/L (136-145)
[2018-03-17] MEDS ORDERED: diphenhydrAMINE 50 MG/ML VIAL IVP (16:15)
[2018-03-17] MEDS ORDERED: HALOPERIDOL LACTATE 5 MG/ML VIAL. IVP (16:15)
[2018-03-17 16:18] LABS: ALBUMIN 3.5 g/dL (3.4-5.0); ALK PHOS 93 U/L (46-116); ALT (SGPT) 210 U/L (16-63); AST (SGOT) 264 U/L (15-37); DIRECT BILIRUBIN 0.1 mg/dL (0.0-0.2); MAGNESIUM 1.6 mg/dL (1.8-2.4); TOTAL BILIRUBIN 0.5 mg/dL (0.2-1.0); TOTAL PROTEIN 7.5 g/dL (6.4-8.2)
[2018-03-17 16:28] LABS: ETHANOL 456 mg/dL (0-10)
[2018-03-17] MEDS: IV NORMAL SALINE 1000ML BAG 1,000 ML IV (20:08)
[2018-03-18] MEDS: IV NORMAL SALINE 1000ML BAG 1,000 ML IV ×2 (08:34)
[2018-03-18] MEDS: ONDANSETRON PF 4 MG/2 ML VIAL. IV ×2 (09:25→23:19)
[2018-03-18] MEDS: MULTIVIT INFUSN,ADULT 4,VIT K 10 ML, THIAMINE 100 MG, FOLIC ACID 1 MG in IV NORMAL SALI... IV (09:25)
[2018-03-18 09:41] LABS: ADD MAN DIFF? NO
[2018-03-18 10:03] LABS: ANION GAP 16 (6-14); BLOOD UREA NITROGEN 8 mg/dL (8-26); CALCIUM 7.9 mg/dL (8.5-10.1); CARBON DIOXIDE 22 mmol/L (21-32); CHLORIDE 101 mmol/L (98-107); CREATININE 0.6 mg/dL (0.7-1.3); GFR 139.9; GLUCOSE 117 mg/dL (70-99); POTASSIUM 3.1 mmol/L (3.5-5.1); SODIUM 139 mmol/L (136-145)
[2018-03-18 10:43] LABS: BASO # 0.1 x10^3/uL (0.0-0.2); BASO % 1 % (0-3); EOS # 0.1 x10^3/uL (0.0-0.7); EOS % 2 % (0-3); HEMATOCRIT 39.9 % (39.0-53.0); HEMOGLOBIN 13.4 g/dL (13.0-17.5); LYMPH # 1.4 x10^3/uL (1.0-4.8); LYMPH % 21 % (24-48); MEAN CORPUSCULAR HEMOGLOBIN 33 pg (25-35); MEAN CORPUSCULAR HGB CONC 34 g/dL (31-37); MEAN CORPUSCULAR VOLUME 97 fL (79-100); MONO # 0.5 x10^3/uL (0.0-1.1); MONO % 7 % (0-9); NEUT # 4.6 x10^3uL (1.8-7.7); NEUT % 69 % (31-73); PLATELET COUNT 109 x10^3/uL (140-400); RED BLOOD COUNT 4.13 x10^6/uL (4.30-5.70); RED CELL DISTRIBUTION WIDTH 13.5 % (11.5-14.5); WHITE BLOOD COUNT 6.7 x10^3/uL (4.0-11.0)
[2018-03-18] MEDS ORDERED: IBUPROFEN 200 MG PO (14:00)
[2018-03-18] MEDS ORDERED: ALBUTEROL SULFATE 2.5 MG/3 ML NEBU. NEB (14:30)
[2018-03-18] MEDS: TOPIRAMATE 25 MG TABLET. PO ×2 (15:00→20:10)
[2018-03-18] MEDS: CITALOPRAM 20 MG TABLET. PO (15:00)
[2018-03-18] MEDS: IBUPROFEN 200 MG TABLET. PO ×2 (15:01→20:11)
[2018-03-18] MEDS: LISINOPRIL 20 MG TABLET PO (15:12)
[2018-03-18] MEDS: IPRATRPIUM/ALBUTEROL 0.5/2.5MG 3 ML NEBU. NEB ×2 (15:15→20:02)
[2018-03-18] MEDS: LACOSAMIDE 200 MG TABLET PO (17:20)
[2018-03-18 19:11] LABS: BILIRUBIN,URINE NEGATIVE (NEG); CLARITY,URINE CLEAR; COLOR,URINE YELLOW; GLUCOSE,URINE NEGATIVE (NEG); NITRITE,URINE NEGATIVE (NEG); PROTEIN,URINE NEGATIVE (NEG-TRACE)
[2018-03-18 19:17] LABS: AMPHETAMINE/METHAMPHETAMINE NEG (NEG); BARBITURATES NEG (NEG); BENZODIAZEPINES NEG (NEG); CANNABINOIDS NEG (NEG); COCAINE NEG (NEG); ETHANOL, URINE NEG (NEG); METHADONE NEG (NEG); OPIATES NEG (NEG); PHENCYCLIDINE NEG (NEG)
[2018-03-18 19:19] LABS: BACTERIA,URINE 0 /HPF (0-FEW); RBC,URINE 0 /HPF (0-2); SQUAMOUS EPITHELIAL CELL,UR OCC /LPF; WBC,URINE OCC /HPF (0-4)
[2018-03-18] MEDS: MAGNESIUM OXIDE 400 MG TABLET PO (20:11)
[2018-03-19] MEDS: IBUPROFEN 200 MG TABLET. PO (03:12)
[2018-03-19 04:51] LABS: ADD MAN DIFF? NO
[2018-03-19 04:54] LABS: BASO % 1 % (0-3); EOS # 0.2 x10^3/uL (0.0-0.7); EOS % 4 % (0-3); HEMATOCRIT 42.7 % (39.0-53.0); HEMOGLOBIN 14.8 g/dL (13.0-17.5); LYMPH # 1.8 x10^3/uL (1.0-4.8); LYMPH % 33 % (24-48); MEAN CORPUSCULAR HEMOGLOBIN 33 pg (25-35); MEAN CORPUSCULAR HGB CONC 35 g/dL (31-37); MEAN CORPUSCULAR VOLUME 95 fL (79-100); MONO # 0.7 x10^3/uL (0.0-1.1); MONO % 14 % (0-9); NEUT # 2.7 x10^3uL (1.8-7.7); NEUT % 49 % (31-73); PLATELET COUNT 100 x10^3/uL (140-400); RED BLOOD COUNT 4.51 x10^6/uL (4.30-5.70); RED CELL DISTRIBUTION WIDTH 13.5 % (11.5-14.5); WHITE BLOOD COUNT 5.4 x10^3/uL (4.0-11.0)
[2018-03-19 05:16] LABS: ALBUMIN 3.3 g/dL (3.4-5.0); ALBUMIN/GLOBULIN RATIO 0.9 (1.0-1.7); ALK PHOS 90 U/L (46-116); ALT (SGPT) 167 U/L (16-63); ANION GAP 8 (6-14); AST (SGOT) 160 U/L (15-37); BLOOD UREA NITROGEN 8 mg/dL (8-26); BUN/CREATININE RATIO 11 (6-20); CALCIUM 8.8 mg/dL (8.5-10.1); CARBON DIOXIDE 28 mmol/L (21-32); CHLORIDE 100 mmol/L (98-107); CREATININE 0.7 mg/dL (0.7-1.3); GFR 117.1; GLUCOSE 96 mg/dL (70-99); POTASSIUM 3.5 mmol/L (3.5-5.1); SODIUM 136 mmol/L (136-145); TOTAL BILIRUBIN 1.3 mg/dL (0.2-1.0); TOTAL PROTEIN 7.1 g/dL (6.4-8.2)
[2018-03-19] MEDS: LACOSAMIDE 200 MG TABLET PO ×2 (05:52→17:23)
[2018-03-19] MEDS: IPRATRPIUM/ALBUTEROL 0.5/2.5MG 3 ML NEBU. NEB ×4 (07:38→19:58)
[2018-03-19] MEDS: LISINOPRIL 20 MG TABLET PO (08:43)
[2018-03-19] MEDS: CITALOPRAM 20 MG TABLET. PO (08:43)
[2018-03-19] MEDS: MULTIVITAMIN with MINERAL TABLET. PO (08:43)
[2018-03-19] MEDS: THIAMINE 100 MG TABLET. PO (08:44)
[2018-03-19] MEDS: FOLIC ACID 1 MG TABLET. PO (08:44)
[2018-03-19] MEDS: MAGNESIUM OXIDE 400 MG TABLET PO ×2 (08:44→21:34)
[2018-03-19] MEDS: TOPIRAMATE 25 MG TABLET. PO ×2 (08:44→21:34)
[2018-03-19] MEDS ORDERED: THIAMINE HCL 100 MG PO (09:00)
[2018-03-19] MEDS ORDERED: [UNRECOGNIZED DRUG - OTHER] PO (09:00)
[2018-03-19] MEDS ORDERED: FOLIC ACID 1 MG TABLET. PO (09:00)
[2018-03-19] MEDS: CHLORDIAZEPOXIDE/CLIDINIUM 5MG/2.5MG CAPSULE. PO (09:54)
[2018-03-19] MEDS: IBUPROFEN 400 MG TABLET. PO (11:50)
[2018-03-20] MEDS: LACOSAMIDE 200 MG TABLET PO ×2 (05:10→17:47)
[2018-03-20] MEDS: IPRATRPIUM/ALBUTEROL 0.5/2.5MG 3 ML NEBU. NEB ×4 (07:01→19:54)
[2018-03-20] MEDS: MAGNESIUM OXIDE 400 MG TABLET PO ×2 (09:36→21:45)
[2018-03-20] MEDS: ALPRAZolam 0.5 MG TABLET PO (09:36)
[2018-03-20] MEDS: CITALOPRAM 20 MG TABLET. PO (09:36)
[2018-03-20] MEDS: TOPIRAMATE 25 MG TABLET. PO ×2 (09:37→21:45)
[2018-03-20] MEDS: LISINOPRIL 20 MG TABLET PO (09:37)
[2018-03-20] MEDS: THIAMINE 100 MG TABLET. PO (09:37)
[2018-03-20] MEDS: MULTIVITAMIN with MINERAL TABLET. PO (09:37)
[2018-03-20] MEDS: FOLIC ACID 1 MG TABLET. PO (09:37)
[2018-03-20] MEDS: CHLORDIAZEPOXIDE/CLIDINIUM 5MG/2.5MG CAPSULE. PO ×3 (11:17→21:45)
[2018-03-20] MEDS: NICOTINE 21MG PATCH. TD (15:42)
[2018-03-21] MEDS: ONDANSETRON PF 4 MG/2 ML VIAL. IV (01:19)
[2018-03-21] MEDS: LACOSAMIDE 200 MG TABLET PO ×2 (06:00→17:16)
[2018-03-21] MEDS: FOLIC ACID 1 MG TABLET. PO (08:31)
[2018-03-21] MEDS: NICOTINE 21MG PATCH. TD (08:31)
[2018-03-21] MEDS: MAGNESIUM OXIDE 400 MG TABLET PO ×2 (08:31→21:27)
[2018-03-21] MEDS: THIAMINE 100 MG TABLET. PO (08:32)
[2018-03-21] MEDS: MULTIVITAMIN with MINERAL TABLET. PO (08:32)
[2018-03-21] MEDS: CHLORDIAZEPOXIDE/CLIDINIUM 5MG/2.5MG CAPSULE. PO ×3 (08:32→17:16)
[2018-03-21] MEDS: CITALOPRAM 20 MG TABLET. PO (08:32)
[2018-03-21] MEDS: LISINOPRIL 20 MG TABLET PO (08:32)
[2018-03-21] MEDS: IPRATRPIUM/ALBUTEROL 0.5/2.5MG 3 ML NEBU. NEB ×4 (08:36→20:03)
[2018-03-21] MEDS: TOPIRAMATE 25 MG TABLET. PO ×2 (09:00→21:27)
[2018-03-21] MEDS: GABAPENTIN 300 MG CAPSULE. PO (15:48)
[2018-03-22] MEDS: IBUPROFEN 400 MG TABLET. PO ×2 (02:18→15:52)
[2018-03-22 04:28] LABS: HEMATOCRIT 42.6 % (39.0-53.0); HEMOGLOBIN 14.5 g/dL (13.0-17.5); MEAN CORPUSCULAR HEMOGLOBIN 33 pg (25-35); MEAN CORPUSCULAR HGB CONC 34 g/dL (31-37); MEAN CORPUSCULAR VOLUME 98 fL (79-100); PLATELET COUNT 140 x10^3/uL (140-400); RED BLOOD COUNT 4.36 x10^6/uL (4.30-5.70); RED CELL DISTRIBUTION WIDTH 13.9 % (11.5-14.5); WHITE BLOOD COUNT 6.7 x10^3/uL (4.0-11.0)
[2018-03-22 05:10] LABS: ALBUMIN 3.5 g/dL (3.4-5.0); ALBUMIN/GLOBULIN RATIO 0.8 (1.0-1.7); ALK PHOS 86 U/L (46-116); ALT (SGPT) 130 U/L (16-63); ANION GAP 13 (6-14); AST (SGOT) 75 U/L (15-37); BLOOD UREA NITROGEN 14 mg/dL (8-26); BUN/CREATININE RATIO 23 (6-20); CALCIUM 9.1 mg/dL (8.5-10.1); CARBON DIOXIDE 21 mmol/L (21-32); CHLORIDE 102 mmol/L (98-107); CREATININE 0.6 mg/dL (0.7-1.3); GFR 139.9; GLUCOSE 97 mg/dL (70-99); POTASSIUM 3.5 mmol/L (3.5-5.1); SODIUM 136 mmol/L (136-145); TOTAL BILIRUBIN 0.8 mg/dL (0.2-1.0); TOTAL PROTEIN 7.7 g/dL (6.4-8.2)
[2018-03-22] MEDS: LACOSAMIDE 200 MG TABLET PO (06:42)
[2018-03-22] MEDS: IPRATRPIUM/ALBUTEROL 0.5/2.5MG 3 ML NEBU. NEB ×3 (08:29→14:46)
[2018-03-22] MEDS: TOPIRAMATE 25 MG TABLET. PO (09:06)
[2018-03-22] MEDS: MULTIVITAMIN with MINERAL TABLET. PO (09:06)
[2018-03-22] MEDS: GABAPENTIN 300 MG CAPSULE. PO (09:06)
[2018-03-22] MEDS: THIAMINE 100 MG TABLET. PO (09:07)
[2018-03-22] MEDS: LISINOPRIL 20 MG TABLET PO (09:07)
[2018-03-22] MEDS: CITALOPRAM 20 MG TABLET. PO (09:07)
[2018-03-22] MEDS: NICOTINE 21MG PATCH. TD (09:07)
[2018-03-22] MEDS: MAGNESIUM OXIDE 400 MG TABLET PO (09:07)
[2018-03-22] MEDS: FOLIC ACID 1 MG TABLET. PO (09:07)
== END 2018-03-22 16:33 | disposition home or self-care (01) | DRG 917 ==
LOC: ER 15:06 → 5 NORTH 15:50
DX: T51.0X1A Toxic effect of ethanol, accidental (unintentional), initial encounter (principal); J96.21 Acute and chronic respiratory failure with hypoxia; G20 Parkinson's disease; F10.239 Alcohol dependence with withdrawal, unspecified; I11.0 Hypertensive heart disease with heart failure; I50.9 Heart failure, unspecified; R41.82 Altered mental status, unspecified; F17.200 Nicotine dependence, unspecified, uncomplicated; G25.0 Essential tremor; G62.1 Alcoholic polyneuropathy; I73.9 Peripheral vascular disease, unspecified; J44.9 Chronic obstructive pulmonary disease, unspecified; K74.60 Unspecified cirrhosis of liver; M81.0 Age-related osteoporosis without current pathological fracture; Z96.642 Presence of left artificial hip joint; Z96.659 Presence of unspecified artificial knee joint; Z91.19 Patient's noncompliance with other medical treatment and regimen; Y92.89 Other specified places as the place of occurrence of the external cause
CPT/HCPCS: 36415; 70450; 80048; 80053; 80076; 80307; 81001; 83735; 84484; 85025; 85027; 85610; 85730; 93005; 94640; 94760; 96365; 96375; 99285; 99285-25; G0480; J2060; J2405; J7030; J7620

== ENCOUNTER 2018-04-09 10:38 | Emergency (ER) | payer OTHER ==
[2018-04-09 11:34] LABS: POC GLUCOSE 102 mg/dL (70-99)
== END 2018-04-09 11:30 | disposition home or self-care (01) ==
LOC: ER 10:38
DX: F10.229 Alcohol dependence with intoxication, unspecified (principal); F12.10 Cannabis abuse, uncomplicated; F11.10 Opioid abuse, uncomplicated; J44.9 Chronic obstructive pulmonary disease, unspecified; I50.9 Heart failure, unspecified; Z96.659 Presence of unspecified artificial knee joint
CPT/HCPCS: 82962; 99284